=== PATIENT | female | born 2000 | race Caucasian/White ===

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

== ENCOUNTER 2022-12-02 14:23 | Emergency (ER) | payer OTHER, SELFPAY ==
[2022-12-02 14:24] VITALS: BP 128/70; PULSE 96; RESP 16; TEMP 36.6; O2SAT 100; BMI 27.4
--- NOTE | 2022-12-02 14:42 | US_ITS ---
INDICATION: pelvic pain EXAMINATION: Ultrasound US OB Transvaginal TECHNIQUE: Transvaginal (for optimal evaluation of the adnexa) pelvic ultrasound was performed. Grayscale, spectral waveform, and color flow Doppler evaluation of the adnexa. COMPARISON: None. LMP: [October 15, 2022 corresponding to an ION of July 22, 2023. Beta-hCG: Unknown FINDINGS: UTERUS: 10.6 x 5.3 x 7.9 cm. RIGHT OVARY: 2.8 x 2.0 x 3.1 cm. There appears to be a corpus luteal cyst within the right ovary. LEFT OVARY: 2.8 x 2.0 x 2.5 cm. Normal. FREE FLUID: None. INTRAUTERINE GESTATIONAL SAC(s) (size/shape): Single. The mean sac diameter measures 1.09 cm corresponding to gestational age of 5 weeks and 6 days. YOLK SAC: Identified POLE: Identified. The crown-rump length measures 0.41 cm corresponding to gestational age of 6 weeks and 2 days. ESTIMATED GESTATION AGE by ultrasound: 6 weeks and 2 days corresponding to an ION of July 27, 2023. HEART MOTION: 101 bpm. PLACENTA: Not visualized due to age. SUBCHORIONIC HEMORRHAGE: None. AMNIOTIC FLUID: Qualitatively normal. US/Transvaginal w/Preg US IMPRESSION: Single live intrauterine with an estimated gestational age by ultrasound of 6 weeks and 1 day. Electronically Signed: Kelly Hernandes MD at 16:04 [facility] ,
--- NOTE | 2022-12-02 14:45 | EDS_ITS ---
HPI <JAMES Whittington - Last Filed: 12/02/22 16:13> HPI - Female History of Present Illness Chief Complaint: Narrative Narrative: 22-year-old female with no stated medical history who is a 1 para 0 0 presents to the emergency department with pain to her right pelvis. Patient states that she is 7 weeks , she has not seen NEWS WIRE PHOTO OPERATOR yet at this time. Patient states that for the last 3 days, she had sharp shooting pain to her right pelvis. Patient is concerned. Denies any vaginal bleeding. She denies any fever or chills. Patient states she is nauseous however she believe this is normal. She also complains of intermittent headaches. She has not taken anything for headaches or pain. PFSH <JAMES Whittington - Last Filed: 12/02/22 16:13> PFS Medical History no medical history Home Medications cephalexin 500 mg capsule 500 mg PO BID #10 caps 12/02/22 [Rx Last Taken Unknown] Allergy/AdvReac Type Severity Reaction Status Date / Time amoxicillin AdvReac PT UNSURE Verified 12/02/22 14:27 OF REACTION Family History no significant family his Surgical History no surgical history Social History Smoking Status: Never smoker ROS <JAMES Whittington - Last Filed: 12/02/22 16:13> ROS ED ROS Narrative Constitutional: Negative for fever, chills, weight loss, weakness Eyes: Negative for vision loss, vision change, double vision ENT: Negative for any sore throat, ear pain, congestion Cardiovascular: Negative for any chest pain, tightness, palpitations Respiratory: Negative for any cough, sputum production, hemoptysis, dyspnea, dyspnea on exertion, orthopnea Gastrointestinal: Negative for any nausea, vomiting, diarrhea, constipation, blo od in stool, blood in vomit. Positive for lower abdominal pain, pelvic pain : Negative for any urinary frequency, dysuria, retention, blood in urine Muscle skeletal: Negative for any muscle joint pain, stiffness, myalgias, arthralgias, neck pain, back pain Neurological: Negative for any headache, syncope, numbness or tingling, dizziness Skin: Negative for any rashes, lumps, itching, abrasions, lacerations Psychiatric: Negative for any depression, anxiety, stress, suicidal ideation, homicidal ideation Hematologic: Negative for any easy bruising, excessive bruising, easy bleeding Allergies: Negative for any eczema, hives, rash EXAM <JAMES Whittington - Last Filed: 12/02/22 16:13> Physical Exam Narrative Exam Narrative: Vital signs reviewed. Patient appears to be in no distress. HEET: Head normocephalic atraumatic, TMs clear bilaterally. Posterior pharynx is clear, moist mucous membranes. Nares clear bilaterally. Neck: Supple with no lymphadenopathy or tenderness. No signs of meningismus, negative jolt sign. Cardiac: Regular rate and rhythm no murmurs gallops or rubs, equal peripheral pulses bilaterally. Respiratory: Lungs clear to auscultation bilaterally. No chest tenderness. Abdomen: Soft, nontender, nondistended. No abdominal bruit or pulsatile masses. No hepatosplenomegaly Extremities: No peripheral edema, no signs of gross trauma or deformity. Active full range of motion of all extremities. Neuro: Cranial nerves II through XII intact, no focal neurological deficits. Skin: Clean dry and intact with no rash, purpura, petechiae, vesicles or pustules. Backs/flank: No CVA tenderness, no midline spinal tenderness, no deformity. Psych: Normal mood and affect. No SI, HI or acute psychosis. Const Vital Signs: 12/02/22 14:24 Temperature 98 F Temperature Source Temporal Pulse Rate 96 Respiratory Rate 16 Blood Pressure 128/70 H Blood Pressure Mean 89 Pulse Ox 100 Oxygen Delivery Method Room Air <Dr. Fili Stratton DO - Last Filed: 12/02/22 21:17> Physical Exam Const Vital Signs: 12/02/22 14:24 Temperature 98 F Temperature Source Temporal Pulse Rate 96 Respiratory Rate 16 Blood Pressure 128/70 H Blood Pressure Mean 89 Pulse Ox 100 Oxygen Delivery Method Room Air [facility] <JAMES Whittington - Last Filed: 12/02/22 16:13> [facility] Lab Data Labs: Laboratory Results - last 24 hr 12/02/22 12/02/22 12/02/22 14:45 14:45 14:45 WBC 9.2 RBC 4.36 Hgb 12.9 Hct 38.9 MCV 89.2 MCH 29.6 MCHC 33.2 RDW Std Deviation 40.0 RDW Coeff of Samira 12.1 Plt Count 300 MPV 9.5 Immature Gran % (Auto) 0.200 Neut % (Auto) 66.0 Lymph % (Auto) 25.7 [place] % (Auto) 5.8 Eos % (Auto) 1.6 Baso % (Auto) 0.7 Absolute Neuts (auto) 6.1 Absolute Lymphs (auto) 2.36 Nucleated RBC % 0 HCG, Quant 87093 H Urine Color Yellow Urine Clarity Clear Urine pH 6.5 Ur Specific [place] 1.010 Urine Protein Negative Urine Glucose (UA) Normal Urine Ketones Negative Urine Occult Blood Negative Urine Nitrite Negative Urine Bilirubin Negative Urine Urobilinogen Normal Ur Leukocyte Esterase 25 H Urine RBC 0 SEEN Urine WBC 0 SEEN Ur Squamous Epith Cells 0-5 SEEN Urine Bacteria RARE Urine Mucus 0 SEEN Radiography Diagnostic Testing: Clinical Impression(s) from Imaging Studies Obstetrics Ultrasound 12/02/22 14:42 IMPRESSION: Single live intrauterine with an estimated gestational age by ultrasound of 6 weeks and 1 day. Electronically Signed: Kelly Hernandes MD at 16:04 EST , Treatment and Re-Evaluation Narrative: All radiologic examinations were read, reviewed by the emergency department attending. From these reads, a plan of care will be put in place. Patient appears generally well, patient is in no distress. Patient presents the emergency department with right-sided pelvic pain has been getting worse today, patient is concerned secondary to the . Patient believes she is close to around 7 weeks. She has not seen NEWS WIRE PHOTO OPERATOR yet. Patient did receive laboratory values, patient CBC was unremarkable, patient's hCG quantitative was 17,028, is within normal limits. Patient's urinalysis did show rare bacteria, positive for leukocyte Estrace, patient be treated with Keflex. She will be placed on this twice a day for 5 days. She did receive a transvaginal ultrasound, this did show a single live intrauterine with estimated gestational age of 6 weeks and 1 day. It did note that the patient's fetus heart rate was 99, the patient was made aware of this and will follow-up with her NEWS WIRE PHOTO OPERATOR. At this time, patient looks generally well. I did speak with her significant other who is in the room with her. Patient was given return precautions. She will follow-up closely with her NEWS WIRE PHOTO OPERATOR. <Dr. Fili Stratton, DO - Last Filed: 12/02/22 21:17> MDM MDM Narrative Medical decision making narrative: Interventions / MDM: Differential diagnosis:Pelvic pain in , ectopic , threatened AB Diagnosis considered but do not suspect: N/A My EKG interpretation: N/A Imaging independently reviewed and interpreted by myself: N/A External documents reviewed: N/A Test considered but not ordered:N/A ED course: Attending note: Patient seen and evaluated with director of plant operations. I perform my own [id number] evaluation. I agree with the plan of work-up. Lower pelvic cramping for the past week. Home +2 weeks ago. Last menstrual period approximately 6 weeks ago. Has an OB appointment in 4 days. States slight burning of urine today. No fevers. Denies alcohol tobacco or illicit drug use. She is on vitamins. Exam soft abdomen. Work-up hCG 1700. Ultrasound 6 weeks 1 day heart tones 101. Urine with leukocytes, she symptomatic. Culture sent. She started on Keflex. Pelvic rest discussed. Follow-up with her OB. Return precautions. Re-evaluation: stable Disposition discussed with patient/family/significant other: Patient and significant other Case discussed with consulting clinician: N/A Lab Data Attestation: I reviewed the patient's lab results. Labs: Laboratory Results - last 24 hr 12/02/22 12/02/22 12/02/22 14:45 14:45 14:45 WBC 9.2 RBC 4.36 Hgb 12.9 Hct 38.9 MCV 89.2 MCH 29.6 MCHC 33.2 RDW Std Deviation 40.0 RDW Coeff of Samira 12.1 Plt Count 300 MPV 9.5 Immature Gran % (Auto) 0.200 Neut % (Auto) 66.0 Lymph % (Auto) 25.7 [place] % (Auto) 5.8 Eos % (Auto) 1.6 Baso % (Auto) 0.7 Absolute Neuts (auto) 6.1 Absolute Lymphs (auto) 2.36 Nucleated RBC % 0 HCG, Quant 34711 H Urine Color Yellow Urine Clarity Clear Urine pH 6.5 Ur Specific [place] 1.010 Urine Protein Negative Urine Glucose (UA) Normal Urine Ketones Negative Urine Occult Blood Negative Urine Nitrite Negative Urine Bilirubin Negative Urine Urobilinogen Normal Ur Leukocyte Esterase 25 H Urine RBC 0 SEEN Urine WBC 0 SEEN Ur Squamous Epith Cells 0-5 SEEN Urine Bacteria RARE Urine Mucus 0 SEEN Radiography Diagnostic Testing: Clinical Impression(s) from Imaging Studies Obstetrics Ultrasound 12/02/22 14:42 IMPRESSION: Single live intrauterine with an estimated gestational age by ultrasound of 6 weeks and 1 day. Electronically Signed: Kelly Hernandes MD at 16:04 EST , Discharge Plan Triage Chief Complaint: ED Midlevel Provider: Aldo Baptiste ED Provider: Fili Stratton Dx/Rx/DC Orders Clinical Impression: Pelvic pain, , UTI (urinary tract infection) Instructions: Urinary Tract Infections in Women, 1st Trimester, ED Pelvic Pain, Unknown Cause Prescriptions: New cephalexin 500 mg capsule 500 mg PO BID Qty: 10 0RF Primary Care Provider: Lyla Enriquez Referrals: [facility] Doctor,Out of [Non-Staff] - Activity Restrictions/Additional Instructions: Follow-up with your NEWS WIRE PHOTO OPERATOR Disposition Disposition: Home, Self Care Discharge Date/Time: 12/02/22 16:19
[2022-12-02 14:54] LABS: Mucous, Urine 0 SEEN /hpf (<or=2+); Red Blood Cells-Urine 0 SEEN /hpf (0-5); White Blood Cells 0 SEEN /hpf (0-5)
[2022-12-02 15:01] LABS: Absolute Lymphocyte Count 2.36 X10^3/uL (0.83-4.51); Absolute Neutrophil Count 6.1 X10^3/uL (2.0-7.7); Basophil# 0.06 X10^3/uL; Basophil% 0.7 % (0-1); Eosinophil# 0.15 X10^3/uL; Eosinophils% 1.6 % (0-5); Hematocrit 38.9 % (37-47); Hemoglobin 12.9 g/dL (12.0-15.0); Lymphocyte # 2.36 X10^3/ul (0.83-4.51); Lymphocyte % 25.7 % (19-41); Mean Corp Hgb Conc 33.2 g/dL (32-36); Mean Corpuscular Hgb 29.6 pg (27.0-32.0); Mean Corpuscular Volume 89.2 fL (81-99); Mean Platelet Vol. 9.5 fl (6.2-12.0); Monocyte# 0.53 X10^3/uL; Monocyte% 5.8 % (0-10); NRBC Flagged by Analyzer 0 % (0-5); Neutrophil # 6.06 X10^3/uL (2.7-7.7); Platelet Count 300 K/mm3 (150-450); RBC Distribution Width CV 12.1 % (11.6-14.6); Red Blood Count 4.36 M/mm3 (4.2-5.4); White Blood Count 9.2 K/mm3 (4.4-11.0)
[2022-12-02 15:03] LABS: Color, Urine Yellow (Yellow); Glucose, Dipstick Normal (Normal); Ketone-Dipstick Negative (Negative); Leukocyte Esterase-Dipstick 25 /ul (Negative); Nitrite-Dipstick Negative (Negative); Occult Blood-Urine Negative /ul (Negative); Protein-Dipstick Negative (Negative); Urine Bilirubin Dipstick Negative (Negative); Urine Clarity Clear (Clear); Urine Urobilinogen Normal (Normal); Urine pH 6.5 (5.0 - 8.0)
[2022-12-02 15:19] LABS: Bacteria RARE /hpf (None Seen); Squamous Epithelial Cells - UA 0-5 SEEN /hpf (5-10)
[2022-12-02 15:50] LABS: hCG Titer Quant., Serum 17028 mIU/mL (1-3)
[2022-12-02] MEDS: Cephalexin 250 MG Capsule 500 MG PO (15:58)
== END 2022-12-02 16:19 | disposition home or self-care (01) ==
PROVIDERS: Nurse Practitioner; Emergency Provider Emergency Medicine; PCP Internal Medicine; Visit Provider Emergency Medicine
DX: O26.891 Other specified pregnancy related conditions, first trimester (principal); R10.2 Pelvic and perineal pain; O23.41 Unspecified infection of urinary tract in pregnancy, first trimester; Z3A.01 Less than 8 weeks gestation of pregnancy
CPT/HCPCS: 76817; 81001; 84702; 85025; 87086; 87088; 99283; A4216

== ENCOUNTER → 2022-12-05 | Outpatient (CLI) | payer OTHER, SELFPAY ==
[2022-12-05 17:02] LABS: Absolute Lymphocyte Count 2.77 X10^3/uL (0.83-4.51); Absolute Neutrophil Count 7.7 X10^3/uL (2.0-7.7); Basophil# 0.06 X10^3/uL; Basophil% 0.5 % (0-1); Eosinophil# 0.16 X10^3/uL; Eosinophils% 1.4 % (0-5); Hematocrit 40.1 % (37-47); Hemoglobin 13.1 g/dL (12.0-15.0); Lymphocyte # 2.77 X10^3/ul (0.83-4.51); Lymphocyte % 24.4 % (19-41); Mean Corp Hgb Conc 32.7 g/dL (32-36); Mean Corpuscular Hgb 29.6 pg (27.0-32.0); Mean Corpuscular Volume 90.7 fL (81-99); Mean Platelet Vol. 10.4 fl (6.2-12.0); Monocyte# 0.66 X10^3/uL; Monocyte% 5.8 % (0-10); NRBC Flagged by Analyzer 0 % (0-5); Neutrophil # 7.68 X10^3/uL (2.7-7.7); Neutrophil % 67.6 % (47-70); Platelet Count 342 K/mm3 (150-450); RBC Distribution Width CV 12.3 % (11.6-14.6); RBC Distribution Width SD 40.6 fl (35.1-43.9); Red Blood Count 4.42 M/mm3 (4.2-5.4); White Blood Count 11.4 K/mm3 (4.4-11.0)
[2022-12-05 21:19] LABS: HIV - WCH Non-Reactive (Nonreactive); Hepatitis B Surface Antigen Non-Reactive (Nonreactive); Hepatitis C Antibody Non-Reactive (Nonreactive); Rubella IgG Reactive (Nonreactive); Syphilis Antibodies Non-reactive
[2022-12-07 17:21] LABS: V-Zoster IgG (Immunity) 3635 index (Immune >165)
[2022-12-13 22:48] LABS: HPV Reflexed? NOT INDICATED
== END | disposition home or self-care (01) ==
LOC: WOBLAB 15:19
PROVIDERS: PCP Internal Medicine; Visit Provider Student in an Organized Health Care Education/Training Program
DX: Z34.90 Encounter for supervision of normal pregnancy, unspecified, unspecified trimester (principal)
CPT/HCPCS: 36415; 84439; 84443; 85025; 86703; 86762; 86780; 86787; 86803; 87086; 87340; 88175; G0145

== ENCOUNTER → 2023-01-01 | Outpatient (CLI) | payer OTHER, SELFPAY | END | disposition home or self-care (01) | LOC: WOBLAB 10:25 | PROVIDERS: PCP Internal Medicine | DX: R30.0 Dysuria (principal) | CPT/HCPCS: 87077; 87086; 87088; 87186 ==

== ENCOUNTER 2023-02-19 04:34 | Emergency (ER) | payer OTHER, SELFPAY ==
[2023-02-19 04:34] VITALS: BP 116/62; PULSE 89; RESP 16; TEMP 36.2; O2SAT 99; BMI 31.4
--- NOTE | 2023-02-19 05:23 | EX.ED.DYSGE1 ---
HPI History of Present Illness Chief Complaint: Abd Pain Narrative Narrative: Patient is a G1, P0 female approximately 17 weeks . She states that she has been having some intermittent lower abdominal cramping. She states that there is no associated vaginal bleeding or discharge or dysuria. She denies any fevers chills vomiting diarrhea or flank pain. She states that she contact her OB secondary to the intermittent cramping and was told this is peripherally normal during but the patient was still concerned that something else was going on with the child and secondary to his comes in for evaluation. PFSH PFSH Home Medications NK 02/19/23 [History Last Taken Unknown] Allergy/AdvReac Type Severity Reaction Status Date / Time amoxicillin AdvReac PT UNSURE Verified 02/19/23 04:36 OF REACTION Social History Smoking Status: Never smoker ROS ROS ED Constitutional Constitutional ED: Denies chills or fever(s) ENT ENT ED: Denies sore throat Cardiovascular Cardiovascular: Denies chest pain Respiratory/Chest Respiratory/Chest: Denies cough or dyspnea Gastrointestinal Gastrointestinal: Reports abdominal pain; Denies diarrhea, nausea or vomiting Genitourinary Genitourinary ED: Denies dysuria or hematuria Musculoskeletal Musculoskeletal: Denies back pain or myalgias Integumentary Denies rash Neurologic Neurologic: Denies headache(s) Hematologic/Lymphatic Hematologic/Lymphatic: Denies easy bleeding or easy bruising EXAM Physical Exam Const Vital Signs: 02/19/23 04:34 Temperature 97.1 F L Temperature Source Temporal Pulse Rate 89 Respiratory Rate 16 Blood Pressure 116/62 Blood Pressure Mean 80 Pulse Ox 99 Oxygen Delivery Method Room Air Positive well nourished and well developed General Appearance ED: well developed HEENT Reports moist mucous membranes HEENT Narrative: No signs of infection in the posterior pharynx Eyes PERRL and EOMs intact bilaterally General Eye ED: Negative for scleral icterus Neck supple Resp normal respiratory effort and clear to auscultation bilaterally Cardio regular rate and regular rhythm GI GI Narrative: Abdomen is gravid with fundus consistent with reported gestational age. There is no pain or guarding with palpation in the right lower quadrant suprapubic region or left lower quadrant but just mild generalized tenderness Auscultation: normoactive bowel sounds Narrative: Patient deferred Back/Spine no CVA tenderness Extremity normal to inspection Neuro oriented x3 and CN's II-XII intact bilaterally Sensorium / Orientation: alert Psych mental status grossly normal Skin no rashes or lesions noted General Skin Exam: Negative for jaundice MDM MDM MDM Narrative Medical decision making narrative: Patient presented to the ER with stable vitals and a soft nonsurgical abdomen with a fundus consistent with reported gestational age. Her exam does not suggest acute appendicitis pyelonephritis UTI placental abruption or rupture of membrane. I discussed with patient that her symptoms are very normal with this stage of and we discussed doing blood work and a urine sample but as I have low concern that there is any infectious process or derangement to her that these would be low yield. She states she does not want them performed based on my low clinical suspicion. I did perform a bedside ultrasound which showed a normal heart rate of 165 bpm and baby within the uterus with good movement. After seeing that her child is progressing appropriately patient states she feels comfortable going home we will follow-up on an outpatient basis with her HOSPICE CLINICAL MARKETER. History & Record Review Discussion w/independent historian: Patient and Significant other Discharge Plan Triage Chief Complaint: Abd Pain ED Provider: Alex Hong Dx/Rx/DC Orders Clinical Impression: Abdominal pain during in second trimester Instructions: Abdominal Pain, ED Abdominal Pain, Early Prescriptions: No Action NK Stand Alone Forms: ED Work / School Excuse Primary Care Provider: Lyla Enriquez Referrals: Luci Whitaker DO [Med Staff - Active Staff] - Lyla Enriquez DO [Primary Care Provider] - Activity Restrictions/Additional Instructions: Please follow-up with your HOSPICE CLINICAL MARKETER for repeat evaluation and return to the ER should you have any further concerns or worsening of symptoms Disposition Disposition: Home, Self Care Discharge Date/Time: 02/19/23 05:33
[2023-02-19 05:31] VITALS: BP 108/61; PULSE 66; RESP 16; O2SAT 97
== END 2023-02-19 05:33 | disposition home or self-care (01) ==
PROVIDERS: Emergency Provider Emergency Medicine; PCP Internal Medicine; Visit Provider Emergency Medicine
DX: O26.892 Other specified pregnancy related conditions, second trimester (principal); R10.84 Generalized abdominal pain; Z3A.17 17 weeks gestation of pregnancy
CPT/HCPCS: 99282

== ENCOUNTER → 2023-04-22 | Outpatient (CLI) | payer OTHER, SELFPAY ==
[2023-04-22 15:10] LABS: Glucose Challenge Gest 1H 50g 126 mg/dL (70-140)
[2023-04-22 15:14] LABS: Absolute Lymphocyte Count 1.83 X10^3/uL (0.83-4.51); Absolute Neutrophil Count 9.3 X10^3/uL (2.0-7.7); Basophil# 0.04 X10^3/uL; Basophil% 0.3 % (0-1); Eosinophil# 0.08 X10^3/uL; Eosinophils% 0.7 % (0-5); Hematocrit 30.7 % (37-47); Hemoglobin 10.1 g/dL (12.0-15.0); Lymphocyte # 1.83 X10^3/ul (0.83-4.51); Lymphocyte % 15.3 % (19-41); Mean Corp Hgb Conc 32.9 g/dL (32-36); Mean Corpuscular Hgb 30.5 pg (27.0-32.0); Mean Corpuscular Volume 92.7 fL (81-99); Mean Platelet Vol. 10.7 fl (6.2-12.0); Monocyte# 0.55 X10^3/uL; Monocyte% 4.6 % (0-10); NRBC Flagged by Analyzer 0 % (0-5); Neutrophil # 9.28 X10^3/uL (2.7-7.7); Neutrophil % 77.4 % (47-70); Platelet Count 276 K/mm3 (150-450); RBC Distribution Width CV 12.9 % (11.6-14.6); RBC Distribution Width SD 43.4 fl (35.1-43.9); Red Blood Count 3.31 M/mm3 (4.2-5.4)
[2023-04-22 15:34] LABS: Syphilis Antibodies Non-reactive
== END | disposition home or self-care (01) ==
LOC: WOBLAB 14:17
PROVIDERS: PCP Internal Medicine; Visit Provider Student in an Organized Health Care Education/Training Program
DX: Z34.82 Encounter for supervision of other normal pregnancy, second trimester (principal)
CPT/HCPCS: 36415; 82950; 85025; 86780

== ENCOUNTER → 2023-05-14 | Outpatient (CLI) | payer OTHER, SELFPAY ==
[2023-05-14 16:30] LABS: ALB/GLOB Ratio 0.6 RATIO (0.9-2.4); AST(SGOT) 39 U/L (15-37); Alanine Aminotransfer ALT/SGPT 90 U/L (13-56); Albumin, Serum 2.9 g/dL (3.2-5.0); Alkaline Phosphatase 191 U/L (45-117); Anion Gap 5 (5-15); BUN 6 mg/dL (7-18); BUN/Creat Ratio 11.4 RATIO (10-20); Calcium,Total 8.9 mg/dL (8.5-10.1); Chloride 106 mmol/L (98-107); Creatinine, Serum 0.52 mg/dL (0.55-1.02); EST Glomerular Filtration Rate 152 mL/min (>60); Est Glom Filt Rate - Afr Amer 184 mL/min (>60); Globulin 4.7 g/dL (2.2-4.2); Glucose 95 mg/dL (74-106); Potassium 3.3 mmol/L (3.5-5.1); Protein, Total 7.6 g/dL (6.4-8.2); Sodium Level 138 mmol/L (136-145)
== END | disposition home or self-care (01) ==
PROVIDERS: PCP Internal Medicine; Visit Provider Student in an Organized Health Care Education/Training Program
DX: L29.9 Pruritus, unspecified (principal)
CPT/HCPCS: 36415; 80053

== ENCOUNTER → 2023-05-20 | Outpatient (CLI) | payer OTHER, SELFPAY ==
[2023-05-20 17:43] LABS: ALB/GLOB Ratio 0.6 RATIO (0.9-2.4); AST(SGOT) 51 U/L (15-37); Alanine Aminotransfer ALT/SGPT 132 U/L (13-56); Albumin, Serum 2.8 g/dL (3.2-5.0); Alkaline Phosphatase 207 U/L (45-117); Anion Gap 6 (5-15); BUN 4 mg/dL (7-18); BUN/Creat Ratio 7.9 RATIO (10-20); Chloride 106 mmol/L (98-107); Creatinine, Serum 0.51 mg/dL (0.55-1.02); EST Glomerular Filtration Rate 158 mL/min (>60); Est Glom Filt Rate - Afr Amer 191 mL/min (>60); Globulin 4.7 g/dL (2.2-4.2); Glucose 90 mg/dL (74-106); Potassium 3.5 mmol/L (3.5-5.1); Protein, Total 7.5 g/dL (6.4-8.2); Sodium Level 137 mmol/L (136-145)
[2023-05-20 18:22] LABS: Hepatitis B Surface Antigen Non-Reactive (Nonreactive)
[2023-05-22 05:07] LABS: HEPATITIS B SURFACE AG Negative (Negative); Hep C Antibodies Non Reactive (Non Reactive); Hepatitis A AB, Total Negative (Negative); Hepatitis A IgM Antibody Negative (Negative); Hepatitis B Core AB IgM Negative (Negative)
== END | disposition home or self-care (01) ==
PROVIDERS: PCP Internal Medicine; Visit Provider Student in an Organized Health Care Education/Training Program
DX: O26.613 Liver and biliary tract disorders in pregnancy, third trimester (principal); Z3A.00 Weeks of gestation of pregnancy not specified
CPT/HCPCS: 36415; 80053; 80074; 86708; 87086; 87340

== ENCOUNTER 2025-05-02 23:39 | Emergency (ER) | payer OTHER, SELFPAY ==
[2025-05-02 23:40] VITALS: BP 117/75; PULSE 91; RESP 16; TEMP 36.6; O2SAT 98; BMI 31.5
[2025-05-03 00:14] LABS: Red Blood Cells-Urine 0 SEEN /hpf (0-5)
[2025-05-03 00:21] LABS: Color, Urine Yellow (Yellow); Glucose, Dipstick Normal (Normal); Hematocrit 32.2 % (37-47); Hemoglobin 11.3 g/dL (12.0-15.0); Immature Granulocytes Count 0.090 X10^3/uL (0.0-0.0); Ketone-Dipstick 5 mg/dl (Negative); Leukocyte Esterase-Dipstick 25 /ul (Negative); Mean Corp Hgb Conc 35.1 g/dL (32-36); Mean Corpuscular Volume 87.3 fL (81-99); Mean Platelet Vol. 9.8 fl (6.2-12.0); NRBC Flagged by Analyzer 0 % (0-5); Nitrite-Dipstick Negative (Negative); Occult Blood-Urine Negative /ul (Negative); Platelet Count 287 K/mm3 (150-450); Protein-Dipstick 30 mg/dl (Negative); RBC Distribution Width CV 13.9 % (11.6-14.6); RBC Distribution Width SD 43.4 fl (35.1-43.9); Red Blood Count 3.69 M/mm3 (4.2-5.4); Specific Gravity, Urine 1.025 (1.002-1.030); Urine Bilirubin Dipstick Negative (Negative); White Blood Count 15.4 K/mm3 (4.4-11.0)
[2025-05-03 00:36] LABS: Internal QC Validated? YES +Cl - CLEAR BKGD; Record Kit Lot#, Serum Preg. 0000962302
[2025-05-03 00:37] LABS: Pregnancy, Serum, hCG Quali. POSITIVE Negative
[2025-05-03 00:42] LABS: Mucous, Urine 1+ /hpf (<or=2+); Squamous Epithelial Cells - UA > 100 SEEN /hpf (5-10); Transitional Epithelial - Ur 0-5 SEEN /hpf (0-5)
[2025-05-03 00:58] LABS: AST(SGOT) 17 U/L (<=31); Alanine Aminotransfer ALT/SGPT 11 U/L (<=34); Albumin, Serum 4.0 g/dL (3.5-5.0); Alkaline Phosphatase 98 U/L (35-104); Anion Gap 11 (5-15); BUN 7 mg/dL (4-19); BUN/Creat Ratio 12.6 RATIO (10-20); Calcium,Total 9.0 mg/dL (7.6-11.0); Carbon Dioxide 22.7 mmol/L (21.0-32.0); Chloride 101 mmol/L (98-108); Estimated Creatinine Clearance 150.10 ml/min (50-250); Globulin 3.0 g/dL (2.2-4.2); Glucose 94 mg/dL (70-99); Potassium 3.5 mmol/L (3.3-5.1)
[2025-05-03] MEDS: 0.9% Normal Saline (1000mL) 1,000 ML 999 ML IV (01:03)
[2025-05-03] MEDS: Acetaminophen 650 MG/20 ML UDC PO (01:03)
--- NOTE | 2025-05-03 01:18 | CT_ITS ---
PROCEDURE: ABDOMEN/PELVIS W IV CONT ONLY 05/03/2025 REASON FOR EXAM: ? APPENDICITIS TECHNIQUE: ABDOMEN/PELVIS W IV CONT ONLY Coronal and Sagittal reconstruction series were provided. CONTRAST: Isovue 370 VOLUME: 84 mL One or more dose reduction techniques were used (e.g., Automated exposure control, adjustment of the mA and/or kV according to patient size, use of iterative reconstruction technique. RADIATION DOSE SUMMARY: CTDlvol: 30 mGy DLP: 1035 mGycm COMPARISON: No FINDINGS: Dependent atelectasis. Normal heart size. Status post cholecystectomy upper abdominal solid organs show no acute findings. No hydronephrosis or ureteral stone. Normal bladder. Gravid uterus, single gestation. Normal ovaries. No retroperitoneal or pelvic adenopathy. No free air. Nondistended bowel. Normal appendix. No acute large bowel findings. No acute abdominal wall findings. CT/Abdomen/Pelvis W IV Cont ONLY IMPRESSION: Normal appendix. No acute findings. Reading Location: [place] [id number]
--- OUTSIDE RECORDS SUMMARY | 2025-05-03 01:22 | XMS RPT_ITS | CCD ---
Author Organization [facility] CliniSynh Care Team Providers Care Creative Services Intern Name Role Phone Tea Larios MD Unavailable Unavailable Tea Larios Unavailable Unavailable Oberhauser, Bertha L Unavailable [phone] Unavailable Unavailable Oberhauser, Bertha L Unavailable [phone] Yoshi Goldstein Unavailable Arie Gonzalez Unavailable Unavailable Ab Zelaya Unavailable Charly Villavicencio Unavailable Unavailable Oberhauser, Bertha L Primary Care Provider Oberhauser DO, Bertha L Primary Care Provider Oberhauser, Bertha Primary Care Unavailable Whitaker, Luci Attending Unavailable Oberhauser, Bertha Primary Care Unavailable DAMEON HAND Attending Unavailable Oberhauser, Bertha Primary Care Unavailable Whitaker, Luci Attending Unavailable Whitaker, Luci Attending Unavailable Oberhauser, Bertha Primary Care Unavailable Oberhauser, Bertha Primary Care Unavailable Fili Stratton Attending Unavailable Oberhauser, Bertha Primary Care Unavailable Alex Hong Attending Unavailable Whitaker, Luci Attending Unavailable Oberhauser, Bertha Primary Care Unavailable Oberhauser DO, Bertha L Primary Care Provider Aftab LOVEN.Etta PURDY Unavailable [phone] Oberhauser DO, Bertha L Unavailable [phone] Ken Rachel MD Primary Care Provider KEN RACHEL Attending Unavailable KEN RACHEL Primary Care Unavailable FURNKEN PERKINS Attending Unavailable FURNGREGORIO, KEN Head Primary Care Unavailable FURNESS, KEN Head Attending Unavailable FURNESS, KEN Head Primary Care Unavailable Ken Rachel MD Primary Care Provider [phone] KEN RACHEL Primary Care Unavailable SANDOR TRENT Admitting Unavailable SANDOR TRENT Attending Unavailable FURNKEN PERKINS Primary Care Unavailable ZHANNA GRIMM Admitting Unavailable ZHANNA GRIMM Attending Unavailable OBBERTHA SORENSEN Primary Care Unavailable OBBERTHA SORENSEN Primary Care Unavailable Sheets DO, Sabra C Primary Care Provider [phone] NO, PHYSICIAN Primary Care Unavailable YAHAIRA HENNING Attending Unavailable Heidi Quezada RD Unavailable KAYLA GOFF Attending Unava ilable NO, PHYSICIAN Primary Care Unavailable NO, PHYSICIAN Primary Care Unavailable KAYLA GOFF Attending Unava ilable KRISTINA CAMACHO Attending Unavailable NO, PHYSICIAN Primary Care Unavailable KAYLA GOFF Attending Unava ilable NO, PHYSICIAN Primary Care Unavailable Ken Rachel MD Primary Care Provider Ken Rachel MD Unavailable Ken Rachel MD Unavailable Unavailable Primary Care Provider Unavailabl e SHEETS, SABRA C Primary Care Unavailable OSVALDO VAZQUEZ Attending Unavailable ETHEL, KINGSTON Referring Unavailable SHEETS, SABRA C Primary Care Unavailable ETHEL, KINGSTON Attending Unavailable HEIDI QUEZADA Attending Unavailable ETHEL, KINGSTON Referring Unavailable SHEETS, SABRA C Primary Care Unavailable SELF Referring Unavailable ETHELMARISOLA Attending Unavailable SHEETS, SABRA C Primary Care Unavailable SHEETS, SABRA C Primary Care Unavailable HEIDI QUEZADA Attending Unavailable ETHEL, KINGSTON Attending Unavailable SHEETS, SABRA C Primary Care Unavailable SHEETS, SABRA C Primary Care Unavailable SANDOR TRENT Referring Unavailable ETHEL, KINGSTON Attending Unavailable ETHEL, KINGSTON Referring Unavailable SHEETS, SABRA C Primary Care Unavailable SHEETS, SABRA C Primary Care Unavailable ETHEL, KINGSTON Referring Unavailable Ken Rachel MD Unavailable [phone] Generic Provider MD, No Assigned Pcp Primary Car e Provider Unavailable KONTAROVICH, RIDDHI Referring Unavailable KONTAROVICH, RIDDHI Attending Unavailable KONTAROVICH, RIDDHI Referring Unavailable KONTAROVICH, RIDDHI Attending Unavailable KONTAROVICH, RIDDHI Referring Unavailable GONZALEZ PALOMINO Attending Unavailable SHEETS, SABRA C Primary Care Unavailable SHEETS, SABRA C Attending Unavailable KONTAROVICH, RIDDHI Referring Unavailable SHEETS, SABRA C Primary Care Unavailable KONTAROVICH, RIDDHI Referring Unavailable SHEETS, SABRA C Primary Care Unavailable SHEETS, SABRA C Primary Care Unavailable KONTAROVICH, RIDDHI Referring Unavailable SHEETS, SABRA C Primary Care Unavailable KINGSTON DAVENPORT Referring Unavailable ÁNGEL SERNA Attending Unavailable KONTAROVICH, RIDDHI Referring Unavailable KONTAROVICH, RIDDHI Referring Unavailable KEN RACHEL Primary Care Unavailable RYLIE WALSH Attending Unavailable KONTAROVICH, RIDDHI Primary Care Unavailable SUNNI RAMESH Attending Unavailable Allergies Allergy Classification Reported Allergen(s) Allergy Type Date of Onset Reaction(s) Facility Penicillins (antibiotic) (3 sources) Amoxicillin; Translations: [Amoxicillin TABS] Drug Allergy -[facility] Work Phone: (10 sources) Penicillin; Translations: [PENICILLIN] Drug Allergy 4 Unknown [facility] (20 sources) Amoxicillin; Translations: [Amoxicillin TABS] Drug Allergy 8 Other: See Comments, Other, Other (See Comments) [facility] (9 sources) Amoxicillin; Translations: [AMOXICILLIN] Drug Allergy 8 [facility] (20 sources) diphenhydrAMINE; Translations: [DIPHENHYDRAMINE] Drug Allergy 3 Other: See Comments, Other [facility] Work Phone: (18 sources) Wheat gluten extract; Translations: [GLUTEN] Drug Allergy 4 Other: See Comments, Other (See Comments), Other [facility] Work Phone: (4 sources) diphenhydrAMINE Drug Allergy 3 Other (See Comments) [facility] Medications Current Medications Medication Drug Class(es) Dates Sig (Normalized) Sig (Original) acetaminophen 325 mg / HYDROcodone bitartrate 5 mg oral tablet (1 source) Opioid Agonist Start: 01-13-2024 End: 01-20-2024 take 1 tablet by mouth every six hours for pain HYDROcodone-acetam inophen (Mathews) 5-325 mg tablet Indications: Lower abdominal pain Take 1 tablet by mouth every 6 hours if needed for severe pain (7 - 10) for up to 7 days. 20 tablet 0 01/13/2024 01/20/2024 Active azithromycin 40 mg/ml oral suspension (2 sources) Macrolide Antimicrobial Start: 12-08-2024 End: 12-13-2024 take 20 mL by mouth once daily azithromycin (Zithromax) 200 mg/5 mL suspension Indications: Non-recurrent acute suppurative otitis media of right ear without spontaneous rupture of tympanic membrane Take 20 mL (800 mg) by mouth once daily for 5 days. 105 mL 12/08/2024 12/13/2024 Active Start: 03-02-2022 take 2 tablets by mo uth once, then take 1 tablet by mouth once daily azithromycin 250 mg oral tablet ; Take 2 tabs (500mg) x 1 days, then 1 tab (250mg) once daily x 4 days Quantity: 6 Refills: 0 Ordered: 02-Mar-2022 Arie Gonzalez Start: 02-Mar-2022 Generic Substitution Allowed Comments: Do not take dairy products, antacids, or iron preparations within one hour of this medication.Finish all this medication unless otherwise directed by prescriber. Comment on above: Do not take dairy pr oducts, antacids, or iron preparations within one hour of this medication.Finish all this medication unless otherwise directed by prescriber. Blood Pressure Monitor (1 source) Start: 023 End: Blood Pressure Monitor Use as directed 1 Kit 0 07/16/2023 07/17/2023 Active Comment on above: Use as directed cephalexin 500 mg oral capsule (1 source) Cephalosporin Antibacterial Start: take 500 mg by mouth twice daily Cephalexin Active 500 MG PO TWICE A DAY December 02, 2022 12:00am ciprofloxacin 3 mg/ml / dexamethasone 1 mg/ml otic suspension (1 source) Corticosteroid, Quinolone Antimicrobial Start: 025 End: ciprofloxacin-dexame thasone (Ciprodex) otic suspension Indications: Acute swimmer's ear of right side Administer 4 drops into the right ear 2 times a day for 7 days. 7.5 mL 12/08/2024 12/15/2024 Active dicyclomine hydrochloride 20 mg I have reviewed and confirmed nurses/medics notes for patient past, social and family history. Portions of this note were dictated by speech recognition. An attempt at proof reading was made to minimize errors. Minor errors in polymer engineer may be present. HISTORY OF PRESENTING ILLNESS PETTY is a 21 year old Female and was seen by me at 23-Jun-2021 09:57 for a chief complaint of chest pain (midsternal x 3 days with radiation to back + sharp Intermittent + SOB with occurring CP + Lightheaded with standing per Pt + nausea Intermittent A&Ox4 No Resp. Distress upon arrival per AFD)(1). Triage Information: Most recent Vital Sign Value Date Heart Rate (beats/min): 92 06-23-2021 09:43 Respirations (breaths/min): 17 06-23-2021 09:43 SpO2 (%): 100 06-23-2021 09:43 BP Systolic (mm Hg): 111 06-23-2021 09:43 BP Diastolic (mm Hg): 63 06-23-2021 09:43 PAST MEDICAL HISTORY ATTESTATION: I have reviewed and confirmed nurse's/medic's notes for patient's medications, allergies, and medical, surgical, family and social history ALLERGIES/INTOLERANCES: Allergy Allergen: penicillin Type: Drug Reaction: Unknown HEALTH HISTORY: No documented data. OUTPATIENT MEDICATIONS: Home Medications Review Status for Reconciliation: N/A Med Status: N/A No documented data. SIGNIFICANT EVENTS: Past Medical History Description:Anxiety WANT AD SUPERVISOR: Is : no(1) Is : no(1) RESULTS/VITAL SIGNS RESULTS: Recent Lab Results: I have reviewed these laboratory results: Comprehensive Metabolic Panel 23-Jun-2021 10:08:00 ResultValue Glucose, Serum 85 NA 138 K 3.8 CL 106 Bicarbonate, Serum 25 Anion Gap, Serum 11 BUN 11 CREAT 0.88 GFR-Non >60 GFR- >60 Calcium, Serum 9.3 ALB 4.7 ALKP 62 T Pro 7.5 T Bili 0.4 Alanine Aminotransferase, Serum 10 Aspartate Transaminase, Serum 12 Complete Blood Count + Differential 23-Jun-2021 10:07:00 ResultValue White Blood Cell Count 7.3 Red Blood Cell Count 4.69 HGB 13.9 HCT 41.5 MCV 89 MCHC 33.4 PLT 300 RDW-CV 12.7 Neutrophil % 68.0 Lymphocyte % 25.7 Monocyte % 5.0 Eosinophil % 0.7 Basophil % 0.6 Neutrophil Count 4.90 Lymphocyte Count 1.90 Monocyte Count 0.40 Eosinophil Count 0.10 Basophil Count 0.00 Troponin I, Serum 23-Jun-2021 10:07:00 ResultValue Troponin I, Serum <0.02 D-Dimer, VTE Exclusion 23-Jun-2021 10:07:00 ResultValue D-Dimer, VTE Exclusion <215 HCG, Serum 23-Jun-2021 10:07:00 ResultValue HCG, Serum NEGATIVE Radiology Results: Impression: 1. No evidence of acute cardiopulmonary process. Xray Chest 1 View [Jun 23 2021 10:14AM] VITAL SIGNS: T PRBP SpO2O2(LPM) %FiO2 Method 23-Jun-2021 09:43:[id number] 100 room air, no respiratory support EKG INTERPRETATION #1: Impression: EKG performed at 937 shows sinus rhythm with a rate of 99. No ST elevation or depression. Normal intervals. Seen interpreted by Dr. Yoshi Duncan MEDICAL DECISION MAKING/ED COURSE MDM/ED COURSE: 1100-final results reviewed with patient and family. Work-up here has been unremarkable including a negative troponin negative D-dimer and a heart score of 0. Patient has had ongoing pain for 3 days so no repeat troponin was needed at this time. Chest x-ray also unremarkable. Patient discharged home as noted below and comfortable with plan. Your chest x-ray, EKG, a (more content not included)... Normal [facility] Radiologyon 06-23-2021 XR Chest Single view Normal MP-U H [facility] Work Phone: TROPONIN Ion 06-23-2021 Troponin I.cardiac [Mass/Vol] ng/mL Normal 0.00 - 0.03 [facility] Comment on above: Result Comment: LESS THAN 0.04 NG/ML: NEGATIVE REPEAT TESTING IN THREE TO SIX HOURS IF CLINICALLY INDICATED. 0.04 - 0.5 NG/ML: CONSISTENT WITH POSSIBLE CARDIAC DAMAGE AND POSSIBLE INCREASED CLINICAL RISK. SERIAL MEASUREMENTS MAY HELP ASSESS EXTENT OF MYOCARDIAL DAMAGE. >0.5 NG/ML: CONSISTENT WITH CARDIAC DAMAGE, INCREASED CLINICAL RISK AND MYOCARDIAL INFARCTION. SERIAL MEASUREMENTS MAY HELP ASSESS EXTENT OF MYOCARDIAL DAMAGE. . Note: Troponin I testing is performed using different testing methodology at [facility] than at other [facility]. Direct result comparisons should only be made within the same method. Performed By: #### T ROP2 #### [facility] [address] [place] [address] Triage - EDon 06-23-2021 Triage - ED Quick Triage: Are You no Are You Currently Breastfeedingno Chart Review: ARRIVAL INFORMATION Mode of Arrival: ambulance Agency Name: [facility] CHIEF COMPLAINT PETTY YOU is a Female patient with a chief complaint of chest pain (midsternal x 3 days with radiation to back + sharp Intermittent + SOB with occurring CP + Lightheaded with standing per Pt + nausea Intermittent A&Ox4 No Resp. Distress upon arrival per AFD). Triage Date/Time: 23-Jun-2021 09:43 RACH: 2 Pain Rating (0-10): 8 = Severe Vital Signs: Blood Pressure: 111/63 Mean: Heart Rate: 92 Respiratory Rate: 17 Pulse Oximetry: 100% on room air, no respiratory support. Height: 5 feet 2 inches. 157.4 CM Weight: 144.1 pounds. Calculated 65.4 kg. (stated) Calculated BMI (kg/m2): 26.397 Calculated BSA (m2) 1.69 Squire Coma Scale: Best Eye Response: (E4) spontaneous Best Motor Response: (M6) obeys commands Best Verbal Response: (V5) oriented Francisco Score: 15 Cough lasting greater than 3 weeks: no Allergies: yes Last menstrual period: 01-Jun-2021 Patient has homicidal thoughts: no Symptoms Are POSITIVE For: dyspnea, nausea and pain Symptoms Are Negative For: anxiety, chills, diaphoresis, headache, loss of consciousness, numbness, tingling and weakness Risk Screens Suicide Risk Screen In the Past Month: Have you wished you were or wished you could go to sleep and not wake up no In the Past Month: Have you had any actual thoughts of killing yourself no In Your Lifetime: Have you ever done anything, started to do anything, or prepared to do anything to end your life no Rae Fall Scale Screening Has the patient fallen before (or is the patient in the ED as a result of a fall) has not had a fall Does the patient have an impaired gait does not have impaired gait Is the patient cognitively impaired not cognitively impaired Interventions: Rae Fall Interventions: LOW INTERVENTIONS: *patient oriented to surroundings and call system, * patient/family falls education completed and documented, *patients fall status communicated during bedside handoff, *whiteboard updated, *mode of toileting discussed with patient, *bed in low position with brakes locked, *call light in reach, * non-skid footwear TRAVEL HISTORY Travel History Coronavirus Screening: no exposure or symptoms Travel Exposure History: NO travel to International locations in the past 30 days PAIN Pain Scale Used: KRZYSZTOF Pain Rating (0-10): 8 = Severe Past Medical History: Past Medical History Reviewedyes Anxiety: Past Medical History, Active Electronic Signatures: Mildred Hunt (N MGR) (Signed 23-Jun-2021 09:50) Authored: Quick Triage, Risk Screens, Pain, Travel History, Chart Review, Scores, Past Medical History Last Updated: 23-Jun-2021 09:50 by Mildred Hunt (N MGR) [facility] Troponin I, Serumon 06-23-20 21 Troponin I.cardiac [Mass/Vol] ng/mL See Below [facility] Work Phone: Comment on above: Reference Range: 0.0 0 - 0.03LESS THAN 0.04 NG/ML: NEGATIVEREPEAT TESTING IN THREE TO SIX HOURSIF CLINICALLY INDICATED.0.04 - 0.5 NG/ML: CONSISTENT WITH POSSIBLECARDIAC DAMAGE AND POSSIBLE INCREASEDCLINICAL RISK.SERIAL MEASUREMENTS MAY HELP ASSESS EXTENT OFMYOCARDIAL DAMAGE.>0.5 NG/ML: CONSISTENT WITH CARDIAC DAMAGE,INCREASED CLINICAL RISK AND MYOCARDIALINFARCTION. SERIAL MEASUREMENTS MAY HELPASSESS EXTENT OF MYOCARDIAL DAMAGE..Note: Troponin I testing is performed using different testing methodology at [facility] than at other [facility]. Direct result comparisons should only be made within the same method. Blood Pressure Cuff Sizeon 0 05-25-2021 Fall risk assessment a) No falls within the last year [facility] Work Phone: Tobacco use status [facility] b) No [facility] Work Phone: Blood Pressure Cuff Size Adult [facility] Work Phone: CBC AND DIFFERENTIALon 04-20 Basophils (Bld) [#/Vol] 0.10 10*3/uL Normal 0.00 - 0.10 [facility] Comment on above: Performed By: #### C BCDF #### [address] [address] Basophils/100 WBC (Bld) 0.8 % Normal 0.0 - 2.0 [facility] Comment on above: Performed By: #### C BCDF #### [address] [address] Eosinophils (Bld) [#/Vol] 0.10 10*3/uL Normal 0.00 - 0.70 [facility] Comment on above: Performed By: #### C BCDF #### [address] [address] Eosinophils/100 WBC (Bld) 1.0 % Normal 0.0 - 6.0 [facility] Comment on above: Performed By: #### C BCDF #### [address] [address] Erythrocyte distribution width (RBC) [Ratio] 12.9 % Normal 11.5 - 14.5 [facility] Comment on above: Performed By: #### C BCDF #### [address] [address] Hematocrit (Bld) [Volume fraction] 40.9 % Normal 36.0 - 46.0 [facility] Comment on above: Performed By: #### C BCDF #### [address] [address] Hemoglobin (Bld) [Mass/Vol] 13.4 g/dL Normal 12.0 - 16.0 [facility] Comment on above: Performed By: #### C BCDF #### [address] [address] Lymphocytes (Bld) [#/Vol] 2.80 10*3/uL Normal 1.20 - 4.80 [facility] Comment on above: Performed By: #### C BCDF #### [address] [address] Lymphocytes/100 WBC (Bld) 26.1 % Normal 13.0 - 44.0 [facility] Comment on above: Performed By: #### C BCDF #### [address] [address] MCHC (RBC) [Mass/Vol] 32.8 g/dL Normal 32.0 - 36.0 [facility] Comment on above: Performed By: #### C BCDF #### [address] [address] MCV (RBC) [Entitic vol] 90 fL Normal 80 - 100 [facility] Comment on above: Performed By: #### C BCDF #### [address] [address] Monocytes (Bld) [#/Vol] 0.70 10*3/uL Normal 0.10 - 1.00 [facility] Comment on above: Performed By: #### C BCDF #### [address] [address] Monocytes/100 WBC (Bld) 6.1 % Normal 2.0 - 10.0 [facility] Comment on above: Performed By: #### C BCDF #### [address] [address] Neutrophils (Bld) [#/Vol] 7.10 10*3/uL Normal 1.20 - 7.70 [facility] Comment on above: Result Comment: Perc ent differential counts (%) should be interpreted in the context of the absolute cell counts (cells/L). Performed By: #### C BCDF #### [address] [address] Neutrophils/100 WBC (Bld) 66.0 % Normal 40.0 - 80.0 [facility] Comment on above: Performed By: #### C BCDF #### [address] [address] NUCLEATED RBC 0.1 /100 WBC Normal [facility] Comment on above: Performed By: #### C BCDF #### [address] [address] Platelets (Bld) [#/Vol] 331 10*3/uL Normal 150 - 450 [facility] Comment on above: Performed By: #### C BCDF #### [address] [address] RBC 4.57 x10E12/L Normal 4.00 - 5.20 [facility] Comment on above: Performed By: #### C BCDF #### [address] [address] WBC (Bld) [#/Vol] 10.8 10*3/uL Normal 4.4 - 11.3 [facility] Comment on above: Performed By: #### C BCDF #### [address] [address] Complete Blood Count + Diffe rentialon 04-20-2021 Basophils/100 WBC (Bld) 0.8 % 0.0 - 2.0 [facility] Work Phone: Erythrocyte distribution width (RBC) [Ratio] 12.9 % See Below [facility] Work Phone: Comment on above: Reference Range: 11. 5 - 14.5 Hematocrit (Bld) [Volume fraction] 40.9 % See Below [facility] Work Phone: Comment on above: Reference Range: 36. 0 - 46.0 Hemoglobin (Bld) [Mass/Vol] 13.4 g/dL See Below [facility] Work Phone: Comment on above: Reference Range: 12. 0 - 16.0 Lymphocytes/100 WBC (Bld) 26.1 % See Below [facility] Work Phone: Comment on above: Reference Range: 13. 0 - 44.0 MCHC (RBC) [Mass/Vol] 32.8 g/dL See Below [facility] Work Phone: Comment on above: Reference Range: 32. 0 - 36.0 MCV (RBC) [Entitic vol] 90 fL 80 - 100 [facility] Work Phone: Monocytes/100 WBC (Bld) 6.1 % 2.0 - 10.0 [facility] Work Phone: Neutrophils/100 WBC (Bld) 66.0 % See Below [facility] Work Phone: Comment on above: Reference Range: 40. 0 - 80.0 Platelets (Bld) [#/Vol] 331 10*3/uL 150 - 450 [facility] Work Phone: RBC (Bld) [#/Vol] 4.57 {x10E12/L} See Below [facility] Work Phone: Comment on above: Reference Range: 4.0 0 - 5.20 WBC (Bld) [#/Vol] 10.8 10*3/uL 4.4 - 11.3 [facility] Work Phone: Complete Blood Count + Differential 0.10 {x10E9/L} See Below [facility] Work Phone: Comment on above: Reference Range: 0.0 0 - 0.10 Reference Range: 0.0 0 - 0.70 Complete Blood Count + Differential 0.70 {x10E9/L} See Below [facility] Work Phone: Comment on above: Reference Range: 0.1 0 - 1.00 Complete Blood Count + Differential 2.80 {x10E9/L} See Below [facility] Work Phone: Comment on above: Reference Range: 1.2 0 - 4.80 Complete Blood Count + Differential 7.10 {x10E9/L} See Below [facility] Work Phone: Comment on above: Reference Range: 1.2 0 - 7.70 Percent differential counts (%) should be interpreted in the context of the absolute cell counts (cells/L). Complete Blood Count + Differential 1.0 % 0.0 - 6.0 [facility] Work Phone: Complete Blood Count + Differential 0.1 {/100_WBC} [facility] Work Phone: IRON + TIBCon 04-20-2021 % SATURATION 20 % Low 25 - 45 [facility] Comment on above: Performed By: #### I RONT #### [address] [address] Iron [Mass/Vol] 79 ug/dL Normal 35 - 150 [facility] Comment on above: Performed By: #### I RONT #### [address] [address] TIBC 390 ug/dL Normal 240 - 445 [facility] Comment on above: Performed By: #### I RONT #### [address] [address] Laboratory - Chemistry and C hemistry - challengeon 04-20-2021 Iron [Mass/Vol] 79 ug/dL 35 - 150 [facility] Work Phone: Iron binding capacity [Mass/Vol] 390 ug/dL 240 - 445 [facility] Work Phone: TSH Qn 2.51 m[IU]/L See Below [facility] Work Phone: Comment on above: Reference Range: 0.4 4 - 3.98 TSH testing is performed using different testing methodology at [facility] than at other [facility]. Direct result comparisons should only be made within the same method. No Panel Informationon 04-20 20 % below low threshold 25 - 45 [facility] Work Phone: TSH WITH REFLEX TO FREE T4 I F ABNORMALon 04-20-2021 TSH Qn 2.51 m[IU]/L Normal 0.44 - 3.98 [facility] Comment on above: Result Comment: TSH testing is performed using different testing methodology at [facility] than at other [facility]. Direct result comparisons should only be made within the same method. Performed By: #### T HYDS #### [address] [address] VITAMIN D, 25-HYDROXYon VITAMIN D, 25-HYDROXY 35 ng/mL Normal [facility] Comment on above: Result Comment: . DEFICIENCY: < 20 NG/ML INSUFFICIENCY: 20-29 NG/ML SUFFICIENCY: 30-100 NG/ML THIS ASSAY ACCURATELY QUANTIFIES THE SUM OF VITAMIN D3, 25-HYDROXY AND VIT D2,25-HYDROXY. Performed By: #### V TDOH #### [address] [address] Vitamin D 25-Hydroxyon 04-20 25-hydroxyvitamin D3 [Mass/Vol] 35 ng/mL [facility] Work Phone: Comment on above: .DEFICIENCY: < 20 NG /MLINSUFFICIENCY: 20-29 NG/MLSUFFICIENCY: 30-100 NG/MLTHIS ASSAY ACCURATELY QUANTIFIES THE SUM OFVITAMIN D3, 25-HYDROXY AND VIT D2,25-HYDROXY. Blood Pressure Cuff Sizeon 0 04-19-2021 Fall risk assessment a) No falls within the last year [facility] Care Work Phone: Tobacco use status [facility] b) No [facility] Work Phone: Blood Pressure Cuff Size Adult [facility] Work Phone: Vital Signs Date Time Vital Sign Value Performing Clinician Facility 03-10-2025 11:23-0400 Diastolic blood pressure 73 mm[Hg] Gonzalez [employer] DO Work Phone: [facility] 03-10-2025 11:23-0400 Heart rate 73 /min [facility] 03-10-2025 11:23-0400 Respiratory rate 16 /min [facility] Work [facility] 03-10-2025 11:23-0400 SaO2% (BldA) [Mass fraction] 99 % Gonzalez Palomino DO Work Phone: [facility] 03-10-2025 11:23-0400 Systolic blood pressure 128 mm[Hg] Gonzalez Palomino DO Work Phone: [facility] [employer] 03-10-2025 09:36-0400 Body height 157.5 cm Gonzalez Palomino DO Work Phone: [facility] [employer] 03-10-2025 09:36-0400 Body mass index (BMI) [Ratio] 30.91 kg/m2 Gonzalez Palomino DO Work Phone: [facility] 03-10-2025 09:36-0400 Body temperature 97 [degF] Gonzalez Palomino DO Work Phone: [facility] [employer] 03-10-2025 09:36-0400 Body weight 76.66 kg Gonzalez Palomino DO Work Phone: [facility] [employer] 03-02-2025 19:30-0400 Diastolic blood pressure 65 mm[Hg] Ángel Serna DO Work Phone: [facility] 03-02-2025 19:30-0400 Heart rate 82 /min Ángel Serna DO Work Phone: [facility] 03-02-2025 19:30-0400 SaO2% (BldA) [Mass fraction] 100 % Ángel Serna DO Work Phone: [facility] 03-02-2025 19:30-0400 Systolic blood pressure 112 mm[Hg] Ángel Serna DO Work Phone: [facility] 03-02-2025 18:28-0400 Body height 157.5 cm Ángel Serna DO Work Phone: [facility] 03-02-2025 18:28-0400 Body mass index (BMI) [Ratio] 30.73 kg/m2 Ángel Serna DO Work Phone: [facility] 03-02-2025 18:28-0400 Body temperature 97 [degF] Ángel Serna DO Work Phone: [facility] 03-02-2025 18:28-0400 Body weight 76.2 kg Ángel Serna DO Work Phone: [facility] 03-02-2025 18:28-0400 Respiratory rate 18 /min Ángel Serna DO Work Phone: [facility] 01-12-2025 08:37-0400 Body mass index (BMI) [Ratio] 32.01 kg/m2 Heidi Quezada RD Work Phone: [facility] 01-12-2025 08:37-0400 Body weight 79.[address] Work Phone: [facility] 12-08-2024 17:48-0500 Body height 157.5 cm Rylie Walsh [employer] CUTTER Work Phone: [facility] 12-08-2024 17:48-0500 Body mass index (BMI) [Ratio] 32.01 kg/m2 Rylie Walsh REF[employer]ORY TILE HELPER-COPY CUTTER Work Phone: [facility] 12-08-2024 17:48-0500 Body temperature 97.7 [degF] Rylie Walsh REFRACTORY TILE HELPER-COPY CUTTER Work Phone: [facility] 12-08-2024 17:48-0500 Body weight 79.38 kg Rylie Walsh REFRACTORY TILE HELPER-COPY CUTTER Work Phone: [facility] 12-08-2024 17:48-0500 Diastolic blood pressure 78 mm[Hg] Rylie Walsh REFRA[employer]ORY TILE HELPER-COPY CUTTER Work Phone: [facility] 12-08-2024 17:48-0500 Heart rate 85 /min Rylie Walsh REFRACTORY TILE HELPER-COPY CUTTER Work Phone: [facility] 12-08-2024 17:48-0500 Respiratory rate 19 /min Rylie Walsh REFRACTORY TILE HELPER-COPY CUTTER Work Phone: [facility] 12-08-2024 17:48-0500 SaO2% (BldA) [Mass fraction] 98 % Rylie Walsh REFRACTORY TILE HELPER-COPY CUTTER Work Phone: [facility] 12-08-2024 17:48-0500 Systolic blood pressure 124 mm[Hg] Rylie Busbyey REFRACTORY TILE HELPER-COPY CUTTER Work Phone: [facility] 08-04-2024 13:30-0400 Diastolic blood pressure 65 mm[Hg] Nataly Winston MD Work Phone: [facility] 08-04-2024 13:30-0400 Heart rate 99 /min Nataly Winston MD Work Phone: [facility] 08-04-2024 13:30-0400 Respiratory rate 16 /min Nataly Winston MD Work Phone: [facility] 08-04-2024 13:30-0400 SaO2% (BldA) [Mass fraction] 99 % Nataly Winston MD Work Phone: [facility] 08-04-2024 13:30-0400 Systolic blood pressure 117 mm[Hg] Nataly Winston MD Work Phone: [facility] 08-04-2024 13:16-0400 Body temperature 97 [degF] Nataly Winston MD Work Phone: [facility] 08-04-2024 12:14-0400 Body height 157.5 cm Nataly Winston MD Work Phone: [facility] 08-04-2024 12:14-0400 Body mass index (BMI) [Ratio] 32.01 kg/m2 Nataly Winston MD Work Phone: [facility] 08-04-2024 12:14-0400 Body weight 79.38 kg Nataly Winston MD Work Phone: [facility] 07-22-2024 08:15-0400 Body height 159.3 cm Kingston Davenport REFRACTORY TILE HELPER.COPY CUTTER Work Phone: [facility] 07-22-2024 08:15-0400 Body mass index (BMI) [Ratio] 31.7 kg/m2 Kingston Davenport REFRACTORY TILE HELPER.COPY CUTTER Work Phone: [facility] 07-22-2024 08:15-0400 Body temperature 98.01 [degF] Kingston Davenport REFRACTORY TILE HELPER.COPY CUTTER Work Phone: [facility] 07-22-2024 08:15-0400 Body weight 80.45 kg Kingston Davenport REFRACTORY TILE HELPER.COPY CUTTER Work Phone: [facility] 07-22-2024 08:15-0400 Diastolic blood pressure 73 mm[Hg] Kingston Davenport REFRACTORY TILE HELPER.COPY CUTTER Work Phone: [facility] 07-22-2024 08:15-0400 Heart rate 83 /min Kingston Davenport REFRACTORY TILE HELPER.COPY CUTTER Work Phone: [facility] 07-22-2024 08:15-0400 SaO2% (BldA) [Mass fraction] 99 % Kingston Davenport REFRACTORY TILE HELPER.COPY CUTTER Work Phone: [facility] 07-22-2024 08:15-0400 Systolic blood pressure 106 mm[Hg] Kingston Davenport REFRACTORY TILE HELPER.COPY CUTTER Work Phone: [facility] 03-23-2024 15:07-0400 Body height 159.4 cm Sabra Sheets DO Work Phone: [facility] 03-23-2024 15:07-0400 Body mass index (BMI) [Ratio] 30.89 kg/m2 Sabra Sheets DO Work Phone: [facility] 03-23-2024 15:07-0400 Body temperature 98.49 [degF] Sabra Sheets DO Work Phone: [facility] 03-23-2024 15:07-0400 Body weight 78.47 kg Sabra Sheets DO Work Phone: [facility] 03-23-2024 15:07-0400 Diastolic blood pressure 64 mm[Hg] Sabra Sheets DO Work Phone: [facility] 03-23-2024 15:07-0400 Heart rate 90 /min Sabra Sheets DO Work Phone: [facility] 03-23-2024 15:07-0400 Respiratory rate 16 /min Sabra Sheets DO Work Phone: [facility] 03-23-2024 15:07-0400 SaO2% (BldA) [Mass fraction] 99 % Sabra Sheets DO Work Phone: [facility] 03-23-2024 15:07-0400 Systolic blood pressure 108 mm[Hg] Sabra Sheets DO Work Phone: [facility] 02-26-2024 08:46-0400 Body mass index (BMI) [Ratio] 30.95 kg/m2 Etta Shank REFRACTORY TILE HELPER.COPY CUTTER Work Phone: [facility] 02-26-2024 08:46-0400 Body weight 76.75 kg Etta Shank REFRACTORY TILE HELPER.COPY CUTTER Work Phone: [facility] 02-26-2024 08:46-0400 Diastolic blood pressure 75 mm[Hg] Etta Shank REFRACTORY TILE HELPER.COPY CUTTER Work Phone: [facility] 02-26-2024 08:46-0400 Heart rate 82 /min Etta Shank REFRACTORY TILE HELPER.COPY CUTTER Work Phone: [facility] 02-26-2024 08:46-0400 Systolic blood pressure 111 mm[Hg] Etta Shank REFRACTORY TILE HELPER.COPY CUTTER Work Phone: [facility] 2024 11:26-0400 Body height 157.5 cm Thierno Sanchez MD Work Phone: [facility] 2024 11:26-0400 Body mass index (BMI) [Ratio] 31.83 kg/m2 Thierno Sanchez MD Work Phone: [facility] 2024 11:26-0400 Body weight 78.93 kg Thierno Sanchez MD Work Phone: [facility] 01-13-2024 11:19040 Body height 157.5 cm Ken Rachel MD Work Phone: [facility] 01-13-2024 11:19-0400 Body mass index (BMI) [Ratio] 31.29 kg/m2 Ken Rachel MD Work Phone: [facility] 01-13-2024 11:19-040 Body weight 77.61 kg Ken Rachel MD Work Phone: 1(647)[phone] [place] [address] 01-13-2024 11:19-040 Diastolic blood pressure 56 mm[Hg] Ken Rachel MD Work Phone: [facility] 01-13-2024 11:19-0400 Heart rate 82 /min Ken Rachel MD Work Phone: 1(867)[phone] [place] [address] 01-13-2024 11:19-0400 SaO2% (BldA) [Mass fraction] 99 % Ken Rachel MD Work Phone: [facility] 01-13-2024 11:19-0400 Systolic blood pressure 112 mm[Hg] Ken Rachel MD Work Phone: [facility] 01-08-2024 08:28-0400 Body height 157.5 cm Ken Rachel MD Work Phone: [facility] 01-08-2024 08:28-0400 Body mass index (BMI) [Ratio] 31.39 kg/m2 Ken Rachel MD Work Phone: [facility] 01-08-2024 08:28-0400 Body weight 77.84 kg Ken Rachel MD Work Phone: [facility] 01-08-2024 08:28-0400 Diastolic blood pressure 70 mm[Hg] Ken Rachel MD Work Phone: [facility] 01-08-2024 08:28-0400 Heart rate 78 /min Ken Rachel MD Work Phone: [facility] 01-08-2024 08:28-0400 SaO2% (BldA) [Mass fraction] 99 % Ken Rachel MD Work Phone: [facility] 01-08-2024 08:28-0400 Systolic blood pressure 112 mm[Hg] Ken Rachel MD Work Phone: 3(319)[phone] [place] [address] 12-17-2023 15:46-0500 Body height 157.5 cm Ken Rachel MD Work Phone: 9(240)[phone] [place] [address] 12-17-2023 15:46-0500 Body mass index (BMI) [Ratio] 31.86 kg/m2 Ken Rachel MD Work Phone: 1(000)[phone] [place] [address] 12-17-2023 15:46-0500 Body weight 79.02 kg Ken Rachel MD Work Phone: 7(119)[phone] [place] [address] 12-17-2023 15:46-0500 Diastolic blood pressure 68 mm[Hg] Ken Rachel MD Work Phone: [facility] 12-17-2023 15:46-0500 Heart rate 81 /min Ken Rachel MD Work Phone: [facility] 12-17-2023 15:46-0500 SaO2% (BldA) [Mass fraction] 98 % Ken Rachel MD Work Phone: [facility] 12-17-2023 15:46-0500 Systolic blood pressure 114 mm[Hg] Ken Rachel MD Work Phone: [facility] 09-26-2023 12:00-0500 Body weight 73.94 kg Petty Chun MD Work Phone: [facility] 09-26-2023 12:00-0500 Diastolic blood pressure 68 mm[Hg] Petty Chun MD Work Phone: [facility] 09-26-2023 12:00-0500 Heart rate 94 /min Petty Chun MD Work Phone: [facility] 09-26-2023 12:00-0500 Systolic blood pressure 102 mm[Hg] Petty Chun MD Work Phone: [facility] 08-20-2023 08:37-0400 Body weight 74.39 kg Anna Martinez MD Work Phone: [facility] 08-20-2023 08:37-0400 Diastolic blood pressure 70 mm[Hg] Anna Martinez MD Work Phone: [facility] 08-20-2023 08:37-0400 Heart rate 78 /min Anna Martinez MD Work Phone: [facility] 08-20-2023 08:37-0400 Systolic blood pressure 107 mm[Hg] Anna Martinez MD Work Phone: [facility] 08-05-2023 13:13-0400 Body weight 73.03 kg Petty Chun MD Work Phone: [facility] 08-05-2023 13:13-0400 Diastolic blood pressure 74 mm[Hg] Petty Chun MD Work Phone: [facility] 08-05-2023 13:13-0400 Heart rate 83 /min Petty Chun MD Work Phone: [facility] 08-05-2023 13:13-0400 Systolic blood pressure 112 mm[Hg] Petty Chun MD Work Phone: [facility] 08-01-2023 14:10-0400 Body height 157.5 cm Lai Maher DO Work Phone: [facility] 08-01-2023 14:10-0400 Body temperature 97.59 [degF] Lai Maher DO Work Phone: [facility] 08-01-2023 14:10-0400 Body weight 73.94 kg Lai Maher DO Work Phone: [facility] 08-01-2023 14:10-0400 Diastolic blood pressure 83 mm[Hg] Lai Alexanderan DO Work Phone: [facility] 08-01-2023 14:10-0400 Heart rate 80 /min Lai Alexanderan DO Work Phone: [facility] 08-01-2023 14:10-0400 Respiratory rate 18 /min Lai Alexanderan DO Work Phone: [facility] 08-01-2023 14:10-0400 SaO2% (BldA) [Mass fraction] 99 % Lai Maher DO Work Phone: [facility] 08-01-2023 14:10-0400 Systolic blood pressure 131 mm[Hg] Lai Alexanderan DO Work Phone: [facility] 07-24-2023 08:18-0400 Body height 157.5 cm Zhanna Grimm MD Work Phone: [facility] 07-24-2023 08:18-0400 Body weight 73.94 kg Zhanna Grimm MD Work Phone: [facility] 07-24-2023 08:18-0400 Diastolic blood pressure 77 mm[Hg] Zhanna Grimm MD Work Phone: [facility] 07-24-2023 08:18-0400 Heart rate 76 /min Zhanna Grimm MD Work Phone: [facility] 07-24-2023 08:18-0400 Systolic blood pressure 110 mm[Hg] Zhanna Grimm MD Work Phone: [facility] 07-19-2023 09:49-0400 Diastolic blood pressure 82 mm[Hg] Etta Ugalde REF[employer]ORY TILE HELPER.COPY CUTTER Work Phone: [facility] 07-19-2023 09:49-0400 Systolic blood pressure 135 mm[Hg] Etta Ugalde REFRACTORY TILE HELPER.COPY CUTTER Work Phone: [facility] 07-19-2023 09:11-0400 SaO2% (BldA) [Mass fraction] 97 % Etta Ugalde REFRACTORY TILE HELPER.COPY CUTTER Work Phone: [facility] 07-19-2023 08:58-0400 Body weight 74.84 kg Etta Ugalde REFRACTORY TILE HELPER.COPY CUTTER Work Phone: [facility] 06-25-2023 15:00-0400 Body weight 81.1 kg Shana Lines DO Work Phone: [facility] 06-25-2023 15:00-0400 Diastolic blood pressure 73 mm[Hg] Shana Lines DO Work Phone: [facility] 06-25-2023 15:00-0400 Heart rate 93 /min Shana Lines DO Work Phone: [facility] 06-25-2023 15:00-0400 Systolic blood pressure 109 mm[Hg] Shana Lines DO Work Phone: [facility] 06-11-2023 15:20-0400 Diastolic blood pressure 70 mm[Hg] Petty Chun MD Work Phone: [facility] 06-11-2023 15:20-0400 Heart rate 103 /min Petty Chun MD Work Phone: [facility] 06-11-2023 15:20-0400 Systolic blood pressure 104 mm[Hg] Petty Chun MD Work Phone: [facility] 06-04-2023 15:27-0400 Body weight 80.65 kg Nurse Ray Work Phone: [facility] 06-04-2023 15:27-0400 Diastolic blood pressure 70 mm[Hg] Nurse Ray Work Phone: [facility] 06-04-2023 15:27-0400 Heart rate 112 /min Nurse Ray Work Phone: [facility] 06-04-2023 15:27-0400 Systolic blood pressure 108 mm[Hg] Nurse Ray Work Phone: [facility] 05-29-2023 14:30-0400 Body weight 79.83 kg High Ray Work Phone: [facility] 05-29-2023 14:30-0400 Diastolic blood pressure 67 mm[Hg] High [place] Work Phone: [facility] 05-29-2023 14:30-0400 Heart rate 99 /min High Ray Work Phone: [facility] 05-29-2023 14:30-0400 Systolic blood pressure 101 mm[Hg] High [place] Work Phone: [facility] 05-23-2023 14:37-0400 Body weight 80.56 kg Etta Shank REFRACTORY TILE HELPER.COPY CUTTER Work Phone: [facility] 05-23-2023 14:37-0400 Diastolic blood pressure 78 mm[Hg] Etta Shank REFRACTORY TILE HELPER.COPY CUTTER Work Phone: [facility] 05-23-2023 14:37-0400 Heart rate 102 /min Etta Shank REFRACTORY TILE HELPER.COPY CUTTER Work Phone: [facility] 05-23-2023 14:37-0400 Systolic blood pressure 113 mm[Hg] Etta Shank REFRACTORY TILE HELPER.COPY CUTTER Work Phone: [facility] 02-19-2023 05:31-0400 Diastolic blood pressure 61 mm[Hg] [facility] 02-19-2023 05:31-0400 Heart rate 66 /min [facility] 02-19-2023 05:31-0400 Respiratory rate 16 /min [facility] 02-19-2023 05:31-0400 SaO2% (BldA) [Mass fraction] 97 % [facility] 02-19-2023 05:31-0400 Systolic blood pressure 108 mm[Hg] [facility] 02-19-2023 04:34-0400 Body height 157.48 cm [facility] 02-19-2023 04:34-0400 Body mass index (BMI) [Ratio] 31.4 kg/m2 [facility] 02-19-2023 04:34-0400 Body temperature 97.1 [degF] [facility] 02-19-2023 04:34-0400 Body weight 77.8 kg [facility] 12-02-2022 14:240500 Body height 157.48 cm [facility] 12-02-2022 14:24-0500 Body mass index (BMI) [Ratio] 27.4 kg/m2 [facility] 12-02-2022 14:24-0500 Body temperature 98 [degF] [facility] 12-02-2022 14:24-0500 Body weight 68.03 kg [facility] 12-02-2022 14:24-0500 Diastolic blood pressure 70 mm[Hg] [facility] 12-02-2022 14:24-0500 Heart rate 96 /min [facility] 12-02-2022 14:24-0500 Respiratory rate 16 /min [facility] 12-02-2022 14:24-0500 SaO2% (BldA) [Mass fraction] 100 % [facility] 12-02-2022 14:24-0500 Systolic blood pressure 128 mm[Hg] [facility] 05-23-2022 14:01-0400 Body height 157.48 cm Bertha L Oberhauser Work Phone: [facility] Work Phone: 05-23-2022 14:01-0400 Body mass index (BMI) [Ratio] 27.25 kg/m2 Bertah L Oberhauser Work Phone: [facility] Work Phone: 05-23-2022 14:01-0400 Body surface area Derived from formula 1.69 m2 Bertha L Oberhauser Work Phone: [facility] Work Phone: 05-23-2022 14:01-0400 Body weight 67.59 kg Bertha L Oberhauser Work Phone: [facility] Work Phone: 05-23-2022 14:01-0400 Diastolic blood pressure 78 mm[Hg] Bertha L Oberhauser Work Phone: [facility] Work Phone: 05-23-2022 14:01-0400 Heart rate 93 /min Bertha Gallo Oberhauser Work Phone: [facility] Work Phone: 05-23-2022 14:01-0400 Systolic blood pressure 119 mm[Hg] Bertha L Oberhauser Work Phone: [facility] Work Phone: 03-02-2022 17:13-0400 Body height 157.4 cm Bertha Oberhauser Other Phone: [facility] 03-02-2022 17:13-0400 Body temperature 97.88 [degF] Bertha Oberhauser Other Phone: [facility] 03-02-2022 17:13-0400 Diastolic blood pressure 77 mm[Hg] Bertha Oberhauser Other Phone: [facility] 03-02-2022 17:13-0400 Heart rate 84 /min Bertha Obromaer Other Phone: [facility] 03-02-2022 17:13-0400 SaO2% (BldA) [Mass fraction] 100 % Bertha Oberjudither Other Phone: [facility] 03-02-2022 17:13-0400 Systolic blood pressure 116 mm[Hg] Bertha Oberhauser Other Phone: [facility] 01-31-2022 14:07-0400 Body temperature 97.81 [degF] Kia Otto MD Work Phone: [facility] 01-31-2022 14:07-0400 Body weight 65.86 kg Kia Otto MD Work Phone: [facility] 01-31-2022 14:07-0400 Diastolic blood pressure 72 mm[Hg] Kia Otto MD Work Phone: [facility] 01-31-2022 14:07-0400 Heart rate 102 /min Kia Otto MD Work Phone: [facility] 01-31-2022 14:07-0400 SaO2% (BldA) [Mass fraction] 100 % Kia Otto MD Work Phone: [facility] 01-31-2022 14:07-0400 Systolic blood pressure 123 mm[Hg] Kia Otto MD Work Phone: [facility] 08-17-2021 16:18-0400 Body height 157.48 cm Bertha L Oberhauser Work Phone: [facility] Work Phone: 08-17-2021 16:18-0400 Body mass index (BMI) [Ratio] 26.7 kg/m2 Bertha L Oberhauser Work Phone: [facility] Work Phone: 08-17-2021 16:18-0400 Body surface area Derived from formula 1.67 m2 Bertha L Oberhauser Work Phone: [facility] Work Phone: 08-17-2021 16:18-0400 Body temperature 97.8 [degF] Bertah L Oberhauser Work Phone: [facility] Work Phone: 08-17-2021 16:18-0400 Body weight 66.23 kg Bertha L Oberhauser Work Phone: [facility] Work Phone: 08-17-2021 16:18-0400 Diastolic blood pressure 67 mm[Hg] Bertha L Oberhauser Work Phone: [facility] Work Phone: 08-17-2021 16:18-0400 Heart rate 84 /min Bertha L Oberhauser Work Phone: [facility] Work Phone: 08-17-2021 16:18-0400 Systolic blood pressure 101 mm[Hg] Bertha L Oberhauser Work Phone: [facility] Work Phone: 08-09-2021 14:59-0400 Body height 157.48 cm Bertha L Oberhauser Work Phone: [facility] Work Phone: 08-09-2021 14:59-0400 Body mass index (BMI) [Ratio] 26.75 kg/m2 Bertha L Oberhauser Work Phone: IP[facility]Wpqyipzfmk[facility]Ivvnw [facility] Work Phone: 08-09-2021 14:59-0400 Body surface area Derived from formula 1.67 m2 Bertha L Oberhauser Work Phone: SK[facility]Zdyzbldpst[facility]Whkzo [facility] Work Phone: 08-09-2021 14:59-0400 Body temperature 97.3 [degF] Bertha L Oberhauser Work Phone: EO[facility]Naxvdzsook[facility]Ssifj [facility] Work Phone: 08-09-2021 14:59-0400 Body weight 66.34 kg Bertha L Oberhauser Work Phone: [facility]Oyrnrrvwsj[facility]Eduto [facility] Work Phone: 08-09-2021 14:59-0400 Diastolic blood pressure 56 mm[Hg] Bertha L Oberhauser Work Phone: HL[facility]Maajhihdbm[facility]Njydc [facility] Work Phone: 08-09-2021 14:59-0400 Heart rate 94 /min Bertha L Oberhauser Work Phone: ZS[facility]Fqkuntocis-Imxat [facility] Work Phone: 08-09-2021 14:59-0400 SaO2% (BldA) [Mass fraction] 99 % Bertha L Oberhauser Work Phone: BV-Mdtkycqlib-Pspqb [facility] Work Phone: 08-09-2021 14:59-0400 Systolic blood pressure 118 mm[Hg] Bertha L Oberhauser Work Phone: HK-Zxiqqpqeco-Jafkp in [facility] Work Phone: 07-13-2021 15:35-0400 Body height 157.48 cm Bertha L Oberhauser Work Phone: GM-Zizvtzqgxb-Danms [facility] Work Phone: 07-13-2021 15:35-0400 Body mass index (BMI) [Ratio] 28.75 kg/m2 Bertha L Oberhauser Work Phone: TU-Asadcwhvsw-Xexlq [facility] Work Phone: 07-13-2021 15:35-0400 Body surface area Derived from formula 1.73 m2 Bertha L Oberhauser Work Phone: VL-Dstriueuca-Nrnco [facility] Work Phone: 07-13-2021 15:35-0400 Body temperature 97.3 [degF] Bertha L Oberhauser Work Phone: VW-Qolfeyolsb-Oedmk [facility] Work Phone: 07-13-2021 15:35-0400 Body weight 71.3 kg Bertha L Oberhauser Work Phone: VH-Umqpehzrmz-Scqop in [facility] Work Phone: 07-13-2021 15:35-0400 Diastolic blood pressure 62 mm[Hg] Bertha L Oberhauser Work Phone: LO-Mwraslkicc-Eaphh [facility] Work Phone: 07-13-2021 15:35-0400 Heart rate 90 /min Bertha L Oberhauser Work Phone: [facility] Work Phone: 07-13-2021 15:35-0400 SaO2% (BldA) [Mass fraction] 97 % Bertha L Oberhauser Work Phone: GN-Onoelqymjy-Ioebz [facility] Work Phone: 07-13-2021 15:35-0400 Systolic blood pressure 110 mm[Hg] Bertha L Oberhauser Work Phone: [facility] Work Phone: 07-05-2021 15:15-0400 Body height 157.48 cm Bertha L Oberhauser Work Phone: [facility] Work Phone: 07-05-2021 15:15-0400 Body mass index (BMI) [Ratio] 27.07 kg/m2 Bertha L Oberhauser Work Phone: [facility] Work Phone: 07-05-2021 15:15-0400 Body surface area Derived from formula 1.68 m2 Bertha L Oberhauser Work Phone: [facility] Work Phone: 07-05-2021 15:15-0400 Body temperature 97.8 [degF] Bertha L Oberhauser Work Phone: [facility] Work Phone: 07-05-2021 15:15-0400 Body weight 67.13 kg Bertha L Oberhauser Work Phone: [facility] Work Phone: 07-05-2021 15:15-0400 Diastolic blood pressure 69 mm[Hg] Bertha L Oberhauser Work Phone: [facility] Work Phone: 07-05-2021 15:15-0400 Heart rate 85 /min Bertha L Oberhauser Work Phone: [facility] Work Phone: 07-05-2021 15:15-0400 Systolic blood pressure 107 mm[Hg] Bertha L Oberhauser Work Phone: [facility] Work Phone: 06-23-2021 13:13-0400 Diastolic blood pressure 71 mm[Hg] Bertha Oberhauser Other Phone: [facility] 06-23-2021 13:13-0400 Heart rate 88 /min Bertha Oberhauser Other Phone: [facility] 06-23-2021 13:13-0400 Respiratory rate 16 /min Bertha Oberhauser Other Phone: [facility] 06-23-2021 13:13-0400 SaO2% (BldA) [Mass fraction] 100 % Bertha Oberhauser Other Phone: [facility] 06-23-2021 13:13-0400 Systolic blood pressure 109 mm[Hg] Bertha Oberhauser Other Phone: [facility] 06-23-2021 11:43-0400 Body height 157.4 cm Bertha Oberhauser Other Phone: [facility] 06-23-2021 11:43-0400 Body weight 65.4 kg Bertha Oberhauser Other Phone: [facility] 05-25-2021 16:14-0400 Body height 157.48 cm Bertha L Oberhauser Work Phone: [facility] Work Phone: 05-25-2021 16:14-0400 Body mass index (BMI) [Ratio] 27.44 kg/m2 Bertha L Oberhauser Work Phone: [facility] Work Phone: 05-25-2021 16:14-0400 Body surface area Derived from formula 1.69 m2 Bertha L Oberhauser Work Phone: [facility] Work Phone: 05-25-2021 16:14-0400 Body temperature 97.6 [degF] Bertha L Oberhauser Work Phone: [facility] Work Phone: 05-25-2021 16:14-0400 Body weight 68.04 kg Bertha L Oberhauser Work Phone: [facility] Work Phone: 05-25-2021 16:14-0400 Diastolic blood pressure 74 mm[Hg] Bertha L Oberhauser Work Phone: [facility] Work Phone: 05-25-2021 16:14-0400 Heart rate 79 /min Bertha L Oberhauser Work Phone: [facility] Work Phone: 05-25-2021 16:14-0400 Systolic blood pressure 108 mm[Hg] Bertha L Oberhauser Work Phone: [facility] Work Phone: 04-19-2021 11:29-0400 Body height 157.48 cm Bertha L Oberhauser Work Phone: [facility] Work Phone: 04-19-2021 11:29-0400 Body mass index (BMI) [Ratio] 27.8 kg/m2 Bertha L Oberhauser Work Phone: [facility] Work Phone: 04-19-2021 11:29-0400 Body surface area Derived from formula 1.7 m2 Bertha L Oberhauser Work Phone: [facility] Work Phone: 04-19-2021 11:29-0400 Body temperature 97.8 [degF] Bertha L Oberhauser Work Phone: [facility] Work Phone: 04-19-2021 11:29-0400 Body weight 68.95 kg Bertha L Oberhauser Work Phone: [facility] Work Phone: 04-19-2021 11:29-0400 Diastolic blood pressure 70 mm[Hg] Bertha L Oberhauser Work Phone: [facility] Work Phone: 04-19-2021 11:29-0400 Heart rate 93 /min Bertha L Oberhauser Work Phone: [facility] Work Phone: 04-19-2021 11:29-0400 Systolic blood pressure 113 mm[Hg] Bertha L Oberhauser Work Phone: [facility] Work Phone: Encounters Encounter Date Encounter Type Care Provider Facility Start: 04-29-2025 End: 04-29-2025 ambulatory Sabra Killian Sheets DO Work Phone: [facility] Start: 04-29-2025 End: 04-29-2025 Follow-up encounter Sabra Killian Sheets DO Work Phone: [facility] Comment on above: ED Follow-up ([facility] 04/22/2025) Start: 04-22-2025 End: 04-22-2025 Emergency department patient visit [facility] Start: 03-25-2025 End: 03-25-2025 ambulatory [facility] Start: 03-22-2025 End: 03-22-2025 ambulatory [facility] Start: 03-19-2025 End: 03-19-2025 ambulatory [facility] Start: 03-18-2025 End: 03-18-2025 ambulatory ÁNGEL [facility] Start: 03-16-2025 End: 03-16-2025 ambulatory ÁNGEL [facility] Start: 03-14-2025 End: 03-14-2025 ambulatory [facility] Start: 03-12-2025 End: 03-12-2025 ambulatory [facility] Start: 03-10-2025 End: 03-10-2025 Emergency department patient visit Gonzalez Palomino DO Work Phone: [facility] Comment on above: Hyperemesis arising during (Primary Dx) Start: 03-08-2025 End: 03-08-2025 ambulatory Sabra Killian Neli DO Work Phone: [facility] Start: 03-08-2025 End: 03-08-2025 Follow-up encounter Sabra Killian Neli DO Work Phone: [facility] Comment on above: ED Follow-up ( 02/18 01/12) Start: 03-06-2025 End: 03-08-2025 ambulatory [facility] Start: 03-06-2025 End: 03-08-2025 [facility] Work Phone: [facility] Comment on above: Subchorionic hemorrh age of placenta in first trimester Start: 03-02-2025 End: 03-02-2025 Emergency department patient visit Ángel Serna DO Work Phone: [facility] Comment on above: 9 weeks gestation of ([facility]) (Primary Dx); Subchorionic hemorrhage of placenta in first trimester ([facility]-HCC); Round ligament pain Start: 02-23-2025 End: 02-23-2025 Telemedicine consultation with patient Kingston Davenport APRN.CNP [facility] Start: 02-23-2025 End: 02-23-2025 ambulatory Kingston Davenport APRN.COPY CUTTER Work Phone: [facility] Comment on above: Celiac disease (HCC) (Primary Dx); Iron deficiency; Loose stools Start: 2025 End: 02-15-2025 ambulatory [facility] Start: 2025 End: 02-15-2025 Subsequent hospital visit by physician Riddhi Corrigan DO Work Phone: [facility] Comment on above: Amenorrhea Start: 02-04-2025 End: 02-04-2025 ambulatory [facility] Start: 02-04-2025 End: 02-04-2025 Subsequent hospital visit by physician Stefano Lab Schedule [facility] Comment on above: Amenorrhea; Special screening examination for human papillomavirus (HPV) Start: 01-12-2025 End: 01-12-[address] Work Phone: Gastroenterology Comment on above: Celiac disease (Prim alison Dx) Start: 01-12-2025 End: 01-12-2025 Telemedicine consultation with patient Heidi Quezada RD Work Phone: Gastroenterology Start: 12-22-2024 End: 12-22-2024 Telephone encounter Kingston Davenport APRN.COPY CUTTER Work Phone: [facility] Start: 12-08-2024 End: 12-08-2024 Patient encounter procedure Rylie Walsh APRN-COPY CUTTER Work Phone: [facility] Comment on above: Acute swimmer's ear of right side (Primary Dx); Non-recurrent acute suppurative otitis media of right ear without spontaneous rupture of tympanic membrane; Bilateral impacted cerumen Start: 12-08-2024 End: 12-08-[address] [facility] Start: 11-04-2024 End: 11-04-2024 ambulatory [facility] Start: 11-04-2024 End: 11-04-2024 ambulatory [facility] Start: 11-04-2024 End: 11-04-2024 Subsequent hospital visit by physician [facility] Work Phone: [facility] Start: 10-27-2024 End: 10-27-2024 ambulatory Kingston Davenport APRN.COPY CUTTER Work Phone: Gastroenterology [facility] Comment on above: Celiac disease (Prim alison Dx); Heartburn Start: 10-27-2024 End: 10-27-2024 Telemedicine consultation with patient Kingston Davenport APRN.COPY CUTTER Work Phone: Gastroenterology [facility] Start: 10-22-2024 End: 10-22-2024 Emergency department patient visit KRISTINA COATS [facility] Start: 10-20-2024 End: 10-20-2024 Telephone encounter Kingston Davenport APRN.COPY CUTTER Work Phone: Gastroenterology [facility] Start: 08-19-2024 End: 08-19-[address] Work Phone: Gastroenterology Comment on above: Celiac disease Start: 08-19-2024 End: 08-19-2024 Telemedicine consultation with patient Heidi Quezada RD Work Phone: Gastroenterology Start: 08-17-2024 End: 08-17-2024 Orders Only Kingston Davenport APRN.COPY CUTTER Work Phone: Gastroenterology Comment on above: Celiac disease (Prim alison Dx); Vitamin D deficiency Start: 08-15-2024 End: 08-15-2024 ambulatory SABRA C NELI [facility] Start: 08-13-2024 End: 08-13-2024 ambulatory Kingston Davenport APRN.CNP Work Phone: [facility] Comment on above: Celiac disease (Prim alison Dx) Start: 08-13-2024 End: 08-13-2024 Telemedicine consultation with patient Kingston Davenport APRREID Work Phone: [facility] Start: 08-10-2024 End: 08-12-2024 Telephone encounter Kingston Davenport APRN.COPY CUTTER Work Phone: [facility] Start: 08-04-2024 End: 08-04-2024 ambulatory SABRA QUINTEROS Facility:[facility] Start: 08-04-2024 End: 08-04-2024 Subsequent hospital visit by physician Nataly Winston MD Work Phone: Gastroenterology Comment on above: Positive autoantibod y screening for celiac disease [R76.8] Start: 07-28-2024 End: 07-28-2024 Telephone encounter Crispin Torres RNpipe covering molder Comment on above: Education Of Patient /family; Appointment Start: 07-24-2024 End: 07-24-2024 Orders Only Kingston Ethel BUSTILLOCOPY CUTTER Work Phone: [facility] Comment on above: Positive autoantibod y screening for celiac disease (Primary Dx); Loose stools; Generalized abdominal pain Start: 07-22-2024 End: 07-22-2024 Subsequent hospital visit by physician Dianna [facility] Comment on above: Generalized abdomina l pain [R10.84] Start: 07-22-2024 End: 07-22-2024 ambulatory KINGSTON DAVENPORT Facility:[facility] Start: 07-22-2024 End: 07-22-2024 Patient encounter procedure Kingston Davenport APRN.COPY CUTTER Work Phone: [facility] Comment on above: Diarrhea, unspecifie d type (Primary Dx); Generalized abdominal pain; Gastroesophageal reflux disease, unspecified whether esophagitis present Start: 07-20-2024 End: 07-20-2024 Telephone encounter Zhanna Hunter PA-C Work Phone: Gastroenterology [place] Comment on above: Abdominal Pain Start: 06-09-2024 End: 06-09-2024 ambulatory [facility]YSIC[facility] Start: 06-01-2024 End: 06-01-2024 Emergency department patient visit KAYLA SKINNER [facility] Start: 05-12-2024 End: 05-12-2024 Emergency department patient visit KAYLA SKINNER [facility] Start: 03-23-2024 End: 03-23-2024 Patient encounter procedure Sabra C Sheets DO Work Phone: [facility] Comment on above: Well adult exam (Valery emily Dx); Chronic midline low back pain without sciatica; Lactating mother; Obesity, Class I, BMI 30-34.9 Start: 03-23-2024 End: 03-23-2024 Patient encounter status Sabra C Sheets DO Work Phone: [facility] Work Phone: Start: 03-23-2024 End: 03-23-2024 ambulatory SBARA C SHEETS [facility] Start: 02-27-2024 End: 02-27-2024 Patient encounter procedure Sandor Trent MD Work Phone: General Surgery Comment on above: Generalized abdomina l pain (Primary Dx) Start: 02-26-2024 End: 02-26-2024 Patient encounter procedure Etta Ugalde APRN.CNP Work Phone: [facility] Comment on above: proble m (Primary Dx) Start: 2024 End: 2024 Office consultation new/estab patient 40 min Thierno Sanchez MD Work Phone: Urology Comment on above: Microscopic hematuri a (Primary Dx); History of UTI Start: 02-07-2024 End: 02-07-2024 ambulatory SANDOR TRENT [facility] Start: 01-21-2024 Telephone encounter Sandor lau MD Work Phone: Pre Anesthesia Comment on above: Preparations For Fani linda (Pre-op Instructions) Start: 01-13-2024 End: 01-13-2024 ambulatory [facility] Ambulatory Start: 01-13-2024 End: 01-13-2024 Emergency department patient visit PHYSICIAN [facility] Start: 01-13-2024 End: 01-13-2024 Office outpatient visit 25 minutes Ken Rachel MD Work Phone: [facility] Comment on above: Lower abdominal pain (Primary Dx); Incomplete emptying of bladder Start: 01-08-2024 End: 01-08-2024 ambulatory [facility] Ambulatory Start: 01-08-2024 End: 01-08-2024 Office outpatient visit 15 minutes Ken Rachel MD Work Phone: [facility] Comment on above: Upper abdominal pain (Primary Dx) Start: 01-06-2024 End: 01-07-2024 [facility] department [facility] Start: 12-17-2023 End: 12-17-2023 ambulatory [facility] Ambulatory Start: 12-17-2023 End: 12-17-2023 Encounter for general adult medical examination without abnormal findings [facility] Ambulatory Start: 12-17-2023 End: 12-17-2023 Patient encounter status Ken Rachel MD Work Phone: [facility] Work Phone: Start: 12-17-2023 End: 12-17-2023 Periodic preventive med est patient 18-39 yrs Ken Rachel MD Work Phone: [facility] Comment on above: Routine general medi marichuy examination at a health care facility (Primary Dx) Start: 09-26-2023 End: 09-26-2023 Patient encounter procedure Petty Chun MD Work Phone: [facility] Comment on above: Severe pre-eclampsia , (Primary Dx) Start: 09-13-2023 Emergency department patient visit BERTHA ENRIQUEZ Facility:[facility] Start: 09-03-2023 End: 09-03-2023 ambulatory ZHANNA GRIMM Facility:[facility] Start: 08-20-2023 End: 08-20-2023 Office outpatient visit 15 minutes Anna Martinez MD Work Phone: [facility] Comment on above: care and examination (Primary Dx); Preeclampsia in period; headache, ; Acute midline low back pain without sciatica Start: 08-05-2023 ambulatory Petty Ding Work Phone: [facility] Start: 08-05-2023 End: 08-05-2023 Patient encounter procedure Petty Chun MD Work Phone: [facility] Comment on above: Appointment for toda y headache, (Primary Dx); problem; Severe pre-eclampsia, Start: 08-01-2023 End: 08-01-2023 Office outpatient visit 15 minutes Lai Maher DO Work Phone: [facility] [place] Comment on above: Primary hypertension (Primary Dx) Start: 07-24-2023 End: 07-24-2023 Patient encounter procedure Zhanna Grimm MD Work Phone: General Surgery Comment on above: Calculus of gallblad martina without cholecystitis without obstruction (Primary Dx); Hemolysis, elevated liver enzymes, and low platelet (HELLP) syndrome during , antepartum Start: 07-19-2023 Telephone encounter Etta jeffries APRN.COPY CUTTER Work Phone: [facility] Comment on above: Internal Referrals/r esources Start: 07-19-2023 End: 07-19-2023 Patient encounter procedure Etta Ugalde APRN.COPY CUTTER Work Phone: [facility] Comment on above: Encounter for postpa rtum care of lactating mother (Primary Dx); Severe pre-eclampsia, ; state; Calculus of gallbladder without cholecystitis without obstruction Start: 07-16-2023 Telephone encounter Jen escobedo MD Work Phone: [place] [facility] Comment on above: Blood Pressure Start: 07-14-2023 ambulatory Etta Aftab REFRACTORY TILE HELPER.COPY CUTTER Work Phone: [facility] Comment on above: Blood pressure Start: 07-14-2023 Telephone encounter Lisa Leung DO Work Phone: [place] [facility] Comment on above: Blood Pressure Start: 07-13-2023 Telephone encounter Tati Turpin MD Work Phone: [place] [facility] Comment on above: Appointment Start: 07-12-2023 Telephone encounter Tati Turpin MD Work Phone: [place] [facility] Comment on above: Returning Patient's Call Start: 07-03-2023 ambulatory Etta Ugalde REFRACTORY TILE HELPER.COPY CUTTER Work Phone: [facility] Comment on above: Itching Start: 07-03-2023 Telephone encounter Etta jeffries REFRACTORY TILE HELPER.COPY CUTTER Work Phone: [facility] Comment on above: Internal Referrals/r esources Start: 06-28-2023 End: 06-28-2023 Patient encounter procedure Us Rm1 Eyelet Maker Ag Mfm Work Phone: [facility] Comment on above: Cholestasis during p regnancy in third trimester [O26.613, K83.1] (Primary Dx); Supervision of high risk in third trimester [O09.93] Start: 06-25-2023 End: 06-25-2023 Patient encounter procedure Shana Julián DO Work Phone: [facility] Comment on above: Cholestasis during p regnancy in third trimester (Primary Dx); Supervision of high risk in third trimester Start: 06-21-2023 End: 06-21-2023 Patient encounter procedure Us Rm3 Eyelet Maker Ag Mfm Work Phone: [facility] Comment on above: Cholelithiasis affec ting in third trimester, antepartum (Primary Dx); Anemia complicating , third trimester Start: 06-14-2023 End: 06-14-2023 Patient encounter procedure Us Rm1 Eyelet Maker Ag [facility] Work Phone: [facility] Comment on above: Cholestasis during p regnancy in third trimester (Primary Dx); 33 weeks gestation of Start: 06-11-2023 End: 06-11-2023 Patient encounter procedure Petty Chun MD Work Phone: [facility] Comment on above: Supervision of high risk in third trimester (Primary Dx); Cholestasis during in third trimester; Asymptomatic bacteriuria during ; Cholelithiasis affecting in third trimester, antepartum Start: 06-07-2023 End: 06-07-2023 Patient encounter procedure Rm1 Eyelet Maker Ag Mf Work Phone: [facility] Comment on above: Cholestasis during p regnancy in third trimester (Primary Dx); 32 weeks gestation of Start: 06-04-2023 End: 06-04-2023 Nursing evaluation of patient and report Nurse Eyelet Maker [place] Work Phone: [facility] Comment on above: Cholestasis during p regnancy in third trimester (Primary Dx) Start: 05-29-2023 End: 05-29-2023 Patient encounter procedure [facility] Eyelet Maker Ray Work Phone: [facility] Comment on above: Supervision of high risk in third trimester (Primary Dx); UTI (urinary tract infection) in , antepartum; Asymptomatic bacteriuria during ; Cholestasis during in third trimester; Pruritus gravidarum, third trimester; Abdominal pain affecting Cholestasis during p regnancy in third trimester (Primary Dx); 31 weeks gestation of Start: 05-27-2023 ambulatory Jak Tinajero DO Work Phone: [facility] Comment on above: Education Of Patient /family (PT to receive PNP at next visit, watched video. See CHW's for pwk.) Start: 05-27-2023 Telephone encounter Etta jeffries REFRACTORY TILE HELPER.COPY CUTTER Work Phone: [facility] Comment on above: Patient Update Start: 05-24-2023 End: 05-24-2023 Patient encounter procedure Us Rm1 Eyelet Maker Ag Mfm Work Phone: [facility] Comment on above: Cholestasis during p regnancy in third trimester (Primary Dx); Supervision of high risk in third trimester; Abnormal umbilical cord; 30 weeks gestation of Start: 05-23-2023 End: 05-23-2023 Patient encounter procedure Etta Shank REFRACTORY TILE HELPER.COPY CUTTER Work Phone: [facility] Comment on above: Supervision of high risk in third trimester (Primary Dx); Anemia complicating , third trimester; Cholestasis during in third trimester; Pruritus gravidarum, third trimester; Cholelithiasis affecting in third trimester, antepartum Start: 05-20-2023 End: 05-20-2023 Patient encounter procedure [facility], [employer] core java software engineer Off Start: 05-20-2023 End: 05-20-2023 ambulatory [facility] Work Phone: Start: 05-19-2023 Telephone encounter Chante Rachael cardoso DO Work Phone: [place] [facility] Comment on above: Appointment Start: 05-14-2023 End: 05-14-2023 ambulatory [facility] Facility:[facility] Start: 05-14-2023 End: 05-14-2023 Patient encounter procedure [facility], [employer] core java software engineer Off Start: 04-22-2023 End: 04-22-2023 Patient encounter procedure [facility], [employer] core java software engineer Off Start: 04-22-2023 End: 04-22-2023 ambulatory [facility] Work Phone: Start: 02-19-2023 End: 02-19-2023 [facility] Start: 02-19-2023 End: 02-19-2023 Emergency department patient visit [facility] Start: 01-01-2023 End: 01-01-2023 ambulatory Bertha Haller Facility:[facility] Start: 01-01-2023 End: 01-01-2023 Patient encounter procedure [facility], [employer] core java software engineer Off Start: 12-05-2022 End: 12-05-2022 Patient encounter procedure [facility], [employer] core java software engineer Off Start: 12-05-2022 End: 12-05-2022 ambulatory Bertha Haller [facility] Work Phone: Start: 12-02-2022 End: 12-02-2022 Emergency department patient visit Bertha Enriquez Facility:[facility] Start: 12-02-2022 End: 12-02-2022 Emergency department patient visit [facility] Start: 08-20-2022 AUDIT Bertha Sabino Oberha user Work Phone: [facility] Work Phone: Start: 08-17-2022 AUDIT Bertha L Oberha user Work Phone: [facility] Work Phone: Start: 05-23-2022 Office outpatient vi sit 15 minutes Bertha Sabino Oberhauser Work Phone: [facility] Work Phone: Start: 05-23-2022 Patient encounter procedure Bertha Sabino Oberhauser Work Phone: [facility] Work Phone: Start: 03-02-2022 End: 03-02-2022 Emergency department patient visit Arie Gonzalez [facility] Start: 01-31-2022 End: 01-31-2022 Patient encounter procedure Kia Otto MD Work Phone: General Surgery Comment on above: Mass of lower outer quadrant of left breast (Primary Dx); Fibrocystic breast changes of both breasts Start: 01-19-2022 AUDIT Bertha L Oberha user Work Phone: [facility] Work Phone: Start: 09-01-2021 AUDIT Bertha L Oberha user Work Phone: [facility] Work Phone: Start: 08-28-2021 End: 08-28-2021 Emergency department patient visit Arie Gonzalez [facility] Start: 08-17-2021 Current tobacco non-user cad cap copd pv dm Bertha L Oberhauser Work Phone: [facility] Work Phone: Start: 08-09-2021 Office outpatient vi sit 25 minutes Bertha L Oberhauser Work Phone: [id number] [id number] Work Phone: Start: 07-24-2021 Chart Update Bertha Gallo Oberha user Work Phone: [facility] [address] Work Phone: Start: 07-13-2021 Office outpatient ne w 45 minutes Bertha L Oberhauser Work Phone: [facility] [address] Work Phone: Start: 07-06-2021 HEARTMONTR, Provider : [facility]AGNOSTIC [facility]ERAPIST[facility] Status: Pen, Time: 4:30 PM Bertha L Oberhauser Work Phone: [facility] Work Phone: Start: 07-05-2021 Office outpatient vi sit 25 minutes Bertha L Oberhauser Work Phone: [facility] Work Phone: Start: 06-23-2021 End: 06-23-2021 Emergency department patient visit Yoshi Goldstein [facility] Emergency 14 Start: 05-25-2021 Office outpatient vi sit 15 minutes Bertha L Oberhauser Work Phone: [facility] Work Phone: Start: 04-21-2021 Chart Update Bertha Wallace user Work Phone: [facility] Work Phone: Start: 04-20-2021 Chart Update Bertha Wallace user Work Phone: [facility] Work Phone: Patient encounter status Tea Larios MD [facility] Work Phone: Procedures Date Procedure Procedure Detail Performing Clinician Start: 03-10-2025 Comprehensive metabolic panel Gonzalez shaffer DO Work Phone: Start: 03-06-2025 uterus 14 wk transabdl 10/21 gestat Riddhieduar Squiresrolucien DO Work Phone: Start: 03-02-2025 Comprehensive metabolic panel Ángel Serna DO Work Phone: Start: 03-02-2025 uterus 14 wk transabdl 10/21 gestat Ángel Serna DO Work Phone: Start: 03-02-2025 Urinalysis complete W Reflex Culture panel - Urine Ángel Serna DO Work Phone: Start: 03-02-2025 Urnls dip stick/tablet reagent auto microscopy Ángel Serna DO Work Phone: Start: 2025 uterus 14 wk transabdl 10/21 gestat Riddhieduar Mixtarotitih DO Work Phone: Start: 02-04-2025 Drug tst prsmv instrmnt chem analyzers pr date Riddhi Domingueztarovich DO Work Phone: Start: 02-04-2025 Iadna trichomonas vaginalis amplified probe tech Riddhi Domingueztarotitih DO Work Phone: Start: 02-04-2025 End: 02-04-2025 Antibody rubella Riddhi Kontarovich DO Work Phone: Start: 02-04-2025 Assay of thyroid stimulating hormone tsh Riddhi Corrigan DO Work Phone: Start: 02-04-2025 Iaad ia hepatitis b surface antigen Riddhi Rosa DO Work Phone: Start: 02-04-2025 Hpv, dna, amp probe Riddhi Rosa DO Work Phone: Start: 02-04-2025 Microscopic observation [Identifier] in Cervix by Cyto stain Maljames Schedule Start: 12-08-2024 Removal impacted cerumen irrigation/lvg unilat Rylie Walsh REFRACTORY TILE HELPER-COPY CUTTER Work Phone: Start: 11-04-2024 Ct abdomen & pelvis w/contrast material [facility] Provider Start: 11-04-2024 Assay of iron Kingston Davenport REFRACTORY TILE HELPER.COPY CUTTER Work Phone: Start: 09-23-2024 History of cholecystectomy History of cholecystectomy Stefano Schedule Start: 08-04-2024 Esophagogastroduodenoscopy transoral diagnostic Kingston Davenport REFRACTORY TILE HELPER.COPY CUTTER Work Phone: Start: 07-22-2024 Radiologic exam abdomen 2 views Kingston Davenport REFRACTORY TILE HELPER.COPY CUTTER Work Phone: Start: 03-23-2024 Adult depression screening assessment Zhanna Hunter PA-C Work Phone: Start: 2024 Urnls dip stick/tablet rgnt auto w/o microscopy Thierno Sanchez MD Work Phone: Start: 01-13-2024 POCT UA AUTOMATED MANUALLY RESULTED KEN RACHEL Start: 01-13-2024 Urnls dip stick/tablet rgnt auto w/o microscopy Ken Rachel MD Work Phone: Start: 06-28-2023 biophysical profile non-stress testing Etta Ugalde REFRACTORY TILE HELPER.COPY CUTTER Work Phone: Start: 06-25-2023 Urnls dip stick/tablet rgnt auto w/o microscopy Shana Gallego Work Phone: Start: 06-21-2023 biophysical profile non-stress testing Etta Ugalde REFRACTORY TILE HELPER.COPY CUTTER Work Phone: Start: 06-14-2023 biophysical profile non-stress testing Etta Ugalde REFRACTORY TILE HELPER.COPY CUTTER Work Phone: Start: 06-11-2023 Comprehensive metabolic panel Petty bocanegra MD Work Phone: Start: 06-11-2023 Urnls dip stick/tablet rgnt auto w/o microscopy Petty Chun MD Work Phone: Start: 06-07-2023 biophysical profile non-stress testing Etta Ugalde REFRACTORY TILE HELPER.COPY CUTTER Work Phone: Start: 05-29-2023 biophysical profile non-stress testing Etta Ugalde REFRACTORY TILE HELPER.COPY CUTTER Work Phone: Start: 05-24-2023 Us preg uterus after 1st trimest 10/21 gestation Etta Ugalde REFRACTORY TILE HELPER.COPY CUTTER Work Phone: Start: 05-23-2023 Antibody screen Etta Ugalde REFRACTORY TILE HELPER.COPY CUTTER Work Phone: Start: 05-23-2023 Antibody screen rbc each serum technique Etta Ugalde REFRACTORY TILE HELPER.COPY CUTTER Work Phone: Start: 05-23-2023 Comprehensive metabolic panel Etta mervin REFRACTORY TILE HELPER.COPY CUTTER Work Phone: Start: 05-23-2023 Urnls dip stick/tablet rgnt auto w/o microscopy Etta Ugalde REFRACTORY TILE HELPER.COPY CUTTER Work Phone: Start: 05-20-2023 Urine culture Start: 01-01-2023 Urine culture Start: 12-05-2022 Microscopic observation [Identifier] in Cervix by Cyto stain Ken Rachel MD Work Phone: Start: 12-02-2022 Transvaginal obstetric ultrasonography Start: 07-20-2021 Echocardiography Bertha Enriquez Work Phone: Start: 07-20-2021 Lipid 1996 panel - Serum or Plasma Ken Rachel MD Work Phone: Start: 06-23-2021 End: 06-23-2021 EKG impression Yoshi Angelita Extraction of wisdom tooth M nikhil Sabino Enriquez Work Phone: Urine culture Urine culture Urine culture Plan of Treatment Date Care Activity Detail Author Start: 2074 RSV High Risk: (Elderly (60+) or Population) (1 - 1-dose 75+ series) RSV High Risk: (Elderly (60+) or Population) (1 - 1-dose 75+ series) [facility] Start: 2049 Zoster Vaccines (1 of 2) Zoster Vaccines (1 of 2) [facility] Start: 05-23-2033 DTaP/Tdap/Td vaccine (9 - Td or Tdap) DTaP/Tdap/Td vaccine (9 - Td or Tdap) [facility] Start: 05-23-2033 DTaP/Tdap/Td Vaccines (9 - Td or Tdap) DTaP/Tdap/Td Vaccines (9 - Td or Tdap) [facility] Start: 05-23-2033 Urine microalbumin profile [facility] Start: 02-05-2028 Screening for malignant neoplasm of cervix [facility] Start: 08-07-2027 Urine microalbumin profile DTAP,TDAP,TD (6 - Td or Tdap) [facility] Start: 07-20-2026 Lipid panel Lipid Panel [facility] Start: 12-05-2025 Screening for malignant neoplasm of cervix [facility] Start: 11-04-2025 Depression Screen Depression Screen [facility] Start: 08-09-2025 Respiratory Syncytial Virus (RSV) or age 60 yrs+ (1 - Risk 1-dose series) Respiratory Syncytial Virus (RSV) or age 60 yrs+ (1 - Risk 1-dose series) [facility] Start: 07-05-2025 Tdap Vaccine during Tdap Vaccine during [facility] Start: 06-21-2025 Influenza vaccination [facility] Start: 05-21-2025 Influenza vaccination Flu vaccine (Season Ended) [facility] Start: 05-20-2025 End: 05-20-2025 Follow-up encounter 05/20/2025 9:45 AM EDT [facility] [address] [address] Heidi Quezada, KENN [address] [place] [id number] follow up [facility] Comment on above: follow up [facility]ER[facility] Start: 05-18-2025 End: 05-18-2025 Follow-up encounter 05/18/2025 8:30 AM EDT [facility] [address] [place] [id number] follow up [facility] Comment on above: follow up [facility] Start: 04-08-2025 End: 04-08-2025 Patient encounter procedure 04/08/2025 10:00 AM EDT Routine [facility] [place] core java software engineer [address] [address] Riddhi Corrigan, DO [address] [place] [address] [facility] [place] core java software engineer Comment on above: Start: 03-23-2025 Anxiety Screening Anxiety Screening [facility] Start: 03-23-2025 Depression Screening Depression Screening [facility] Start: 03-23-2025 HPV Vaccine (1 - 3-dose series) HPV Vaccine (1 - 3-dose series) [facility] Comment on above: Postponed from 2014 (Declined at t his time) Start: 03-09-2025 End: 03-09-2025 ambulatory 03/09/2025 3:45 PM EDT Initial [facility] [place] core java software engineer [address] [facility] [address] [place] [address] Riddhi Corrigan, DO [address] [place] [address] IVP-NEEDS LATER APPT [facility] core java software engineer Comment on above: IVP-NEEDS LATER APPT Start: 02-25-2025 BP Controlled (<130/80) BP Controlled (<130/80) [facility] Start: 02-23-2025 End: 05-25-2025 CELIAC SCREEN WITH REFLEX CELIAC SCREEN WITH REFLEX Lab Routine Celiac disease (HCC) Iron deficiency Expected: 02/23/2025, Expires: 05/25/2025 [facility] Work Phone: Comment on above: Expected: 02/23/2025, Expires: Start: 02-23-2025 End: 05-25-2025 Iron and Iron binding capacity panel - Serum or Plasma IRON AND TIBC Lab Routine Celiac disease (HCC) Expected: 02/23/2025, Expires: 05/25/2025 [facility] Comment on above: Expected: 02/23/2025, Expires: Start: 2025 End: 2025 Patient encounter procedure 2025 8:45 AM EDT [facility] [address] [place] [address] Riddhi Corrigan DO [address] [place] [address] ePIC PREP GIVEN AND SCHEDULE WITH PT [facility] Comment on above: ePIC PREP GIVEN AND SCHEDULE WITH PT Start: 01-14-2025 BP Controlled (<130/80) BP Controlled (<130/80) [facility] Start: 12-18-2024 Yearly Adult Physical Yearly Adult Physical [facility] Start: 12-08-2024 End: 12-08-2025 Ear Cerumen Removal Ear Cerumen Removal Procedures Routine Bilateral impacted cerumen Expected: 12/08/2024 (Approximate), Expires: 12/08/2025 [facility] Work Phone: Comment on above: Expected: 12/08/2024 (Approximate), Expi res: 12/08/2025 Start: 11-24-2024 End: 11-24-2024 Follow-up encounter 11/24/2024 9:45 AM EST [facility] [address] [address] Heidi Quezada, RD [address] [phone] follow up new celiac disease Gastroenterology Comment on above: follow up new celiac disease Start: 11-21-2024 End: 11-21-2024 ambulatory 11/21/2024 8:00 AM EST Results Only [facility] [address] [place] [address] [facility] Start: 11-17-2024 End: 02-16-2025 25-hydroxyvitamin D3 [Mass/volume] in Serum or Plasma VITAMIN D 25 HYDROXY Lab Routine Celiac disease Vitamin D deficiency Expected: 11/17/2024 (Approximate), Expires: 02/16/2025 [facility] Comment on above: Expected: 11/17/2024 (Approximate), Expi res: 02/16/2025 Start: 11-17-2024 End: 02-16-2025 Iron and Iron binding capacity panel - Serum or Plasma IRON AND TIBC Lab Routine Celiac disease Expected: 11/17/2024 (Approximate), Expires: 02/16/2025 [facility] Work Phone: Comment on above: Expected: 11/17/2024 (Approximate), Expi res: 02/16/2025 Start: 10-27-2024 End: 10-27-2024 ambulatory 10/27/2024 8:00 AM EST [facility] [address] [place] [address] Kingston Davenport, CLINT.COPY CUTTER [address] [place], [place] [id number] Return in about 3 months (around 10/22/2024). [facility]astroenterology [facility] Comment on above: Return in about 3 months (around ). Start: 10-27-2024 End: 10-27-2024 Patient encounter procedure 10/27/2024 8:00 AM EST Office Visit Gastroenterology [facility] [address] [place] [address] Kingston Davenport APRN.COPY CUTTER [address] [place] [address] Return in about 3 months (around 10/22/2024). Gastroenterology [facility] Comment on above: Return in about 3 months (around ). Start: 09-26-2024 BP Controlled (<130/80) BP Controlled (<130/80) [facility] Start: 09-09-2024 End: 09-09-2024 Patient encounter procedure 09/09/2024 2:15 PM EST Office Visit [facility] [address] [facility] [place] [phone] Zhanna Hunter PA-C [address] [facility] [place] [address] Generalized abdominal pain [R10.84] // CONSULT TO GASTROENTEROLOGY [facility] Comment on above: Generalized abdominal pain [R10.84] // C ONSULT TO GASTROENTEROLOGY Start: 09-08-2024 End: 09-08-2024 ambulatory 09/08/2024 12:45 PM EST [facility] [address] [place] [address] Gluten free foods, carnivore diet Gastroenterology Comment on above: Gluten free foods, carnivore diet Start: 08-20-2024 BP Controlled (<130/80) BP Controlled (<130/80) [facility] Start: 08-19-2024 End: 08-19-2024 ambulatory 08/19/2024 9:45 AM EDT [facility] [address] [place] [address] [place] [address] Gluten free foods, carnivore diet Gastroenterology Comment on above: Gluten free foods, carnivore diet Start: 08-15-2024 End: 08-15-2024 ambulatory 08/15/2024 8:00 AM EDT Results Only [facility] [address] [place] [address] [facility] Start: 08-13-2024 End: 11-12-2024 25-hydroxyvitamin D3 [Mass/volume] in Serum or Plasma VITAMIN D 25 HYDROXY Lab Routine Celiac disease Expected: 08/13/2024, Expires: 11/12/2024 [facility] Comment on above: Expected: 08/13/2024, Expires: Start: 08-13-2024 End: 11-12-2024 Ferritin [Mass/volume] in Serum or Plasma FERRITIN Lab Routine Celiac disease Expected: 08/13/2024, Expires: 11/12/2024 [facility] Comment on above: Expected: 08/13/2024, Expires: Start: 08-13-2024 End: 11-12-2024 Folate [Mass/volume] in Serum or Plasma FOLATE, SERUM Lab Routine Celiac disease Expected: 08/13/2024, Expires: 11/12/2024 [facility] Comment on above: Expected: 08/13/2024, Expires: Start: 08-13-2024 End: 11-12-2024 Iron and Iron binding capacity panel - Serum or Plasma IRON AND TIBC Lab Routine Celiac disease Expected: 08/13/2024, Expires: 11/12/2024 [facility] Work Phone: Comment on above: Expected: 08/13/2024, Expires: Start: 08-13-2024 End: 08-13-2024 ambulatory 08/13/2024 11:30 AM EDT [facility] G[facility]enterology [facility] [address] [place], [place] [phone] Kingston Davenport, REFRACTORY TILE HELPER.COPY CUTTER [address] [facility] [place] [address] EGD results Gastroenterology [facility] Comment on above: EGD results Start: 08-04-2024 End: 08-04-2024 Patient encounter procedure 08/04/2024 1:00 PM EDT Appointment Gastroenterology [address] [place] [phone] Nataly Winston MD [address] [place] [address] EGD Gastroenterology Comment on above: EGD Start: 08-01-2024 Annual PCP Team Chronic Disease Visit Annual PCP Team Chronic Disease Visit [facility] Start: 07-22-2024 End: 10-21-2024 CELIAC SCREEN WITH REFLEX [facility] Comment on above: Expected: 07/22/2024, Expires: Start: 07-22-2024 End: 07-22-2024 Patient encounter procedure 07/22/2024 8:00 AM EDT Office Visit Gastroenterology [facility] [address] [place] [address] Kingston Davenport, REFRACTORY TILE HELPER.COPY CUTTER [address] [facility] [place] [address] abdominal pain Gastroenterology [facility] Comment on above: abdominal pain Start: 06-21-2024 COVID-19 Vaccine ( season) COVID-19 Vaccine ( season) [facility] Start: 06-21-2024 Influenza vaccination [facility] Start: 03-23-2024 End: 03-23-2024 Patient encounter procedure 03/23/2024 3:00 PM EDT Office Visit [facility] [address] [place] [address] Sabra Quinteros DO [address] [place] [address] [facility] Comment on above: [facility] Start: 03-17-2024 End: 03-17-2024 Patient encounter procedure 03/17/2024 3:40 PM EDT Office Visit [facility] [address] [place] [phone] Ken Rachel MD [address] [place] [address] [facility] Start: 02-28-2024 End: 02-28-2024 Patient encounter procedure 02/28/2024 3:00 PM EDT Office Visit [facility] [address] [place], [place] [phone] Sabra Quinteros DO [address] [place] [address] [facility] Comment on above: [facility] Start: 02-27-2024 End: 02-27-2024 Patient encounter procedure General Surgery Comment on above: follow up Umbilical hernia repair 02/04 follow up Umbilical hernia repair 02/06 Start: 01-07-2024 PAP TESTING PAP TESTING [facility] Start: 01-07-2024 Screening for malignant neoplasm of cervix [facility] Start: 10-21-2023 Behavioral Health Screening Behavioral Health Screening [facility] Start: 10-21-2023 Depression Assessment Depression Assessment [facility] Start: 06-21-2023 Covid-19 Vaccine ( season) Covid-19 Vaccine () [facility] Start: 06-21-2023 Influenza vaccination [facility] Start: 05-23-2023 End: 05-23-2024 OBSTETRIC ULTRASOUND [facility] OBSTETRIC ULTRASOUND [facility] Anc Imaging Routine Supervision of high risk in third trimester Expected: 05/23/2023, Expires: 05/23/2024 [facility] Work Phone: Comment on above: Expected: 05/23/2023, Expires: Start: 10-21-2022 DEPRESSION ASSESSMENT DEPRESSION ASSESSMENT [facility] Start: 06-21-2022 Influenza vaccination INFLUENZA (Season Ended) [facility] Start: 02-08-2022 FUV, Provider: Charly Villavicencio, Status: Pen, Time: 3:45 PM FUV, Provider: Charly Villavicencio, Status: Pen, Time: 3:[address] Work Phone: Start: 02-08-2022 Patient encounter procedure [facility] Start: 01-06-2022 CHLAMYDIA SCREENING () CHLAMYDIA SCREENING () [facility] Start: 01-06-2022 GC (GONORRHEA) SCREENING () GC (GONORRHEA) SCREENING () [facility] Start: 09-19-2021 FUV, Provider: Ab Zelaya, Status: Pen, Time: 4:10 PM FUV, Provider: Ab Zelaya, Status: Pen, Time: 4:10 PM [facility] Work Phone: Start: 09-19-2021 Patient encounter procedure [facility] Start: 08-17-2021 FUV, Provider: Bertha Enriquez, Status: Pen, Time: 4:20 PM FUV, Provider: Bertha Enriquez, Status: Pen, Time: 4:20 PM [facility] Work Phone: Start: 08-17-2021 Patient encounter procedure [facility] Start: 07-20-2021 ECHO, Provider: EILEEN AWADI ECHO 2,SMCECHO2, Status: Pen, Time: 11:30 AM ECHO, Provider: EILEEN AWADI ECHO 2,SMCECHO2, Status: Pen, Time: 11:[address] Work Phone: Start: 07-20-2021 STRESS SONALI, Provider: EILEEN DURHAM STRESS 1,SMCSTRESS1, Status: Pen, Time: 10:00 AM STRESS SONALI, Provider: EILEEN AWADI STRESS 1,SMCSTRESS1, Status: Pen, Time: 10:[address] Work Phone: Start: 07-13-2021 NPV, Provider: Charly Villavicencio, Status: Pen, Time: 3:30 PM NPV, Provider: Charly Villavicencio, Status: Pen, Time: 3:30 PM [facility] Work Phone: Start: 05-25-2021 FUV, Provider: Bertha Enriquez, Status: Pen, Time: 4:20 PM FUV, Provider: Bertha Enriquez, Status: Pen, Time: 4:20 PM [facility] Work Phone: Start: 02-14-2020 Screening for malignant neoplasm of cervix HPV/Cotest [facility] Start: 2017 HEPATITIS C SCREENING HEPATITIS C SCREENING [facility] Start: 2017 Hepatitis C screening [facility] Start: 2017 HIV SCREENING HIV SCREENING [facility] Start: 2015 Meningococcal B Vaccine: Consider Based On Risk (1 of 2 - Patient Seeks Protection) Meningococcal B Vaccine: Consider Based On Risk (1 of 2 - Patient Seeks Protection) [facility] Start: 2015 MENINGOCOCCAL B: Consider based on risk (1 of 2 - Patient Seeks Protection) MENINGOCOCCAL B: Consider based on risk (1 of 2 - Patient Seeks Protection) [facility] Start: 2014 HIV screening HIV screen [facility] Start: 2014 HPV Vaccine (1 - 3-dose series) HPV Vaccine (1 - 3-dose series) [facility] Start: 2014 HPV Vaccines (1 - 3-dose series) HPV Vaccines (1 - 3-dose series) [facility] Start: 2013 PEDS TO ADULT TRANSITION ANNUAL ASSESSMENT PEDS TO ADULT TRANSITION ANNUAL ASSESSMENT [facility] Start: 10-04-2011 Hepatitis A vaccine (2 of 2 - 2-dose series) Hepatitis A vaccine (2 of 2 - 2-dose series) [facility] Start: 10-04-2011 Hepatitis A Vaccines (2 of 2 - Risk 2-dose series) [facility] Start: 2011 Adult depression screening assessment DEPRESSION SCREENING [facility] Start: 2011 PEDS TO ADULT TRANSITION INITIAL DISCUSSION PEDS TO ADULT TRANSITION INITIAL DISCUSSION [facility] Start: 2010 HPV VACCINE (1 - 2-dose series) HPV VACCINE (1 - 2-dose series) [facility] Start: 2010 HPV Vaccines (1 - 2-dose series) HPV Vaccines (1 - 2-dose series) [facility] Start: 2009 MENINGOCOCCAL B: Consider based on risk (1 of 2 - Risk Bexsero 2-dose series) MENINGOCOCCAL B: Consider based on risk (1 of 2 - Risk Bexsero 2-dose series) [facility] Start: 02-14-2008 HPV VACCINE (1 - 2-dose series) HPV VACCINE (1 - 2-dose series) [facility] Start: 04-03-2004 Varicella vaccination Varicella Vaccines (2 of 2 - 2-dose childhood series) [facility] Start: 02-14-2004 COVID-19 VACCINE (1) COVID-19 VACCINE (1) [facility] Start: 2003 Varicella vaccine (2 of 2 - 2-dose childhood series) Varicella vaccine (2 of 2 - 2-dose childhood series) [facility] Start: 1999 COVID-19 VACCINE (#1) COVID-19 VACCINE (#1) [facility] Start: 1999 Yearly Adult Physical Yearly Adult Physical [facility] End: 02-04-2025 ABO/Rh [facility] Comment on above: 1 Occurrences starting 02/04/2025 until 02/04/2025 End: 02-04-2025 Antibody screen [facility] Comment on above: 1 Occurrences starting 02/04/2025 until 02/04/2025 Bacteria identified in Urine by Culture URINE CULTURE Microbiology Routine UTI (urinary tract infection) in , antepartum Supervision of high risk in third trimester 05/29/2023 3:51 PM EDT [facility] Work Phone: BILE ACIDS FRACT BLD BILE ACIDS FRACT BLD Lab Routine Cholestasis during in third trimester 05/29/2023 3:51 PM EDT [facility] Work Phone: BILE ACIDS FRACT BLD BILE ACIDS FRACT BLD Lab Routine Cholestasis during in third trimester 06/11/2023 4:10 PM EDT [facility] Work Phone: BILE ACIDS FRACT BLD BILE ACIDS FRACT BLD Lab Routine Cholestasis during in third trimester Ordered: 06/25/2023 [facility] Work Phone: Comment on above: Ordered: 06/25/2023 End: 11-19-2023 BIOPHYSICAL PROFILE US [facility] BIOPHYSICAL PROFILE US [facility] Anc Imaging Routine Supervision of high risk in third trimester Cholestasis during in third trimester 10 Occurrences starting 05/23/2023 until 11/19/2023 [facility] Work Phone: Comment on above: 10 Occurrences starting 05/23/2023 until 11/19/2023 End: 02-04-2025 C.trachomatis N.gonorrhoeae DNA C.trachomatis N.gonorrhoeae DNA Microbiology Routine Amenorrhea 1 Occurrences starting 02/04/2025 until 02/04/2025 [facility] Comment on above: 1 Occurrences starting 02/04/2025 until 02/04/2025 Calprotectin [Mass/m ass] in Stool CALPROTECTIN,FECAL Lab Routine Diarrhea, unspecified type Ordered: 07/22/2024 [facility] Work Phone: Comment on above: Ordered: 07/22/2024 Clostridioides diffi cile toxin genes [Presence] in Stool by HU with probe detection C. DIFFICILE PCR Lab Routine Diarrhea, unspecified type Ordered: 07/22/2024 [facility] Comment on above: Ordered: 07/22/2024 Comprehensive metabo lic 2000 panel - Serum or Plasma COMP METABOLIC PANEL Lab Routine Cholestasis during in third trimester Ordered: 06/25/2023 [facility] Work Phone: Comment on above: Ordered: 06/25/2023 End: 02-04-2025 Culture, Urine [facility] Comment on above: 1 Occurrences starting 02/04/2025 until 02/04/2025 End: 02-04-2025 Cytopathology procedure, preparation of smear, genital source PAP SMEAR Lab Routine Amenorrhea Special screening examination for human papillomavirus (HPV) 1 Occurrences starting 02/04/2025 until 02/04/2025 [facility] Comment on above: 1 Occurrences starting 02/04/2025 until 02/04/2025 End: 07-24-2025 EGD DIAGNOSTIC EGD DIAGNOSTIC Endoscopy Routine Positive autoantibody screening for celiac disease Loose stools Generalized abdominal pain 1 Occurrences starting 07/24/2024 until 07/24/2025 [facility] Work Phone: Comment on above: 1 Occurrences starting 07/24/2024 until 07/24/2025 ENTERIC BACTERIAL PA ITZEL BY PCR ENTERIC BACTERIAL PANEL BY PCR Lab Routine Diarrhea, unspecified type Ordered: 07/22/2024 [facility] Comment on above: Ordered: 07/22/2024 End: 03-02-2025 Extra Urine [facility] [facility] Work Phone: Comment on above: Once for 1 Occurrences starting 03/02/20 until 03/02/2025 End: 05-21-2024 nonstress test NON-STRESS TEST Procedures Routine Supervision of high risk in third trimester Cholestasis during in third trimester Once per week for 10 Occurrences starting 05/23/2023 until 05/21/2024 [facility] Work Phone: Comment on above: Once per week for 10 Occurrences startin g 05/23/2023 until 05/21/2024 Giardia lamblia+Cryptosporidium sp Ag [Presence] in Stool by Immunoassay CRYPTOSPORIDIUM AND GIARDIA ANTIGENS BY EIA Microbiology Routine Diarrhea, unspecified type Ordered: 07/22/2024 [facility] Comment on above: Ordered: 07/22/2024 End: 02-04-2025 Hemoglobin A1c/Hemoglobin.total in Blood [facility] Comment on above: Once for 1 Occurrences starting 02/05/20 until 02/04/2025 HEMOGLOBIN EVALUATIO N CASCADE HEMOGLOBIN EVALUATION CASCADE Lab Routine Supervision of high risk in third trimester 05/23/2023 4:01 PM EDT [facility] Work Phone: End: 02-04-2025 Hemoglobinopathy Evaluation Hemoglobinopathy Evaluation Lab Routine Amenorrhea 1 Occurrences starting 02/04/2025 until 02/04/2025 [facility] Comment on above: 1 Occurrences starting 02/04/2025 until 02/04/2025 End: 02-04-2025 Hepatitis C Antibody [facility] Comment on above: 1 Occurrences starting 02/04/2025 until 02/04/2025 HGB ELECTROPHORESIS FOR EVAL (LAB ORDER) HGB ELECTROPHORESIS FOR EVAL (LAB ORDER) Lab Routine Supervision of high risk in third trimester 05/23/2023 4:01 PM EDT [facility] Work Phone: HGB EVALUATION CASCA DE INTERP HGB EVALUATION CASCADE INTERP Lab Routine Supervision of high risk in third trimester 05/23/2023 4:01 PM EDT [facility] Work Phone: End: 02-04-2025 HIV Screen [facility] Comment on above: 1 Occurrences starting 02/04/2025 until 02/04/2025 Human papilloma viru s 16 and 18 and 31+33+35+39+45+51+52+56+ 58+59+66+68 DNA - Unspecified specimen Human papillomavirus (HPV) DNA probe thin prep high risk Lab Routine 02/04/2025 11:00 AM EDT [facility] Iadna trichomonas vaginalis amplified probe tech Trichomonas vaginalis RNA, Qualitative, TMA, Pap Vial Microbiology Routine Amenorrhea 02/04/2025 1:08 PM EDT [facility] INDUCTION L&D INDUCTION L&D Procedures Routine Cholestasis during in third trimester Ordered: 06/25/2023 [facility] Work Phone: Comment on above: Ordered: 06/25/2023 Path report.final Dx Spec [facility] Patient Education [facility] Work Phone: Patient referral [facility] Work Phone: SURGICAL PATHOLOGY [facility] Work Phone: Comment on above: Release Upon Ordering for 1 Occurrences starting 08/04/2024, 1 completed End: 03-02-2025 Urinalysis complete W Reflex Culture panel - Urine [facility] Work Phone: Comment on above: STAT (Lab) for 1 Occurrences starting until 03/02/2025 End: 03-02-2023 Us breast uni real time with image limited US BREAST LTD LT Radiology Routine Mass of lower outer quadrant of left breast 1 Occurrences starting 01/31/2022 until 03/02/2023 [facility] Work Phone: Comment on above: 1 Occurrences starting 01/31/2022 until 03/02/2023 End: 02-04-2025 Varicella Zoster Antibody, IgG [facility] Comment on above: 1 Occurrences starting 02/04/2025 until 02/04/2025 End: 02-04-2025 Wet prep, genital Bon [facility] Comment on above: Once for 1 Occurrences starting 02/05/20 until 02/04/2025 [facility] Immunizations Immunization Date Immunization Notes Care Provider [facility] 05-23-2023 tetanus toxoid, redu jun diphtheria toxoid, and acellular pertussis vaccine, adsorbed Etta Ugalde APRN.CNP Work Phone: [facility] 08-07-2017 meningococcal polysaccharide (groups A, C, Y and W-135) diphtheria toxoid conjugate vaccine (MCV4P) Kia Otto MD Work Phone: [facility] Work Phone: 08-07-2017 tetanus toxoid, redu jun diphtheria toxoid, and acellular pertussis vaccine, adsorbed Kia Otto MD Work Phone: [facility] Work Phone: 06-07-2016 meningococcal polysaccharide (groups A, C, Y and W-135) diphtheria toxoid conjugate vaccine (MCV4P); Translations: [Meningo (Menactra)] Tea Larios MD [facility] Comment on above: Series: 04-04-2011 hepatitis A vaccine, pediatric/adolescent dosage, 2 dose schedule Tati Turpin MD Work Phone: [facility] 04-04-2011 tetanus toxoid, redu jun diphtheria toxoid, and acellular pertussis vaccine, adsorbed Tati Turpin MD Work Phone: [facility] 04-04-2011 hepatitis A and hepatitis B vaccine Ken Rachel MD Work Phone: [facility] 04-04-2011 hepatitis A vaccine, pediatric/adolescent dosage, 2 dose schedule Tea Larios MD [facility] Work Phone: 04-04-2011 tetanus toxoid, redu jun diphtheria toxoid, and acellular pertussis vaccine, adsorbed Tea Larios MD [facility] Work Phone: 03-06-2004 diphtheria, tetanus toxoids and acellular pertussis vaccine Tait Turpin MD Work Phone: [facility] 03-06-2004 measles, mumps and rubella virus vaccine Tati Turpin MD Work Phone: [facility] 03-06-2004 poliovirus vaccine, inactivated Tati Turpin MD Work Phone: [facility] 03-06-2004 diphtheria, tetanus toxoids and acellular pertussis vaccine Tea Larios MD [facility] Work Phone: 03-06-2004 measles, mumps and rubella virus vaccine Tea Larios MD [facility] Work Phone: 03-06-2004 poliovirus vaccine, inactivated Tea Larios MD [facility] Work Phone: 02-16-2002 pneumococcal conjuga te vaccine, 7 valent Tati Turpin MD Work Phone: [facility] 02-16-2002 pneumococcal conjuga te vaccine, 7 valent Tea Larios MD [facility] Work Phone: 07-24-2000 diphtheria, tetanus toxoids and acellular pertussis vaccine Kia Otto MD Work Phone: [facility] Work Phone: 07-24-2000 diphtheria, tetanus toxoids and acellular pertussis vaccine, unspecified formulation Ken Rachel MD Work Phone: [facility] Work Phone: 07-24-2000 diphtheria, tetanus toxoids and acellular pertussis vaccine Tea Larios MD [facility] Work Phone: 02-21-2000 haemophilus influenz ae type b vaccine, HbOC conjugate Kia Otto MD Work Phone: [facility] Work Phone: 02-21-2000 haemophilus influenz ae type b vaccine, PRP-T conjugate Ken Rachel MD Work Phone: [facility] Work Phone: 02-21-2000 hepatitis B vaccine, pediatric or pediatric/adolescent dosage Tati Turpin MD Work Phone: [facility] 02-21-2000 measles, mumps and rubella virus vaccine Kia Otto MD Work Phone: [facility] Work Phone: 02-21-2000 varicella virus vaccine Kia Otto MD Work Phone: [facility] Work Phone: 02-21-2000 haemophilus influenz ae type b vaccine, PRP-OMP conjugate Tea Larios MD [facility] Work Phone: 02-21-2000 measles, mumps and rubella virus vaccine Tea Larios MD [facility] Work Phone: 02-21-2000 varicella virus vaccine Tea Larios MD [facility] Work Phone: 1999 diphtheria, tetanus toxoids and acellular pertussis vaccine Kia Otto MD Work Phone: [facility] Work Phone: 1999 diphtheria, tetanus toxoids and acellular pertussis vaccine, unspecified formulation Ken Rachel MD Work Phone: [facility] Work Phone: 1999 haemophilus influenz ae type b conjugate and Hepatitis B vaccine Tati Turpin MD Work Phone: [facility] 1999 haemophilus influenz ae type b vaccine, HbOC conjugate Kia Otto MD Work Phone: [facility] Work Phone: 1999 hepatitis B vaccine, pediatric or pediatric/adolescent dosage Kia Otto MD Work Phone: [facility] Work Phone: 1999 poliovirus vaccine, inactivated Kia Otto MD Work Phone: [facility] Work Phone: 1999 diphtheria, tetanus toxoids and acellular pertussis vaccine Tea Larios MD [facility] Work Phone: 1999 haemophilus influenz ae type b conjugate and Hepatitis B vaccine Tea Larios MD [facility] Work Phone: 1999 poliovirus vaccine, inactivated Tea Larios MD [facility] Work Phone: 1999 diphtheria, tetanus toxoids and acellular pertussis vaccine Kia Otto MD Work Phone: [facility] Work Phone: 1999 diphtheria, tetanus toxoids and acellular pertussis vaccine, unspecified formulation Ken Rachel MD Work Phone: [facility] Work Phone: 1999 haemophilus influenz ae type b conjugate and Hepatitis B vaccine Tati Turpin MD Work Phone: [facility] 1999 haemophilus influenz ae type b vaccine, HbOC conjugate Kia Otto MD Work Phone: [facility] Work Phone: 1999 poliovirus vaccine, inactivated Kia Otto MD Work Phone: [facility] Work Phone: 1999 diphtheria, tetanus toxoids and acellular pertussis vaccine Tea Larios MD [facility] Work Phone: 1999 haemophilus influenz ae type b conjugate and Hepatitis B vaccine Tea Larios MD [facility] Work Phone: 1999 poliovirus vaccine, inactivated Tea Larios MD [facility] Work Phone: 1999 diphtheria, tetanus toxoids and acellular pertussis vaccine Kia Otto MD Work Phone: [facility] Work Phone: 1999 diphtheria, tetanus toxoids and acellular pertussis vaccine, unspecified formulation Ken Rachel MD Work Phone: [facility] Work Phone: 1999 haemophilus influenz ae type b conjugate and Hepatitis B vaccine Tati Turpin MD Work Phone: [facility] 1999 haemophilus influenz ae type b vaccine, HbOC conjugate Kia Otto MD Work Phone: [facility] Work Phone: 1999 hepatitis B vaccine, pediatric or pediatric/adolescent dosage Kia Otto MD Work Phone: [facility] Work Phone: 1999 poliovirus vaccine, inactivated Kia Otto MD Work Phone: [facility] Work Phone: 1999 diphtheria, tetanus toxoids and acellular pertussis vaccine Tea Larios MD [facility] Work Phone: 1999 haemophilus influenz ae type b conjugate and Hepatitis B vaccine Tea Larios MD [facility] Work Phone: 1999 poliovirus vaccine, inactivated Tea Larios MD [facility] Work Phone: 1999 hepatitis B vaccine, pediatric or pediatric/adolescent dosage Kia Otto MD Work Phone: [facility] Work Phone: 1999 hepatitis B vaccine, pediatric or pediatric/adolescent dosage Tea Larios MD [facility] Work Phone: diphtheria, tetanus toxoids and acellular pertussis vaccine Bertha Enriquez Work Phone: [facility] Work Phone: Comment on above: 99 Series: 07/24/00 Series: 03/06/04 Series: 99 Series: 99 Series: haemophilus influenz ae type b conjugate and Hepatitis B vaccine Bertha Enriquez Work Phone: [facility] Work Phone: Comment on above: 99 Series: 99 Series: 99 Series: haemophilus influenz ae type b vaccine, PRP-OMP conjugate Bertha Enriquez Work Phone: [facility] Work Phone: Comment on above: 02/21/00 Series: hepatitis A vaccine, pediatric/adolescent dosage, 2 dose schedule Bertha Enriquez Work Phone: [facility] Work Phone: Comment on above: 04/04/11 Series: hepatitis B vaccine, pediatric or pediatric/adolescent dosage Bertha Enriquez Work Phone: [facility] Work Phone: Comment on above: 99 Series: measles, mumps and rubella virus vaccine Bertha Enriquez Work Phone: [facility] Work Phone: Comment on above: 02/21/00 Series: 03/06/04 Series: pneumococcal conjuga te vaccine, 7 valent Bertha Sabino [employer] Work Phone: [facility] Work Phone: Comment on above: 02/16/02 Series: poliovirus vaccine, inactivated Bertha Enriquez Work Phone: [facility] Work Phone: Comment on above: 99 Series: 99 Series: 99 Series: 03/06/04 Series: tetanus toxoid, redu jun diphtheria toxoid, and acellular pertussis vaccine, adsorbed Bertha Enriquez Work Phone: [facility] Work Phone: Comment on above: 04/04/11 Series: varicella virus vaccine Jesús Enriquez Work Phone: [facility] Work Phone: Comment on above: 02/21/00 Series: Payers Date Payer Category Payer Managed Care (Private) [id number] 2022 Self-pay [id number] 2021 Unknown MMO MMO [employer] [id number] 2021-Present [phone] [address] [place] [address] O [id number] 2021 Unknown [id number] 2020 Unknown 2019 Private Health Insurance [facility] [employer] [id number] 2019-Present [phone] [address] [place] [address] O [id number] 2019 Private Health Insurance [id number] 2019 Private Health Insurance [id number] 1999 Unknown [id number] 2.16.840.1.316455.3.579.2. 1244 1999 Unknown [id number] 2.16.840.1.509000.3.579.2. 1244 1999 Unknown [id number] 2.16.840.1.999451.3.579.2. 1244 1999 Unknown [id number] 2.16.840.1.450277.3.579.2. 903 1999 Unknown [id number] 2.16840.1.960205.3.579.2. 902 1999 Unknown [id number] 2.16.840.1.535885.3.579.2. 902 1999 Unknown [id number] 2.16.840.1.107103.3.579.2. 902 1999 Unknown [id number] 2.16.840.1.621985.3.579.2. 902 1999 Unknown [id number] 2.16840.1.160684.3.579.2. 185 1999 Unknown [id number] 2.16.840.1.407131.3.579.2. 185 1999 Unknown [id number] 2.16.840.1.107727.3.579.2. 185 1999 Unknown [id number] 2.16.840.1.065326.3.579.2. 182 1999 Unknown [id number] 2.16.840.1.839381.3.579.2. 1243 1999 Unknown [id number] 2.16.840.1.990661.3.579.2. 1243 1999 Unknown [id number] 2.16.840.1.740284.3.579.2. 1242 1999 Unknown [id number] 2.16.840.1.745316.3.579.2. 124 1999 Unknown [id number] 2.16840.1.775374.3.579.2. 1242 1999 Unknown [id number] 2.16840.1.468732.3.579.2. 1242 1999 Unknown [id number] 2.16840.1.948991.3.579.2. 1242 1999 Unknown [id number] 2.840.1.725962.3.579.2. 1242 1999 Unknown [id number] 2.840.1.040337.3.579.2. 1242 1999 Unknown [id number] 2.840.1.026413.3.579.2. 903 Unknown ANTHEM [id number] Unknown [id number] 2.840.1.711306.3.579.2. 462 Unknown [id number] 2.840.1.418749.3.579.2. 462 Unknown [id number] .840.1.785388.3.579.2. 462 Unknown [id number] 2.840.1.603348.3.579.2. 462 Unknown [id number] 2.840.1.477356.3.579.2. 462 Unknown [id number] 2.840.1.980136.3.579.2. 462 Unknown [id number] 2.840.1.237715.3.579.2. 462 Social History Date Type Detail Facility Start: 05-19-2023 End: 12-03-2024 Family members smoke outdoors only Family members smoke outdoors only [facility] Start: 12-02-2022 End: 02-19-2023 Tobacco smoking consumption unknown [facility] Start: 11-27-2020 End: 05-23-2023 Tobacco smoking status NHIS Never smoked tobacco [facility] Start: 01-31-2022 End: 05-19-2023 Alcohol intake Current drinker of alcohol (finding) [facility] Start: 01-06-2021 History SDOH Alcohol Comment occasionally [facility] Start: 1999 Sex Assigned At Not on file [facility] Start: 01-21-2022 End: 03-02-2025 Exposure to SARS-CoV-2 (event) Not sure [facility] Start: 11-03-2022 [facility] Start: 2000 Sex Assigned At Female W [facility] Start: 11-27-2020 End: 05-23-2023 Tobacco use and exposure Smokeless tobacco non-user [facility] Start: 05-19-2023 End: 12-03-2024 Tobacco use panel [facility] Start: 11-30-2020 Gender identity Identifies as female gender (finding) [facility] Start: 05-23-2023 End: 08-04-2024 Alcohol intake Ex-drinker (finding) [facility] National Score (1-10 0), lower number is lower risk Not on file [facility] Do you belong to any clubs or organizations such as christianity groups, unions, fraternal or athletic groups, or school groups? No [facility] Are you now , , , , never or living with a partner? [facility] How often to you hav e a drink containing alcohol? Never [facility] Do you feel stress - tense, restless, nervous, or anxious, or unable to sleep at night because your mind is troubled all the time - these days [OSQ] Not at all [facility] (I/We) worried wheth er (my/our) food would run out before (I/we) got money to buy more. Never true [facility] Start: 12-17-2023 End: 03-09-2025 Alcohol intake Lifetime non-drinker (finding) [facility] Work Phone: Start: 12-03-2012 Sex Female (finding) [facility] NEGATED: Highlighted row - - [facility] Work Phone: Goals Date Patient Goal Desired Activity /State Personal health goal Personal health goal Functional Status Date Assessment Result Facility 03-02-2025 Bradley - suicide severity rating scale screener - recent [C-SSRS] [facility] Work Phone: 07-16-2023 Are you deaf, or do you have serious difficulty hearing No 07/16/2023 2:23 PM EDT Yanci Colby RN No [facility] 07-16-2023 Are you blind, or do you have serious difficulty seeing, even when wearing glasses No 07/16/2023 2:23 PM Yanci Kerr RN No [facility] 07-16-2023 Do you have serious difficulty walking or climbing stairs No 07/16/2023 2:23 PM EDT Yanci Colby, SAMARA No [facility] 07-16-2023 Do you have difficul ty dressing or bathing No 07/16/2023 2:23 PM EDT Yanci Colby, SAMARA No [facility] 07-16-2023 Because of a physica l, mental, or emotional condition, do you have difficulty doing errands alone such as visiting a physician's office or shopping No 07/16/2023 2:23 PM EDT Yanci Colby, SAMARA No [facility] NEGATED: Highlighted row Functional performance Functional status health issues are not documented Disease [facility] Work Phone: Mental Status Date Assessment Result Facility 07-16-2023 Because of a physical, mental, or emotional condition, do you have serious difficulty concentrating, remembering, or making decisions No 07/16/2023 2:23 PM EDT Yanci Colby RN No [facility] NEGATED: Highlighted row Cognitive function [Interpretation] Cognitive status health issues are not documented Disease [facility] Work Phone: Clinical Notes 05-26-2021 to 04-29-2025 Marta Whittaker LPN - 04/29/2025 10:06 AM Monica Briscoe MA - 03/08/2025 2:47 PM Ofelia Serna, DO - 03/02/2025 5:49 PM Ofelia Serna, DO - 03/02/2025 5:49 PM EDTPatient Instructions Note Date & Type Note Facility 04-29-2025 History of Presen t illness Narrative ED Follow-Up Note Provider Action / FYI: Per pt she is doing better. Per pt she does not wish to schedule follow up at this time. Marta Whittaker LPN Call completed by: ANIKA Patient seen in ED: Out of Network ED Contact made with Patient: Yes The patient was identified by Name and Date of . Discussed Care with: patient Patient was seen in the Emergency Department (ED) Location: [facility] Date: 04/22/2025 Reason for ED Visit: Acute UTI ED Intervention: UA Labs Ultrasound New Medications: Macrobid 100 mg capsule take 1 capsule by mouth 2 times a day for 5 days Medication Changes: None Does patient understand medication changes: N/A Can patient afford medication changes: N/A Patient educated on worsening symptoms and when and where to seek additional care: No Patient Education Provided including treatment plan and new orders. Patient provided with appropriate counseling: Yes documented in this encounter [facility] 04-22-2025 Note EXAMINATION: US OB LIMITED W/O MATERNAL EVALUATION 1+ FETUSES HISTORY: ORDERING SYSTEM PROVIDED HISTORY: Abdominal pain and has had no imaging done as of yet, TECHNOLOGIST PROVIDED HISTORY: Illness/Other Reason for Exam: Abd pain Cancer History: U Surgery, Radiation History: U Encounter Type: Initial Additional Signs and Symptoms: None ORDERING SYSTEM PROVIDED DIAGNOSIS CODES: COMPARISON: None. TECHNIQUE: Transabdominal ultrasound of the pelvis with turpin-scale and Doppler interrogation. FINDINGS: There is a single intrauterine in a breech presentation with a heart rate obtained at 160 beats per minute. The crown-rump length measured 10.06 cm, corresponding to 16 weeks, 0 days. The placenta is posterior, homogeneous in echotexture. The amniotic fluid is grossly within normal limits. Neither ovary was identified. No free fluid is seen within the pelvis. IMPRESSION: 1. Single intrauterine with an estimated gestational age by ultrasound of 16 weeks, 0 days. 2. heart rate - 160 beats per minute. 3. No acute findings. DPR/vrs Workstation ID: [id number] Dictated by: RIC HARRINGTON on SatApr 22, 2025 7:51:39 PM EDT Transcribed by: MAT CHANDRA on SatApr 22, 2025 7:55:19 PM EDT Finalized by: RIC HARRINGTON on SatApr 22, 2025 7:56:52 PM EDT [facility] Comment on above: Order Comment: Injur y/Trauma or Illness?:Illness/OtherHow long have you had these symptoms (acute/chronic)?:AcuteReason for exam?:abd painHistory of cancer?:uSurgeries, chemotherapy, or radiation?:uType of Exam?:InitialAdditional signs and symptoms?:none 03-11-2025 Note HNO ID: [id number] Author: MARTA WHITTAKER LPN Service: ? Author Type: LICENSED NURSE Type: Progress Notes Filed: 03/11/2025 14:01 Note Text: ED Follow-Up Note Provider Action / FYI: Call completed by: ANIKA Patient seen in ED: Out of Network ED Contact made with Patient: Yes The patient was identified by Name and Date of . Discussed Care with: patient Patient was seen in the Emergency Department (ED) Location: [facility] Date: 03/10/2025 Reason for ED Visit: Hyperemesis arising during ED Intervention: EKG Labs New Medications: Promethazine [address] 1 suppository rectally every 6 hours as needed for nausea or vomiting Aspirin 81 mg take 1 tablet daily by mouth Medication Changes: None Does patient understand medication changes: N/A Can patient afford medication changes: N/A Patient educated on worsening symptoms and when and where to seek additional care: No Patient Education Provided including treatment plan and new orders. Patient provided with appropriate counseling: Yes Per pt she feels better. Pt does not wish to schedule follow up at this time. Marta Whittaker LPN [facility] 03-11-2025 Note Patient Outreach (AG FAMPLE) KJPETTY ([id number]) 2000 F Date Time Provider Department 03/11/25 SABRA QUINTEROS During your visit today, we recorded the following information about you: Marta Whittaker LPN 03/11/2025 2:01 PM Signed ED Follow-Up Note Provider Action / FYI: Call completed by: ANIKA Patient seen in ED: Out of Network ED Contact made with Patient: Yes The patient was identified by Name and Date of . Discussed Care with: patient Patient was seen in the Emergency Department (ED) Location: [facility] Date: 03/10/2025 Reason for ED Visit: Hyperemesis arising during ED Intervention: EKG Labs New Medications: Promethazine [address] 1 suppository rectally every 6 hours as needed for nausea or vomiting Aspirin 81 mg take 1 tablet daily by mouth Medication Changes: None Does patient understand medication changes: N/A Can patient afford medication changes: N/A Patient educated on worsening symptoms and when and where to seek additional care: No Patient Education Provided including treatment plan and new orders. Patient provided with appropriate counseling: Yes Per pt she feels better. Pt does not wish to schedule follow up at this time. Marta Whittaker LPN Allergies As of Date: 03/11/2025 Noted Allergy Reaction AMOXICILLIN 08/05/2018 14 - Other: See Comments Comments: Pt gets UTI'S BENADRYL (DIPHENHYDRAMINE) 07/13/2023 14 - Other: See Comments Comments: Severe headache and stiffness (IV only) Tolerates po benadryl GLUTEN 08/19/2024 14 - Other: See Comments Comments: Celiac Disease Date Reviewed: 01/12/2025 Reviewed by: Heidi Quezada RD - Fully Assessed Reason for Visit: ED Follow-up [821] Cmt: Maile Bassett ED 03/10/2025 Prescriptions as of 03/11/2025 - omeprazole (PRILOSEC) 40 mg capsule Take 1 capsule by mouth once daily. - mv-min/folic/vit K/lycop/coQ10 (DAILY MULTIVITAMIN ORAL) Take 1 tablet by mouth once daily. Problem List As Of Date 03/11/2025 Noted Resolved Cyst of right ovary [N83.201] 08/07/2018 05/23/2023 Pruritus gravidarum, third trimester [O99.713, *05/19/2023 05/29/2023 Iron deficiency anemia [D50.9] 05/19/2023 09/26/2023 30 weeks gestation of [Z3A.30] 05/19/2023 05/23/2023 Cholestasis of [O26.649] 05/19/2023 07/08/2023 Decreased movement [O36.8190] 05/21/2023 05/29/2023 Abdominal pain affecting [O26.899, R1*05/21/2023 07/02/2023 Supervision of high risk in third tri*05/23/2023 07/06/2023 Cholestasis during in third trimester*05/23/2023 07/09/2023 Asymptomatic bacteriuria during [O99.*05/29/2023 07/08/2023 Yeast infection [B37.9] 06/29/2023 07/09/2023 Vaginal discharge during in third tri*06/29/2023 07/02/2023 36 weeks gestation of [Z3A.36] 06/29/2023 07/02/2023 Encounter for induction of labor [Z34.90] 07/06/2023 07/08/2023 state [Z39.2] 07/08/2023 care following vaginal delivery [Z39*07/09/2023 07/10/2023 Severe pre-eclampsia, [O14.14] 07/13/2023 Chest pain [R07.9] 07/13/2023 09/26/2023 Acute nonintractable headache [R51.9] 07/14/2023 09/26/2023 Preeclampsia in period [O14.95] 07/15/2023 09/26/2023 Seizure-like activity (HCC) [R56.9] 07/15/2023 09/26/2023 Urinary retention [R33.9] 07/16/2023 07/22/2023 Hypertension complicating , delivered,*07/16/2023 07/22/2023 Lactating mother [Z39.1] 08/19/2023 Seizure due to eclampsia [O15.9] 08/19/2023 headache, [O90.89, R51.9] 08/20/2023 09/26/2023 Lower back pain [M54.50] 08/20/2023 Symptomatic cholelithiasis [K80.20] 09/03/2023 09/26/2023 Obesity, Class I, BMI 30-34.9 [E66.811] 03/23/2024 Encounter Status:Closed by MARTA WHITTAKER on 03/11/25 [facility] 03-08-2025 Note HNO ID: [id number] Author: MONICA CHUNG MA Service: ? Author Type: Corporate Law Specialist Type: Progress Notes Filed: 03/08/2025 14:49 Note Text: ED Follow Up: Patient discharged from ED on 03/02/25. 1. How are you feeling since your ED visit? Patient states she is feeling better, cramping has gone away Have your symptoms improved or resolved? Yes 2. Were you prescribed any medications while in the ED or advised to stop any medication? No - If yes, were you able to fill your prescriptions? Not applicable -if stopped medication, what was the medication? N/A 3. Were you advised to schedule a follow up appointment with your provider? Yes - If no, Do you feel like you need an appointment scheduled? Not applicable - If yes, Do you need this scheduled now or has this already been scheduled? Is following up with [facility] 4. Were you able to contact the office or patient registration specialist provider prior to your ED visit? Not applicable 5. Is there anything else I can do for you today? No Monica Chung MA [facility] 03-08-2025 History of Presen t illness Narrative ED Follow Up: Patient discharged from ED on 03/02/25. 1. How are you feeling since your ED visit? Patient states she is feeling better, cramping has gone away Have your symptoms improved or resolved? Yes 2. Were you prescribed any medications while in the ED or advised to stop any medication? No - If yes, were you able to fill your prescriptions? Not applicable -if stopped medication, what was the medication? N/A 3. Were you advised to schedule a follow up appointment with your provider? Yes - If no, Do you feel like you need an appointment scheduled? Not applicable - If yes, Do you need this scheduled now or has this already been scheduled? Is following up with [facility] [employer] 4. Were you able to contact the office or patient registration specialist provider prior to your ED visit? Not applicable 5. Is there anything else I can do for you today? No Monica Chung MA documented in this encounter [facility] 03-08-2025 Note Patient Outreach (AG FAMPLE) PETTY UNDERWOOD ([id number]) 2000 F Date Time Provider Department 03/08/25 SABRA QUINTEROS During your visit today, we recorded the following information about you: Monica Chung MA 03/08/2025 2:49 PM Signed ED Follow Up: Patient discharged from ED on 03/02/25. 1. How are you feeling since your ED visit? Patient states she is feeling better, cramping has gone away Have your symptoms improved or resolved? Yes 2. Were you prescribed any medications while in the ED or advised to stop any medication? No - If yes, were you able to fill your prescriptions? Not applicable -if stopped medication, what was the medication? N/A 3. Were you advised to schedule a follow up appointment with your provider? Yes - If no, Do you feel like you need an appointment scheduled? Not applicable - If yes, Do you need this scheduled now or has this already been scheduled? Is following up with [facility] [employer] 4. Were you able to contact the office or patient registration specialist provider prior to your ED visit? Not applicable 5. Is there anything else I can do for you today? No Monica Chung MA Allergies As of Date: 03/08/2025 Noted Allergy Reaction AMOXICILLIN 08/05/2018 14 - Other: See Comments Comments: Pt gets UTI'S BENADRYL (DIPHENHYDRAMINE) 07/13/2023 14 - Other: See Comments Comments: Severe headache and stiffness (IV only) Tolerates po benadryl GLUTEN 08/19/2024 14 - Other: See Comments Comments: Celiac Disease Date Reviewed: 01/12/2025 Reviewed by: Heidi Quezada RD - Fully Assessed Reason for Visit: ED Follow-up [821] Cmt: 03/02/25 Prescriptions as of 03/08/2025 - omeprazole (PRILOSEC) 40 mg capsule Take 1 capsule by mouth once daily. - mv-min/folic/vit K/lycop/coQ10 (DAILY MULTIVITAMIN ORAL) Take 1 tablet by mouth once daily. Problem List As Of Date 03/08/2025 Noted Resolved Cyst of right ovary [N83.201] 08/07/2018 05/23/2023 Pruritus gravidarum, third trimester [O99.713, *05/19/2023 05/29/2023 Iron deficiency anemia [D50.9] 05/19/2023 09/26/2023 30 weeks gestation of [Z3A.30] 05/19/2023 05/23/2023 Cholestasis of [O26.649] 05/19/2023 07/08/2023 Decreased movement [O36.8190] 05/21/2023 05/29/2023 Abdominal pain affecting [O26.899, R1*05/21/2023 07/02/2023 Supervision of high risk in third tri*05/23/2023 07/06/2023 Cholestasis during in third trimester*05/23/2023 07/09/2023 Asymptomatic bacteriuria during [O99.*05/29/2023 07/08/2023 Yeast infection [B37.9] 06/29/2023 07/09/2023 Vaginal discharge during in third tri*06/29/2023 07/02/2023 36 weeks gestation of [Z3A.36] 06/29/2023 07/02/2023 Encounter for induction of labor [Z34.90] 07/06/2023 07/08/2023 state [Z39.2] 07/08/2023 care following vaginal delivery [Z39*07/09/2023 07/10/2023 Severe pre-eclampsia, [O14.14] 07/13/2023 Chest pain [R07.9] 07/13/2023 09/26/2023 Acute nonintractable headache [R51.9] 07/14/2023 09/26/2023 Preeclampsia in period [O14.95] 07/15/2023 09/26/2023 Seizure-like activity (HCC) [R56.9] 07/15/2023 09/26/2023 Urinary retention [R33.9] 07/16/2023 07/22/2023 Hypertension complicating , delivered,*07/16/2023 07/22/2023 Lactating mother [Z39.1] 08/19/2023 Seizure due to eclampsia [O15.9] 08/19/2023 headache, [O90.89, R51.9] 08/20/2023 09/26/2023 Lower back pain [M54.50] 08/20/2023 Symptomatic cholelithiasis [K80.20] 09/03/2023 09/26/2023 Obesity, Class I, BMI 30-34.9 [E66.811] 03/23/2024 Encounter Status:Closed by MONICA CHUNG on 03/08/25 [facility] 03-02-2025 Emergency department Note Images from the original note were not included. Pelvic cramping, dysuria. This 25-year-old white female presents to the ED via private car secondary to pelvic cramping that began this morning and has continued throughout the day. She states that she is approximately 9 weeks . She states that she has had some dysuria. She was seen at urgent care center and told that they did notice some blood in her urine. She states that her initial ultrasound at 6 weeks with revealed a subchorionic hemorrhage. She denies any vaginal bleeding currently. Patient states that she is 2 para 1. Previous history of cholecystectomy hernia repair and wisdom tooth extraction. She states that she is approximately 9 weeks . History provided by: Patient aerial photograph interpreter used: No Physical Exam Vitals and nursing note reviewed. Constitutional: General: She is awake. Appearance: Normal appearance. She is normal weight. HENT: Head: Normocephalic and atraumatic. Right Ear: Hearing and external ear normal. Left Ear: Hearing and external ear normal. Nose: Nose normal. No congestion or rhinorrhea. Mouth/Throat: Lips: [place]. Mouth: Mucous membranes are moist. Pharynx: Oropharynx is clear. Uvula midline. No oropharyngeal exudate or posterior oropharyngeal erythema. Eyes: General: Lids are normal. Vision grossly intact. Right eye: No discharge. Left eye: No discharge. Extraocular Movements: Extraocular movements intact. Conjunctiva/sclera: Conjunctivae normal. Pupils: Pupils are equal, round, and reactive to light. Cardiovascular: Rate and Rhythm: Normal rate and regular rhythm. Pulses: Normal pulses. Heart sounds: Normal heart sounds. No murmur heard. No friction rub. No gallop. Pulmonary: Effort: Pulmonary effort is normal. No respiratory distress. Breath sounds: Normal breath sounds. No stridor. No wheezing, rhonchi or rales. Chest: Chest wall: No tenderness. Abdominal: General: Abdomen is flat. Bowel sounds are normal. There is no distension. Palpations: Abdomen is soft. There is no mass. Tenderness: There is abdominal tenderness in the right lower quadrant. There is no guarding or rebound. Hernia: No hernia is present. Musculoskeletal: General: No swelling, tenderness, deformity or signs of injury. Normal range of motion. Cervical back: Full passive range of motion without pain, normal range of motion and neck supple. Right lower leg: Normal. No edema. Left lower leg: Normal. No edema. Skin: General: Skin is warm and dry. Capillary Refill: Capillary refill takes less than 2 seconds. Coloration: Skin is not jaundiced or pale. Findings: No bruising, erythema, lesion or rash. Neurological: General: No focal deficit present. Mental Status: She is alert and oriented to person, place, and time. GCS: GCS eye subscore is 4. GCS verbal subscore is 5. GCS motor subscore is 6. Cranial Nerves: Cranial nerves 2-12 are intact. No cranial nerve deficit. Sensory: Sensation is intact. No sensory deficit. Motor: Motor function is intact. No weakness. Coordination: Coordination is intact. Coordination normal. Gait: Gait is intact. Deep Tendon Reflexes: Reflexes normal. Psychiatric: Attention and Perception: Attention and perception normal. Mood and Affect: Mood and affect normal. Speech: Speech normal. Behavior: Behavior normal. Behavior is cooperative. Thought Content: Thought content normal. Cognition and Memory: Cognition and memory normal. Judgment: Judgment normal. Labs Reviewed COMPREHENSIVE METABOLIC PANEL - Abnormal Result Value Glucose 79 Sodium 130 (*) Potassium 3.4 (*) Chloride 106 Bicarbonate 26 Anion Gap <7 (*) Urea Nitrogen 9 Creatinine 0.62 eGFR >90 Calcium 9.5 Albumin 4.4 Alkaline Phosphatase 85 Total Protein 7.6 AST 14 Bilirubin, Total 0.4 ALT 19 CBC WITH AUTO DIFFERENTIAL - Abnormal WBC 13.6 (*) nRBC 0.0 RBC 4.78 Hemoglobin 13.7 Hematocrit 41.3 MCV 86 MCH 28.7 MCHC 33.2 RDW 12.2 Platelets 365 Neutrophils % 69.5 Immature Granulocytes %, Automated 0.3 Lymphocytes % 24.3 Monocytes % 5.0 Eosinophils % 0.4 Basophils % 0.5 Neutrophils Absolute 9.41 (*) Immature Granulocytes Absolute, Automated 0.04 Lymphocytes Absolute 3.29 Monocytes Absolute 0.68 Eosinophils Absolute 0.06 Basophils Absolute 0.07 HUMAN CHORIONIC GONADOTROPIN, SERUM QUANTITATIVE - Abnormal HCG, Beta-Quantitative 204,808 (*) Narrative: Total HCG measurement is performed using the [employer] Torrington Access Immunoassay which detects intact HCG and free beta HCG subunit. This test is not indicated for use as a tumor marker. HCG testing is performed using a different test methodology at [facility] than other [facility]. Direct result comparison should only be made within the same method. URINALYSIS WITH REFLEX CULTURE AND MICROSCOPIC - Abnormal Color, Urine Light-Yellow Appearance, Urine Clear Specific [place], Urine 1.030 pH, Urine 6.0 Protein, Urine 10 (TRACE) Glucose, Urine 70 (1+) (*) Blood, Urine 0.06 (1+) (*) Ketones, Urine NEGATIVE Bilirubin, Urine NEGATIVE Urobilinogen, Urine Normal Nitrite, Urine NEGATIVE Leukocyte Esterase, Urine NEGATIVE URINALYSIS WITH REFLEX CULTURE AND MICROSCOPIC Narrative: The following orders were created for panel order Urinalysis with Reflex Culture and Microscopic. Procedure Abnormality Status --------- ------ Urinalysis with Reflex C...[[id number]] Abnormal Final result Extra Urine Turpin Tube[[id number]] In process Please view results for these tests on the individual orders. EXTRA URINE TURPIN TUBE URINALYSIS MICROSCOPIC WITH REFLEX CULTURE WBC, Urine 1-5 RBC, Urine 3-5 Squamous Epithelial Cells, Urine 1-9 (SPARSE) Mucus, Urine FEW US OB LESS THAN 14 WEEKS EARLY Final Result Live intrauterine gestation measures 9 weeks 1 days by crown-rump length. heart rate is 182 beats/min. ION is October 04, 2025 by LMP. Today's dating is concordant. Subchorionic hemorrhage measuring 2.8 x 0.7 x 1.8 cm. Signed by Ric Kimble, DO Procedures Medical Decision Making Patient was seen and evaluated in the ED due to complaints of pelvic pain with cramps and dysuria. Patient states that she is approximately 9 weeks and has a previous diagnosis of a subchorionic hemorrhage. Patient denies any vaginal bleeding. She states that she was previously seen at urgent care center earlier today was sent to the ED for evaluation due to her status and symptoms. Patient was ordered a pelvic ultrasound lab work and urinalysis and quantitative hCG. Quantitative hCG was 204,808. Urinalysis revealed no evidence of infection. The CMP revealed a low potassium 3.4 and the sodium was low at 130 rest of the CMP was unremarkable. CBC revealed a slight elevation white cell count of 13.6 H&H was normal and platelet count was normal. Pelvic ultrasound revealed live intrauterine gestation measures 9 weeks 1 day by crown-rump length. heart tones 182 bpm. The ION is October 04, 2025 by last menstrual period. Today's dating is concordant. Subchorionic hemorrhage measuring 2.8 x 0.7 x 1.8 cm. After getting the pelvic ultrasound results I did have a detailed discussion with the patient concerning her lab results urinalysis and ultrasound results. 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 I did talk to the patient about the possibility of round ligament pain causing some of her symptoms. She was discharged home in stable satisfactory condition. Diagnoses as of 03/02/251948 9 weeks gestation of ([facility]) Subchorionic hemorrhage of placenta in first trimester ([facility]) Round ligament pain Ángel Serna DO 03/02/251948 documented in this encounter [facility] Work Phone: 03-02-2025 Physician Emergency department Note Images from the original note were not included. Pelvic cramping, dysuria. This 25-year-old white female presents to the ED via private car secondary to pelvic cramping that began this morning and has continued throughout the day. She states that she is approximately 9 weeks . She states that she has had some dysuria. She was seen at urgent care center and told that they did notice some blood in her urine. She states that her initial ultrasound at 6 weeks with revealed a subchorionic hemorrhage. She denies any vaginal bleeding currently. Patient states that she is 2 para 1. Previous history of cholecystectomy hernia repair and wisdom tooth extraction. She states that she is approximately 9 weeks . History provided by: Patient aerial photograph interpreter used: No Physical Exam Vitals and nursing note reviewed. Constitutional: General: She is awake. Appearance: Normal appearance. She is normal weight. HENT: Head: Normocephalic and atraumatic. Right Ear: Hearing and external ear normal. Left Ear: Hearing and external ear normal. Nose: Nose normal. No congestion or rhinorrhea. Mouth/Throat: Lips: [place]. Mouth: Mucous membranes are moist. Pharynx: Oropharynx is clear. Uvula midline. No oropharyngeal exudate or posterior oropharyngeal erythema. Eyes: General: Lids are normal. Vision grossly intact. Right eye: No discharge. Left eye: No discharge. Extraocular Movements: Extraocular movements intact. Conjunctiva/sclera: Conjunctivae normal. Pupils: Pupils are equal, round, and reactive to light. Cardiovascular: Rate and Rhythm: Normal rate and regular rhythm. Pulses: Normal pulses. Heart sounds: Normal heart sounds. No murmur heard. No friction rub. No gallop. Pulmonary: Effort: Pulmonary effort is normal. No respiratory distress. Breath sounds: Normal breath sounds. No stridor. No wheezing, rhonchi or rales. Chest: Chest wall: No tenderness. Abdominal: General: Abdomen is flat. Bowel sounds are normal. There is no distension. Palpations: Abdomen is soft. There is no mass. Tenderness: There is abdominal tenderness in the right lower quadrant. There is no guarding or rebound. Hernia: No hernia is present. Musculoskeletal: General: No swelling, tenderness, deformity or signs of injury. Normal range of motion. Cervical back: Full passive range of motion without pain, normal range of motion and neck supple. Right lower leg: Normal. No edema. Left lower leg: Normal. No edema. Skin: General: Skin is warm and dry. Capillary Refill: Capillary refill takes less than 2 seconds. Coloration: Skin is not jaundiced or pale. Findings: No bruising, erythema, lesion or rash. Neurological: General: No focal deficit present. Mental Status: She is alert and oriented to person, place, and time. GCS: GCS eye subscore is 4. GCS verbal subscore is 5. GCS motor subscore is 6. Cranial Nerves: Cranial nerves 2-12 are intact. No cranial nerve deficit. Sensory: Sensation is intact. No sensory deficit. Motor: Motor function is intact. No weakness. Coordination: Coordination is intact. Coordination normal. Gait: Gait is intact. Deep Tendon Reflexes: Reflexes normal. Psychiatric: Attention and Perception: Attention and perception normal. Mood and Affect: Mood and affect normal. Speech: Speech normal. Behavior: Behavior normal. Behavior is cooperative. Thought Content: Thought content normal. Cognition and Memory: Cognition and memory normal. Judgment: Judgment normal. Labs Reviewed COMPREHENSIVE METABOLIC PANEL - Abnormal Result Value Glucose 79 Sodium 130 (*) Potassium 3.4 (*) Chloride 106 Bicarbonate 26 Anion Gap <7 (*) Urea Nitrogen 9 Creatinine 0.62 eGFR >90 Calcium 9.5 Albumin 4.4 Alkaline Phosphatase 85 Total Protein 7.6 AST 14 Bilirubin, Total 0.4 ALT 19 CBC WITH AUTO DIFFERENTIAL - Abnormal WBC 13.6 (*) nRBC 0.0 RBC 4.78 Hemoglobin 13.7 Hematocrit 41.3 MCV 86 MCH 28.7 MCHC 33.2 RDW 12.2 Platelets 365 Neutrophils % 69.5 Immature Granulocytes %, Automated 0.3 Lymphocytes % 24.3 Monocytes % 5.0 Eosinophils % 0.4 Basophils % 0.5 Neutrophils Absolute 9.41 (*) Immature Granulocytes Absolute, Automated 0.04 Lymphocytes Absolute 3.29 Monocytes Absolute 0.68 Eosinophils Absolute 0.06 Basophils Absolute 0.07 HUMAN CHORIONIC GONADOTROPIN, SERUM QUANTITATIVE - Abnormal HCG, Beta-Quantitative 204,808 (*) Narrative: Total HCG measurement is performed using the [employer]rington Access Immunoassay which detects intact HCG and free beta HCG subunit. This test is not indicated for use as a tumor marker. HCG testing is performed using a different test methodology at [facility] than other [facility]. Direct result comparison should only be made within the same method. URINALYSIS WITH REFLEX CULTURE AND MICROSCOPIC - Abnormal Color, Urine Light-Yellow Appearance, Urine Clear Specific [place], Urine 1.030 pH, Urine 6.0 Protein, Urine 10 (TRACE) Glucose, Urine 70 (1+) (*) Blood, Urine 0.06 (1+) (*) Ketones, Urine NEGATIVE Bilirubin, Urine NEGATIVE Urobilinogen, Urine Normal Nitrite, Urine NEGATIVE Leukocyte Esterase, Urine NEGATIVE URINALYSIS WITH REFLEX CULTURE AND MICROSCOPIC Narrative: The following orders were created for panel order Urinalysis with Reflex Culture and Microscopic. Procedure Abnormality Status --------- ------ Urinalysis with Reflex C...[[id number]] Abnormal Final result Extra Urine Turpin Tube[[id number]] In process Please view results for these tests on the individual orders. EXTRA URINE TURPIN TUBE URINALYSIS MICROSCOPIC WITH REFLEX CULTURE WBC, Urine 1-5 RBC, Urine 3-5 Squamous Epithelial Cells, Urine 1-9 (SPARSE) Mucus, Urine FEW US OB LESS THAN 14 WEEKS EARLY Final Result Live intrauterine gestation measures 9 weeks 1 days by crown-rump length. heart rate is 182 beats/min. ION is October 04, 2025 by LMP. Today's dating is concordant. Subchorionic hemorrhage measuring 2.8 x 0.7 x 1.8 cm. Signed by Ric Kimble, DO Procedures Medical Decision Making Patient was seen and evaluated in the ED due to complaints of pelvic pain with cramps and dysuria. Patient states that she is approximately 9 weeks and has a previous diagnosis of a subchorionic hemorrhage. Patient denies any vaginal bleeding. She states that she was previously seen at urgent care center earlier today was sent to the ED for evaluation due to her status and symptoms. Patient was ordered a pelvic ultrasound lab work and urinalysis and quantitative hCG. Quantitative hCG was 204,808. Urinalysis revealed no evidence of infection. The CMP revealed a low potassium 3.4 and the sodium was low at 130 rest of the CMP was unremarkable. CBC revealed a slight elevation white cell count of 13.6 H&H was normal and platelet count was normal. Pelvic ultrasound revealed live intrauterine gestation measures 9 weeks 1 day by crown-rump length. heart tones 182 bpm. The ION is October 04, 2025 by last menstrual period. Today's dating is concordant. Subchorionic hemorrhage measuring 2.8 x 0.7 x 1.8 cm. After getting the pelvic ultrasound results I did have a detailed discussion with the patient concerning her lab results urinalysis and ultrasound results. 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 I did talk to the patient about the possibility of round ligament pain causing some of her symptoms. She was discharged home in stable satisfactory condition. Diagnoses as of 03/02/251948 9 weeks gestation of ([facility]) Subchorionic hemorrhage of placenta in first trimester ([facility]) Round ligament pain Ángel Serna DO 03/02/251948 [facility] Work Phone: 02-23-2025 Instructions Kingston Davenport APRN.[email or web address] - 02/23/2025 3:44 PM EDT Thank you for seeing me in clinic today. It was very nice to meet you! As we discussed, my recommendations are as follows: Increase water intake 2. Repeat blood work 3. Start daily fiber supplement 4. Continue gluten free diet 5. Continue daily vitamins 6. Follow up in 2 months-- virtual If you have any questions about the above treatment plan, please do not hesitate to send me a [employer] message or call. Kingston Davenport APRN.[email or web address] Begin using 2 teaspoons of soluble fiber (e.g. Metamucil, Benefiber or Citrucel) in 12 oz of water every day. Stir until fiber has dissolved. If fiber is well-tolerated but does not completely regulate bowel movements after 1 week, add another teaspoon of fiber for a total of 3 teaspoons per day. Fiber works best if you are hydrated. Be sure to drink at least 64 oz of water every day. documented in this encounter [facility] 02-23-2025 History and physical note DISTANCE HEALTH VISIT This Team Access Model visit is a virtual encounter. It required patient-provider interaction for the medical decision making as documented below. REASON FOR VISIT: follow up for celiac disease HPI: Petty Underwood is a 25 year old female who presents for follow-up. Since her last visit in October, she has been good at keeping a gluten-free diet. She has incorporated more exercise and has lost 15 pounds due to dietary changes and exercise. Overall she has felt well. She still reports occasional heartburn which she uses Pepcid as needed. She endorses having regular bowel movements until recently. She has recently found out she is , she is currently about 8 weeks. Prior to this she endorses having increased and loose bowel movements, typically 4-5 loose stools daily. She denies any blood or black stool. She denies any abdominal bloating or abdominal pain. She has also started vitamins No history of colonoscopy. Last EGD - 08/04/24 No known FHx of GI tract disease or malignancy. Prior abdominopelvic surgeries include cholecystectomy, umbilical hernia repair Past Clinical Work-Up: 01/12/2025 GI Nutrition [address]idi Quezada RD NUTRITION CARE PLAN Nutrition Intervention January 12, 2025 : Diet: --okay to season foods with herbs and spices (that are not hot/spicy) --GF condiments and sauces (primal kitchen, FODY) --carb and protein with every meal and snack --fruits/vegetables in the summer, try one new food per month that you didn't previously like Vitamins/Minerals: --okay to continue Oral supplements: --reflux grommet after meals 10/27/2024 Kingston Davenport APRN.CNP ASSESSMENT/PLAN: Ms. Underwood is a 24 year old female with a history of cyst of the right ovary, palpitations, cholecystectomy, umbilical hernia repair, who presents for follow-up. She is maintaining a gluten-free diet and doing well. She did have some worsening heartburn over the last couple months but this has been better. We discussed using Pepcid 20 mg at bedtime as needed. We discussed following an antireflux regimen. Continue gluten-free diet. She has upcoming iron studies scheduled. We will follow-up in 3 months, we will repeat celiac serologies at this time. She agrees with this plan, verbalizes understanding. 1. Celiac disease - ICD9: 579.0, ICD10: K90.0 (primary diagnosis) - Continue gluten free diet 2. Heartburn - ICD9: 787.1, ICD10: R12 - Pepcid 20 mg at bedtime as needed Latest Ref Rng 05/23/2023 08/15/2024 11/04/2024 Iron 41 - 186 ug/dL 95 99 51 TIBC 232 - 386 ug/dL >595 (H) 391 (H) 396 (H) Transferrin Saturation 15.0 - 57.0 % <16.0 25.3 12.9 (L) Petty, Your TIBC is slightly elevated and transferrin low. This can indicate iron deficiency. I recommend increasing iron rich foods. We will order repeat labs during your next visit, and if you lucille remain low, we may consider iron supplementation. Kingston Davenport APRN.COPY CUTTER 11/04/2024 CT ABD/PEL W IVCON There is a 3.3 cm unilocular cystic lesion associated with the left ovary most likely a functional cyst. Follicles in both ovaries. Normal appearance of the appendix. 08/04/2024 EGD Impression: - Normal esophagus. - Normal stomach. - Normal examined duodenum. Biopsied. - The examination was otherwise normal. FINAL DIAGNOSIS Duodenum, biopsy: - Duodenal mucosa with intraepithelial lymphocytosis and subtotal villous blunting. - See comment. Diagnosis Comment In combination with the abnormal celiac antibody panel, the morphological findings are consistent with celiac disease. Clinical correlation is necessary for a definitive diagnosis. 07/22/2024 XR ABD 2V IMPRESSION: Lines, tubes, and devices: Right upper quadrant surgical clips. Bowel: No dilated, gas-filled bowel. Colonic fecal burden does not appear excessive. Note, radiographic stool quantification is known to produce equivalent results in symptomatic and asymptomatic adults and is of uncertain value. Other: No free air under the diaphragms on upright view. Imaged lungs: No focal consolidation. 07/22/2024 Labs Latest Reference Range & Units 07/22/24 09:16 07/23/24 17:15 Transglutaminase IgA Abs <4 U/mL 18 (H) Transglutaminase IgA Abs Interpretation Negative Positive ! Gliad Deamidated IgA Qual Negative, Test not Indicated Negative Gliadin Ab, IgA <20 Units 16 IgA 70 - 400 mg/dL 247 Interpretation (Celiac Screen) The results suggest serological evidence of celiac disease. Weak positive results, when present, may at times be due to non-specific reactivity or to gluten-free diet. Clinical correlation is required. C. difficile PCR Negative for C. difficile toxin by PCR Negative for C. difficile toxin by PCR Cryptosporidium Antigen by EIA Negative Negative for Cryptosporidium by EIA. Campylobacter jejuni/coli DNA Not Detected Not detected Salmonella species DNA Not Detected Not detected Shiga-like toxin producing E. coli (STEC) DNA Not Detected Not detected Shigella/Enteroinvasive E. coli (EIEC) DNA Not Detected Not detected Giardia Antigen by EIA Negative Negative for Giardia lamblia by EIA. 01/06/2024 CT ABD/PEL IMPRESSION: No acute abnormality identified in the abdomen or pelvis. Details above. ALLERGIES Allergen Reactions Amoxicillin Other: See Comments Pt gets UTI'S Benadryl [Diphenhyd* Other: See Comments Severe headache and stiffness (IV only) Tolerates po benadryl Gluten Other: See Comments Celiac Disease PAST MEDICAL HISTORY Diagnosis Date Cyst of right ovary 08/07/2018 Palpitations PAST SURGICAL HISTORY Procedure Laterality Date LAPS SURG CHOLECYSTECTOMY W/CHOLANGIOGRAPHY 09/03/[address] Grimm REPAIR UMBILICAL HERNIA 02/07/2024 Dr. Trent TOOTH EXTRACTION 2018 wisdom teeth FAMILY HISTORY Problem Relation Age of Onset Hypertension Mother Heart Father heart murmur, dx age 35 Diabetes Maternal Grandmother great grandma Hypertension Maternal Aunt Thyroid Maternal Aunt Hypertension Maternal Uncle Cancer Other great grandpa - skin CA, a great uncle with melanoma Social History Tobacco Use Smoking status: Never Smokeless tobacco: Never Vaping Use Vaping status: Never Used Substance Use Topics Alcohol use: Not Currently Comment: occasionally Drug use: No Current Outpatient Medications Medication Sig omeprazole (PRILOSEC) 40 mg capsule Take 1 capsule by mouth once daily. mv-min/folic/vit K/lycop/coQ10 (DAILY MULTIVITAMIN ORAL) Take 1 tablet by mouth once daily. No current facility-administered medications for this visit. I have confirmed and edited, if necessary, the PFSH obtained by others. REVIEW OF SYSTEMS: General - Normal, healthy, cooperative, in no acute distress Able to interact verbally by video conference Psych - ORIENTATION: normal to time place, person and situation Mood/Affect: AFFECT AND MOOD: Normal Head/Neuro - Normal size and shape Facial appearance normal Pulmonary - respiratory effort normal Cardiovascular - patient describes extremities normal, warm, no cyanosis,no clubbing, and no edema Abdominal - Not performed Skin - abnormal lesions not visualized Motor - patient seen sitting with Normal appearing strength and coordination PHYSICAL EXAM: GENERAL: No weight loss, malaise or fevers RESPIRATORY: Negative for cough, hemoptysis, wheezing, dyspnea or shortness of breath CARDIOVASCULAR: Negative for chest pain, leg swelling, or palpitations GI: See HPI ASSESSMENT/PLAN: Ms. Underwood is a 25 year old female with a history of cyst of the right ovary, palpitations, cholecystectomy, umbilical hernia repair, who presents for follow-up. Is doing well with maintaining a gluten-free diet. She has had recently stools up to 4-5 times a day, this coincides with finding out she was . She is currently about 8 weeks gestation. She continues to have intermittent heartburn which is resolved by Pepcid as needed. She has also started taking a vitamin. Will repeat iron studies and celiac serologies today. I encouraged her to start a daily fiber supplement and increase water intake is much as possible. She does admit to drinking only Sprite, this is all she has been able to tolerate due to morning sickness. 1. Celiac disease (HCC) - ICD9: 579.0, ICD10: K90.0 (primary diagnosis) - CELIAC SCREEN WITH REFLEX - IRON AND TIBC 2. Iron deficiency - ICD9: 280.9, ICD10: E61.1 - CELIAC SCREEN WITH REFLEX 3. Loose stools - ICD9: 787.7, ICD10: R19.5 - Start daily fiber - Increase water intake as much as possible Kingston Davenport APRN.CNP I spent more than 20 minutes [id number] with the patient and over half the time was devoted to counseling and/or coordination of care. This note was dictated using [employer]AR[employer] speech recognition software and may contain some errors that were a result of the program not accurately transcribing what was dictated. I have communicated my name and active licensure. The patient's identity and physical location were verified at the time of this visit. Either the patient or their legal industrial sales representative has been informed of the risks and benefits of -- and alternatives to -- treatment through a remote evaluation and consents to proceed with the evaluation remotely. [facility] 02-23-2025 History and physical note DISTANCE HEALTH VISIT This Team Access Model visit is a virtual encounter. It required patient-provider interaction for the medical decision making as documented below. REASON FOR VISIT: follow up for celiac disease HPI: Petty Underwood is a 25 year old female who presents for follow-up. Since her last visit in October, she has been good at keeping a gluten-free diet. She has incorporated more exercise and has lost 15 pounds due to dietary changes and exercise. Overall she has felt well. She still reports occasional heartburn which she uses Pepcid as needed. She endorses having regular bowel movements until recently. She has recently found out she is , she is currently about 8 weeks. Prior to this she endorses having increased and loose bowel movements, typically 4-5 loose stools daily. She denies any blood or black stool. She denies any abdominal bloating or abdominal pain. She has also started vitamins No history of colonoscopy. Last EGD - 08/04/24 No known FHx of GI tract disease or malignancy. Prior abdominopelvic surgeries include cholecystectomy, umbilical hernia repair Past Clinical Work-Up: 01/12/2025 GI Nutrition Heidi Quezada RD NUTRITION CARE PLAN Nutrition Intervention January 12, 2025 : Diet: --okay to season foods with herbs and spices (that are not hot/spicy) --GF condiments and sauces (primal kitchen, FODY) --carb and protein with every meal and snack --fruits/vegetables in the summer, try one new food per month that you didn't previously like Vitamins/Minerals: --okay to continue Oral supplements: --reflux grommet after meals 10/27/2024 Kingston Davenport APRN.COPY CUTTER ASSESSMENT/PLAN: Ms. Underwood is a 24 year old female with a history of cyst of the right ovary, palpitations, cholecystectomy, umbilical hernia repair, who presents for follow-up. She is maintaining a gluten-free diet and doing well. She did have some worsening heartburn over the last couple months but this has been better. We discussed using Pepcid 20 mg at bedtime as needed. We discussed following an antireflux regimen. Continue gluten-free diet. She has upcoming iron studies scheduled. We will follow-up in 3 months, we will repeat celiac serologies at this time. She agrees with this plan, verbalizes understanding. 1. Celiac disease - ICD9: 579.0, ICD10: K90.0 (primary diagnosis) - Continue gluten free diet 2. Heartburn - ICD9: 787.1, ICD10: R12 - Pepcid 20 mg at bedtime as needed Latest Ref Rng 05/23/2023 08/15/2024 11/04/2024 Iron 41 - 186 ug/dL 95 99 51 TIBC 232 - 386 ug/dL >595 (H) 391 (H) 396 (H) Transferrin Saturation 15.0 - 57.0 % <16.0 25.3 12.9 (L) Petty, Your TIBC is slightly elevated and transferrin low. This can indicate iron deficiency. I recommend increasing iron rich foods. We will order repeat labs during your next visit, and if you lucille remain low, we may consider iron supplementation. Kingston Davenport APRN.COPY CUTTER 11/04/2024 CT ABD/PEL W IVCON There is a 3.3 cm unilocular cystic lesion associated with the left ovary most likely a functional cyst. Follicles in both ovaries. Normal appearance of the appendix. 08/04/2024 EGD Impression: - Normal esophagus. - Normal stomach. - Normal examined duodenum. Biopsied. - The examination was otherwise normal. FINAL DIAGNOSIS Duodenum, biopsy: - Duodenal mucosa with intraepithelial lymphocytosis and subtotal villous blunting. - See comment. Diagnosis Comment In combination with the abnormal celiac antibody panel, the morphological findings are consistent with celiac disease. Clinical correlation is necessary for a definitive diagnosis. 07/22/2024 XR ABD 2V IMPRESSION: Lines, tubes, and devices: Right upper quadrant surgical clips. Bowel: No dilated, gas-filled bowel. Colonic fecal burden does not appear excessive. Note, radiographic stool quantification is known to produce equivalent results in symptomatic and asymptomatic adults and is of uncertain value. Other: No free air under the diaphragms on upright view. Imaged lungs: No focal consolidation. 07/22/2024 Labs Latest Reference Range & Units 07/22/24 09:16 07/23/24 17:15 Transglutaminase IgA Abs <4 U/mL 18 (H) Transglutaminase IgA Abs Interpretation Negative Positive ! Gliad Deamidated IgA Qual Negative, Test not Indicated Negative Gliadin Ab, IgA <20 Units 16 IgA 70 - 400 mg/dL 247 Interpretation (Celiac Screen) The results suggest serological evidence of celiac disease. Weak positive results, when present, may at times be due to non-specific reactivity or to gluten-free diet. Clinical correlation is required. C. difficile PCR Negative for C. difficile toxin by PCR Negative for C. difficile toxin by PCR Cryptosporidium Antigen by EIA Negative Negative for Cryptosporidium by EIA. Campylobacter jejuni/coli DNA Not Detected Not detected Salmonella species DNA Not Detected Not detected Shiga-like toxin producing E. coli (STEC) DNA Not Detected Not detected Shigella/Enteroinvasive E. coli (EIEC) DNA Not Detected Not detected Giardia Antigen by EIA Negative Negative for Giardia lamblia by EIA. 01/06/2024 CT ABD/PEL IMPRESSION: No acute abnormality identified in the abdomen or pelvis. Details above. ALLERGIES Allergen Reactions Amoxicillin Other: See Comments Pt gets UTI'S Benadryl [Diphenhyd* Other: See Comments Severe headache and stiffness (IV only) Tolerates po benadryl Gluten Other: See Comments Celiac Disease PAST MEDICAL HISTORY Diagnosis Date Cyst of right ovary 08/07/2018 Palpitations PAST SURGICAL HISTORY Procedure Laterality Date LAPS SURG CHOLECYSTECTOMY W/CHOLANGIOGRAPHY 09/03/[address] Grimm REPAIR UMBILICAL HERNIA 02/07/2024 Dr. Trent TOOTH EXTRACTION 2018 wisdom teeth FAMILY HISTORY Problem Relation Age of Onset Hypertension Mother Heart Father heart murmur, dx age 35 Diabetes Maternal Grandmother great grandma Hypertension Maternal Aunt Thyroid Maternal Aunt Hypertension Maternal Uncle Cancer Other great grandpa - skin CA, a great uncle with melanoma Social History Tobacco Use Smoking status: Never Smokeless tobacco: Never Vaping Use Vaping status: Never Used Substance Use Topics Alcohol use: Not Currently Comment: occasionally Drug use: No Current Outpatient Medications Medication Sig omeprazole (PRILOSEC) 40 mg capsule Take 1 capsule by mouth once daily. mv-min/folic/vit K/lycop/coQ10 (DAILY MULTIVITAMIN ORAL) Take 1 tablet by mouth once daily. No current facility-administered medications for this visit. I have confirmed and edited, if necessary, the PFSH obtained by others. REVIEW OF SYSTEMS: General - Normal, healthy, cooperative, in no acute distress Able to interact verbally by video conference Psych - ORIENTATION: normal to time place, person and situation Mood/Affect: AFFECT AND MOOD: Normal Head/Neuro - Normal size and shape Facial appearance normal Pulmonary - respiratory effort normal Cardiovascular - patient describes extremities normal, warm, no cyanosis,no clubbing, and no edema Abdominal - Not performed Skin - abnormal lesions not visualized Motor - patient seen sitting with Normal appearing strength and coordination PHYSICAL EXAM: GENERAL: No weight loss, malaise or fevers RESPIRATORY: Negative for cough, hemoptysis, wheezing, dyspnea or shortness of breath CARDIOVASCULAR: Negative for chest pain, leg swelling, or palpitations GI: See HPI ASSESSMENT/PLAN: Ms. Underwood is a 25 year old female with a history of cyst of the right ovary, palpitations, cholecystectomy, umbilical hernia repair, who presents for follow-up. Is doing well with maintaining a gluten-free diet. She has had recently stools up to 4-5 times a day, this coincides with finding out she was . She is currently about 8 weeks gestation. She continues to have intermittent heartburn which is resolved by Pepcid as needed. She has also started taking a vitamin. Will repeat iron studies and celiac serologies today. I encouraged her to start a daily fiber supplement and increase water intake is much as possible. She does admit to drinking only Sprite, this is all she has been able to tolerate due to morning sickness. 1. Celiac disease (HCC) - ICD9: 579.0, ICD10: K90.0 (primary diagnosis) - CELIAC SCREEN WITH REFLEX - IRON AND TIBC 2. Iron deficiency - ICD9: 280.9, ICD10: E61.1 - CELIAC SCREEN WITH REFLEX 3. Loose stools - ICD9: 787.7, ICD10: R19.5 - Start daily fiber - Increase water intake as much as possible Kingston Davenport APRN.RAJWINDER I spent more than 20 minutes [id number]-[id number] with the patient and over half the time was devoted to counseling and/or coordination of care. This note was dictated using [employer] speech recognition software and may contain some errors that were a result of the program not accurately transcribing what was dictated. I have communicated my name and active licensure. The patient's identity and physical location were verified at the time of this visit. Either the patient or their legal industrial sales representative has been informed of the risks and benefits of -- and alternatives to -- treatment through a remote evaluation and consents to proceed with the evaluation remotely. documented in this encounter [facility] 01-12-[address] - 01/12/2025 8:42 AM EDT Nutrition Interventions Okay to use spices and herbs of all kinds, lemon and [place] (in moderation for heart burn), GF bread crumbs, or GF marinade (dutch dressing, pesto) GF sauces and condiments that are easy on the belly might help make food more creative without making the reflux works https://www.InvierteMe,SL.com/ https://www.fodyfoods.com/ Reflux Grommet 1 teaspoon after meals to help with reflux/heart burn, made from algae https://refluxgourmet.com/ Smaller more frequent meal can help with GERD, less food in the stomach at one time less to digest and risk for distress Make the same size meal eat 1/2 and then 2 hours later eat the other half Spreading out lorraine high fat foods throughout the day to aid in tolerance Limit high fat meat for example: chicken with skin on it (wings), beef with marbling, pulled pork butt/shoulder with visible fat Swap pork sausage for chicken or turkey OR eat 1 now and then then other zaire 2 hours later Butter and margarine, cooking oil, creamy sauces and condiments (ranch) are all high fat foods Peanut butter and almond butter (nuts and seeds), trail mix, these are heart healthy but still need to be spread out Avocados and olives are also high fat foods that needs to be spread out Consider using spray oils to help control the amount added to a suarez If you do have high fat meal just increase your fluids around this meal to help get thing moving and possible prevent reflux Snack = carb + protein, here are some GF easy examples that we talked about Yogurt and berries Applesauce pouches cheddar cheese chick Rice cakes and peanut butter Banana and almond butter Cucumbers and drip or humus RX bar or GoMacro (both are GF) Protein bars, Built Bars is a good option [employer] chocolate milk OR core protein shakes https://[employer]/chocolate- protein-shake/ Rice Chex, smooth charms fruit kinjal are GF protein + soy milk OR lactose free milk, goat milk Try to eat seasonally with more fruits and vegetable variety in the summer Make it a point to try a new food at least once month,or a food that you historically did not like Follow up with Heidi Quezada RD 05/17 @9:45am virtually documented in this encounter [facility] 01-12-2025 History of Presen t illness Narrative GI Nutrition TeleHealth Consult - Re Assessment I have communicated my name and active licensure. The patient s identity and physical location were verified at the time of this visit. Either the patient or their legal industrial sales representative has been informed of the risks and benefits of -- and alternatives to -- treatment through a remote evaluation and consents to proceed with the evaluation remotely Some elements copied from my note on 08/19/24 have been updated and all reflect current decision making from today, January 12, 2025 Nutrition Diagnosis: Altered Gastrointestinal Tract Function, related to, Celiac Disease, as evidenced by persistent GERD and reflux, limited PO intake . RECOMMENDED MALNUTRITION DIAGNOSIS: NO MALNUTRITION IDENTIFIED NUTRITION CARE PLAN Nutrition Intervention January 12, 2025 : Diet: --okay to season foods with herbs and spices (that are not hot/spicy) --GF condiments and sauces (primal kitchen, FODY) --carb and protein with every meal and snack --fruits/vegetables in the summer, try one new food per month that you didn't previously like Vitamins/Minerals: --okay to continue Oral supplements: --reflux grommet after meals Nutrition Monitoring & Evaluation: improvement in GI symptoms Criteria: per pt report Need for Follow up: 05/17 @9:45am virtually PROGRESS: This is a 24 year-old female with an underlying diagnosis of Celiac Disease since 2023 who is followed by Kingston Davenport CNP. EDG completed with serology for celiac disease, PMH of cyst of the right ovary, palpitations, cholecystectomy, umbilical hernia repair, abdominal pain. Today, patient reports the following: --pt has been doing pretty good, and she has been exercising and eating well and has been helping with her bloating, has not been contaminated in a while --most recent complaint that we addressed today was her heartburn and reflux Current Clinical Symptoms # of bowel movements daily: once/day # of liquid stools daily: some Consistency: soft, mushy, formed, depends on what she eats Bloody bowel movements: no Urgency: yes, pending foods Abdominal pain: no, not really Abdominal distention: yes, but been better since exercising, when she gets her menstrual cycle Nausea/vomiting: no Heartburn/reflux: yes, Pepcid has been helping Nutrition Intervention August 18, 2024 : Diet: --strict GF diet for celiac disease --met --okay to focus on meats, fruits and vegetables --met --limit red meat to once/day for now --met --watch for cross contact at home --met Vitamins/Minerals: --start vitamin D 5000/day --not met Labs: --follow up TgA --not met Intake: Appetite is good, normal has been eating less Diet History: Breakfast - protein like meat, sausage Snack - snack like trail mix and fruit like strawberries and raspberries and grapes Lunch - rice and pasta, potatoes, protein and vegetable, peanut butter and yogurt, carrots and green beans, hard cheese like cheddar Snack - not typically Dinner - GF hibachi (was okay the first time, and then the second time had some issues), protein like chicken, pork, and beef, Snack - GF cakes every now and then Beverages - water Vitamins/Supplements - --MVI (d/c) --vitamin D was on it but then stopped Allergies/Intolerance: --gluten (celiac) --eggs (does not like) --seafood ( does not like and does not cook it) --acidic foods, taco sauce, tomatoes (abd pain and bloating) --bread (abd pain) --salad greens (does not like) --broccoli (does not like) --cream cheese/dairy (abd pain) --mozzarella (abd pain) --ground turkey/chicken (does not like) --pineda peppers (hear burn) Amoxicillin, Benadryl [Diphenhydramine], and Gluten Medications: Current Outpatient Medications Medication Sig Dispense Refill omeprazole (PRILOSEC) 40 mg capsule Take 1 capsule by mouth once daily. 90 capsule 0 mv-min/folic/vit K/lycop/coQ10 (DAILY MULTIVITAMIN ORAL) Take 1 tablet by mouth once daily. No current facility-administered medications for this visit. Anthropometrics: Height: 5'2 Weight history: 79.4kg (01/12/25) 79.3kg (08/04/24), 78kg (03/23/24), 78.9kg (02/13/24) Highest weight: current UBW: 140# (before ) Goal weight: has been trying to lose weight BMI: 32.0--obese Weight has remained stable over the last 10 months Estimated needs: Calories: 1600 - 2000 kcals/day determined by 20- 25 kcal/kg Protein: 80 - 95 g/day determined by 1.0-1.2 g/kg Malnutrition Screening Significant unintentional weight loss? No Eating less than 75% of usual intake for more than 2 weeks? No Potential Signs of Inflammation: no identifiable sources Education Materials Provided: None this visit Referred/Supervised by: Kingston Davenport/Dr. Maldonado MNT Billing Type: Re-assess/15 min [address] documented in this encounter [facility] 01-12-2025 Note HNO ID: [id number] Author: HEIDI QUEZADA RD Service: ? Author Type: Registered Dietitian Type: Progress Notes Filed: 01/12/2025 12:15 Note Text: GI Nutrition TeleHealth Consult - Re Assessment I have communicated my name and active licensure. The patient?s identity and physical location were verified at the time of this visit. Either the patient or their legal industrial sales representative has been informed of the risks and benefits of -- and alternatives to -- treatment through a remote evaluation and consents to proceed with the evaluation remotely Some elements copied from my note on 08/19/24 have been updated and all reflect current decision making from today, January 12, 2025 Nutrition Diagnosis: Altered Gastrointestinal Tract Function, related to, Celiac Disease, as evidenced by persistent GERD and reflux, limited PO intake . RECOMMENDED MALNUTRITION DIAGNOSIS: NO MALNUTRITION IDENTIFIED NUTRITION CARE PLAN Nutrition Intervention January 12, 2025 : Diet: --okay to season foods with herbs and spices (that are not hot/spicy) --GF condiments and sauces (primal kitchen, FODY) --carb and protein with every meal and snack --fruits/vegetables in the summer, try one new food per month that you didn't previously like Vitamins/Minerals: --okay to continue Oral supplements: --reflux grommet after meals Nutrition Monitoring AND Evaluation: improvement in GI symptoms Criteria: per pt report Need for Follow up: 05/17 @9:45am virtually PROGRESS: This is a 24 year-old female with an underlying diagnosis of Celiac Disease since 2023 who is followed by Kingston Davenport COPY CUTTER. EDG completed with serology for celiac disease, PMH of cyst of the right ovary, palpitations, cholecystectomy, umbilical hernia repair, abdominal pain. Today, patient reports the following: --pt has been doing pretty good, and she has been exercising and eating well and has been helping with her bloating, has not been contaminated in a while --most recent complaint that we addressed today was her heartburn and reflux Current Clinical Symptoms # of bowel movements daily: once/day # of liquid stools daily: some Consistency: soft, mushy, formed, depends on what she eats Bloody bowel movements: no Urgency: yes, pending foods Abdominal pain: no, not really Abdominal distention: yes, but been better since exercising, when she gets her menstrual cycle Nausea/vomiting: no Heartburn/reflux: yes, Pepcid has been helping Nutrition Intervention August 18, 2024 : Diet: --strict GF diet for celiac disease --met --okay to focus on meats, fruits and vegetables --met --limit red meat to once/day for now --met --watch for cross contact at home --met Vitamins/Minerals: --start vitamin D 5000/day --not met Labs: --follow up TgA --not met Intake: Appetite is good, normal has been eating less Diet History: Breakfast - protein like meat, sausage Snack - snack like trail mix and fruit like strawberries and raspberries and grapes Lunch - rice and pasta, potatoes, protein and vegetable, peanut butter and yogurt, carrots and green beans, hard cheese like cheddar Snack - not typically Dinner - GF hibachi (was okay the first time, and then the second time had some issues), protein like chicken, pork, and beef, Snack - GF cakes every now and then Beverages - water Vitamins/Supplements - --MVI (d/c) --vitamin D was on it but then stopped Allergies/Intolerance: --gluten (celiac) --eggs (does not like) --seafood ( does not like and does not cook it) --acidic foods, taco sauce, tomatoes (abd pain and bloating) --bread (abd pain) --salad greens (does not like) --broccoli (does not like) --cream cheese/dairy (abd pain) --mozzarella (abd pain) --ground turkey/chicken (does not like) --pineda peppers (hear burn) Amoxicillin, Benadryl [Diphenhydramine], and Gluten Medications: Current Outpatient Medications Medication Sig Dispense Refill omeprazole (PRILOSEC) 40 mg capsule Take 1 capsule by mouth once daily. 90 capsule 0 mv-min/folic/vit K/lycop/coQ10 (DAILY MULTIVITAMIN ORAL) Take 1 tablet by mouth once daily. No current facility-administered medications for this visit. Anthropometrics: Height: 5'2 Weight history: 79.4kg (01/12/25) 79.3kg (08/04/24), 78kg (03/23/24), 78.9kg (02/13/24) Highest weight: current UBW: 140# (before ) Goal weight: has been trying to lose weight BMI: 32.0--obese Weight has remained stable over the last 10 months Estimated needs: Calories: 1600 - 2000 kcals/day determined by 20- 25 kcal/kg Protein: 80 - 95 g/day determined by 1.0-1.2 g/kg Malnutrition Screening Significant unintentional weight loss? No Eating less than 75% of usual intake for more than 2 weeks? No Potential Signs of Inflammation: no identifiable sources Education Materials Provided: None this visit Referred/Supervised by: Kingston Davenport/Dr. Maldonado MNT Billing Type: (more content not included)... [facility] 12-22-2024 Telephone encounter Note Yes, you can use just a regular established spot for a virtual for this patient [facility] 12-22-2024 Miscellaneous Notes Yes, you can use just a regular established spot for a virtual for this patient Are there any spots we can use for a virtual follow up for patient? Can we use an established spot?Please advise. Thanks.Please call patient. documented in this encounter [facility] 12-22-2024 Telephone encounter Note Are there any spots we can use for a virtual follow up for patient? Can we use an established spot?Please advise. Thanks.Please call patient. [facility] 12-08-2024 History of Presen t illness Narrative Associated Order(s): Ear Cerumen Removal [facility] [place] NOTE: Name: Petty Underwood, 24 y.o. CSN:[id number] PCP: Ken Rachel MD ALL: Allergies Allergen Reactions Amoxicillin Other Pt gets UTI'S Pt gets UTI'S Diphenhydramine Other Severe headache and stiffness (IV only) Tolerates po benadryl Penicillin Unknown History: Chief Complaint: Earache (Right ear discomfort X 2 days ) Encounter Date: 12/08/2024 HPI: The history was obtained from the patient. Petty is a 24 y.o. female, who presents with a chief complaint of Earache (Right ear discomfort X 2 days ) patient with influenza A 2 weeks ago with continued ear pain that has worsened over the last 2 days. Denies any drainage. Admits to decreased hearing. Denies any fevers, chills, body aches. PMHx: Past Medical History: Diagnosis Date Abdominal tenderness, unspecified site 07/04/2016 Suprapubic tenderness Abnormal weight loss 08/03/2014 Weight loss Adjustment disorder, unspecified 08/03/2014 Adjustment reaction Allergic 2020 Anemia 2022 Dysuria 07/04/2016 Dysuria Hypertension 2022 Other abnormal findings in urine 07/04/2016 Urine leukocytes Other injury of unspecified body region, initial encounter Puncture wound Personal history of other diseases of the nervous system and sense organs 08/03/2014 History of migraine Personal history of other infectious and parasitic diseases History of chicken pox Personal history of other specified conditions 07/04/2016 History of urinary frequency Personal history of traumatic brain injury History of concussion Personal history of urinary (tract) infections 07/04/2016 History of urinary tract infection Seizure due to eclampsia ([facility]) 08/19/2023 Last Assessment & Plan: Assessment: hx of during hospitalization 06/2023, denies recurrence of seizures. No anti seizure medications were started. Stable on labetalol. Urinary tract infection 2017 Current Outpatient Medications Medication Sig Dispense Refill azithromycin (Zithromax) 200 mg/5 mL suspension Take 20 mL (800 mg) by mouth once daily for 5 days. 105 mL 0 ciprofloxacin-dexamethasone (Ciprodex) otic suspension Administer 4 drops into the right ear 2 times a day for 7 days. 7.5 mL 0 famotidine (Pepcid) 20 mg tablet Take 1 tablet (20 mg) by mouth 2 times a day. 60 tablet 5 No current facility-administered medications for this visit. PMSx: Past Surgical History: Procedure Laterality Date CHOLECYSTECTOMY 2022 GALLBLADDER SURGERY OTHER SURGICAL HISTORY 04/19/2021 [place] tooth extraction WISDOM TOOTH EXTRACTION 2018 Fam Hx: Family History Problem Relation Name Age of Onset Atrial fibrillation Mother Patti You Hypertension Mother Patti You Miscarriages / Stillbirths Mother Patti You Migraines Maternal Grandmother Erum Whitaker Miscarriages / Stillbirths Maternal Grandmother Erum Whitaker COPD Maternal Grandfather Rashard Whitaker Kidney disease Maternal Grandfather Rashard Whitaker SOC. Hx: Social History Socioeconomic History Marital status: Spouse name: Not on file Number of children: Not on file Years of education: Not on file Highest education level: Not on file Occupational History Not on file Tobacco Use Smoking status: Never Smokeless tobacco: Never Substance and Sexual Activity Alcohol use: Not Currently Drug use: Never Sexual activity: Yes Partners: Male control/protection: Condom Male Other Topics Concern Not on file Social History Narrative Not on file Social Drivers of Health Financial Resource Strain: Low Risk (07/29/2023) Received from [facility], [facility] Overall Financial Resource Strain (CARDIA) Difficulty of Paying Living Expenses: Not hard at all Food Insecurity: No Food Insecurity (11/04/2024) Received from [facility] Hunger Vital Sign Worried About Running Out of Food in the Last Year: Never true Ran Out of Food in the Last Year: Never true Transportation Needs: No Transportation Needs (11/04/2024) Received from [facility] PRAPARE - Transportation Lack of Transportation (Medical): No Lack of Transportation (Non-Medical): No Physical Activity: Sufficiently Active (07/29/2023) Received from [facility] Exercise Vital Sign Days of Exercise per Week: 5 days Minutes of Exercise per Session: 30 min Stress: No Stress Concern Present (07/29/2023) Received from [facility] [employer] [place] [facility] - Occupational Stress Questionnaire Feeling of Stress : Not at all Social Connections: Moderately Isolated (07/29/2023) Received from [facility] Social Connection and Isolation Panel [NHANES] Frequency of Communication with Friends and Family: More than three times a week Frequency of Social Gatherings with Friends and Family: Three times a week Attends Rastafarian Services: Never Active Member of Clubs or Organizations: No Attends Club or Organization Meetings: Never Marital Status: Intimate Partner Violence: Not on file Housing Stability: Low Risk (11/04/2024) Received from [facility] Housing Stability Vital Sign Unable to Pay for Housing in the Last Year: No Number of Times Moved in the Last Year: 0 Homeless in the Last Year: No Vitals: 12/08/24 1748 BP: 124/78 Pulse: 85 Resp: 19 Temp: 36.5 C (97.7 F) SpO2: 98% 79.4 kg (175 lb) Physical Exam Vitals and nursing note reviewed. Constitutional: Appearance: Normal appearance. HENT: Head: Normocephalic and atraumatic. Right Ear: Decreased hearing noted. Swelling and tenderness present. There is impacted cerumen. Left Ear: There is impacted cerumen. Mouth/Throat: Mouth: Mucous membranes are moist. Pharynx: Oropharynx is clear. Eyes: Pupils: Pupils are equal, round, and reactive to light. Cardiovascular: Rate and Rhythm: Normal rate and regular rhythm. Pulses: Normal pulses. Heart sounds: Normal heart sounds. Pulmonary: Effort: Pulmonary effort is normal. Breath sounds: Normal breath sounds. Abdominal: General: Abdomen is flat. Bowel sounds are normal. Palpations: Abdomen is soft. Musculoskeletal: General: Normal range of motion. Cervical back: Normal range of motion. Skin: General: Skin is warm and dry. Capillary Refill: Capillary refill takes less than 2 seconds. Neurological: Mental Status: She is alert and oriented to person, place, and time. I did personally review Petty's past medical history, surgical history, social history, as well as family history (when relevant). In this case, I also oversaw the her drug management by reviewing her medication list, allergy list, as well as the medications that I prescribed during the UC course and/or recommended as an out-patient (including possible OTC medications such as acetaminophen, NSAIDs , etc). After reviewing the items above, I did look at previous medical documentation, such as recent hospitalizations, office visits, and/or recent consultations with PCP/specialist. SDOH: Another factor that I considered in Petty's care was her Social Determinants of Health (SDOH). During this UC encounter, she did not have social determinants of health. Those SDOH influencing Petty's care are: none UC COURSE/MEDICAL DECISION MAKING: Petty is a 24 y.o., who presents with a working diagnosis of 1. Acute swimmer's ear of right side 2. Non-recurrent acute suppurative otitis media of right ear without spontaneous rupture of tympanic membrane 3. Bilateral impacted cerumen Petty was seen today for earache. Diagnoses and all orders for this visit: Acute swimmer's ear of right side (Primary) - ciprofloxacin-dexamethasone (Ciprodex) otic suspension; Administer 4 drops into the right ear 2 times a day for 7 days. Non-recurrent acute suppurative otitis media of right ear without spontaneous rupture of tympanic membrane - azithromycin (Zithromax) 200 mg/5 mL suspension; Take 20 mL (800 mg) by mouth once daily for 5 days. Bilateral impacted cerumen - Ear Cerumen Removal; Future Plan of care reviewed with patient. If symptoms change and/or worsen will follow-up with primary care provider, return to urgent care, or go to the nearest emergency department for further evaluation. Patient states understanding and is agreeable with plan of care. Patient ID: Petty Underwood is a 24 y.o. female. Ear Cerumen Removal Performed by: DENIS Soares Authorized by: DENIS Soares Consent: Consent obtained: Verbal Consent given by: Patient Risks, benefits, and alternatives were discussed: yes Risks discussed: Infection, bleeding, pain, TM perforation, incomplete removal and dizziness Alternatives discussed: No treatment [place] protocol: Procedure explained and questions answered to patient or proxy's satisfaction: yes Relevant documents present and verified: yes Test results available: no Imaging studies available: no Required blood products, implants, devices, and special equipment available: no Site/side marked: no Immediately prior to procedure, a time out was called: no Patient identity confirmed: Verbally with patient Procedure details: Location: R ear and L ear Procedure type: irrigation Procedure outcomes: cerumen removed Post-procedure details: Inspection: Ear canal clear, no bleeding and TM intact Hearing quality: Improved Procedure completion: Tolerated well, no immediate complications Rylie Walsh APRN, KWESI Advanced Practice Provider [facility] Please note: While the patient may or may not have received printed discharge paperwork, all relevant medical findings, test results, and treatment details are accessible through the electronic medical record system. The patient is encouraged to review their chart via the patient portal for comprehensive information and follow-up instructions. documented in this encounter [facility] Work Phone: 10-27-2024 History and physical note DISTANCE HEALTH VISIT This Team Access Model visit is a virtual encounter. It required patient-provider interaction for the medical decision making as documented below. REASON FOR VISIT: celiac disease HPI: Petty Underwood is a 24 year old female who presents for follow up for celiac disease.She is doing well overall and following a gluten-free diet. She does notice an increase in sensitivity when she does come in contact with any gluten product. Since her last visit, she did meet with quality compliance consultant which she states was very helpful. She is no longer on the carnivore diet, and trying to eat a more well-balanced diet. She has gained weight since her last visit. She is going to do cardiovascular exercise. She is no longer breast-feeding. Bowel habits are daily and mostly formed, she still will have occasional diarrhea if she consumes dairy products. She is only eating hard cheeses. She reports having some increased heartburn for the last couple of months, symptoms are worse at night and will wake her up from sleep. Reflux has been better recently.Patient denies dysphagia, regurgitation, early satiety, nausea, vomiting, abdominal pain, changes in appetite, change in bowel habits, unintentional weight loss or GI bleeding. No history of colonoscopy. Last EGD - 08/04/24 No known FHx of GI tract disease or malignancy. Prior abdominopelvic surgeries include cholecystectomy, umbilical hernia repair Past Clinical Work-Up: 08/13/2024 [facility]- Kingston Davenport APRN.COPY CUTTER ASSESSMENT/PLAN: Ms. Underwood is a 24 year old female with a history of cyst of the right ovary, palpitations, cholecystectomy, umbilical hernia repair, who presents for follow-up after EGD. EGD was completed on 08/04/2024, exam was normal however pathology shows celiac disease. Celiac serologies were done prior to this that were also elevated. EGD report, and pathology reviewed with patient. All questions and concerns addressed. Maintaining gluten-free diet has been difficult however she has started the carnivore diet and has noticed significant improvement just after 2 days. Consult to nutrition placed today. Blood work ordered today. We will follow-up in 6 months. She agrees with this plan, and verbalizes understanding. 08/15/2024 Labs Latest Reference Range & Units 08/15/24 08:35 Folate >4.7 ng/mL 15.4 Ferritin 14.7 - 205.1 ng/mL 38.4 Iron 41 - 186 ug/dL 99 TIBC 232 - 386 ug/dL 391 (H) Transferrin Saturation 15.0 - 57.0 % 25.3 Vitamin D 25 Hydroxy >=30.0 ng/mL 21.7 (L) (H): Data is abnormally high (L): Data is abnormally low 07/22/2024 Office Visit- Kingston Davenport APRN.COPY CUTTER ASSESSMENT/PLAN: Ms. Underwood is a 24 year old female with a past medical history of cyst of the right ovary, palpitations, cholecystectomy, umbilical hernia repair, who presents for abdominal pain. Symptoms worsened after umbilical hernia repair in January 2024. Abdominal pain is generalized, and is sometimes better after bowel movements. She reports bowel habits have been very irregular, she has at least 2 bowel movements daily however these are all liquid. CT scan was completed on 01/06/2024 that showed no acute abnormality in the abdomen or pelvis. Celiac serologies ordered today. Abdominal x-ray ordered to assess stool burden. Stool studies ordered to evaluate for any infectious or inflammatory process. We will start omeprazole 40 mg to be taken daily 30 minutes before breakfast. We will follow-up in 3 months to see if there is any symptom improvement. She agrees with this plan, and verbalizes understanding. 1. Diarrhea, unspecified type - ICD9: 787.91, ICD10: R19.7 (primary diagnosis) - XR ABDOMEN 2V ROUTINE SUPINE W UPRIGHT/DECUB/CTL - CALPROTECTIN,FECAL - C. DIFFICILE PCR - CRYPTOSPORIDIUM AND GIARDIA ANTIGENS BY EIA - ENTERIC BACTERIAL PANEL BY PCR - CELIAC SCREEN WITH REFLEX 2. Generalized abdominal pain - ICD9: 789.07, ICD10: R10.84 - XR ABDOMEN 2V ROUTINE SUPINE W UPRIGHT/DECUB/CTL 3. Gastroesophageal reflux disease, unspecified whether esophagitis present - ICD9: 530.81, ICD10: K21.9 - OMEPRAZOLE 40 MG CAPSULE,DELAYED RELEASE 08/04/2024 EGD Impression: - Normal esophagus. - Normal stomach. - Normal examined duodenum. Biopsied. - The examination was otherwise normal. FINAL DIAGNOSIS Duodenum, biopsy: - Duodenal mucosa with intraepithelial lymphocytosis and subtotal villous blunting. - See comment. Diagnosis Comment In combination with the abnormal celiac antibody panel, the morphological findings are consistent with celiac disease. Clinical correlation is necessary for a definitive diagnosis. 07/22/2024 XR ABD 2V IMPRESSION: Lines, tubes, and devices: Right upper quadrant surgical clips. Bowel: No dilated, gas-filled bowel. Colonic fecal burden does not appear excessive. Note, radiographic stool quantification is known to produce equivalent results in symptomatic and asymptomatic adults and is of uncertain value. Other: No free air under the diaphragms on upright view. Imaged lungs: No focal consolidation. 07/22/2024 Labs Latest Reference Range & Units 07/22/24 09:16 07/23/24 17:15 Transglutaminase IgA Abs <4 U/mL 18 (H) Transglutaminase IgA Abs Interpretation Negative Positive ! Gliad Deamidated IgA Qual Negative, Test not Indicated Negative Gliadin Ab, IgA <20 Units 16 IgA 70 - 400 mg/dL 247 Interpretation (Celiac Screen) The results suggest serological evidence of celiac disease. Weak positive results, when present, may at times be due to non-specific reactivity or to gluten-free diet. Clinical correlation is required. C. difficile PCR Negative for C. difficile toxin by PCR Negative for C. difficile toxin by PCR Cryptosporidium Antigen by EIA Negative Negative for Cryptosporidium by EIA. Campylobacter jejuni/coli DNA Not Detected Not detected Salmonella species DNA Not Detected Not detected Shiga-like toxin producing E. coli (STEC) DNA Not Detected Not detected Shigella/Enteroinvasive E. coli (EIEC) DNA Not Detected Not detected Giardia Antigen by EIA Negative Negative for Giardia lamblia by EIA. 01/06/2024 CT ABD/PEL IMPRESSION: No acute abnormality identified in the abdomen or pelvis. Details above. ALLERGIES Allergen Reactions Amoxicillin Other: See Comments Pt gets UTI'S Benadryl [Diphenhyd* Other: See Comments Severe headache and stiffness (IV only) Tolerates po benadryl Gluten Other: See Comments Celiac Disease PAST MEDICAL HISTORY Diagnosis Date Cyst of right ovary 08/07/2018 Palpitations PAST SURGICAL HISTORY Procedure Laterality Date LAPS SURG CHOLECYSTECTOMY W/CHOLANGIOGRAPHY 09/03/[address] Grimm REPAIR UMBILICAL HERNIA 02/07/2024 Dr. Trent TOOTH EXTRACTION 2018 wisdom teeth FAMILY HISTORY Problem Relation Age of Onset Hypertension Mother Heart Father heart murmur, dx age 35 Diabetes Maternal Grandmother great grandma Hypertension Maternal Aunt Thyroid Maternal Aunt Hypertension Maternal Uncle Cancer Other great grandpa - skin CA, a great uncle with melanoma Social History Tobacco Use Smoking status: Never Smokeless tobacco: Never Vaping Use Vaping status: Never Used Substance Use Topics Alcohol use: Not Currently Comment: occasionally Drug use: No Current Outpatient Medications Medication Sig omeprazole (PRILOSEC) 40 mg capsule Take 1 capsule by mouth once daily. mv-min/folic/vit K/lycop/coQ10 (DAILY MULTIVITAMIN ORAL) Take 1 tablet by mouth once daily. No current facility-administered medications for this visit. I have confirmed and edited, if necessary, the PFSH obtained by others. REVIEW OF SYSTEMS: General - Normal, healthy, cooperative, in no acute distress Able to interact verbally by video conference Psych - ORIENTATION: normal to time place, person and situation Mood/Affect: AFFECT AND MOOD: Normal Head/Neuro - Normal size and shape Facial appearance normal Pulmonary - respiratory effort normal Cardiovascular - patient describes extremities normal, warm, no cyanosis,no clubbing, and no edema Abdominal - Not performed Skin - abnormal lesions not visualized Motor - patient seen sitting with Normal appearing strength and coordination PHYSICAL EXAM: GENERAL: No weight loss, malaise or fevers RESPIRATORY: Negative for cough, hemoptysis, wheezing, dyspnea or shortness of breath CARDIOVASCULAR: Negative for chest pain, leg swelling, or palpitations GI: See HPI ASSESSMENT/PLAN: Ms. Underwood is a 24 year old female with a history of cyst of the right ovary, palpitations, cholecystectomy, umbilical hernia repair, who presents for follow-up. She is maintaining a gluten-free diet and doing well. She did have some worsening heartburn over the last couple months but this has been better. We discussed using Pepcid 20 mg at bedtime as needed. We discussed following an antireflux regimen. Continue gluten-free diet. She has upcoming iron studies scheduled. We will follow-up in 3 months, we will repeat celiac serologies at this time. She agrees with this plan, verbalizes understanding. 1. Celiac disease - ICD9: 579.0, ICD10: K90.0 (primary diagnosis) - Continue gluten free diet 2. Heartburn - ICD9: 787.1, ICD10: R12 - Pepcid 20 mg at bedtime as needed Kingston Davenport APRN.COPY CUTTER I spent more than 25 minutes [id number] with the patient and over half the time was devoted to counseling and/or coordination of care. This note was dictated using SOLARBRUSH speech recognition software and may contain some errors that were a result of the program not accurately transcribing what was dictated. I have communicated my name and active licensure. The patient's identity and physical location were verified at the time of this visit. Either the patient or their legal industrial sales representative has been informed of the risks and benefits of -- and alternatives to -- treatment through a remote evaluation and consents to proceed with the evaluation remotely. [facility] 10-27-2024 History and physical note [facility] VISIT This Team Access Model visit is a virtual encounter. It required patient-provider interaction for the medical decision making as documented below. REASON FOR VISIT: celiac disease HPI: Petty Underwood is a 24 year old female who presents for follow up for celiac disease.She is doing well overall and following a gluten-free diet. She does notice an increase in sensitivity when she does come in contact with any gluten product. Since her last visit, she did meet with quality compliance consultant which she states was very helpful. She is no longer on the carnivore diet, and trying to eat a more well-balanced diet. She has gained weight since her last visit. She is going to do cardiovascular exercise. She is no longer breast-feeding. Bowel habits are daily and mostly formed, she still will have occasional diarrhea if she consumes dairy products. She is only eating hard cheeses. She reports having some increased heartburn for the last couple of months, symptoms are worse at night and will wake her up from sleep. Reflux has been better recently.Patient denies dysphagia, regurgitation, early satiety, nausea, vomiting, abdominal pain, changes in appetite, change in bowel habits, unintentional weight loss or GI bleeding. No history of colonoscopy. Last EGD - 08/04/24 No known FHx of GI tract disease or malignancy. Prior abdominopelvic surgeries include cholecystectomy, umbilical hernia repair Past Clinical Work-Up: 08/13/2024 [facility]- Kingston Davenport APRN.CNP ASSESSMENT/PLAN: Ms. Underwood is a 24 year old female with a history of cyst of the right ovary, palpitations, cholecystectomy, umbilical hernia repair, who presents for follow-up after EGD. EGD was completed on 08/04/2024, exam was normal however pathology shows celiac disease. Celiac serologies were done prior to this that were also elevated. EGD report, and pathology reviewed with patient. All questions and concerns addressed. Maintaining gluten-free diet has been difficult however she has started the carnivore diet and has noticed significant improvement just after 2 days. Consult to nutrition placed today. Blood work ordered today. We will follow-up in 6 months. She agrees with this plan, and verbalizes understanding. 08/15/2024 Labs Latest Reference Range & Units 08/15/24 08:35 Folate >4.7 ng/mL 15.4 Ferritin 14.7 - 205.1 ng/mL 38.4 Iron 41 - 186 ug/dL 99 TIBC 232 - 386 ug/dL 391 (H) Transferrin Saturation 15.0 - 57.0 % 25.3 Vitamin D 25 Hydroxy >=30.0 ng/mL 21.7 (L) (H): Data is abnormally high (L): Data is abnormally low 07/22/2024 Office Visit- Kingston Davenport APRN.COPY CUTTER ASSESSMENT/PLAN: Ms. Underwood is a 24 year old female with a past medical history of cyst of the right ovary, palpitations, cholecystectomy, umbilical hernia repair, who presents for abdominal pain. Symptoms worsened after umbilical hernia repair in January 2024. Abdominal pain is generalized, and is sometimes better after bowel movements. She reports bowel habits have been very irregular, she has at least 2 bowel movements daily however these are all liquid. CT scan was completed on 01/06/2024 that showed no acute abnormality in the abdomen or pelvis. Celiac serologies ordered today. Abdominal x-ray ordered to assess stool burden. Stool studies ordered to evaluate for any infectious or inflammatory process. We will start omeprazole 40 mg to be taken daily 30 minutes before breakfast. We will follow-up in 3 months to see if there is any symptom improvement. She agrees with this plan, and verbalizes understanding. 1. Diarrhea, unspecified type - ICD9: 787.91, ICD10: R19.7 (primary diagnosis) - XR ABDOMEN 2V ROUTINE SUPINE W UPRIGHT/DECUB/CTL - CALPROTECTIN,FECAL - C. DIFFICILE PCR - CRYPTOSPORIDIUM AND GIARDIA ANTIGENS BY EIA - ENTERIC BACTERIAL PANEL BY PCR - CELIAC SCREEN WITH REFLEX 2. Generalized abdominal pain - ICD9: 789.07, ICD10: R10.84 - XR ABDOMEN 2V ROUTINE SUPINE W UPRIGHT/DECUB/CTL 3. Gastroesophageal reflux disease, unspecified whether esophagitis present - ICD9: 530.81, ICD10: K21.9 - OMEPRAZOLE 40 MG CAPSULE,DELAYED RELEASE 08/04/2024 EGD Impression: - Normal esophagus. - Normal stomach. - Normal examined duodenum. Biopsied. - The examination was otherwise normal. FINAL DIAGNOSIS Duodenum, biopsy: - Duodenal mucosa with intraepithelial lymphocytosis and subtotal villous blunting. - See comment. Diagnosis Comment In combination with the abnormal celiac antibody panel, the morphological findings are consistent with celiac disease. Clinical correlation is necessary for a definitive diagnosis. 07/22/2024 XR ABD 2V IMPRESSION: Lines, tubes, and devices: Right upper quadrant surgical clips. Bowel: No dilated, gas-filled bowel. Colonic fecal burden does not appear excessive. Note, radiographic stool quantification is known to produce equivalent results in symptomatic and asymptomatic adults and is of uncertain value. Other: No free air under the diaphragms on upright view. Imaged lungs: No focal consolidation. 07/22/2024 Labs Latest Reference Range & Units 07/22/24 09:16 07/23/24 17:15 Transglutaminase IgA Abs <4 U/mL 18 (H) Transglutaminase IgA Abs Interpretation Negative Positive ! Gliad Deamidated IgA Qual Negative, Test not Indicated Negative Gliadin Ab, IgA <20 Units 16 IgA 70 - 400 mg/dL 247 Interpretation (Celiac Screen) The results suggest serological evidence of celiac disease. Weak positive results, when present, may at times be due to non-specific reactivity or to gluten-free diet. Clinical correlation is required. C. difficile PCR Negative for C. difficile toxin by PCR Negative for C. difficile toxin by PCR Cryptosporidium Antigen by EIA Negative Negative for Cryptosporidium by EIA. Campylobacter jejuni/coli DNA Not Detected Not detected Salmonella species DNA Not Detected Not detected Shiga-like toxin producing E. coli (STEC) DNA Not Detected Not detected Shigella/Enteroinvasive E. coli (EIEC) DNA Not Detected Not detected Giardia Antigen by EIA Negative Negative for Giardia lamblia by EIA. 01/06/2024 CT ABD/PEL IMPRESSION: No acute abnormality identified in the abdomen or pelvis. Details above. ALLERGIES Allergen Reactions Amoxicillin Other: See Comments Pt gets UTI'S Benadryl [Diphenhyd* Other: See Comments Severe headache and stiffness (IV only) Tolerates po benadryl Gluten Other: See Comments Celiac Disease PAST MEDICAL HISTORY Diagnosis Date Cyst of right ovary 08/07/2018 Palpitations PAST SURGICAL HISTORY Procedure Laterality Date LAPS SURG CHOLECYSTECTOMY W/CHOLANGIOGRAPHY 09/03/[address] Grimm REPAIR UMBILICAL HERNIA 02/07/2024 Dr. Trent TOOTH EXTRACTION 2018 wisdom teeth FAMILY HISTORY Problem Relation Age of Onset Hypertension Mother Heart Father heart murmur, dx age 35 Diabetes Maternal Grandmother great grandma Hypertension Maternal Aunt Thyroid Maternal Aunt Hypertension Maternal Uncle Cancer Other great grandpa - skin CA, a great uncle with melanoma Social History Tobacco Use Smoking status: Never Smokeless tobacco: Never Vaping Use Vaping status: Never Used Substance Use Topics Alcohol use: Not Currently Comment: occasionally Drug use: No Current Outpatient Medications Medication Sig omeprazole (PRILOSEC) 40 mg capsule Take 1 capsule by mouth once daily. mv-min/folic/vit K/lycop/coQ10 (DAILY MULTIVITAMIN ORAL) Take 1 tablet by mouth once daily. No current facility-administered medications for this visit. I have confirmed and edited, if necessary, the PFSH obtained by others. REVIEW OF SYSTEMS: General - Normal, healthy, cooperative, in no acute distress Able to interact verbally by video conference Psych - ORIENTATION: normal to time place, person and situation Mood/Affect: AFFECT AND MOOD: Normal Head/Neuro - Normal size and shape Facial appearance normal Pulmonary - respiratory effort normal Cardiovascular - patient describes extremities normal, warm, no cyanosis,no clubbing, and no edema Abdominal - Not performed Skin - abnormal lesions not visualized Motor - patient seen sitting with Normal appearing strength and coordination PHYSICAL EXAM: GENERAL: No weight loss, malaise or fevers RESPIRATORY: Negative for cough, hemoptysis, wheezing, dyspnea or shortness of breath CARDIOVASCULAR: Negative for chest pain, leg swelling, or palpitations GI: See HPI ASSESSMENT/PLAN: Ms. Underwood is a 24 year old female with a history of cyst of the right ovary, palpitations, cholecystectomy, umbilical hernia repair, who presents for follow-up. She is maintaining a gluten-free diet and doing well. She did have some worsening heartburn over the last couple months but this has been better. We discussed using Pepcid 20 mg at bedtime as needed. We discussed following an antireflux regimen. Continue gluten-free diet. She has upcoming iron studies scheduled. We will follow-up in 3 months, we will repeat celiac serologies at this time. She agrees with this plan, verbalizes understanding. 1. Celiac disease - ICD9: 579.0, ICD10: K90.0 (primary diagnosis) - Continue gluten free diet 2. Heartburn - ICD9: 787.1, ICD10: R12 - Pepcid 20 mg at bedtime as needed Kingston Davenport APRN.CNP I spent more than 25 minutes [id number] with the patient and over half the time was devoted to counseling and/or coordination of care. This note was dictated using SOLARBRUSH speech recognition software and may contain some errors that were a result of the program not accurately transcribing what was dictated. I have communicated my name and active licensure. The patient's identity and physical location were verified at the time of this visit. Either the patient or their legal industrial sales representative has been informed of the risks and benefits of -- and alternatives to -- treatment through a remote evaluation and consents to proceed with the evaluation remotely. documented in this encounter [facility] 10-27-2024 Instructions Kingston Davenport APRN.CNP - 10/27/2024 7:59 AM EST Thank you for seeing me in clinic today. It was very nice to meet you! As we discussed, my recommendations are as follows: Pepcid 20 mg at bedtime daily or as needed 2. Follow up in 3 months- virtual visit If you have any questions about the above treatment plan, please do not hesitate to send me a [employer] message or call. Kingston Davenport APRN.CNP You have acid reflux. This is usually caused by inappropriate relaxation of the lower esophageal sphincter (exit point of the swallow pipe where it meets the stomach). In some cases, untreated long-standing acid injury can cause damage to the esophagus, ultimately leading to conditions like Valenzuela's esophagus and cancer of the esophagus. Please try to adhere to the following lifestyle habits that can help reduce acid reflux symptoms: Avoid trigger foods , or food/drink that tend to precipitate acid reflux symptoms. Common offenders include alcohol, fatty/spicy foods, red sauces (pizza, ketchup, hot sauce), chocolate, caffeinated beverages such as coffee and tea, carbonated beverages and peppermint. Elevate the head of your bed to 45 degrees (or 6 inches above) with a foam wedge or 2-3 pillows, especially if symptoms occur at night or early in the morning Remain upright for at least 3 hours after meals Avoid late night snacking Avoid tight-fitting clothes/garments Make efforts to reduce overall stress and anxiety, if able OBESE/OVERWEIGHT: Losing weight can be one of the most effective ways to reduce acid reflux symptoms and, in some cases, reduce the need for long-term acid suppression. Aim to lose 10-15 lbs over the next 6 months if possible with dietary modifications and exercise, if deemed safe by your primary care provider or physical education specialist. SMOKERS: Stop smoking PPI users: Take your proton pump inhibitor, such as Prilosec, Protonix or Nexium, as prescribed. It works best if you take this 30-60 minutes before a meal on an empty stomach. Avoid/minimize medications like ibuprofen (Motrin, Advil), naproxen (Aleve) and meloxicam (Mobic) since these can worsen acid reflux. Tylenol is a reasonable alternative if needed for pain control purely from an acid reflux standpoint. documented in this encounter [facility] 10-20-2024 Telephone encounter Note S/W provider. S/W pt. States she is not having any pain. Changed appt to VV. [facility] Work Phone: 10-20-2024 Miscellaneous Notes S/W provider. S/W pt. States she is not having any pain. Changed appt to VV. Name of Caller: Petty Kj Relationship to patient: patient Last visit in this department: 07/22/2024 Reason for Call: Other : Patient has an appointment with Pranay Davenport on 10/27/2024 at 8:00 am. She is asking if she can change it to a virtual? Please advise. Please let patient know. Callback number: [phone] Kareen Celso documented in this encounter [facility] 10-20-2024 Telephone encounter Note Name of Caller: Petty Underwood Relationship to patient: patient Last visit in this department: 07/22/2024 Reason for Call: Other : Patient has an appointment with Pranay Davenport on 10/27/2024 at 8:00 am. She is asking if she can change it to a virtual? Please advise. Please let patient know. Callback number: [phone] Kareen Celso [facility] 08-19-2024 History of Presen t illness Narrative GI Nutrition TeleHealth Consult - Initial Assessment I have communicated my name and active licensure. The patient s identity and physical location were verified at the time of this visit. Either the patient or their legal industrial sales representative has been informed of the risks and benefits of -- and alternatives to -- treatment through a remote evaluation and consents to proceed with the evaluation remotely Nutrition Diagnosis: Altered Gastrointestinal Tract Function, related to, Celiac Disease, as evidenced by villous blunting on EGD biopsies . RECOMMENDED MALNUTRITION DIAGNOSIS: NO MALNUTRITION IDENTIFIED NUTRITION CARE PLAN Nutrition Intervention August 18, 2024 : Diet: --strict GF diet for celiac disease --okay to focus on meats, fruits and vegetables --limit red meat to once/day for now --watch for cross contact at home Vitamins/Minerals: --start vitamin D 5000/day Labs: --follow up TgA Nutrition Monitoring & Evaluation: improvement in GI symptoms Criteria: per pt report Need for Follow up: 11/24 @9:45am virtually This is a 24 year-old female with an underlying diagnosis of Celiac Disease since 2023 who is followed by Kingston Davenport CNP. EDG completed with serology for celiac disease, PMH of cyst of the right ovary, palpitations, cholecystectomy, umbilical hernia repair, abdominal pain. Today, patient reports the following: --pt has been feeling bad, she is always bloated and in pain --she was last year and had gall stones and had it removed afterwards, hard to have early and then after he was born had a seizure, dx with eclampsia --started having pain in Oct, had a hernia repair and still having some abd pain --started the carnivore diet when she was dx with celiac disease, day three she was having low blood sugars and then passed out. Started to add foods back in --unsure of what to eat, has been working on GF Diet --is going to live in a split home Current Clinical Symptoms # of bowel movements daily: depends, once every 2 days, but now it is more urgency, 3 times/day # of liquid stools daily: some Consistency: loose, soft Bloody bowel movements: yes, one time Urgency: yes, no Abdominal pain: yes, all the time Abdominal distention: yes, all the time Nausea/vomiting: no Heartburn/reflux: no Intake: Appetite is variable Diet History: Breakfast - she has been trying to eat something, valencia is the fastest thing to do, when going out to eat will get potatoes and toast, juice Snack - fruit, like grapes, peaches, strawberries Lunch - chicken, GF pasta with parm cheese sauce Dinner - potatoes and cheese hot dogs, and green beans, corn, venison, pork, and beef, Snack - dessert every now a and then Beverages - water, juice Vitamins/Supplements - --MVI (d/c) Allergies/Intolerance: --gluten (celiac) --eggs (does not like) --seafood ( does not like and does not cook it) Amoxicillin and Benadryl [Diphenhydramine] Medications: Current Outpatient Medications Medication Sig Dispense Refill omeprazole (PRILOSEC) 40 mg capsule Take 1 capsule by mouth once daily. 90 capsule 0 mv-min/folic/vit K/lycop/coQ10 (DAILY MULTIVITAMIN ORAL) Take 1 tablet by mouth once daily. No current facility-administered medications for this visit. Anthropometrics: Height: 5'2 Weight history: 79.3kg (08/04/24), 78kg (03/23/24), 78.9kg (02/13/24) Highest weight: current UBW: 140# (before ) Goal weight: has been trying to lose weight BMI: 32--obese Weight has remained stable over the last 6 months. Estimated needs: Calories: 1600 - 2000 kcals/day determined by 20- 25 kcal/kg Protein: 80 - 95 g/day determined by 1.0-1.2 g/kg Malnutrition Screening Significant unintentional weight loss? No Eating less than 75% of usual intake for more than 2 weeks? No Potential Signs of Inflammation: chronic condition Education Materials Provided: None this visit Referred/Supervised by: Kingston Davenport/Dr. Maldonado MNT Billing Type: Initial Assess/15 min [address] documented in this encounter [facility] 08-19-[address] - 08/19/2024 9:45 AM EDT Nutrition Interventions Strict GF diet for celiac disease as outlined below Balance of proteins, try and limit red meat once/day on carnivore diet Chicken and turkey should be the reminder of your meals Plant based proteins like beans every now and then (peanut butter, almond butter, beans, humus) Vitamin D supplement gummy once/day every day for the 3 months and then get recheck labs [email or web address] Nature-made Vitamin D Gummies 5000 IUS/day Neutral fruits and vegetables to help with bloating for now, see below Complex carbohydrate at every meal and snack to help stabilize blood sugars Fruits, brown rice cracker, or rice cakes, maldivian yogurt Follow up with Heidi Quezada RD 11/24 @9:45am virtually Strict Gluten-Free Diet life-long - Avoid anything that isn't gluten-free certified --> read labels carefully, avoid anything that may contain gluten - Look for sneaky sources of gluten - Avoid cross-contamination at home - Avoid cross-contamination dining out Foods that are naturally gluten-free (this is before anything like sauce, spice, or additives are added) - All veggies (canned, frozen, fresh) - All fruits (canned, frozen, fresh) - All beans, lentils, nut, seeds, olives - All dairy (lactose free milk, low lactose cheese cheddar, goat cheese, parm, kenyan, yogurt) - All meat, fish, eggs Naturally gluten-free starches: - Rice (rice flour, rice cakes, rice crackers, rice noodles) - [place]den (grits, polenta, corn chips, corn tortillas) - Quinoa (served hot and cold, flour, crackers) - Buckwheat (used as a flour, some noodles) - Potatoes (starch, chips, mashed, fries) - Sweet potatoes - Amaranth (similar to porridge, cooks like rice) - Millet and Teff (flours, good source of iron and fiber) - Oats are naturally gluten-free BUT they are cross-contaminated with wheat, the way they are grown, it is okay to have GF Oats Things you need to find replacements for: (wheat, rye and barley) - Pasta --> Choose GF pasta (Barilla, Ronzoni, Progress Worker Miguel's, Aldi, Lentil or thomas-based pastas) - Crackers --> Choose GF crackers (Van's GF, Crunchmaster, Simple Halney, Glutino, Aldi, Kym's GF) - Pretzels --> Choose GF pretzels (Liz's GF, Aldi, Glutino) - Pancakes/Waffles --> Choose GF mixed (King Horacio GF, Bisquick GF) or frozen (Progress Worker Miguel's GF, Kashi GF, Nature's Path) - Breads --> Choose GF bread, rolls, bagels (Mahendra's, Siddharth's GF, [place] GF, Aldi, Progress Worker Miguel's) - Flour tortillas --> Choose corn tortillas or GF tortillas - Brownies, cakes, cookies --> Choose GF mixes (Aldi, Progress Worker Miguel's, Kym's GF, Simple Hanley GF) or pre-made (Kym's GF, Enjoy Life GF, Mahendra's GF, Rome's Bake Shop GF) - Cereals --> Rice chex, cheerios, specific GF corn flakes, specific GF rice krispies, Emilie's Puffins Sneaky sources of gluten: - Bread crumbs --> Choose GF or substitute with GF flour or almond flour - Soy sauce, Teriyaki sauce --> Choose GF - Gravy --> Choose GF or make your own using corn starch and broth - Norberto --> Choose GF or make your own using corn starch - Canned soups --> Choose GF or make your own - Imitation meats, veggie burgers, imitation crab --> Read labels carefully and avoid - Licorice --> Choose GF - Malt flavoring --> used as a sweetener in many things like regular rice krispies (buy GF) - Texture vegetable protein --> used as an additive in processed foods - Modified starch --> used as an additive in processed foods - Wine Coolers (I.e. Smirnoff Ice) --> Choose GF beer, cider, sparkling seltzers Avoiding cross-contamination at home: - Separate toasters, separate air fryers - Do not need to have separate pots/pans/utensils BUT everything must be washed with hot soap & water or run through the sales support technician - Separate dish sponges - Separate condiments - butter, peanut butter, ragland, jam - Make sure to wash hands and surfaces frequently - make your GF food first Avoid cross-contamination at restaurants: - Always say at the beginning I have gluten or wheat allergy. None of my food can touch wheat or gluten. - Quick-serve places like Chipotle, [employer]rique[employer] --> You want to make sure they are changing their gloves and not putting your food on the same surface - Places like Buffets/[employer] --> ask for fresh ingredients from back - Always ask about fryers being shared with things that aren't gluten-free (Yemeni fries, tortilla chips being shared with mozzarella sticks or chicken fingers) - Anything with a shared cook top like [employer]--> ask for yours to be cooked separately in the back - Always want to ask about sneaky ingredients like sauces and dressings and spices - When in doubt - keep it simple - ask for plain rice or baked potato + side salad w/ oil & vinegar - Find Me Gluten Free- Romy/Website --> you can search location and food type to find GF menus - I would stick to chain restaurants early on, because they are more closely regulated and have GF menus --> [employer], [employer], [employer] ,[employer], [employer], [employer], [employer], [employer], [employer] (all GF) Other considerations: - will need to change any cosmetics that you put close to your mouth, lip sticks, chap sticks - consider gluten free lotion and sun screen. While gluten is not absorbed through the skin, if gluten lotions is on your hands and then prepare food now your food may be contaminated. - pet food and treats may have Gluten, make sure to wash your hands after handling pet food and treats - check all supplements and medications for gluten. If you are unsure if a medication contains gluten ask your local pharmacist to check for any gluten containing ingredients., sometimes used in pills as binding agents. - check all tooth paste, floss and mouth wash. Most colgate and crest tooth past and mouth wash is gluten free - it is okay to kiss your partner after they eat gluten. Just make sure you are not actively kissing them while they are eating or their is food in their mouth. Resources: - Shopping: Whole Foods, [employer], [employer]co[employer], [employer], [employer] - Find Me Gluten-Free Romy, Gluten-Free Scanner Romy, Spoonful Romy - https://celiac.org/about-celiac -disease/vrxvifbo-aqholwwall-um [email or web address] https://www.beyondceliac.org/jack londonxwha-gtpn-ekhppd-disease/ Neutral Foods for the right now to help with bloating: Fruits (canned, soft, ripe frozen or blended fruit): 1/2 cup blueberries, 1/2 cup strawberries, 1/2 cup pineapple, mandrin oranges (cuties/tangerines), 1/2 cup red or green grapes, greener banana, kiwi (2 at a time), honey dew and cantaloupe >may contribute to gas bloating or loose stools: applesauce, canned peaches and, pears, blackberries, raspberries, mangos, avocado, watermelon Vegetables: (canned, soft, roasted, steamed) carrots, green beans, zucchini and yellow squash, red pineda pepper, egg plant (pealed), pealed cucumbers, broccoli crowns, spinach, mustard and curt greens, salad greens (future) >may contribute to gas, bloating and loose stools: cauliflower, kale, brussels, cabbage, onions and garlic, corn, peas, starchy beans (black beans, humus, lentils), mushrooms documented in this encounter [facility] 08-19-2024 Note HNO ID: [id number] Author: HEIDI QUEZADA RD Service: ? Author Type: Registered Dietitian Type: Progress Notes Filed: 08/19/2024 10:56 Note Text: GI Nutrition TeleHealth Consult - Initial Assessment I have communicated my name and active licensure. The patient?s identity and physical location were verified at the time of this visit. Either the patient or their legal industrial sales representative has been informed of the risks and benefits of -- and alternatives to -- treatment through a remote evaluation and consents to proceed with the evaluation remotely Nutrition Diagnosis: Altered Gastrointestinal Tract Function, related to, Celiac Disease, as evidenced by villous blunting on EGD biopsies . RECOMMENDED MALNUTRITION DIAGNOSIS: NO MALNUTRITION IDENTIFIED NUTRITION CARE PLAN Nutrition Intervention August 18, 2024 : Diet: --strict GF diet for celiac disease --okay to focus on meats, fruits and vegetables --limit red meat to once/day for now --watch for cross contact at home Vitamins/Minerals: --start vitamin D 5000/day Labs: --follow up TgA Nutrition Monitoring AND Evaluation: improvement in GI symptoms Criteria: per pt report Need for Follow up: 11/24 @9:45am virtually This is a 24 year-old female with an underlying diagnosis of Celiac Disease since 2023 who is followed by Kingston Davenport CNP. EDG completed with serology for celiac disease, PMH of cyst of the right ovary, palpitations, cholecystectomy, umbilical hernia repair, abdominal pain. Today, patient reports the following: --pt has been feeling bad, she is always bloated and in pain --she was last year and had gall stones and had it removed afterwards, hard to have early and then after he was born had a seizure, dx with eclampsia --started having pain in Oct, had a hernia repair and still having some abd pain --started the carnivore diet when she was dx with celiac disease, day three she was having low blood sugars and then passed out. Started to add foods back in --unsure of what to eat, has been working on GF Diet --is going to live in a split home Current Clinical Symptoms # of bowel movements daily: depends, once every 2 days, but now it is more urgency, 3 times/day # of liquid stools daily: some Consistency: loose, soft Bloody bowel movements: yes, one time Urgency: yes, no Abdominal pain: yes, all the time Abdominal distention: yes, all the time Nausea/vomiting: no Heartburn/reflux: no Intake: Appetite is variable Diet History: Breakfast - she has been trying to eat something, valencia is the fastest thing to do, when going out to eat will get potatoes and toast, juice Snack - fruit, like grapes, peaches, strawberries Lunch - chicken, GF pasta with parm cheese sauce Dinner - potatoes and cheese hot dogs, and green beans, corn, venison, pork, and beef, Snack - dessert every now a and then Beverages - water, juice Vitamins/Supplements - --MVI (d/c) Allergies/Intolerance: --gluten (celiac) --eggs (does not like) --seafood ( does not like and does not cook it) Amoxicillin and Benadryl [Diphenhydramine] Medications: Current Outpatient Medications Medication Sig Dispense Refill omeprazole (PRILOSEC) 40 mg capsule Take 1 capsule by mouth once daily. 90 capsule 0 mv-min/folic/vit K/lycop/coQ10 (DAILY MULTIVITAMIN ORAL) Take 1 tablet by mouth once daily. No current facility-administered medications for this visit. Anthropometrics: Height: 5'2 Weight history: 79.3kg (08/04/24), 78kg (03/23/24), 78.9kg (02/13/24) Highest weight: current UBW: 140# (before ) Goal weight: has been trying to lose weight BMI: 32--obese Weight has remained stable over the last 6 months. Estimated needs: Calories: 1600 - 2000 kcals/day determined by 20- 25 kcal/kg Protein: 80 - 95 g/day determined by 1.0-1.2 g/kg Malnutrition Screening Significant unintentional weight loss? No Eating less than 75% of usual intake for more than 2 weeks? No Potential Signs of Inflammation: chronic condition Education Materials Provided: None this visit Referred/Supervised by: Kingston Davenport/Dr. Maldonado MNT Billing Type: Initial Assess/15 min [address] [facility] 08-13-2024 Instructions Kingston Davenport APRN.[facility] 08/13/2024 11:55 AM EDT Thank you for seeing me in clinic today. It was very nice to meet you! As we discussed, my recommendations are as follows: Get blood work 2. Schedule with nutrition 3. Follow up in 6 months If you have any questions about the above treatment plan, please do not hesitate to send me a [employer] message or call. Kingston Davenport APRN.[employer] What is celiac disease? Celiac disease is a condition that makes it hard for the body to break down certain foods. People who have celiac disease get symptoms if they eat anything that contains a protein called gluten. Gluten is found in wheat, rye, barley, and (sometimes) oats. Gluten is in foods like bread, pasta, pizza, and cereal. It is also in many other foods, including some sauces and dressings. In people with celiac disease, gluten damages the intestines . As a result, their bodies can't absorb nutrients from food. The disease can affect both children and adults. What are the symptoms of celiac disease?Celiac disease can cause different symptoms in different people. Some people have no symptoms, and only learn that they have the disease when they get tests for other reasons. When symptoms do happen, they commonly include: ?Pain in the belly ?Diarrhea ?Bowel movements that are oily and float ?Weight loss ?Feeling bloated, or too full all of the time ?Low appetite ?Bad gas ?Itchy skin rashes ?Weak bones or low iron levels ?Slow growth in children What if I think that my child might have celiac disease?Celiac disease can develop in children of any age. Your child should see a doctor if they: ?Have diarrhea that lasts for weeks ?Have constipation that won't go away ?Have brown or yellow teeth with pits or grooves in them ?Are too small or weigh too little for their age ?Are almost a teen but have not yet gone through puberty (doctors call this delayed puberty) ?Have other family members with celiac disease Is there a test for celiac disease?Doctors usually use 2 tests to diagnose celiac disease. If possible, these tests should be done before you stop eating foods containing gluten: ?Blood test - This is the first step. A blood test looks for proteins that some people's bodies make after eating gluten. People who have celiac disease have lots of these proteins, called antibodies. ?Biopsy - If a blood test shows a lot of antibodies, the doctor will do a biopsy. For this test, the doctor puts a thin tube with a tiny camera down your throat. When the tube is in your small intestine, they take a small sample of tissue. Then, they look at the tissue under a microscope and see if eating gluten has damaged the intestine. If you are already on a gluten-free diet, your doctor might do other tests to see if you are likely to have celiac disease. How is celiac disease treated? The only treatment is to stop eating gluten completely. But don't try to stop eating gluten on your own. Work with a dietitian (food expert) or doctor before changing your diet. They can help you learn how to change your eating habits and still be healthy. You will also need to learn how to read and understand labels on foods. On a gluten-free diet, you need to avoid rye, wheat, barley, and maybe oats. These ingredients appear in many common foods, including: ?Bread, pasta, pastries, and cereal ?Many sauces, spreads, and condiments ?Beers, ales, lagers, and malt vinegars Some people with celiac disease also have lactose intolerance. If your doctor thinks that you have this, they might recommend that you avoid milk, cheese, and other dairy foods for a time. These foods can be hard for your body to break down. You might be able to start eating these foods again after your intestines have had a chance to heal. Foods that do not contain gluten (and are OK to eat) include: ?Rice, corn, potatoes, buckwheat, and soybeans ?Fruits and vegetables ?Flours, pasta, and other products made from these ingredients that are labeled as gluten free ?Wine and distilled alcoholic drinks, such as rum, tequila, vodka, and whiskey Your doctor might also prescribe vitamins to make up for nutrients you have not been getting from food. What will my life be like? Most people feel a lot better within 2 weeks of starting a gluten-free diet, but it can take longer for some people. If you have celiac disease, you need to avoid gluten for the rest of your life. Your doctor will most likely suggest getting a blood test at least once a year. This is to see how your body is responding to a gluten-free diet. The hardest part about the disease is getting used to eating in a whole new way. The good news is that there are plenty of gluten-free foods as well as resources for people with celiac disease. Some people also find that it helps to get support from other people living with celiac disease. documented in this encounter [facility] 08-13-2024 History and physical note DISTANCE HEALTH VISIT This Team Access Model visit is a virtual encounter. It required patient-provider interaction for the medical decision making as documented below. REASON FOR VISIT: follow up for EGD results HPI: Petty Underwood is a 24 year old female who presents for follow up for EGD results. EGD was completed on 08/04/2024, the exam was normal however pathology showed intraepithelial lymphocytosis, and subtotal villous blunting. Celiac serologies (07/22/24) were done prior to this it did show elevation. Since her recent EGD, going gluten-free was difficult. Over the past 2 days she started a carnivore diet and reports that her symptoms are significantly better. Results of EGD reviewed with patient including pathology. No history of colonoscopy. Last EGD - 08/04/24 No known FHx of GI tract disease or malignancy. Prior abdominopelvic surgeries include cholecystectomy, umbilical hernia repair Past Clinical Work-Up: 07/22/2024 ASSESSMENT/PLAN: Ms. Underwood is a 24 year old female with a past medical history of cyst of the right ovary, palpitations, cholecystectomy, umbilical hernia repair, who presents for abdominal pain. Symptoms worsened after umbilical hernia repair in January 2024. Abdominal pain is generalized, and is sometimes better after bowel movements. She reports bowel habits have been very irregular, she has at least 2 bowel movements daily however these are all liquid. CT scan was completed on 01/06/2024 that showed no acute abnormality in the abdomen or pelvis. Celiac serologies ordered today. Abdominal x-ray ordered to assess stool burden. Stool studies ordered to evaluate for any infectious or inflammatory process. We will start omeprazole 40 mg to be taken daily 30 minutes before breakfast. We will follow-up in 3 months to see if there is any symptom improvement. She agrees with this plan, and verbalizes understanding. 1. Diarrhea, unspecified type - ICD9: 787.91, ICD10: R19.7 (primary diagnosis) - XR ABDOMEN 2V ROUTINE SUPINE W UPRIGHT/DECUB/CTL - CALPROTECTIN,FECAL - C. DIFFICILE PCR - CRYPTOSPORIDIUM AND GIARDIA ANTIGENS BY EIA - ENTERIC BACTERIAL PANEL BY PCR - CELIAC SCREEN WITH REFLEX 2. Generalized abdominal pain - ICD9: 789.07, ICD10: R10.84 - XR ABDOMEN 2V ROUTINE SUPINE W UPRIGHT/DECUB/CTL 3. Gastroesophageal reflux disease, unspecified whether esophagitis present - ICD9: 530.81, ICD10: K21.9 - OMEPRAZOLE 40 MG CAPSULE,DELAYED RELEASE 08/04/2024 EGD Impression: - Normal esophagus. - Normal stomach. - Normal examined duodenum. Biopsied. - The examination was otherwise normal. FINAL DIAGNOSIS Duodenum, biopsy: - Duodenal mucosa with intraepithelial lymphocytosis and subtotal villous blunting. - See comment. Diagnosis Comment In combination with the abnormal celiac antibody panel, the morphological findings are consistent with celiac disease. Clinical correlation is necessary for a definitive diagnosis. 07/22/2024 XR ABD 2V IMPRESSION: Lines, tubes, and devices: Right upper quadrant surgical clips. Bowel: No dilated, gas-filled bowel. Colonic fecal burden does not appear excessive. Note, radiographic stool quantification is known to produce equivalent results in symptomatic and asymptomatic adults and is of uncertain value. Other: No free air under the diaphragms on upright view. Imaged lungs: No focal consolidation. Latest Reference Range & Units 07/22/24 09:16 07/23/24 17:15 Transglutaminase IgA Abs <4 U/mL 18 (H) Transglutaminase IgA Abs Interpretation Negative Positive ! Gliad Deamidated IgA Qual Negative, Test not Indicated Negative Gliadin Ab, IgA <20 Units 16 IgA 70 - 400 mg/dL 247 Interpretation (Celiac Screen) The results suggest serological evidence of celiac disease. Weak positive results, when present, may at times be due to non-specific reactivity or to gluten-free diet. Clinical correlation is required. C. difficile PCR Negative for C. difficile toxin by PCR Negative for C. difficile toxin by PCR Cryptosporidium Antigen by EIA Negative Negative for Cryptosporidium by EIA. Campylobacter jejuni/coli DNA Not Detected Not detected Salmonella species DNA Not Detected Not detected Shiga-like toxin producing E. coli (STEC) DNA Not Detected Not detected Shigella/Enteroinvasive E. coli (EIEC) DNA Not Detected Not detected Giardia Antigen by EIA Negative Negative for Giardia lamblia by EIA. 01/06/2024 CT ABD/PEL IMPRESSION: No acute abnormality identified in the abdomen or pelvis. Details above. ALLERGIES Allergen Reactions Amoxicillin Other: See Comments Pt gets UTI'S Benadryl [Diphenhyd* Other: See Comments Severe headache and stiffness (IV only) Tolerates po benadryl PAST MEDICAL HISTORY Diagnosis Date Cyst of right ovary 08/07/2018 Palpitations PAST SURGICAL HISTORY Procedure Laterality Date LAPS SURG CHOLECYSTECTOMY W/CHOLANGIOGRAPHY 09/03/[address] Grimm REPAIR UMBILICAL HERNIA 02/07/2024 Dr. Trent TOOTH EXTRACTION 2018 wisdom teeth FAMILY HISTORY Problem Relation Age of Onset Hypertension Mother Heart Father heart murmur, dx age 35 Diabetes Maternal Grandmother great grandma Hypertension Maternal Aunt Thyroid Maternal Aunt Hypertension Maternal Uncle Cancer Other great grandpa - skin CA, a great uncle with melanoma Social History Tobacco Use Smoking status: Never Smokeless tobacco: Never Vaping Use Vaping status: Never Used Substance Use Topics Alcohol use: Not Currently Comment: occasionally Drug use: No Current Outpatient Medications Medication Sig omeprazole (PRILOSEC) 40 mg capsule Take 1 capsule by mouth once daily. mv-min/folic/vit K/lycop/coQ10 (DAILY MULTIVITAMIN ORAL) Take 1 tablet by mouth once daily. No current facility-administered medications for this visit. I have confirmed and edited, if necessary, the PFSH obtained by others. REVIEW OF SYSTEMS: General - Normal, healthy, cooperative, in no acute distress Able to interact verbally by video conference Psych - ORIENTATION: normal to time place, person and situation Mood/Affect: AFFECT AND MOOD: Normal Head/Neuro - Normal size and shape Facial appearance normal Pulmonary - respiratory effort normal Cardiovascular - patient describes extremities normal, warm, no cyanosis,no clubbing, and no edema Abdominal - Not performed Skin - abnormal lesions not visualized Motor - patient seen sitting with Normal appearing strength and coordination PHYSICAL EXAM: GENERAL: No weight loss, malaise or fevers RESPIRATORY: Negative for cough, hemoptysis, wheezing, dyspnea or shortness of breath CARDIOVASCULAR: Negative for chest pain, leg swelling, or palpitations GI: See HPI ASSESSMENT/PLAN: Ms. Underwood is a 24 year old female with a history of cyst of the right ovary, palpitations, cholecystectomy, umbilical hernia repair, who presents for follow-up after EGD. EGD was completed on 08/04/2024, exam was normal however pathology shows celiac disease. Celiac serologies were done prior to this that were also elevated. EGD report, and pathology reviewed with patient. All questions and concerns addressed. Maintaining gluten-free diet has been difficult however she has started the carnivore diet and has noticed significant improvement just after 2 days. Consult to nutrition placed today. Blood work ordered today. We will follow-up in 6 months. She agrees with this plan, and verbalizes understanding. I spent more than 20 minutes [id number] with the patient and over half the time was devoted to counseling and/or coordination of care. This note was dictated using [employer]AR[employer] speech recognition software and may contain some errors that were a result of the program not accurately transcribing what was dictated. I have communicated my name and active licensure. The patient's identity and physical location were verified at the time of this visit. Either the patient or their legal industrial sales representative has been informed of the risks and benefits of -- and alternatives to -- treatment through a remote evaluation and consents to proceed with the evaluation remotely. [facility] 08-13-2024 History and physical note DISTANCE HEALTH VISIT This Team Access Model visit is a virtual encounter. It required patient-provider interaction for the medical decision making as documented below. REASON FOR VISIT: follow up for EGD results HPI: Petty Underwood is a 24 year old female who presents for follow up for EGD results. EGD was completed on 08/04/2024, the exam was normal however pathology showed intraepithelial lymphocytosis, and subtotal villous blunting. Celiac serologies (07/22/24) were done prior to this it did show elevation. Since her recent EGD, going gluten-free was difficult. Over the past 2 days she started a carnivore diet and reports that her symptoms are significantly better. Results of EGD reviewed with patient including pathology. No history of colonoscopy. Last EGD - 08/04/24 No known FHx of GI tract disease or malignancy. Prior abdominopelvic surgeries include cholecystectomy, umbilical hernia repair Past Clinical Work-Up: 07/22/2024 ASSESSMENT/PLAN: Ms. Underwood is a 24 year old female with a past medical history of cyst of the right ovary, palpitations, cholecystectomy, umbilical hernia repair, who presents for abdominal pain. Symptoms worsened after umbilical hernia repair in January 2024. Abdominal pain is generalized, and is sometimes better after bowel movements. She reports bowel habits have been very irregular, she has at least 2 bowel movements daily however these are all liquid. CT scan was completed on 01/06/2024 that showed no acute abnormality in the abdomen or pelvis. Celiac serologies ordered today. Abdominal x-ray ordered to assess stool burden. Stool studies ordered to evaluate for any infectious or inflammatory process. We will start omeprazole 40 mg to be taken daily 30 minutes before breakfast. We will follow-up in 3 months to see if there is any symptom improvement. She agrees with this plan, and verbalizes understanding. 1. Diarrhea, unspecified type - ICD9: 787.91, ICD10: R19.7 (primary diagnosis) - XR ABDOMEN 2V ROUTINE SUPINE W UPRIGHT/DECUB/CTL - CALPROTECTIN,FECAL - C. DIFFICILE PCR - CRYPTOSPORIDIUM AND GIARDIA ANTIGENS BY EIA - ENTERIC BACTERIAL PANEL BY PCR - CELIAC SCREEN WITH REFLEX 2. Generalized abdominal pain - ICD9: 789.07, ICD10: R10.84 - XR ABDOMEN 2V ROUTINE SUPINE W UPRIGHT/DECUB/CTL 3. Gastroesophageal reflux disease, unspecified whether esophagitis present - ICD9: 530.81, ICD10: K21.9 - OMEPRAZOLE 40 MG CAPSULE,DELAYED RELEASE 08/04/2024 EGD Impression: - Normal esophagus. - Normal stomach. - Normal examined duodenum. Biopsied. - The examination was otherwise normal. FINAL DIAGNOSIS Duodenum, biopsy: - Duodenal mucosa with intraepithelial lymphocytosis and subtotal villous blunting. - See comment. Diagnosis Comment In combination with the abnormal celiac antibody panel, the morphological findings are consistent with celiac disease. Clinical correlation is necessary for a definitive diagnosis. 07/22/2024 XR ABD 2V IMPRESSION: Lines, tubes, and devices: Right upper quadrant surgical clips. Bowel: No dilated, gas-filled bowel. Colonic fecal burden does not appear excessive. Note, radiographic stool quantification is known to produce equivalent results in symptomatic and asymptomatic adults and is of uncertain value. Other: No free air under the diaphragms on upright view. Imaged lungs: No focal consolidation. Latest Reference Range & Units 07/22/24 09:16 07/23/24 17:15 Transglutaminase IgA Abs <4 U/mL 18 (H) Transglutaminase IgA Abs Interpretation Negative Positive ! Gliad Deamidated IgA Qual Negative, Test not Indicated Negative Gliadin Ab, IgA <20 Units 16 IgA 70 - 400 mg/dL 247 Interpretation (Celiac Screen) The results suggest serological evidence of celiac disease. Weak positive results, when present, may at times be due to non-specific reactivity or to gluten-free diet. Clinical correlation is required. C. difficile PCR Negative for C. difficile toxin by PCR Negative for C. difficile toxin by PCR Cryptosporidium Antigen by EIA Negative Negative for Cryptosporidium by EIA. Campylobacter jejuni/coli DNA Not Detected Not detected Salmonella species DNA Not Detected Not detected Shiga-like toxin producing E. coli (STEC) DNA Not Detected Not detected Shigella/Enteroinvasive E. coli (EIEC) DNA Not Detected Not detected Giardia Antigen by EIA Negative Negative for Giardia lamblia by EIA. 01/06/2024 CT ABD/PEL IMPRESSION: No acute abnormality identified in the abdomen or pelvis. Details above. ALLERGIES Allergen Reactions Amoxicillin Other: See Comments Pt gets UTI'S Benadryl [Diphenhyd* Other: See Comments Severe headache and stiffness (IV only) Tolerates po benadryl PAST MEDICAL HISTORY Diagnosis Date Cyst of right ovary 08/07/2018 Palpitations PAST SURGICAL HISTORY Procedure Laterality Date LAPS SURG CHOLECYSTECTOMY W/CHOLANGIOGRAPHY 09/03/[address] Grimm REPAIR UMBILICAL HERNIA 02/07/2024 Dr. Trent TOOTH EXTRACTION 2018 wisdom teeth FAMILY HISTORY Problem Relation Age of Onset Hypertension Mother Heart Father heart murmur, dx age 35 Diabetes Maternal Grandmother great grandma Hypertension Maternal Aunt Thyroid Maternal Aunt Hypertension Maternal Uncle Cancer Other great grandpa - skin CA, a great uncle with melanoma Social History Tobacco Use Smoking status: Never Smokeless tobacco: Never Vaping Use Vaping status: Never Used Substance Use Topics Alcohol use: Not Currently Comment: occasionally Drug use: No Current Outpatient Medications Medication Sig omeprazole (PRILOSEC) 40 mg capsule Take 1 capsule by mouth once daily. mv-min/folic/vit K/lycop/coQ10 (DAILY MULTIVITAMIN ORAL) Take 1 tablet by mouth once daily. No current facility-administered medications for this visit. I have confirmed and edited, if necessary, the PFSH obtained by others. REVIEW OF SYSTEMS: General - Normal, healthy, cooperative, in no acute distress Able to interact verbally by video conference Psych - ORIENTATION: normal to time place, person and situation Mood/Affect: AFFECT AND MOOD: Normal Head/Neuro - Normal size and shape Facial appearance normal Pulmonary - respiratory effort normal Cardiovascular - patient describes extremities normal, warm, no cyanosis,no clubbing, and no edema Abdominal - Not performed Skin - abnormal lesions not visualized Motor - patient seen sitting with Normal appearing strength and coordination PHYSICAL EXAM: GENERAL: No weight loss, malaise or fevers RESPIRATORY: Negative for cough, hemoptysis, wheezing, dyspnea or shortness of breath CARDIOVASCULAR: Negative for chest pain, leg swelling, or palpitations GI: See HPI ASSESSMENT/PLAN: Ms. Underwood is a 24 year old female with a history of cyst of the right ovary, palpitations, cholecystectomy, umbilical hernia repair, who presents for follow-up after EGD. EGD was completed on 08/04/2024, exam was normal however pathology shows celiac disease. Celiac serologies were done prior to this that were also elevated. EGD report, and pathology reviewed with patient. All questions and concerns addressed. Maintaining gluten-free diet has been difficult however she has started the carnivore diet and has noticed significant improvement just after 2 days. Consult to nutrition placed today. Blood work ordered today. We will follow-up in 6 months. She agrees with this plan, and verbalizes understanding. I spent more than 20 minutes [id number] with the patient and over half the time was devoted to counseling and/or coordination of care. This note was dictated using [employer] speech recognition software and may contain some errors that were a result of the program not accurately transcribing what was dictated. I have communicated my name and active licensure. The patient's identity and physical location were verified at the time of this visit. Either the patient or their legal industrial sales representative has been informed of the risks and benefits of -- and alternatives to -- treatment through a remote evaluation and consents to proceed with the evaluation remotely. documented in this encounter [facility] 08-10-2024 Telephone encounter Note Name of Caller: Petty Relationship to patient: patient Last visit in this department: 07/22/2024 Reason for Call: Other : Patient requesting if follow up to EGD an be a phone call visit. Callback number: [phone] Fax Number (if necessary): N/A Additional info if needed (Prior Auth #, Claim #, etc ): N/A Natasha Starkey [facility] 08-10-2024 Miscellaneous Notes Name of Caller: Petty Relationship to patient: patient Last visit in this department: 07/22/2024 Reason for Call: Other : Patient requesting if follow up to EGD an be a phone call visit. Callback number: [phone] Fax Number (if necessary): N/A Additional info if needed (Prior Auth #, Claim #, etc ): N/A Natasha Starkey documented in this encounter [facility] 08-04-2024 Nurse Note AMBULATORY PATIENT EDUCATION NOTE TOPIC: GI PROCEDURES: Esophagogastroduodenoscopy(EGD) with or without biopies based on clinical findings, removal of polyps or lesions READINESS TO LEARN INSTRUCTION PROVIDED TO: Patient and family member COGNITIVE ABILITY: Alert and oriented PTED MOTIVATION TO LEARN: Interested FAMILY SUPPORT: Family present IPATIENT LEARNS BEST BY: Individual Instruction Written Instruction - Hand-outs Verbal Instruction FACTORS AFFECTING LEARNING: None PHYSICAL LIMITATIONS AFFECTING LEARNING: None LEARNING RESPONSE METHOD OF INSTRUCTION: Individual instruction PATIENT / FAMILY RESPONSE: Verbalizes understanding of: WORSENING CONDITION-Signs and symptoms of a worsening condition that warrant a call to the physician FOLLOW-UP PLAN: Recommend - Recommend continued instruction and follow up as directed SUPPLEMENTAL MATERIAL: Procedure Discharge Instructions REFERRAL (RECOMMENDATION): None [facility] 08-04-2024 Nurse Note AMBULATORY PATIENT EDUCATION NOTE TOPIC: GI PROCEDURES: Esophagogastroduodenoscopy(EGD) with or without biopies based on clinical findings, removal of polyps or lesions READINESS TO LEARN INSTRUCTION PROVIDED TO: Patient and family member COGNITIVE ABILITY: Alert and oriented PTED MOTIVATION TO LEARN: Interested FAMILY SUPPORT: Family present IPATIENT LEARNS BEST BY: Individual Instruction Written Instruction - Hand-outs Verbal Instruction FACTORS AFFECTING LEARNING: None PHYSICAL LIMITATIONS AFFECTING LEARNING: None LEARNING RESPONSE METHOD OF INSTRUCTION: Individual instruction PATIENT / FAMILY RESPONSE: Verbalizes understanding of: WORSENING CONDITION-Signs and symptoms of a worsening condition that warrant a call to the physician FOLLOW-UP PLAN: Recommend - Recommend continued instruction and follow up as directed SUPPLEMENTAL MATERIAL: Procedure Discharge Instructions REFERRAL (RECOMMENDATION): None PRE OP LEARNING ASSESSMENT PROCEDURE/SURGERY: GI PROCEDURES: EGD READINESS TO LEARN COGNITIVE ABILITY: Alert and oriented MOTIVATION TO LEARN: Eager Interested FAMILY SUPPORT: Unable to assess - Family not present PATIENT LEARNS BEST BY: Individual Instruction Verbal Instruction FACTORS AFFECTING LEARNING: None PHYSICAL LIMITATIONS AFFECTING LEARNING: None Electronically Signed By: Stephania Mistry RN In Department: GASTROENTEROLOGY documented in this encounter [facility] 08-04-2024 Nurse Note PRE OP LEARNING ASSESSMENT PROCEDURE/SURGERY: GI PROCEDURES: EGD READINESS TO LEARN COGNITIVE ABILITY: Alert and oriented MOTIVATION TO LEARN: Eager Interested FAMILY SUPPORT: Unable to assess - Family not present PATIENT LEARNS BEST BY: Individual Instruction Verbal Instruction FACTORS AFFECTING LEARNING: None PHYSICAL LIMITATIONS AFFECTING LEARNING: None Electronically Signed By: Stephania Mistry RN In Department: GASTROENTEROLOGY [facility] 07-28-2024 Telephone encounter Note GI Pre-Procedure Spoke with patient: Yes Confirmed date scheduled and patient report time: Yes Procedure Planned:Esophagogastroduodenosc opy(EGD) with or without biopies based on clinical findings, removal of polyps or lesions Is the patient on blood thinners?no Procedure Instructions given to patient: Yes, and they verbalized their understanding of instructions given Patient instructed to take prescribed preparation prior to procedure:Yes, and they verbalized their understanding of instructions given Patient instructed to have family/friend present for procedure transport home:Patient/patient industrial sales representative was told that if they do not have a responsible adult accompany them to their procedure; and remain in the endoscopy area until they are discharged; that their procedure cannot be done with sedation or anesthesia and may be cancelled. and They verbalized their understanding and agree to have a responsible adult accompany the patient to their procedure and remain in the endoscopy area. Any barriers to Patient learning: Patient/Patient Lead Advisor responded appropriately on phone. Type of instruction given: Verbal by telephone contact. Crispin Torres RN [facility] 07-28-2024 Miscellaneous Notes GI Pre-Procedure Spoke with patient: Yes Confirmed date scheduled and patient report time: Yes Procedure Planned:Esophagogastroduodenosc opy(EGD) with or without biopies based on clinical findings, removal of polyps or lesions Is the patient on blood thinners?no Procedure Instructions given to patient: Yes, and they verbalized their understanding of instructions given Patient instructed to take prescribed preparation prior to procedure:Yes, and they verbalized their understanding of instructions given Patient instructed to have family/friend present for procedure transport home:Patient/patient industrial sales representative was told that if they do not have a responsible adult accompany them to their procedure; and remain in the endoscopy area until they are discharged; that their procedure cannot be done with sedation or anesthesia and may be cancelled. and They verbalized their understanding and agree to have a responsible adult accompany the patient to their procedure and remain in the endoscopy area. Any barriers to Patient learning: Patient/Patient Lead Advisor responded appropriately on phone. Type of instruction given: Verbal by telephone contact. Crispin Torres RN documented in this encounter [facility] 07-22-2024 History of Presen t illness Narrative Radiology Service Progress Note PATIENT NAME: Petty Underwood DATE OF SERVICE: July 22, 2024 TIME: 9:08 AM PATIENT IDENTITY VERIFICATION COMPLETED USING TWO (2) IDENTIFIERS: Name and Date of confirmed by patient verbally. FALL SCREENING: Has the patient had 2 falls in the last year or 1 fall with injury or currently using an Ambulatory Assistive Device (Walker, Cane, Wheelchair, Crutches, etc.)? No PATIENT GENDER DATA: Female. status: : No status: NO. PATIENT RELEVANT IMPLANT DATA REVIEWED: Not Applicable PATIENT PRESENTS WITH AN IMPLANTABLE OR ATTACHED THERMOSTAT MACHINE TENDER: No RADIOLOGY DEPARTMENT: General X-ray: Exam(s) Completed: Abdomen X-Ray: Abdomen with Upright PERIPHERAL IV DATA: Not applicable SIGNED BY: RT Devon(R) July 22, 2024 9:08 AM documented in this encounter [facility] 07-22-2024 Note HNO ID: [id number] Author: RIC SHIELDS RT(R) Service: ? Author Type: Technologist Type: Progress Notes Filed: 07/22/2024 09:08 Note Text: Radiology Service Progress Note PATIENT NAME: Petty Underwood DATE OF SERVICE: July 22, 2024 TIME: 9:08 AM PATIENT IDENTITY VERIFICATION COMPLETED USING TWO (2) IDENTIFIERS: Name and Date of confirmed by patient verbally. FALL SCREENING: Has the patient had 2 falls in the last year or 1 fall with injury or currently using an Ambulatory Assistive Device (Walker, Cane, Wheelchair, Crutches, etc.)? No PATIENT GENDER DATA: Female. status: : No status: NO. PATIENT RELEVANT IMPLANT DATA REVIEWED: Not Applicable PATIENT PRESENTS WITH AN IMPLANTABLE OR ATTACHED THERMOSTAT MACHINE TENDER: No RADIOLOGY DEPARTMENT: General X-ray: Exam(s) Completed: Abdomen X-Ray: Abdomen with Upright PERIPHERAL IV DATA: Not applicable SIGNED BY: RT Devon(R) July 22, 2024 9:08 AM [facility] 07-22-2024 Instructions Kingston Davenport APRN.CNP - 07/22/2024 8:09 AM EDT Thank you for seeing me in clinic today. It was very nice to meet you! As we discussed, my recommendations are as follows: Get blood work today 2. Get abdominal Xray today 3. Obtain stool studies 4. Start omeprazole 40 mg daily - take 30 minutes before breakfast 5. Follow up in 3 months If you have any questions about the above treatment plan, please do not hesitate to send me a [employer] message or call. Kingston Davenport APRN.RAJWINDER documented in this encounter [facility] 07-22-2024 History and physical note Consultation requested by Dr. Sandor Trent for an opinion regarding generalized abdominal pain. My final recommendations will be communicated back to the requesting physician by way of shared medical record or fax. REASON FOR VISIT: abdominal pain HPI: Petty Underwood is a 24 year old female who presents for abdominal pain. Abdominal pain has been ongoing since the of her child in 2022. She had a lap cholecystectomy in August of 2023,, and umbilical hernia repair in January 2024. Symptoms have seemed to worsen following the surgeries. She reports abdominal pain is generalized. She is unable to identify any aggravating or alleviating factors. Abdominal pain is sometimes better after bowel movements. She notes having abdominal bloating all of the time, and fecal urgency after meals. She endorses having bowel movements times daily that are all liquid. Prior to the onset of symptoms, she was having daily formed stools. She denies any blood or black stool. She reports heartburn (however this is better ) and decreased appetite. She does take Tums as needed. Denies any fevers or chills. Denies any recent antibiotic use. She has difficulty with any dairy products, she is now drinking goat milk. Patient denies dysphagia, regurgitation, early satiety, nausea, vomiting, unintentional weight loss or GI bleeding. No history of EGD or colonoscopy. No known FHx of GI tract disease or malignancy. Prior abdominopelvic surgeries include cholecystectomy, umbilical hernia repair Past Clinical Work-up: 02/27/2024 Sandor Trent MD ASSESSMENT AND PLAN Patient is a 24-year-old female status post a recent umbilical hernia. Unfortunately it sounds as though her pain is still present indicating another cause for her pain. I suspect this may be GI related. I recommend that she increase the fiber in her diet I also recommend she follow-up with GI as well. 01/15/2024 Sandor Trent MD ASSESSMENT AND PLAN Patient is a 23-year-old female with a small fat-containing umbilical hernia. I suspect this is likely the cause for her abdominal pain complaints as palpation of this hernia reproduces her abdominal discomfort. I recommended an umbilical hernia repair surgery. We discussed the details of the planned procedure including the risks benefits and alternatives. She wishes to proceed. This will be scheduled in a timely manner. 01/06/2024 CT ABD/PEL IMPRESSION: No acute abnormality identified in the abdomen or pelvis. Details above. ALLERGIES Allergen Reactions Amoxicillin Other: See Comments Pt gets UTI'S Benadryl [Diphenhyd* Other: See Comments Severe headache and stiffness (IV only) Tolerates po benadryl PAST MEDICAL HISTORY Diagnosis Date Cyst of right ovary 08/07/2018 Palpitations PAST SURGICAL HISTORY Procedure Laterality Date LAPS SURG CHOLECYSTECTOMY W/CHOLANGIOGRAPHY 09/03/[address] Grimm REPAIR UMBILICAL HERNIA 02/07/2024 Dr. Trent TOOTH EXTRACTION 2018 wisdom teeth FAMILY HISTORY Problem Relation Age of Onset Hypertension Mother Heart Father heart murmur, dx age 35 Diabetes Maternal Grandmother great grandma Hypertension Maternal Aunt Thyroid Maternal Aunt Hypertension Maternal Uncle Cancer Other great grandpa - skin CA, a great uncle with melanoma Social History Tobacco Use Smoking status: Never Smokeless tobacco: Never Vaping Use Vaping status: Never Used Substance Use Topics Alcohol use: Not Currently Comment: occasionally Drug use: No Current Outpatient Medications Medication Sig mv-min/folic/vit K/lycop/coQ10 (DAILY MULTIVITAMIN ORAL) Take 1 tablet by mouth once daily. No current facility-administered medications for this visit. REVIEW OF SYSTEMS CONSTITUTIONAL: Negative for unintentional weight loss, malaise or fevers HEENT: Negative for frequent/significant headaches, changes in hearing/vision, nose bleeds or other nasal problems RESPIRATORY: Negative for cough, hemoptysis, wheezing or dyspnea CARDIOVASCULAR: Negative for chest pain, palpitations, syncope or lightheadedness GI: See HPI NEURO: Negative for encephalopathy, tremor or gait abnormality PSYCH: Negative for new changes in mood or affect I have confirmed and edited, if necessary, the PFSH obtained by others. PHYSICAL EXAM: BP 106/73 (BP Site: Right Arm, BP Position: Sitting, BP Cuff Size: Large Adult) Pulse 83 Temp 36.7 C (98 F) (Temporal) Ht 159.3 cm (5' 2.72) Wt 80.4 kg (177 lb 5.8 oz) LMP 01/24/2024 (Approximate) SpO2 99% BMI 31.70 kg/m Gen: Comfortable in NAD Head: Normocephalic, atraumatic Skin: No jaundice, rashes or skin lesions Eyes: Sclera anicteric, conjunctiva pink Lungs: unlabored breathing Abd: Soft, non-distended, non-tender, bowel sounds present, no palpable masses or organomegaly Rectal Exam: Examination deferred by patient Neuro: Alert and oriented, no tremor or gross focal motor deficits Psych: Congruent mood and affect, appropriate insight and judgement ASSESSMENT/PLAN: Ms. Underwood is a 24 year old female with a past medical history of cyst of the right ovary, palpitations, cholecystectomy, umbilical hernia repair, who presents for abdominal pain. Symptoms worsened after umbilical hernia repair in January 2024. Abdominal pain is generalized, and is sometimes better after bowel movements. She reports bowel habits have been very irregular, she has at least 2 bowel movements daily however these are all liquid. CT scan was completed on 01/06/2024 that showed no acute abnormality in the abdomen or pelvis. Celiac serologies ordered today. Abdominal x-ray ordered to assess stool burden. Stool studies ordered to evaluate for any infectious or inflammatory process. We will start omeprazole 40 mg to be taken daily 30 minutes before breakfast. We will follow-up in 3 months to see if there is any symptom improvement. She agrees with this plan, and verbalizes understanding. 1. Diarrhea, unspecified type - ICD9: 787.91, ICD10: R19.7 (primary diagnosis) - XR ABDOMEN 2V ROUTINE SUPINE W UPRIGHT/DECUB/CTL - CALPROTECTIN,FECAL - C. DIFFICILE PCR - CRYPTOSPORIDIUM AND GIARDIA ANTIGENS BY EIA - ENTERIC BACTERIAL PANEL BY PCR - CELIAC SCREEN WITH REFLEX 2. Generalized abdominal pain - ICD9: 789.07, ICD10: R10.84 - XR ABDOMEN 2V ROUTINE SUPINE W UPRIGHT/DECUB/CTL 3. Gastroesophageal reflux disease, unspecified whether esophagitis present - ICD9: 530.81, ICD10: K21.9 - OMEPRAZOLE 40 MG CAPSULE,DELAYED RELEASE Kingston Davenport APRN.RAJWINDER This note was dictated using [employer] speech recognition software and may contain some errors that were a result of the program not accurately transcribing what was dictated. T [facility] 07-22-2024 History and physical note Consultation requested by Dr. Sandor Trent for an opinion regarding generalized abdominal pain. My final recommendations will be communicated back to the requesting physician by way of shared medical record or fax. REASON FOR VISIT: abdominal pain HPI: Petty Underwood is a 24 year old female who presents for abdominal pain. Abdominal pain has been ongoing since the of her child in 2022. She had a lap cholecystectomy in August of 2023,, and umbilical hernia repair in January 2024. Symptoms have seemed to worsen following the surgeries. She reports abdominal pain is generalized. She is unable to identify any aggravating or alleviating factors. Abdominal pain is sometimes better after bowel movements. She notes having abdominal bloating all of the time, and fecal urgency after meals. She endorses having bowel movements times daily that are all liquid. Prior to the onset of symptoms, she was having daily formed stools. She denies any blood or black stool. She reports heartburn (however this is better ) and decreased appetite. She does take Tums as needed. Denies any fevers or chills. Denies any recent antibiotic use. She has difficulty with any dairy products, she is now drinking goat milk. Patient denies dysphagia, regurgitation, early satiety, nausea, vomiting, unintentional weight loss or GI bleeding. No history of EGD or colonoscopy. No known FHx of GI tract disease or malignancy. Prior abdominopelvic surgeries include cholecystectomy, umbilical hernia repair Past Clinical Work-up: 02/27/2024 Sandor Trent MD ASSESSMENT AND PLAN Patient is a 24-year-old female status post a recent umbilical hernia. Unfortunately it sounds as though her pain is still present indicating another cause for her pain. I suspect this may be GI related. I recommend that she increase the fiber in her diet I also recommend she follow-up with GI as well. 01/15/2024 Sandor Trent MD ASSESSMENT AND PLAN Patient is a 23-year-old female with a small fat-containing umbilical hernia. I suspect this is likely the cause for her abdominal pain complaints as palpation of this hernia reproduces her abdominal discomfort. I recommended an umbilical hernia repair surgery. We discussed the details of the planned procedure including the risks benefits and alternatives. She wishes to proceed. This will be scheduled in a timely manner. 01/06/2024 CT ABD/PEL IMPRESSION: No acute abnormality identified in the abdomen or pelvis. Details above. ALLERGIES Allergen Reactions Amoxicillin Other: See Comments Pt gets UTI'S Benadryl [Diphenhyd* Other: See Comments Severe headache and stiffness (IV only) Tolerates po benadryl PAST MEDICAL HISTORY Diagnosis Date Cyst of right ovary 08/07/2018 Palpitations PAST SURGICAL HISTORY Procedure Laterality Date LAPS SURG CHOLECYSTECTOMY W/CHOLANGIOGRAPHY 09/03/[address] Grimm REPAIR UMBILICAL HERNIA 02/07/2024 Dr. Trent TOOTH EXTRACTION 2018 wisdom teeth FAMILY HISTORY Problem Relation Age of Onset Hypertension Mother Heart Father heart murmur, dx age 35 Diabetes Maternal Grandmother great grandma Hypertension Maternal Aunt Thyroid Maternal Aunt Hypertension Maternal Uncle Cancer Other great grandpa - skin CA, a great uncle with melanoma Social History Tobacco Use Smoking status: Never Smokeless tobacco: Never Vaping Use Vaping status: Never Used Substance Use Topics Alcohol use: Not Currently Comment: occasionally Drug use: No Current Outpatient Medications Medication Sig mv-min/folic/vit K/lycop/coQ10 (DAILY MULTIVITAMIN ORAL) Take 1 tablet by mouth once daily. No current facility-administered medications for this visit. REVIEW OF SYSTEMS CONSTITUTIONAL: Negative for unintentional weight loss, malaise or fevers HEENT: Negative for frequent/significant headaches, changes in hearing/vision, nose bleeds or other nasal problems RESPIRATORY: Negative for cough, hemoptysis, wheezing or dyspnea CARDIOVASCULAR: Negative for chest pain, palpitations, syncope or lightheadedness GI: See HPI NEURO: Negative for encephalopathy, tremor or gait abnormality PSYCH: Negative for new changes in mood or affect I have confirmed and edited, if necessary, the PFSH obtained by others. PHYSICAL EXAM: BP 106/73 (BP Site: Right Arm, BP Position: Sitting, BP Cuff Size: Large Adult) Pulse 83 Temp 36.7 C (98 F) (Temporal) Ht 159.3 cm (5' 2.72) Wt 80.4 kg (177 lb 5.8 oz) LMP 01/24/2024 (Approximate) SpO2 99% BMI 31.70 kg/m Gen: Comfortable in NAD Head: Normocephalic, atraumatic Skin: No jaundice, rashes or skin lesions Eyes: Sclera anicteric, conjunctiva pink Lungs: unlabored breathing Abd: Soft, non-distended, non-tender, bowel sounds present, no palpable masses or organomegaly Rectal Exam: Examination deferred by patient Neuro: Alert and oriented, no tremor or gross focal motor deficits Psych: Congruent mood and affect, appropriate insight and judgement ASSESSMENT/PLAN: Ms. Underwood is a 24 year old female with a past medical history of cyst of the right ovary, palpitations, cholecystectomy, umbilical hernia repair, who presents for abdominal pain. Symptoms worsened after umbilical hernia repair in January 2024. Abdominal pain is generalized, and is sometimes better after bowel movements. She reports bowel habits have been very irregular, she has at least 2 bowel movements daily however these are all liquid. CT scan was completed on 01/06/2024 that showed no acute abnormality in the abdomen or pelvis. Celiac serologies ordered today. Abdominal x-ray ordered to assess stool burden. Stool studies ordered to evaluate for any infectious or inflammatory process. We will start omeprazole 40 mg to be taken daily 30 minutes before breakfast. We will follow-up in 3 months to see if there is any symptom improvement. She agrees with this plan, and verbalizes understanding. 1. Diarrhea, unspecified type - ICD9: 787.91, ICD10: R19.7 (primary diagnosis) - XR ABDOMEN 2V ROUTINE SUPINE W UPRIGHT/DECUB/CTL - CALPROTECTIN,FECAL - C. DIFFICILE PCR - CRYPTOSPORIDIUM AND GIARDIA ANTIGENS BY EIA - ENTERIC BACTERIAL PANEL BY PCR - CELIAC SCREEN WITH REFLEX 2. Generalized abdominal pain - ICD9: 789.07, ICD10: R10.84 - XR ABDOMEN 2V ROUTINE SUPINE W UPRIGHT/DECUB/CTL 3. Gastroesophageal reflux disease, unspecified whether esophagitis present - ICD9: 530.81, ICD10: K21.9 - OMEPRAZOLE 40 MG CAPSULE,DELAYED RELEASE Kingston Davenport APRN.[email or web address] This note was dictated using [employer] speech recognition software and may contain some errors that were a result of the program not accurately transcribing what was dictated. documented in this encounter [facility] 07-20-2024 Telephone encounter Note Patient called in stating that she is having pain across her lower abdomen. She had hernia and gallbladder surgery recently but this has not helped the pain. She is having fecal urgency at this time. Patient has never been seen by our office before so advised to call in to see if we have cancellations with any providers. [facility] 07-20-2024 Miscellaneous Notes Patient called in stating that she is having pain across her lower abdomen. She had hernia and gallbladder surgery recently but this has not helped the pain. She is having fecal urgency at this time. Patient has never been seen by our office before so advised to call in to see if we have cancellations with any providers. documented in this encounter [facility] 06-29-2024 Note NEW Patient Visit Yahaira Henning DPM Patient Name: Petty Underwood. . Date of : 2000, 24 y.o.. Gender: female. Subjective: Patient is a pleasant 24-year-old female who presents to clinic for evaluation and management of a right fifth toe injury that she sustained on 05/31/2024. Patient states that she stepped over a laundry basket and had her fifth toe. Patient later went to [facility] emergency department on 06/01 and had x-rays where an x-ray was shown to be involved to the right fifth toe. Patient was put in a cam boot and has been wearing it for 1 week. No other pedal complaints at this time. Denies fevers, chills, nausea, vomiting, chest pain, shortness of breath, or any other constitutional symptoms. History reviewed. No pertinent past medical history. Past Surgical History: Procedure Laterality Date WISDOM TOOTH EXTRACTION Social History Socioeconomic History Marital status: Tobacco Use Smoking status: Never Smokeless tobacco: Never Vaping Use Vaping status: Never Used Substance and Sexual Activity Alcohol use: Not Currently Drug use: Never Social Determinants of Health Financial Resource Strain: Low Risk (07/29/2023) Received from [facility] Overall Financial Resource Strain (CARDIA) Difficulty of Paying Living Expenses: Not hard at all Food Insecurity: No Food Insecurity (07/29/2023) Received from [facility] Hunger Vital Sign Worried About Running Out of Food in the Last Year: Never true Ran Out of Food in the Last Year: Never true Transportation Needs: No Transportation Needs (07/29/2023) Received from [facility] PRAPARE - Transportation Lack of Transportation (Medical): No Lack of Transportation (Non-Medical): No Physical Activity: Sufficiently Active (07/29/2023) Received from [facility] Exercise Vital Sign Days of Exercise per Week: 5 days Minutes of Exercise per Session: 30 min Stress: No Stress Concern Present (07/29/2023) Received from [facility] [employer] [place] [facility] [employer] - Occupational Stress Questionnaire Feeling of Stress : Not at all Social Connections: Moderately Isolated (07/29/2023) Received from [facility], [facility] Social Connection and Isolation Panel [NHANES] Frequency of Communication with Friends and Family: More than three times a week Frequency of Social Gatherings with Friends and Family: Three times a week Attends Rastafarian Services: Never Active Member of Clubs or Organizations: No Attends Club or Organization Meetings: Never Marital Status: Housing Stability: Low Risk (07/29/2023) Received from [facility], [facility] Housing Stability Vital Sign Unable to Pay for Housing in the Last Year: No Number of Places Lived in the Last Year: 1 Unstable Housing in the Last Year: No Physical Examination: BP 119/76 (BP Location: Left arm, Patient Position: Sitting, BP Cuff Size: Adult) Pulse 81 Temp 98.6 degrees F (37 degrees C) (Infrared) LMP 05/09/2024 (Approximate) General Appearance: Alert, cooperative, no distress, appears stated age. Podiatric Exam Vascular: DP and PT pulses are palpable 2/4. Capillary refill time is less than 3 secs to distal digits. Skin temperature is warm to warm from proximal tibial tuberosity to distal digit. Mild localized edema noted to the right fifth toe. Neurological: Gross sensation is intact. Protective sensation is intact. Dermatologic: No ecchymosis noted. Interdigital spaces are clean dry and intact. Musculoskeletal: Patient is able to wiggle digits. Pain on palpation to the right fifth toe. Ankle joint range of motion is intact. Muscle strength is 5/5 to dorsiflexors, plantar flexors, inverters and everters. Compartments soft and compressible. No calf pain Diagnoses: 1. Contusion of fifth toe of right foot, initial encounter 2. Toe pain, right Imaging: Reviewed patient's right foot radiographs as noted below: No radiographic evidence of acute osseous abnormality of the right foot/5th toe. The faint transverse linear lucency overlying the distal tuft 5th distal phalanx on the oblique view is favored to relate to superimposition of structures-overlying nail bed. Assessment/Plan: Patient was seen and evaluated. Discussed all clinical findings. Reviewed patient's radiographs showing no acute fractures or dislocations noted to the right fifth toe. Discussed with patient that she can come out of her cam boot/surgical shoe into good supportive tennis shoes. Patient may resume all activity without restriction when pain from swelling subsides. All questions were answered to patient satisfaction. Patient understands to call with any questions or concerns. Follow-up as needed This note was partially created using voice recognition software and is i (more content not included)... [facility] 03-23-2024 Note HNO ID: [id number] Author: SABRA QUINTEROS, DO Service: ? Author Type: Physician Type: Progress Notes Filed: 04/06/2024 09:41 Note Text: SUBJECTIVE: 24 year old female here to establish. I have fully reviewed the past medical, surgical, social and family history and updated the Histories section of [facility]. She had cholestasis during her recent presgnancy She is nursing her son She still is getting upper abdominal pain with certain foods and dairy products Dr. Trent, the general surgeon, referred her to GI She is frustrated and would like to lose weight. She has been more tired lately She is going to try to eat better, set a better schedule with her meals, and see if that helps She has chronic lower back pain She sees a chiropractor, which helps She does not use tobacco or nicotine products She walks daily Patient's last menstrual period was 01/24/2024 (approximate). ALLERGIES Allergen Reactions Amoxicillin Other: See Comments Pt gets UTI'S Benadryl [Diphenhyd* Other: See Comments Severe headache and stiffness (IV only) Tolerates po benadryl Current Outpatient Medications Medication Sig Dispense Refill mv-min/folic/vit K/lycop/coQ10 (DAILY MULTIVITAMIN ORAL) Take 1 tablet by mouth once daily. No current facility-administered medications for this visit. ACTIVE PROBLEM LIST State Severe pre-eclampsia, Primary Hypertension Lactating Mother Seizure Due to Eclampsia Lower Back Pain Social History Tobacco Use Smoking status: Never Smokeless tobacco: Never Vaping Use Vaping Use: Never used Substance Use Topics Alcohol use: Not Currently Comment: occasionally Drug use: No Family History Problem Relation Age of Onset Hypertension Mother Heart Father heart murmur, dx age 35 Diabetes Maternal Grandmother great grandma Hypertension Maternal Aunt Thyroid Maternal Aunt Hypertension Maternal Uncle Cancer Other great grandpa - skin [place], a great uncle with melanoma Reviewed past medical history, family history and surgeries. All medications and supplements were reviewed with the patient. REVIEW OF SYSTEMS GENERAL: positive for fatigue, no weight loss, or fevers HEENT: Negative for frequent or significant headaches, No changes in hearing or vision, no nose bleeds or other nasal problems NECK: Negative for lumps, goiter, pain and significant neck swelling RESPIRATORY: Negative for cough, hemoptysis, wheezing, COPD, dyspnea or shortness of breath CARDIOVASCULAR: Negative for chest pain, leg swelling, hypertension, CHF or palpitations GI: Positive for abdominal pain : No history of dysuria, frequency or incontinence MUSCULOSKELETAL:Positive for back pain, negative for joint pain or swelling, back pain or muscle pain SKIN: Negative for lesions, rash, and itching PSYCH: Negative for sleep disturbance, mood disorder and recent psychosocial stressors HEMATOLOGY/LYMPHOLOGY: Negative for prolonged bleeding, bruising easily or swollen nodes ENDOCRINE: Negative for cold or heat intolerance, polyuria, polydipsia and goiter NEURO: No history of headaches, syncope, paralysis, seizures or tremors BP 108/64 Pulse 90 Temp 36.9 ?C (98.5 ?F) Resp 16 Ht 159.4 cm (5' 2.75) Wt 78.5 kg (173 lb) LMP 01/24/2024 (Approximate) SpO2 99% BMI 30.89 kg/m? PHYSICAL EXAMINATION: General appearance: Well appearing, alert, in no acute distress, well-hydrated, obese. Skin: Skin color, texture, turgor normal, no suspicious rashes or lesions Head: Normocephalic, no masses, lesions, tenderness or abnormalities Eyes: Anicteric sclera. Pupils are equally round and reactive to light. Extraocular movements are intact. Ears: External ears normal, canals clear Nose/Sinuses: Nares normal, septum midline, mucosa normal, no drainage or sinus tenderness Oropharynx: Lips, mucosa, and tongue normal, teeth and gums normal, oropharynx normal Neck: Supple, no adenopathy; thyroid symmetric, normal size, no bruits Back: Normal exam Lungs: Lungs clear to auscultation. No wheezing, rhonchi, rales. Heart: RRR without murmur, gallop, or rubs. No ectopy Abdomen: Normal abdominal exam, Abdomen soft, non-tender. Bowel sounds normal. No masses, organomegaly Extremities: No deformities, edema, skin discoloration, clubbing or cyanosis. Good capillary refill. Musculoskeletal: No joint swelling, deformity, or tenderness Peripheral pulses: Normal Neuro: Gait normal. Reflexes normal and symmetric. Sensation grossly intact. ASSESSMENT/PLAN: 1. Well adult exam - ICD9: V70.0, ICD10: Z00.00 (primary diagnosis) - Counseled on healthy diet and regular exercise 2. Chronic midline low back pain without sciatica - ICD9: 724.2, 338.29, ICD10: M54.50, G89.29 Pt plans to see a chiropractor 3. Lactating mother - ICD9: V24.1, ICD10: Z39.1 Continue healthy diet, avoid unnecessary medications 4. Obesity, Class I, BMI 30-34.9 - IC (more content not included)... [facility] 03-23-2024 History of Presen t illness Narrative SUBJECTIVE: 24 year old female here to establish. I have fully reviewed the past medical, surgical, social and family history and updated the Histories section of [facility]. She had cholestasis during her recent presgnancy She is nursing her son She still is getting upper abdominal pain with certain foods and dairy products Dr. Trent, the general surgeon, referred her to GI She is frustrated and would like to lose weight. She has been more tired lately She is going to try to eat better, set a better schedule with her meals, and see if that helps She has chronic lower back pain She sees a chiropractor, which helps She does not use tobacco or nicotine products She walks daily Patient's last menstrual period was 01/24/2024 (approximate). ALLERGIES Allergen Reactions Amoxicillin Other: See Comments Pt gets UTI'S Benadryl [Diphenhyd* Other: See Comments Severe headache and stiffness (IV only) Tolerates po benadryl Current Outpatient Medications Medication Sig Dispense Refill mv-min/folic/vit K/lycop/coQ10 (DAILY MULTIVITAMIN ORAL) Take 1 tablet by mouth once daily. No current facility-administered medications for this visit. ACTIVE PROBLEM LIST State Severe pre-eclampsia, Primary Hypertension Lactating Mother Seizure Due to Eclampsia Lower Back Pain Social History Tobacco Use Smoking status: Never Smokeless tobacco: Never Vaping Use Vaping Use: Never used Substance Use Topics Alcohol use: Not Currently Comment: occasionally Drug use: No Family History Problem Relation Age of Onset Hypertension Mother Heart Father heart murmur, dx age 35 Diabetes Maternal Grandmother great grandma Hypertension Maternal Aunt Thyroid Maternal Aunt Hypertension Maternal Uncle Cancer Other great grandpa - skin [place], a great uncle with melanoma Reviewed past medical history, family history and surgeries. All medications and supplements were reviewed with the patient. REVIEW OF SYSTEMS GENERAL: positive for fatigue, no weight loss, or fevers HEENT: Negative for frequent or significant headaches, No changes in hearing or vision, no nose bleeds or other nasal problems NECK: Negative for lumps, goiter, pain and significant neck swelling RESPIRATORY: Negative for cough, hemoptysis, wheezing, COPD, dyspnea or shortness of breath CARDIOVASCULAR: Negative for chest pain, leg swelling, hypertension, CHF or palpitations GI: Positive for abdominal pain : No history of dysuria, frequency or incontinence MUSCULOSKELETAL:Positive for back pain, negative for joint pain or swelling, back pain or muscle pain SKIN: Negative for lesions, rash, and itching PSYCH: Negative for sleep disturbance, mood disorder and recent psychosocial stressors HEMATOLOGY/LYMPHOLOGY: Negative for prolonged bleeding, bruising easily or swollen nodes ENDOCRINE: Negative for cold or heat intolerance, polyuria, polydipsia and goiter NEURO: No history of headaches, syncope, paralysis, seizures or tremors BP 108/64 Pulse 90 Temp 36.9 C (98.5 F) Resp 16 Ht 159.4 cm (5' 2.75) Wt 78.5 kg (173 lb) LMP 01/24/2024 (Approximate) SpO2 99% BMI 30.89 kg/m PHYSICAL EXAMINATION: General appearance: Well appearing, alert, in no acute distress, well-hydrated, obese. Skin: Skin color, texture, turgor normal, no suspicious rashes or lesions Head: Normocephalic, no masses, lesions, tenderness or abnormalities Eyes: Anicteric sclera. Pupils are equally round and reactive to light. Extraocular movements are intact. Ears: External ears normal, canals clear Nose/Sinuses: Nares normal, septum midline, mucosa normal, no drainage or sinus tenderness Oropharynx: Lips, mucosa, and tongue normal, teeth and gums normal, oropharynx normal Neck: Supple, no adenopathy; thyroid symmetric, normal size, no bruits Back: Normal exam Lungs: Lungs clear to auscultation. No wheezing, rhonchi, rales. Heart: RRR without murmur, gallop, or rubs. No ectopy Abdomen: Normal abdominal exam, Abdomen soft, non-tender. Bowel sounds normal. No masses, organomegaly Extremities: No deformities, edema, skin discoloration, clubbing or cyanosis. Good capillary refill. Musculoskeletal: No joint swelling, deformity, or tenderness Peripheral pulses: Normal Neuro: Gait normal. Reflexes normal and symmetric. Sensation grossly intact. ASSESSMENT/PLAN: 1. Well adult exam - ICD9: V70.0, ICD10: Z00.00 (primary diagnosis) - Counseled on healthy diet and regular exercise 2. Chronic midline low back pain without sciatica - ICD9: 724.2, 338.29, ICD10: M54.50, G89.29 Pt plans to see a chiropractor 3. Lactating mother - ICD9: V24.1, ICD10: Z39.1 Continue healthy diet, avoid unnecessary medications 4. Obesity, Class I, BMI 30-34.9 - ICD9: 278.00, ICD10: E66.9 - CONSULT TO NUTRITION THERAPY Sabra Quinteros DO documented in this encounter [facility] 02-27-2024 History of Presen t illness Narrative PROGRESS NOTES PATIENT NAME: Petty Underwood Assessment ASSESSMENT AND PLAN Patient is a 24-year-old female status post a recent umbilical hernia. Unfortunately it sounds as though her pain is still present indicating another cause for her pain. I suspect this may be GI related. I recommend that she increase the fiber in her diet I also recommend she follow-up with GI as well. SUBJECTIVE CHIEF COMPLAINT: Patient presents with: Post-Op Visit: 02/06 umbilical hernia repair INTERVAL HISTORY OF PRESENT ILLNESS: The patient is a 24-year-old female status post a recent umbilical hernia repair. This was performed as she was having some nonspecific abdominal pain. We felt that this may be related to her umbilical hernia unfortunately it sounds as though she is still having this pain. This pain seems to be crampy and comes and goes without reason. She has not noticed any significant improvement since surgery. She does admit that she continues to have very infrequent stools sometimes going 4 to 5 days without bowel movements. Certainly this could be a contributing factor to her pain HISTORIES: PAST MEDICAL HISTORY Diagnosis Date Cyst of right ovary 08/07/2018 Palpitations PAST SURGICAL HISTORY Procedure Laterality Date LAPS SURG CHOLECYSTECTOMY W/CHOLANGIOGRAPHY 09/03/[address] Grimm REPAIR UMBILICAL HERNIA 02/07/2024 Dr. Trent TOOTH EXTRACTION 2018 wisdom teeth ALLERGIES: Amoxicillin and Benadryl [Diphenhydramine] MEDICATIONS: Current Outpatient Medications Medication Sig MULTIVITAMIN 12 INTRAVEN. Inject intravenously. No current facility-administered medications for this visit. FAMILY HISTORY Problem Relation Age of Onset Heart Father heart murmur, dx age 35 Diabetes Maternal Grandmother great grandma Hypertension Maternal Uncle Hypertension Maternal Aunt Cancer Other great grandpa - skin [place], a great uncle with melanoma Social History Tobacco Use Smoking status: Never Smokeless tobacco: Never Vaping Use Vaping Use: Never used Substance Use Topics Alcohol use: Not Currently Comment: occasionally Drug use: No OBJECTIVE PHYSICAL EXAM: LMP 01/24/2024 GENERAL: Alert, no distress, cooperative ABDOMEN: Abdomen soft, non-tender, BS normal, No masses or organomegaly Incision appears to be healing well. No signs of erythema or infection. DATA: Diagnostic tests reviewed for today's visit: Most recent labs and imaging results. Sandor Trent MD documented in this encounter [facility] 02-26-2024 History of Presen t illness Narrative Petty Underwood is a 24 year old female who presents for problem visit right breast clogged milk duct for 4 days. HPI: She is her 8 month old son 4 days ago initially noticed exudate and swelling of right nipple, which led to her inability to express breast milk and subsequently increased swelling and clogged milk ducts of right breast She kept the nipple clean and used hot compresses, massage and applied breast milk to the nipple Nipple concerns have resolved but clogged milk ducts and increased swelling of right breast continue to be a concern Using portable breast pump- pumping every 3-4 hours while at work and every 5-6 hours when at home- this is not a new schedule Baby drinking 5-6 bottles/ day 02/07/24 umbilical hernia repair. Has been having midline upper abd/ epigastric pain and bilateral lower quadrant pain for 3 months, thought to be 2/2 umbilical hernia. Pain is still present. Has f/u with Gen Surg tomorrow. CT ABD/ PEL 01/05 and 01/12 unremarkable for SENIOR FOREMAN etiology, no masses of uterus or adnexa. 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 Grimm TOOTH EXTRACTION 2018 wisdom teeth FAMILY HISTORY Problem Relation Age of Onset Heart Father heart murmur, dx age 35 Diabetes Maternal Grandmother great grandma Hypertension Maternal Uncle Hypertension Maternal Aunt Cancer Other great grandpa - skin [place], a great uncle with melanoma Social History Tobacco Use Smoking status: Never Smokeless tobacco: Never Vaping Use Vaping Use: Never used Substance Use Topics Alcohol use: Not Currently Comment: occasionally Drug use: No Current Outpatient Medications Medication Sig MULTIVITAMIN 12 INTRAVEN. Inject intravenously. No current facility-administered medications for this visit. Allergies As of Date: 02/26/2024 Allergen Noted Reaction AMOXICILLIN 08/05/2018 Other: See Comments BENADRYL [DIPHENHYDRAMINE] 07/13/2023 Other: See Comments Fully Assessed 02/26/2024 REVIEW OF SYSTEMS Abdomen: No nausea, vomiting, diarrhea Bladder: No dysuria, gross hematuria, urinary frequency, urinary urgency, or incontinence. Breast: see HPI. Expanded ROS: N/A Allergies and current medication updated:Yes EXAM: BP 111/75 Pulse 82 Wt 169 lb 3.2 oz (76.7kg) LMP 01/24/2024 GENERAL: pleasant female in no apparent distress BREAST: left breast is soft, non-tender, symmetric, no dominant mass, normal nipple-areolar complex, no lymphadenopathy, and no nipple discharge. Right breast is full, larger than left breast, lateral and proximal areas of firmness and tenderness, overlying skin normal in appearance blood vessels pronounced. No erythema, edema or increased warmth of right breast, no lymphadenopathy. Nipple areolar complex normal in appearance. CHEST: Normal inspiratory effort ABDOMEN: soft, non-tender, and umbilical incision healing well NEURO: alert and oriented x3 EXTREMITIES: normal ASSESSMENT AND PLAN: Encounter Diagnosis ICD-10-CM 1. problem Z91.89 (Z91.89) problem (primary encounter diagnosis) Comment: clogged milk ducts of right breast Plan: - warm moist compression with massage for 10 minutes then pump with electric breast pump for 20 minutes, hand express after to remove any additional milk - After pumping, apply ice/ cabbage leaves for 20 minutes - Repeat above sequence every 2 hours for 2-3 days - Ibuprofen 600-800 mg every 8 hours Umbilical hernia - Plans to f/u with [facility] tomorrow for postop visit for umbilical hernia repair - Continues to have intermittent ABD pain. At this time, no concern for SENIOR FOREMAN etiology. CT ABD/ PEL 01/05 and 01/12 unremarkable pelvis, no masses of uterus or adnexa. Would consider GI evaluation. Recommend colace and Miralax for constipation Follow up if symptoms worsen or fail to improve Etta Ugalde APRN.COPY CUTTER documented in this encounter [facility] 02-26-2024 Nurse Note Patient reports issues with of right breast. Patient also would like to mention abdominal pain s/p hernia repair. Socorro Clark MA February 26, 2024 8:50 AM [facility] 02-26-2024 Nurse Note Patient reports issues with of right breast. Patient also would like to mention abdominal pain s/p hernia repair. Socorro Clark MA February 26, 2024 8:50 AM documented in this encounter [facility] 2024 History of Presen t illness Narrative Images from the original note were not included. [facility] UROLOGY CLINIC NOTE Patient: Petty Underwood Provider: Thierno Sanchez MD : 2000 Date of Service: 2024 PCP: Sabra Quinteros DO Chief complaint/Identification: Petty Underwood is a 23 year old female patient who presents for evaluation of microscopic hematuria. ASSESSMENT: 1. Microscopic hematuria - ICD9: 599.72, ICD10: R31.29 (primary diagnosis) 2. History of UTI - ICD9: V13.02, ICD10: Z87.440 -Reports 2 UTIs per year prior to -UA today negative, recent outside UAs reviewed, only with trace blood. UA with microscopy in July with 2 RBCs/HPF. -Reviewed CT imaging, no evidence of renal stones or other abnormalities PLAN: No workup for microscopic hematuria given that she does not fit criteria for microscopic hematuria Discussed prevention of UTIs. She does not fit criteria for recurrent UTIs, but still discussed increased fluid intake, frequent voiding, avoidance of constipation, cranberry supplementation, postcoital voiding. Return to care as needed Thierno Sanchez MD REFERRED BY: Consultation requested by Dr. Sandor Trent for an opinion regarding urologic diagnosis and my final recommendations will be communicated back to the requesting physician by way of shared medical record or letter via US mail. HPI: Petty Underwood is a 23 year old year old female who is being seen for microscopic hematuria. Consultation requested for microscopic hematuria. Reviewed prior urinalyses. 2 urinalyses last month demonstrated trace blood, but microscopy was not sent. Microscopic urinalysis in July of last year showed 2 RBCs/HPF. Denies gross hematuria. History of UTIs, approximately 2 per year prior to the of her son. Denies history of childhood UTIs. Denies exacerbating factors. REVIEW OF SYSTEMS: A ROS was performed and pertinent negatives and positives can be found in the HPI. RELEVANT IMAGING STUDIES (most recent): CT ABD/PEL W IVCON Narrative: * * *Final Report* * * DATE OF EXAM: Jan 06 2024 9:43PM [facility] 0530 - CT ABD/PEL W IVCON / PROCEDURE REASON: Abdominal pain, acute, nonlocalized * * * * Physician Interpretation * * * * EXAMINATION: CT ABDOMEN AND PELVIS WITH IV CONTRAST CLINICAL HISTORY: PATIENT/TECHNOLOGIST PROVIDED HISTORY: RLQ PAIN, HX OF AURA CLINICAL INFORMATION ( PROVIDED BY ORDERING CLINICIAN) : Abdominal pain, acute, nonlocalized TECHNIQUE: CT of the abdomen and pelvis was performed using standard technique, scanning from just above the dome of the diaphragm to the symphysis pubis. Coronal and sagittal reconstructed images generated. MQ: CTAP_3 Contrast: IV: 100 ml of Omnipaque 300 Oral: None CT Radiation dose: Integrated Dose-length product (DLP) for this visit = 273 mGy*cm. CT Dose Reduction Employed: Automated exposure control(AEC) and iterative recon COMPARISON: CT 12/07/2020. RESULT: Liver: Superior right hepatic dome excluded from the ucoii-[id number]-mhaq. No mass identified. Biliary: No bile duct dilation. Gallbladder is absent. Spleen: No mass. No splenomegaly. Pancreas: No mass or duct dilation. Adrenals: No mass. Kidneys: Enhance symmetrically. No hydronephrosis. GI tract: No dilation or wall thickening. The segmentally visualized appendix appears normal. Lymph nodes: No lymphadenopathy identified. Mesentery/Peritoneum: No free air. No ascites. Retroperitoneum: No mass. Vasculature: - Abdominal aorta and iliac arteries: No aneurysm. - Celiac and SMA: Patent. - Portal venous system (SMV, splenic vein, portal vein and branches): Patent. - Hepatic veins: Incompletely opacified, likely due to early phase of enhancement. Pelvis: Urinary bladder is predominantly collapsed and otherwise unremarkable. Bones/Soft Tissues: Small fat-containing umbilical hernia. No acute osseous abnormality. Lower thorax: No consolidation. No pleural effusion. Paper Latcher (topogram) images: No additional findings. Impression: IMPRESSION: No acute abnormality identified in the abdomen or pelvis. Details above. Blow Machine Tender Starch Spraying: PSCB Transcribe Date/Time: Jan 06 2024 10:14P Dictated by : HENNY BIRMINGHAM MD This examination was interpreted and the report reviewed and electronically signed by: HENNY BIRMINGHAM MD on Jan 06 2024 10:24PM EST LABS/INVESTIGATIONS: Urine Chemstrip: URINE POC GLUCOSE UA (POCT) Negative 2024 BILIRUBIN UA (POCT) Negative 2024 KETONE UA (POCT) Negative 2024 SPECIFIC GRAVITY UA (POCT) >=1.030 2024 HEMOGLOBIN/BLOOD UA (POCT) Negative 2024 PH UA (POCT) 5.5 2024 PROTEIN UA (POCT) Negative 2024 UROBILINOGEN UA (POCT) 0.2 2024 NITRITE UA (POCT) Negative 2024 LEUKOCYTES UA (POCT) Negative 2024 COLOR UA (POCT) Yellow 2024 CLARITY UA (POCT) Slightly Cloudy 2024 Creatinine Date Value Ref Range Status 01/06/2024 0.70 0.58 - 0.96 mg/dL Final 07/15/2023 0.61 0.58 - 0.96 mg/dL Final 07/15/2023 0.61 0.58 - 0.96 mg/dL Final 07/13/2023 0.62 0.58 - 0.96 mg/dL Final Hemoglobin (g/dL) Date Value 01/06/2024 13.3 11/27/2020 14.0 Hematocrit (%) Date Value 01/06/2024 39.4 11/27/2020 43.0 WBC (k/uL) Date Value 01/06/2024 9.98 11/27/2020 6.85 HISTORIES FAMILY HISTORY Problem Relation Age of Onset Heart Father heart murmur, dx age 35 Diabetes Maternal Grandmother great grandma Hypertension Maternal Uncle Hypertension Maternal Aunt Cancer Other great grandpa - skin CA, a great uncle with melanoma PAST MEDICAL HISTORY Diagnosis Date Cyst of right ovary 08/07/2018 Palpitations PAST SURGICAL HISTORY Procedure Laterality Date LAPS SURG CHOLECYSTECTOMY W/CHOLANGIOGRAPHY 09/03/[address] Grimm TOOTH EXTRACTION 2018 wisdom teeth Social History Tobacco Use Smoking status: Never Smokeless tobacco: Never Vaping Use Vaping Use: Never used Substance Use Topics Alcohol use: Not Currently Comment: occasionally Drug use: No ALLERGIES Allergen Reactions Amoxicillin Other: See Comments Pt gets UTI'S Benadryl [Diphenhyd* Other: See Comments Severe headache and stiffness (IV only) Tolerates po benadryl Current Outpatient Medications Medication Sig Dispense Refill MULTIVITAMIN 12 INTRAVEN. Inject intravenously. No current facility-administered medications for this visit. PHYSICAL EXAMINATION: Vitals: Ht 157.5 cm (5' 2) Wt 78.9 kg (174 lb) LMP 01/24/2024 (Approximate) BMI 31.83 kg/m BMI: Body mass index is 31.83 kg/m . Constitutional: Apparent distress -No Psych: Alert & oriented - Yes; : Deferred documented in this encounter [facility] 2024 Instructions Thierno Sanchez MD - 2024 11:53 AM EDT Things you can do to decrease the likelihood of suffering from recurrent urinary tract infections: 1. Increase your daily water intake ID WEEK [id number]. Prevention of Recurrent Acute Uncomplicated Cystitis by Increasing Daily Water in Premenopausal Women : A Prospective Randomized Controlled Study Results of this study provided strong evidence that increased water intake is an effective antimicrobial-sparing preventive strategy for young women with recurrent UTI. Increasing daily water intake by approximately 1.5 L reduced recurrent UTI episodes by 48% and the need for antibiotics by 47% over 12 months. 2. Add cranberry supplementation There is some modest data that shows adding cranberry supplementation may decrease episodes of recurrent UTI. Cranberries are thought to work by stopping the ability of bacteria to attach to wall of the bladder. The active ingredients is proanthocyanidin (PAC). The recommended dose is 36 mg daily (for prevention), possibly 72 mg daily (if symptoms are present). The PAC needs to be soluble as well. The best brands are listed below. You can use others, but be cautious of labeling. - Theralogix TheraCran One - Utiva Cranberry PACs - Ellura 3. Methenamine Hippurate Methenamine is a urinary antiseptic. It is a non-antibiotic way to kill bacteria in the urine, which decreases the chance of forming antimicrobial resistance. There is evidence that this can help prevent UTIs. The recommended dosing is one 1g tablet twice a day. This is only available by prescription. 4. You may consider the addition of probiotics but there is currently no conclusive evidence this helps to decrease the likelihood of recurrent UTIs. Probiotic brands that have been shown on other trials to have some effectiveness against diseases other than recurrent UTI include Florastor, Culturelle, and Bio-K 5. Routinely perform post coital voiding. This means you should urinate each time you have intercourse to flush any bacteria away from the urinary tract. 6. Do not use spermicides and choose a spermicide-free brand of condoms. The active ingredient called nonoxynol 9 has been shown to increase the risk of recurrent UTI at least 3 times over the baseline documented in this encounter [facility] 01-13-2024 History of Presen t illness Narrative Subjective Patient ID: Petty Underwood is a 23 y.o. female who presents for Abdominal Pain (X2wks, difficulty urinating and elbert colored urination). Abdominal Pain This is a recurrent problem. The current episode started 1 to 4 weeks ago. The onset quality is gradual. The problem occurs constantly. The problem has been waxing and waning. The pain is located in the LLQ, RLQ and suprapubic region. The pain is at a severity of 7/10. The quality of the pain is sharp. The abdominal pain radiates to the LUQ, RUQ and periumbilical region. Associated symptoms include frequency. Pertinent negatives include no anorexia, arthralgias, belching, constipation, diarrhea, dysuria, fever, flatus, headaches, hematochezia, hematuria, melena, myalgias, nausea, vomiting or weight loss. Nothing aggravates the pain. The pain is relieved by Nothing. Prior diagnostic workup includes CT scan. Still with the upper abdominal pain, I do not seem to change with the famotidine or the dicyclomine. Not worsened since she started with the lower abdominal pain. The umbilical hernia area pain is the same, and not worse since she developed a lower abdominal pain. She has had significantly more lower abdominal pain starting this morning. She feels like she is having troubles maybe she is going a little bit more frequency, but no urgency. No blood in the urine. UA today shows trace blood. On exam mild tenderness to palpation both lower quadrants, without rebound. Continue the famotidine for now Pain medication as needed. No driving or working on the medication. Bactrim double strength twice a day for 7 days. Expect things to stabilize and hopefully get little better in the next couple days. If they do not, she will call. If the pain gets significantly worse, she will go to the ER. ? GI versus urological referral. Review of Systems Constitutional: Negative for chills, fever and weight loss. Respiratory: Negative for cough and shortness of breath. Gastrointestinal: Positive for abdominal pain. Negative for anorexia, constipation, diarrhea, flatus, hematochezia, melena, nausea and vomiting. Genitourinary: Positive for difficulty urinating and frequency. Negative for dysuria, hematuria, urgency, vaginal bleeding and vaginal discharge. Musculoskeletal: Negative for arthralgias and myalgias. Neurological: Negative for headaches. Psychiatric/Behavioral: Positive for sleep disturbance. Objective BP 112/56 Pulse 82 Ht 1.575 m (5' 2) Wt 77.6 kg (171 lb 1.6 oz) SpO2 99% BMI 31.29 kg/m Physical Exam Constitutional: Appearance: Normal appearance. HENT: Head: Normocephalic and atraumatic. Abdominal: Palpations: There is no mass. Tenderness: There is abdominal tenderness. There is no right CVA tenderness or left CVA tenderness. Skin: General: Skin is warm and dry. Neurological: General: No focal deficit present. Mental Status: She is alert and oriented to person, place, and time. Psychiatric: Mood and Affect: Mood normal. Behavior: Behavior normal. Thought Content: Thought content normal. Judgment: Judgment normal. Assessment/Plan Problem List Items Addressed This Visit ICD-10-CM Lower abdominal pain - Primary R10.30 Relevant Medications sulfamethoxazole-trimethoprim (Bactrim DS) 800-160 mg tablet HYDROcodone-acetaminophen (Mathews) 5-325 mg tablet Other Relevant Orders POCT UA Automated manually resulted (Completed) Incomplete emptying of bladder R33.9 documented in this encounter [facility] Work Phone: 01-08-2024 History of Presen t illness Narrative Subjective Patient ID: Petty Underwood is a 23 y.o. female who presents for Abdominal Pain (Pain around navel, radiating around abd x 2 weeks, seen in ER on Saturday ). Abdominal Pain This is a new problem. The current episode started 1 to 4 weeks ago. The onset quality is gradual. The problem occurs constantly. The most recent episode lasted 3 weeks. The problem has been gradually worsening. The pain is located in the generalized abdominal region. The pain is at a severity of 7/10. The quality of the pain is aching, burning, dull and sharp. The abdominal pain radiates to the LLQ, LUQ, RLQ, RUQ, epigastric region, periumbilical region and suprapubic region. Pertinent negatives include no anorexia, arthralgias, belching, constipation, diarrhea, dysuria, fever, flatus, frequency, headaches, hematochezia, hematuria, melena, myalgias, nausea, vomiting or weight loss. The pain is aggravated by eating. The pain is relieved by Nothing. Prior diagnostic workup includes surgery. Not otherwise feeling sick, has a constant upper abdominal pain over the last 2 weeks. Sometimes the pain localizes to the bellybutton where there is an ache, but she does have a new bulge that was seen on CT, umbilical hernia It seems like they are 2 different pains with the ache from the umbilical hernia with pain that she has in the upper part of her belly. Pain does get worse when she eats, no change with bowel movement or urination. Does get a little worse when she bends moves or twists. No heartburn, no melena no diarrhea or constipation. No changes with urination. UA in the ER was clear. Other blood test in the ER was okay CT of the belly was okay except for the umbilical hernia. On exam she does have some tenderness to palpation right upper quadrant, epigastric area and left upper quadrant. Mild tenderness to palpation in the periumbilical area. Start Pepcid 20 mg twice a day. Will try dicyclomine as needed. Discussed the warnings about possible need for apnea and decreased need milk production. Low quality evidence. At this point we are just going to try it as needed to see if we can give her some relief medicine helps only needed use it more consistently, we can talk further than She will call in a couple weeks if she is still having troubles. If this persists, we will likely have her follow-up with general surgery since she had the cholecystectomy recently. Review of Systems Constitutional: Negative for chills, fatigue, fever and weight loss. Respiratory: Negative for cough and shortness of breath. Cardiovascular: Negative for chest pain and palpitations. Gastrointestinal: Positive for abdominal pain. Negative for anorexia, blood in stool, constipation, diarrhea, flatus, hematochezia, melena, nausea and vomiting. Genitourinary: Negative for dysuria, frequency and hematuria. Musculoskeletal: Negative for arthralgias, back pain and myalgias. Skin: Negative for rash. Neurological: Negative for headaches. Psychiatric/Behavioral: Positive for sleep disturbance. Objective BP 112/70 Pulse 78 Ht 1.575 m (5' 2) Wt 77.8 kg (171 lb 9.6 oz) SpO2 99% Yes BMI 31.39 kg/m Physical Exam Constitutional: Appearance: Normal appearance. HENT: Head: Normocephalic and atraumatic. Cardiovascular: Rate and Rhythm: Normal rate and regular rhythm. Heart sounds: Normal heart sounds. Pulmonary: Effort: Pulmonary effort is normal. Breath sounds: Normal breath sounds. Abdominal: Tenderness: There is abdominal tenderness in the right upper quadrant, epigastric area, periumbilical area and left upper quadrant. Skin: General: Skin is warm and dry. Neurological: General: No focal deficit present. Mental Status: She is alert and oriented to person, place, and time. Psychiatric: Mood and Affect: Mood normal. Behavior: Behavior normal. Thought Content: Thought content normal. Judgment: Judgment normal. Assessment/Plan Problem List Items Addressed This Visit ICD-10-CM Upper abdominal pain - Primary R10.10 Relevant Medications famotidine (Pepcid) 20 mg tablet dicyclomine (Bentyl) 20 mg tablet documented in this encounter [facility] Work Phone: 12-17-2023 History of Presen t illness Narrative Subjective Patient ID: Petty UNDERWOOD is a 23 y.o. female who presents for Establish Care. HPI During her recent last year, she had preeclampsia in the eclampsia after delivery. Also she had troubles with acid salts and itching. She is status post cholecystectomy. The itching and gallbladder issues could return if she has another . She was on labetalol after surgery but her blood pressure is better she has been able to wean herself off the medication. Her blood pressure is up she does get headaches. She is only had a couple of times where she has had mild headaches her blood pressure is up. Most of the time her blood pressure has been normal. About her son who is having some new shaking episodes. Scheduled to see neurology. At this point since she gets headaches if she gets them frequently she will monitor blood pressure and call if it is high. As long as she is feeling well no medications. Will see her back in 3 months to recheck her blood pressure and see how she is doing. From there we can decide if we want to do another 6-month check after that. Review of Systems Constitutional: Negative for fatigue. HENT: Negative for hearing loss. Eyes: Negative for visual disturbance. Respiratory: Negative for cough and shortness of breath. Cardiovascular: Negative for chest pain and palpitations. Gastrointestinal: Negative for abdominal pain, constipation, diarrhea and nausea. Endocrine: Negative for cold intolerance, heat intolerance and polydipsia. Genitourinary: Negative for dysuria, frequency and hematuria. Musculoskeletal: Negative for arthralgias and myalgias. Skin: Negative for rash. Neurological: Negative for dizziness and headaches. Psychiatric/Behavioral: Negative for sleep disturbance. The patient is not nervous/anxious. Objective BP 114/68 Pulse 81 Ht 1.575 m (5' 2) Wt 79 kg (174 lb 3.2 oz) SpO2 98% BMI 31.86 kg/m Physical Exam Constitutional: Appearance: Normal appearance. HENT: Head: Normocephalic and atraumatic. Cardiovascular: Rate and Rhythm: Normal rate and regular rhythm. Heart sounds: Normal heart sounds. Pulmonary: Effort: Pulmonary effort is normal. Breath sounds: Normal breath sounds. Skin: General: Skin is warm and dry. Neurological: General: No focal deficit present. Mental Status: She is alert and oriented to person, place, and time. Psychiatric: Mood and Affect: Mood normal. Behavior: Behavior normal. Thought Content: Thought content normal. Judgment: Judgment normal. Assessment/Plan Problem List Items Addressed This Visit None Visit Diagnoses Codes Routine general medical examination at a health care facility - Primary Z00.00 documented in this encounter [facility] Work Phone: 09-26-2023 Instructions Petty Chun MD - 09/26/2023 4:22 PM EST ACOG Screening Guidelines The following health screening schedule is recommended by the [employer] (ACOG). Some of these tests may be ordered or performed by your primary care doctor. Pap test screening The pap test looks at cells on the cervix (the opening from the vagina to the uterus) to look for cancer or pre-cancerous changes. These changes are caused by the human papillomavirus (HPV). Studies estimate that half of all women will test positive for this virus within 3 years of starting sexual activity. For young women with a normal immune system, 90% of HPV infections will resolve within 2 years. There is a vaccine available against some forms of HPV. This is recommended for girls and women age 9-45. For ages 9-14, two injections are given at 0 and 6 months. For ages 15-45, three injections are given at 0,2 and 6 months. Because this vaccine does not protect against all HPV types which can cause cervical cancer, women who received the vaccine still need pap tests. Pap smear screening should be started at age 21. The pap test should be done every 3 years from age 21-29. From age 30-65, pap smears can be done every 5 years if HPV test is negative or every 3 years if HPV testing is not done. For women over the age of 65, ACOG recommends against screening women who have had adequate prior screening and are not otherwise at high risk for cervical cancer. Women who have had a hysterectomy also do not need routine pap smear screening unless the pap smear was done for a cervical cancer or moderate to severe dysplasia. Breast cancer screening Mammogram should be performed every 1-2 years starting at age 40 and every year starting at age 50. Screening may be started earlier depending on family history. Cholesterol screening Lipid panel (cholesterol test) should be checked every 5 years starting at age 45. Diabetes screening Fasting glucose (blood sugar) test should be performed every 3 years starting at age 45. Colorectal cancer screening Starting at age 45, women should have a screening colonoscopy at least every 10 years. Screening may be started earlier depending on family history. Thyroid screening Thyroid function test (TSH) should be checked every 5 years starting at age 50. Bone mineral density screening All postmenopausal women age 65 and over and postmenopausal women with risk factors for osteoporosis should have a bone mineral density test performed. Risk factors include race, family history of osteoporosis, personal history of fractures, poor nutrition, smoking, heavy alcohol use, early menopause, low calcium intake and low body weight. Certain medical conditions and long-term use of some medications may also increase risk. Please call the office before going to the hospital. If you are , go to the ER at the [facility] [place]. Do not go to the outlying ER s ([place], [place] or [place]). If you need to go to an ER and cannot or will not go downtown, please use one of [facility] ER s (not [place], [place] or [place]). documented in this encounter [facility] 09-26-2023 History of Presen t illness Narrative Images from the original note were not included. [facility] Obstetrics & Gynecology Gynecology Clinic Note: CC: F/up blood pressure management Subjective ID Petty Underwood is a 23 year old who presents for f/up blood pressure management. Previously on Lab 100 TID for preeclampsia. She decreased and then stopped the Labetalol on her own. Denies headache, vision changes, RUQ pain, shortness of breath, or chest pain. She is recovering well from cholecystectomy. LMP:Patient's last menstrual period was 09/01/2023 (exact date). Negative for abnormal vaginal bleeding, abnormal vaginal discharge, and breast symptoms See HPI Current Outpatient Medications Medication Instructions calcium carbonate (TUMS ORAL) ORAL labetalol (TRANDATE) 100 mg, ORAL, 3 TIMES DAILY labetalol (TRANDATE) 100 mg, ORAL, 3 TIMES DAILY PNV/iron/folic acid ( [id number] ORAL) 1 tablet, ORAL, DAILY Objective OBJECTIVE: EXAM: BP 102/68 Pulse 94 Wt 163 lb (73.9 kg) LMP 09/01/2023 (Exact Date) BMI 29.81 kg/m GENERAL: well appearing, present with and doing well, LABWORK Lab Results Component Value Date HB 11.7 07/15/2023 HB 9.9 (L) 07/15/2023 HB 8.9 (L) 07/13/2023 HB 9.6 (L) 07/06/2023 HB 10.2 (L) 05/23/2023 HB 9.9 (L) 05/21/2023 No results found for: TSH, PROL Pap: NILM in 2020 ASSESSMENT: Petty Underwood is a 23 year old who presents for follow-up of BP management PLAN: Encounter Diagnosis ICD-10-CM 1. Severe pre-eclampsia, O14.14 - now 12 weeks - normotensive without BP control - counseled on risks in future pregnancies and CVD later in life - discussed b[facility] in future - encouraged PCP screening of HTN - appnt scheduled in November F/up in 1 yr for annual w/ pap Resident Petty Chun MD 09/26/2023 documented in this encounter [facility] 09-03-2023 History of Past i llness Narrative Problem Noted Date Diagnosed Date Resolved Date Symptomatic cholelithiasis 09/03/2023 1 11/27/2022 headache, 08/20/2023 09/26/2023 Overview: - Headaches significantly improved from earlier this month, no longer bothering patient - Continue Labetalol 100 TID Last Assessment & Plan: - Headaches significantly improved from earlier this month, no longer bothering patient - Continue Labetalol 100 TID Urinary retention 07/16/2023 07/22/2023 Overview: -mora replaced last night -poor urinary output > 500cc urine bolus -will continue to monitor closely Hypertension complicating pr egnancy, delivered, current hospitalization 07/16/202307/22 Preeclampsia in period 07/15/2023 09/26/2023 Overview: - Normotensive today and at last visit, no longer checking bps at home - Denies any signs/symptoms of high or low blood pressure - Continue Labetalol 100 TID - Will see patient again at 3 months and refer to PCP at that time if further bp management required Last Assessment & Plan: - Normotensive today and at last visit, no longer checking bps at home - Denies any signs/symptoms of high or low blood pressure - Continue Labetalol 100 TID - Will see patient again at 3 months and refer to PCP at that time if further bp management required Seizure-like activity 07/15/20232022 Overview: -possible mild generalized eclamptic seizure witnessed by nursing 07/15 vs. Vasovagal episode -rebolused magnesium -mag 1.0>7.0>8.2>7.4 Acute nonintractable headache 07/14/2023 09/26/2023 Chest pain 07/13/2023 09/26/2023 Overview: - Evaluated in main ED for left sided chest pain on 07/13/23 with ECG, CXR, and troponins - likely musculoskeletal - now resolved care following vaginal delivery 07/09/2023 07/10/2023 Encounter for induction of labor 07/06/2023 07/08/2023 Overview: - IOL ICP - GBS positive via bacteriuria, PCN - s/p 2 cytotec vaginal, 1 cytotec buccal - S/p mora balloon - Pitocin per high dose protocol - Epidural as needed - SROM at 0730 for clear - IUPC US @ 35w6d EFW 6#5oz 80% , AC 87% Yeast infection 06/29/2023 07/09/2023 Overview: - multiple pseudohyphae seen on microscopic exam - give fluconazole 150mg po Vaginal discharge during pre gnancy in third trimester 06/29/2023 07/02/2023 36 weeks gestation of 06/29/2023 07/02/2023 Asymptomatic bacteriuria during 05/29/2023 07/08/2023 Overview: GBS bacteriuria - plan for antibiotic prophylaxis intrapartum, PCN Last Assessment & Plan: - reviewed indication for PCN in labor - does not have significant Amoxicillin allergy Supervision of high risk pre gnancy in third trimester 05/23/2023 07/06/2023 Overview: -Routine labs: see scanned documents Rh positive Rubella immune 12/05 HIV NR 12/05 Hep B NR 12/05 Hep C NR 12/05 Syphilis NR 04/22 GC/CT neg 12/05 Pap NILM 12/05 Urine cx + UTI 01/01 -Anatomy US: 02/26 unremarkable, post placenta -24-28w labs CBC 10.1 04/22 RPR GCT pass 126 04/22 -Vaccines: TDAP 05/23 COVID Flu -Presentation: cephalic -Consent: signed 06/11 -Delivery plan: IOL 07/06 -PPBC: undecided -SS/PNP: video 05/23, PNP 05/29 -GBS: GBS pos 01/01 urine -Breast vs Formula: breast, nutrition done Last Assessment & Plan: - OB precautions, FKC reviewed - IOL scheduled this Saturday, 07/06 - NST reactive today - Has assistant facility manager, safe sleep space, car seat - L&D/ Team / Baby [employer], PP expectations reviewed - PP visit schedule discussed - Desires circumcision for male infant Follow up as scheduled for BPP this Saturday and IOL Saturday as scheduled Cholestasis during in third trimester 05/23/2023 07/09/2023 Overview: - intermittent RUQ pain - RUQ US 05/19 cholelithiasis and gallbladder sludge - AST/ALT 57/105 (05/19)--> 49/103 (05/21) -> 40/50 (07/02) - bilirubin wnl - Reviewed dietary recommendations and symptoms improved but not resolved - f/up Gen Surg Last Assessment & Plan: - reviewed that symptoms improve with diet changes but not entirely resolved - reviewed plan to f/up with Gen Surg 6w Decreased movement 05/21/202306/2023 Overview: - Patient presents with decreased movement since this morning. This has resolved since presenting to the OB ED. Denies vaginal bleeding, loss of fluid. Right sided, crampy abdominal pain. - NST category 1, reactive - [place]: no contractions Abdominal pain affecting 05/21/2023 07/02/2023 Overview: - intermittent contractions on toco, uterine irritability - good hydration - urine dip negative for UTI - cervix closed - low concern for labor at this time, patient counseled on latent labor precautions Last Assessment & Plan: - had presented to [facility] for colicky RUQ pain - RUQ US with cholelithiasis and biliary sludge - pain improved with dietary modification Pruritus gravidarum, third trimester 05/19/2023 05/29/2023 Last Assessment & Plan: - AST/ALT 57/105 (05/19)--> 49/103 (05/21) - bilirubin 0.2 (05/21) - RUQ ultrasound 05/19 cholelithiasis, gallbladder sludge - Bile acids pending, records requested from prior office - CMP today - Itching controlled with Atarax - BPP/ Anatomy scheduled tomorrow - HR OB consult 05/29 - Precautions reviewed Iron deficiency anemia 05/19/202309/26 Overview: - Admission Hgb 9.6 - Taking po iron - Delivery QBL 50 cc Last Assessment & Plan: - CBC 05/21 9.9 - Iron studies, hgb electrophoresis today - Will likely need po iron 30 weeks gestation of 05/19/2023 05/23/2023 Cholestasis of 05/19/2023 Overview: - syndromic itching palms/soles, improves modestly with Benadryl - tried Ursadiol but didn't like GI side effects - bile acids 12.7 (05/14) -> 5.1( 05/20) in [place] -> 13 (31w) -> 7 (33w) -> 10.8 (36w) - elevated LFTs -> improving, most recent AST/ALT -> 40/50 - RUQ US- with cholelithiasis and biliary sludge, f/up with Gen Surg Last Assessment & Plan: - Labs reviewed Bile acids 12>5>13>7, LFT down-trending - Repeat bile acids and CMP today - NST in office today reactive, Cat 1 - Continue twice weekly testing - IOL scheduled this Saturday, 07/06 Cyst of right ovary 08/07/2018 05/23/20 23 documented as of this encounter (statuses as of 09/27/2023) [facility] History of Past illness Narrative* Problem Noted Date Diagnosed Date Resolved Date Symptomatic cholelithiasis 09/03/2023 1 11/27/2022 headache, 08/20/2023 09/26/2023 Overview: - Headaches significantly improved from earlier this month, no longer bothering patient - Continue Labetalol 100 TID Last Assessment & Plan: - Headaches significantly improved from earlier this month, no longer bothering patient - Continue Labetalol 100 TID Urinary retention 07/16/2023 07/22/2023 Overview: -mora replaced last night -poor urinary output > 500cc urine bolus -will continue to monitor closely Hypertension complicating pr egnancy, delivered, current hospitalization 07/16/202307/22 Preeclampsia in period 07/15/2023 09/26/2023 Overview: - Normotensive today and at last visit, no longer checking bps at home - Denies any signs/symptoms of high or low blood pressure - Continue Labetalol 100 TID - Will see patient again at 3 months and refer to PCP at that time if further bp management required Last Assessment & Plan: - Normotensive today and at last visit, no longer checking bps at home - Denies any signs/symptoms of high or low blood pressure - Continue Labetalol 100 TID - Will see patient again at 3 months and refer to PCP at that time if further bp management required Seizure-like activity 07/15/20232022 Overview: -possible mild generalized eclamptic seizure witnessed by nursing 07/15 vs. Vasovagal episode -rebolused magnesium -mag 1.0>7.0>8.2>7.4 Acute nonintractable headache 07/14/2023 09/26/2023 Chest pain 07/13/2023 09/26/2023 Overview: - Evaluated in main ED for left sided chest pain on 07/13/23 with ECG, CXR, and troponins - likely musculoskeletal - now resolved care following vaginal delivery 07/09/2023 07/10/2023 Encounter for induction of labor 07/06/2023 07/08/2023 Overview: - IOL ICP - GBS positive via bacteriuria, PCN - s/p 2 cytotec vaginal, 1 cytotec buccal - S/p mora balloon - Pitocin per high dose protocol - Epidural as needed - SROM at 0730 for clear - IUPC US @ 35w6d EFW 6#5oz 80% , AC 87% Yeast infection 06/29/2023 07/09/2023 Overview: - multiple pseudohyphae seen on microscopic exam - give fluconazole 150mg po Vaginal discharge during pre gnancy in third trimester 06/29/2023 07/02/2023 36 weeks gestation of 06/29/2023 07/02/2023 Asymptomatic bacteriuria during 05/29/2023 07/08/2023 Overview: GBS bacteriuria - plan for antibiotic prophylaxis intrapartum, PCN Last Assessment & Plan: - reviewed indication for PCN in labor - does not have significant Amoxicillin allergy Supervision of high risk pre gnancy in third trimester 05/23/2023 07/06/2023 Overview: -Routine labs: see scanned documents Rh positive Rubella immune 12/05 HIV NR 12/05 Hep B NR 12/05 Hep C NR 12/05 Syphilis NR 04/22 GC/CT neg 12/05 Pap NILM 12/05 Urine cx + UTI 01/01 -Anatomy US: 02/26 unremarkable, post placenta -24-28w labs CBC 10.1 04/22 RPR GCT pass 126 04/22 -Vaccines: TDAP 05/23 COVID Flu -Presentation: cephalic -Consent: signed 06/11 -Delivery plan: IOL 07/06 -PPBC: undecided -SS/PNP: video 05/23, PNP 05/29 -GBS: GBS pos 01/01 urine -Breast vs Formula: breast, nutrition done Last Assessment & Plan: - OB precautions, FKC reviewed - IOL scheduled this Saturday, 07/06 - NST reactive today - Has assistant facility manager, safe sleep space, car seat - L&D/ Team / Baby Friendly, PP expectations reviewed - PP visit schedule discussed - Desires circumcision for male infant Follow up as scheduled for BPP this Saturday and IOL Saturday as scheduled Cholestasis during in third trimester 05/23/2023 07/09/2023 Overview: - intermittent RUQ pain - RUQ US 05/19 cholelithiasis and gallbladder sludge - AST/ALT 57/105 (05/19)--> 49/103 (05/21) -> 40/50 (07/02) - bilirubin wnl - Reviewed dietary recommendations and symptoms improved but not resolved - f/up Gen Surg Last Assessment & Plan: - reviewed that symptoms improve with diet changes but not entirely resolved - reviewed plan to f/up with Gen Surg 6w Decreased movement 05/21/202306/2023 Overview: - Patient presents with decreased movement since this morning. This has resolved since presenting to the OB ED. Denies vaginal bleeding, loss of fluid. Right sided, crampy abdominal pain. - NST category 1, reactive - [place]: no contractions Abdominal pain affecting 05/21/2023 07/02/2023 Overview: - intermittent contractions on toco, uterine irritability - good hydration - urine dip negative for UTI - cervix closed - low concern for labor at this time, patient counseled on latent labor precautions Last Assessment & Plan: - had presented to [facility] for colicky RUQ pain - RUQ US with cholelithiasis and biliary sludge - pain improved with dietary modification Pruritus gravidarum, third trimester 05/19/2023 05/29/2023 Last Assessment & Plan: - AST/ALT 57/105 (05/19)--> 49/103 (05/21) - bilirubin 0.2 (05/21) - RUQ ultrasound 05/19 cholelithiasis, gallbladder sludge - Bile acids pending, records requested from prior office - CMP today - Itching controlled with Atarax - BPP/ Anatomy scheduled tomorrow - HR OB consult 05/29 - Precautions reviewed Iron deficiency anemia 05/19/202309/26 Overview: - Admission Hgb 9.6 - Taking po iron - Delivery QBL 50 cc Last Assessment & Plan: - CBC 05/21 9.9 - Iron studies, hgb electrophoresis today - Will likely need po iron 30 weeks gestation of 05/19/2023 05/23/2023 Cholestasis of 05/19/2023 Overview: - syndromic itching palms/soles, improves modestly with Benadryl - tried Ursadiol but didn't like GI side effects - bile acids 12.7 (05/14) -> 5.1( 05/20) in [place] -> 13 (31w) -> 7 (33w) -> 10.8 (36w) - elevated LFTs -> improving, most recent AST/ALT -> 40/50 - RUQ US- with cholelithiasis and biliary sludge, f/up with Gen Surg Last Assessment & Plan: - Labs reviewed Bile acids 12>5>13>7, LFT down-trending - Repeat bile acids and CMP today - NST in office today reactive, Cat 1 - Continue twice weekly testing - IOL scheduled this Saturday, 07/06 Cyst of right ovary 08/07/2018 05/23/20 23 documented as of this encounter (statuses as of 01/22/2024) [facility]11-14-[facility]23 NoteHNO ID: [id number] Author: Arie Alberts SRNA Service: Anesthesiology Author Type: Student Type: Anesthesia Procedure Notes Filed: 09/03/2023 7:57 AM Note Text: ANESTHESIOLOGY PROCEDURE NOTE Airway General Information Procedure Start Time/Medication Administration: 09/03/2023 7:38 AM Staffing SRNA: Arie Alberts SRNA Performed by: NALINI Indications and Patient Condition Indications for airway management: anesthesia Preoxygenated: yes anesthesia circuit Patient position: sniffing Method: asleep Cricoid Pressure: No Manual In-Line Stabilization: No Difficult Mask: No Final Airway Details Final airway type: endotracheal airway Final Endotracheal Airway: ETT Cuffed: yes Successful intubation technique: direct laryngoscopy Devices used: intubating stylet Endotracheal tube insertion site: oral Blade: Slade Blade size: #3 ETT size (mm): 7.0 Measured from: lips Measurement (cm): 21 Placement verified by: chest auscultation and capnometry Cormack-Lehane Classification: grade I - full view of glottis Number of attempts at approach: 1 Failed airway: no Unrecognized esophageal intubation: no Airway not difficult SIGNATURE: NALINI Decker PATIENT NAME: Petty Underwood DATE: September 03, 2023 TIME: 7:56 AM CSN: [id number] Nurse Note* Meghann Monteiro LPN - 08/20/2023 8:39 AM EDT Pt presents today for PP no questions or concerns at this time. Meghann Monteiro LPN August 20, 2023 8:40 AM [facility] History of Present illness Narrative* Anna Martinez MD - 08/20/2023 8:33 AM EDT VISIT Petty Underwood is a 23 year old year old here for visit. Delivery Summary: Felipe Underwood Anthony [[id number]] Delivery Information: Delivery Date: 07/08/23 Delivery type: Vaginal, Spontaneous Delivering Clinician: Tanya Bee MD Vacuum Used: No Forceps Used: No Shoulder Dystocia Present: No Lacerations: 1st Episiotomy: None : Gender: Male Weight (grams): 3049 g One Minute : 7 Five Minute : 9 ROS/ Recovery: Feeding: Breast and bottle feeding problems: None Menses since delivery: light flow Menstrual pattern prior to : Regular periods [place] since delivery: Not resumed Depression: denies symptoms of depression. OB Depression and Anxiety Screening- This Encounter (since 08/19/2023) Over the past 2 weeks have you felt down, depressed, or hopeless? Negative Over the past two weeks, have you felt little interest or pleasure in doing things? Negative Feeling nervous, anxious or on edge 0-Not at all Not being able to stop or control worrying 0-Not al all Anxiety Pre-Screening Total (If >/= 3 additional questions will be reviewed) 0 Emotional support: Yes Bowel symptoms: Negative for abdominal discomfort, blood in stools or black stools and change in bowel habits Abdomen: N/A Bladder symptoms: No dysuria, gross hematuria, urinary frequency, urinary urgency, or incontinence Other issues: None Last Pap: 2020 normal HPV: negative PAST MEDICAL HISTORY Diagnosis Date Cyst of right ovary 08/07/2018 Palpitations PAST SURGICAL HISTORY Procedure Laterality Date TOOTH EXTRACTION 2018 wisdom teeth FAMILY HISTORY Problem Relation Age of Onset Heart Father heart murmur, dx age 35 Diabetes Maternal Grandmother great grandma Hypertension Maternal Uncle Hypertension Maternal Aunt Cancer Other great grandpa - skin CA, a great uncle with melanoma Social History Tobacco Use Smoking status: Never Smokeless tobacco: Never Vaping Use Vaping Use: Never used Substance Use Topics Alcohol use: Not Currently Comment: occasionally Drug use: No PHYSICAL EXAMINATION: BP 107/70 Pulse 78 Wt 164 lb (74.4kg) LMP 08/18/2023 GENERAL: pleasant, female in no apparent distress HEENT: Normocephalic, atraumatic, mucus membranes moist, and no lesions NECK: Supple, full range of motion, and no adenopathy DERMATOLOGY: Normal, without lesions, non-icteric, and non-hirsute BREAST: deferred CHEST: Normal inspiratory effort ABDOMEN: soft, non-tender, and no masses. INCISION: N/A PELVIC: external genitalia normal, normal Bartholin's glands, urethra, [place]ala's glands, no vulvar lesions, no cervical lesions, good vaginal support, physiologic discharge present, normal appearing perineal body and perianal region BIMANUAL: uterus normal size, shape and consistency, no adnexal masses, and non-tender NEURO: alert and oriented x3,exam grossly non-focal EXTREMITIES: normal, lower back nontender to palpation and without erythema or fluctuance ASSESSMENT AND PLAN: 23 year old status post with course complicated by intrahepatic cholestasis of and preeclampsia with severe features requiring hospital readmission for 24 hours of magnesium. Patient scheduled for cholecystectomy on September 03. Contraception plan: abstinence Follow up: RTC in Oct 2023 for bp followup and Pap smear and then annual appointments thereafter Preeclampsia in period - Normotensive today and at last visit, no longer checking bps at home - Denies any signs/symptoms of high or low blood pressure - Continue Labetalol 100 TID - Will see patient again at 3 months and refer to PCP at that time if further bp management required headache, - Headaches significantly improved from earlier this month, no longer bothering patient - Continue Labetalol 100 TID Lower back pain - Patient endorses occasional back pain while walking or sitting down - Nontender to palpation, no swelling or fluctuance - Counseled patient that this is likely physiologic pain, recommended Tylenol and lifestyle modifications Anna Martinez MD Attending Note I personally saw and examined the patient. I reviewed the resident's note. I agree with the resident's assessment and plan unless otherwise noted. Signature: Lj Ramirez MD Date: 08/20/2023 Time: 11:44 AM [facility] Instructions* Patient Instructions* Petty Chun MD - 08/05/2023 3:11 PM EDT Helplines: [facility]: [phone] [facility]: [phone] [place] [facility]: [phone] Email services: documented in this [facility] History of Present illness Narrative* Petty Chun MD - 08/05/2023 1:18 PM EDT Images from the original note were not included. [facility] Obstetrics [facility] Gynecology Gynecology Clinic Note: CC: Headache f/up and blood pressure check Subjective ID Petty Underwood is a 23 year old who presents for follow-up of headaches in setting of preeclampsia. HPI: four weeks from complicated by ICP and preeclampsia. At our last visit she reported frequent migraines. We discussed this may be secondary to the labetalol and dehydration. Encouraged her to increase water intake and track headaches. Today she reports irregular taking her BP at home. She can recall a BP of 135/91 and 158/107 at home a couple days ago. She perceives headaches starting when it is time take her meds but once she takes the Labetalol 100mg the headache dissipates. Declined Magnesium supplements. Stopped the Macrobid after a few days. Denies lightheadedness or fainting. Denies seizures, chest pain, shortness of breath. States she is sleeping through the night well. Pumping and . Current Outpatient Medications Medication Instructions calcium carbonate (TUMS ORAL) ORAL labetalol (TRANDATE) 100 mg, ORAL, 3 TIMES DAILY PNV/iron/folic acid ( [id number] ORAL) 1 tablet, ORAL, DAILY Objective OBJECTIVE: EXAM: BP 112/74 Pulse 83 Wt 73 kg (161 lb) LMP 12/20/2021 Yes BMI 29.45 kg/m GENERAL: well appearing, conversational in no apparent distress HEART: regular rate LUNGS: normal work of breathing NECK: Full range of motion ABDOMEN: soft LABWORK Lab Results Component Value Date HB 11.7 07/15/2023 HB 9.9 (L) 07/15/2023 HB 8.9 (L) 07/13/2023 HB 9.6 (L) 07/06/2023 HB 10.2 (L) 05/23/2023 HB 9.9 (L) 05/21/2023 ASSESSMENT: Petty Underwood is a 23 year old who presents for follow-up of headaches PLAN: Encounter Diagnosis ICD-10-CM 1. headache, O90.89 R51.9 2. problem Z91.89 3. Severe pre-eclampsia, O14.14 Headaches Significantly improved from a couple days ago Declined magnesium supplements Reviewed again lifestyle modifications and indications for ED Continue Lab 100 TID / pumping Concerned that her milk supply has decreased Encouraged frequent pumping, increased hydration and increased healthy full diet and caloric needs in and continuing vitamin local support services in Aftervisit Instructions PreE Reviewed that remodeling can take 6 -12 weeks Normotensive today but still having high milds at home No evidence of hypotension Will manage BP meds through 3 months and then see if BP has normalized, if not, will defer to PCP at that time F/up in 2 weeks Resident Petty Chun MD 08/05/2023 Attending Note I discussed with resident. The patient was not examined by the attending. I reviewed the resident'snote. I agree with the resident's assessment and plan unless otherwise noted. Signature: Lj Ramirez MD Date: 08/05/2023. Time: 3:19 PM documented in this [facility] Nurse Note* Megan Ha MA - 08/05/2023 1:11 PM EDT Pt states that she has not been checking her BP, she states that she been having headaches but she deal with it. Megan Ha MA August 05, 2023 1:12 PM documented in this [facility] History of Present illness Narrative* Lai Maher DO - 08/01/2023 2:25 PM EDT 23 year old female presenting for htn I have fully reviewed the past medical, surgical, social and family history and updated the Histories section of [facility]. Petty Underwood is a 23 year old year old Delivery Date: 07/08/23 Delivery type: Vaginal, Spontaneous Delivering Clinician: Tanya Bee MD Vacuum Used: No Forceps Used: No Shoulder Dystocia Present: No Lacerations: 1st Episiotomy: None Did have did have gestational hypertension did have preeclampsia did require magnesium No labetalol blood pressure is largely controlled at home. Did not have previous long standing hypertension. Does a normal kidney function no chest pain or shortness of breath no syncope Current Outpatient Medications on File Prior to Visit: Current Outpatient Medications Medication Sig Dispense Refill calcium carbonate (TUMS ORAL) Take by mouth. ferrous sulfate 325 mg (65 mg iron) tablet Take 1 tablet by mouth once daily. (Patient not taking: Reported on 07/24/2023) 90 tablet 0 hydrOXYzine HCl (ATARAX) 10 mg tablet Take 1 tablet by mouth four times daily as needed for itching/rash. (Patient not taking: Reported on 08/01/2023) 100 tablet 0 labetalol (TRANDATE) 200 mg tablet Take 0.5 tablets by mouth three times daily. 45 tablet 0 magnesium oxide (MAG-OX) 400 mg (241.3 mg magnesium) tablet Take 1 tablet by mouth once daily. for headache prevention (Patient not taking: Reported on 08/01/2023) 90 tablet 4 nitrofurantoin macrocrystal (MACRODANTIN) 100 mg capsule 100 mg by ORAL/FEEDING TUBE route two times a day. (Patient not taking: Reported on 08/01/2023) ondansetron orally disintegrating (ZOFRAN ODT) 8 mg disintegrating tablet Take 1 tablet by mouth every 8 hours as needed for nausea/vomiting. (Patient not taking: Reported on 08/01/2023) 10 tablet 0 PNV/iron/folic acid ( [id number] ORAL) Take 1 tablet by mouth once daily. No current facility-administered medications for this visit. ALLERGIES Allergen Reactions Amoxicillin Other: See Comments Pt gets UTI'S Benadryl [Diphenhyd* Other: See Comments Severe headache and stiffness (IV only) Tolerates po benadryl PAST SURGICAL HISTORY Procedure Laterality Date TOOTH EXTRACTION wisdom teeth Social history reviewed in [employer]. REVIEW OF SYSTEMS: Constitutional: Denies fever, denies chills, denies fatigue Head: Denies headache Eyes: Denies changes in vision or blurry vision Ears/Nose/Throat: Denies sore throat, denies rhinorrhea Musculoskeletal: Denies joint pain, denies myalgias Abd: No abd pain, no vomiting, no diarrhea, no nausea Skin/Breast: Denies rash or lesions Cardiovascular: Denies chest pain, denies palpitations, denies LE edema Respiratory: Denies cough, denies SOB, denies wheezing Neurological: Denies numbness, denies tingling, denies weakness PHYSICAL EXAMINATION: General appearance: Well appearing, alert, in no acute distress, well-hydrated, well nourished. Skin: no suspicious rashes or lesions Head: Normocephalic, atraumatic Eyes: Anicteric sclera. Pupils are equally round and reactive to light. Extraocular movements are intact. Ears: External ears normal, canals clear Nose/Sinuses: Nares normal, septum midline, mucosa normal, Oropharynx: Lips, mucosa, and tongue normal, good dentition, no pharyngeal erythema or exudates Neck: Supple, no adenopathy Lungs: Lungs clear to auscultation. No wheezing, rhonchi, rales. Heart: RRR without murmur, gallop, or rubs. Abdomen: Normal abdominal exam, Abdomen soft, non-tender. No masses Extremities: No deformities, no edema, no cyanosis. Musculoskeletal: No joint swelling, no deformity Neuro: Gait normal. Speech intact ASSESSMENT/PLAN: 1. hypertension - ICD9: 401.9, ICD10: I10 - Controlled - Recommend home blood pressure monitoring, to bring results to next visit - Encouraged sodium restriction, DASH or Mediterranean diet - Recommend regular aerobic exercise - LABETALOL 200 MG TABLET Continue labetolol Monitor bp closely at home will likely return to baseline in the next 1-2 months Discussed with patient red flag symptoms. Discussed risks and benefits of treatment plan. Pt understands to seek appropriate evaluation for new or worsening symptoms. Patient understands and agrees with plan, all concerns and questions addressed. [facility] History of Present illness Narrative* Zhanna Grimm MD - 07/24/2023 12:39 PM EDT General Surgery Consult Note PATIENT NAME: Petty Underwood Consultation requested by Etta Shank, REFRACTORY TILE HELPER for an opinion regarding symptomatic cholelithiasis. My final recommendations will be communicated back to the requesting physician by way of shared Medical record or letter to requesting physician via US mail. Assessment ASSESSMENT/PLAN: (K80.20) Calculus of gallbladder without cholecystitis without obstruction (primary encounter diagnosis) (O14.20) Hemolysis, elevated liver enzymes, and low platelet (HELLP) syndrome during , antepartum Petty presents for evaluation of gallstones. She did have HELLP syndrome resulting in elevated liver function test. She did however report right upper quadrant pain after eating during herpregnancy. I do feel she is symptomatic from the gallstones which is likely separate from the elevated liver function test. We discussed proceeding with laparoscopic cholecystectomy. Risks including bleeding, infection,, bile duct injury, and bile leak were explained and she would like to proceed. She is scheduled for surgery in August. Office Visit on 07/24/23 CONSULT TO GENERAL SURGERY nitrofurantoin macrocrystal (MACRODANTIN) 100 mg capsule SUBJECTIVE CHIEF COMPLAINT: Patient presents with: Abdominal Pain: Gallbladder INTERVAL HISTORY OF PRESENT ILLNESS: Petty is a 23-year-old female who presents for evaluation of gallstones. In April she was found to have elevated liver function test. Ultrasound showed gallstones and sludge. She was diagnosed with cholestasis of . Her post delivery course was complicated by preeclampsia. This is slowly improving. She had a normal vaginal delivery on July 08. During her she had episodes of right upper quadrant pain. This occurred after eating certain fattier foods. She still has some of this discomfort present. She was referred by OB for surgical evaluation of her gallstones. HISTORIES: PAST MEDICAL HISTORY Diagnosis Date Cyst of right ovary 08/07/2018 Palpitations PAST SURGICAL HISTORY Procedure Laterality Date TOOTH EXTRACTION wisdom teeth ALLERGIES: Amoxicillin and Benadryl [Diphenhydramine] MEDICATIONS: Current Outpatient Medications Medication Sig nitrofurantoin macrocrystal (MACRODANTIN) 100 mg capsule 100 mg by ORAL/FEEDING TUBE route two times a day. magnesium oxide (MAG-OX) 400 mg (241.3 mg magnesium) tablet Take 1 tablet by mouth once daily. for headache prevention labetalol (TRANDATE) 200 mg tablet Take 0.5 tablets by mouth three times daily. ondansetron orally disintegrating (ZOFRAN ODT) 8 mg disintegrating tablet Take 1 tablet by mouth every 8 hours as needed for nausea/vomiting. PNV/iron/folic acid ( MXMYTTE-QMLP-PC ORAL) Take 1 tablet by mouth once daily. acetaminophen (TYLENOL) 500 mg/15 mL liqd Take 30 mL by mouth every 6 hours as needed for pain for up to 15 days. Do not exceed 5 doses in 24 hours. ibuprofen (MOTRIN) 100 mg/5 mL oral liquid Take 30 mL by mouth every 6 hours as needed for up to 15days. calcium carbonate (TUMS ORAL) Take by mouth. ferrous sulfate 325 mg (65 mg iron) tablet Take 1 tablet by mouth once daily. (Patient not taking: Reported on 07/24/2023) hydrOXYzine HCl (ATARAX) 10 mg tablet Take 1 tablet by mouth four times daily as needed for itching/rash. No current facility-administered medications for this visit. FAMILY HISTORY Problem Relation Age of Onset Heart Father heart murmur, dx age 35 Diabetes Maternal Grandmother great grandma Hypertension Maternal Uncle Hypertension Maternal Aunt Cancer Other great grandpa - skin CA, a great uncle with melanoma Social History Tobacco Use Smoking status: Never Smokeless tobacco: Never Vaping Use Vaping Use: Never used Substance Use Topics Alcohol use: Not Currently Comment: occasionally Drug use: No OBJECTIVE PHYSICAL EXAM: BP 110/77 Pulse 76 Ht 5' 2 (1.58m) Wt 163 lb (73.9kg) LMP 12/20/2021 BMI 29.81 kg/(m^2). General: Well developed, well-nourished, in no distress HEENT: Normocephalic, atraumatic. Extraocular movements intact. Sclera are nonicteric. Heart: Regular rate and rhythm, no murmur Lungs: Clear to auscultation, without wheezes Abdomen: Soft, non tender, positive bowel sounds, no masses, no hernia Rectal: Not evaluated Extremities: No edema Neurologic: Alert, oriented, and appropriate. DATA: Diagnostic tests reviewed for today's visit: Labs reviewed US reviewed: IMPRESSION: Cholelithiasis and gallbladder sludge. No gallbladder wall thickening or pericholecystic fluid. No biliary dilation. Zahnna Grimm MD documented in this [facility] Procedure note* Zhanna Grimm MD - 07/24/2023 8:35 AM EDT Anticipated Surgical Procedure/ CPT Code: LAPAROSCOPIC CHOLECYSTECTOMY WITH INTRAOPERATIVE CHOLEANGIOGRAM - 60620-794 Anticipated Anesthetic: General Patient weight: Blood pressure 110/77, pulse 76, height 157.5 cm (5' 2), weight 73.9 kg (163 lb), last menstrual period 12/20/2021, currently . BMI: Body mass index is 29.81 kg/m . Planned antibiotic: SCDs needed: Yes Circulating Process Inspector Needed: Yes Pre Op Clearance: PAT Anticoagulation: No Diabetic: No Location: [place] OR Dx - symptomatic cholelithiasis documented in this [facility]23 Miscellaneous Notes* Telephone Encounter - Sharifa Wise - 07/19/2023 2:19 PM EDT Referral for Dr. Grimm Submitted VIA fax to [facility] for scheduling. Sharifa Wise July 19, 2023 2:20 PM documented in this encounter[facility]09-29-[facility] History of Present illness Narrative* Etta Ugalde APRN.CNP - 07/19/2023 9:32 AM EDT EARLY VISIT Petty Underwood is a 23 year old here for 1 week visit. She is s/p uncomplicated on 07/08 at 37w2d. was complicated by ICP, known cholelithiasis with sludge diagnosed in April 2023. She underwent an induction of labor for intrahepatic cholestasis and was discharged on PPD#2. She returned to [facility] ED on 07/13/23 with c/o left sided chest pain. Evaluation in the ED included ECG, CXR, and troponins which were unremarkable. She was then transferred to the OB ED for concerns ofpreeclampsia with severe range BP and headache. In the OB ED her BP's remained mild throughout OB ED course. CBC, CMP significant for stable anemia and transaminitis in setting of known cholelithiasis. Her PERLA improved with PERLA cocktail. She also had notable RLE swelling, US RLE negative. She was discharged home with BP cuff and precautions. On 07/14, PPD#7, she was readmitted with preeclampsia with severe features on the basis of sustainedsevere-range blood pressures and a persistent headache. She was initially treated with nifedipine but then transitioned to labetalol 300 mg BID due to tachycardia. She received 24 hours IV magnesium therapy during which she experienced a mild generalized eclamptic seizure. Head CT negative. Her bloo d pressures remained stable to low without medications and she was discharged to home on 07/16. She called the answering service 07/17 with c/o of persistent headache not responding to Tylenol or Motrin with mild BP's 140/90's. She was advised to return to OB ED however she was unable to return so she was prescribed Labetalol 100 mg TID. Today she is feeling better but had an additional acute episode of chest pain last night, however this time her chest pain was right sided with radiating pain down her right arm. The pain was an abrupt onset while she was resting watching tv. She also felt some shortness of breath and dizziness when this happened. Spontaneously resolved after several minutes and has not happened since. Right now she denies headache, chest pain, shortness of breath, dizziness, edema, RUQ pain, visual disturbances. She is taking her labetalol on a 06-22-10 schedule. She does endorse elevated BP's and not feeling well/ headaches in the afternoons. She knows when her BP is getting high because that is when her PERLA will return. Otherwise no concerns with vaginal bleeding, mood or . Bonding well with her baby. Good support from her . Baby Felipe doing well. Drinking expressed breast milk and also . Delivery Summary: Felipe Underwood [[id number]] Delivery Information: Delivery Date: 07/08/23 Delivery type: Vaginal, Spontaneous Delivering Clinician: Tanya Bee MD Vacuum Used: No Forceps Used: No Shoulder Dystocia Present: No Lacerations: 1st Episiotomy: None : Gender: Male Weight (grams): 3049 g One Minute : 7 Five Minute : 9 ROS: General: Denies any fever or chills Hypertension Screening: Headache? No. Visual Changes? No Epigastric Pain? No Increased Swelling? No Taking any BP medications at home? Yes If applicable, monitoring BP at home? (If Yes, include results) Yes 127-158 SYS/ 83-91 [place] Mood: normal Depression: denies symptoms of depression. OB Depression and Anxiety Screening- This Encounter (since 07/18/2023) None Feeding: Breast feeding problems: None Bladder: No dysuria, gross hematuria, urinary frequency, urinary urgency, or incontinence Bowel symptoms: No nausea, vomiting, or diarrhea and change in bowel habits Abdomen: N/A Bleeding: spotting Bottom and Perineum: No issues Sleep: no sleep concerns, feels rested [place] since delivery: Not resumed Emotional support: Yes Exercise: N/A Other issues: None PHYSICAL EXAMINATION: BP 135/82 Wt 165 lb (74.8 kg) LMP 12/20/2021 SpO2 97% Yes BMI 30.18 kg/m General: pleasant,female in no apparent distress, A&O x 3. Skin warm and intact. Breast: Deferred Chest: All lung telles clear to auscultation bilaterally, Normal inspiratory effort, Regular rate and rhythm, and No murmurs, clicks, rubs or gallops Abdomen: Deferred /Incision: N/A Pelvic: Deferred Bimanual: Deferred ASSESSMENT AND PLAN: 23 year old status post with course complicated by eclampsia Overall feeling ok right now BP normotensive to mild range today on labetalol 100 mg TID 3. Continue labetalol and home BP monitoring 4. Precautions including severe range BP's reviewed Contraception plan: none. Reinforced 6-week pelvic rest. Encouraged condom usage should patient deviate. Education: resources provided - see MA/RN note 4. Chest pain 1. Additional episode of CP last night, <10 minutes and spontaneously resolved 2. Today, VSS, well- appearing in no distress. Denies CP, SOB. Respiratory and cardiac exam normal. 3. Prior episode of chest pain was 07/13. ED work up included EKG, CXR and troponin's which were allnegative. Suspected to be MSK in nature 4. Strict return precautions given. Advised she report to nearest ED should pain return. 5. Cholelithiasis 1. General Surgery consult- requests Dr. Zhanna Grimm MD [place], [place] Case and plan of care reviewed with Dr. Ramirez Follow up: Saturday for BP check and 2 week GARY Ugalde APRN.COPY CUTTER documented in this [facility]23 Nurse Note* Emelina De La Cruz LPN - 07/19/2023 9:01 AM EDT Pt would like to talk about BP medication. She was admitted Saturday and left Saturday morning. Pt returned to ED Saturday night and released Saturday, while there she was given BP medication. Once released she had no BP medication. PT BP was 149/91 on 07/18. BP this morning around 7am was 127/87. Last night pt had chest pain 03/30. She also has headaches when her BP is elevated. No current symptoms at this time. Emelina De La Cruz LPN July 19, 2023 9:07 AM documented in this encounter[facility]09-[facility]23 History of Past illness Narrative* Problem Noted Date Diagnosed Date Resolved Date Urinary retention 07/16/2023 07/22/2023 Overview: -mora replaced last night -poor urinary output > 500cc urine bolus -will continue to monitor closely Hypertension complicating pr egnancy, delivered, current hospitalization 07/16/202307/22 Pre-eclampsia in period 07/15/2023 07/22/2023 care following vaginal delivery 07/09/2023 07/10/2023 Encounter for induction of labor 07/06/2023 07/08/2023 Overview: - IOL ICP - GBS positive via bacteriuria, PCN - s/p 2 cytotec vaginal, 1 cytotec buccal - S/p mora balloon - Pitocin per high dose protocol - Epidural as needed - SROM at 0730 for clear - IUPC US @ 35w6d EFW 6#5oz 80% , AC 87% Yeast infection 06/29/2023 07/09/2023 Overview: - multiple pseudohyphae seen on microscopic exam - give fluconazole 150mg po Vaginal discharge during pre gnancy in third trimester 06/29/2023 07/02/2023 36 weeks gestation of 06/29/2023 07/02/2023 Asymptomatic bacteriuria during 05/29/2023 07/08/2023 Overview: GBS bacteriuria - plan for antibiotic prophylaxis intrapartum, PCN Last Assessment & Plan: - reviewed indication for PCN in labor - does not have significant Amoxicillin allergy Supervision of high risk pre gnancy in third trimester 05/23/2023 07/06/2023 Overview: -Routine labs: see scanned documents Rh positive Rubella immune 12/05 HIV NR 12/05 Hep B NR 12/05 Hep C NR 12/05 Syphilis NR 04/22 GC/CT neg 12/05 Pap NILM 12/05 Urine cx + UTI 01/01 -Anatomy US: 02/26 unremarkable, post placenta -24-28w labs CBC 10.1 04/22 RPR GCT pass 126 04/22 -Vaccines: TDAP 05/23 COVID Flu -Presentation: cephalic -Consent: signed 06/11 -Delivery plan: IOL 07/06 -PPBC: undecided -SS/PNP: video 05/23, PNP 05/29 -GBS: GBS pos 01/01 urine -Breast vs Formula: breast, nutrition done Last Assessment & Plan: - OB precautions, FKC reviewed - IOL scheduled this Saturday, 07/06 - NST reactive today - Has assistant facility manager, safe sleep space, car seat - L&D/ Team / Baby Friendly, PP expectations reviewed - PP visit schedule discussed - Desires circumcision for male infant Follow up as scheduled for BPP this Saturday and IOL Saturday as scheduled Cholestasis during in third trimester 05/23/2023 07/09/2023 Overview: - intermittent RUQ pain - RUQ US 05/19 cholelithiasis and gallbladder sludge - AST/ALT 57/105 (05/19)--> 49/103 (05/21) -> 40/50 (07/02) - bilirubin wnl - Reviewed dietary recommendations and symptoms improved but not resolved - f/up Gen Surg Last Assessment & Plan: - reviewed that symptoms improve with diet changes but not entirely resolved - reviewed plan to f/up with Gen Surg 6w Decreased movement 05/21/202306/2023 Overview: - Patient presents with decreased movement since this morning. This has resolved since presenting to the OB ED. Denies vaginal bleeding, loss of fluid. Right sided, crampy abdominal pain. - NST category 1, reactive - [place]: no contractions Abdominal pain affecting 05/21/2023 07/02/2023 Overview: - intermittent contractions on toco, uterine irritability - good hydration - urine dip negative for UTI - cervix closed - low concern for labor at this time, patient counseled on latent labor precautions Last Assessment & Plan: - had presented to [facility] for colicky RUQ pain - RUQ US with cholelithiasis and biliary sludge - pain improved with dietary modification Pruritus gravidarum, third trimester 05/19/2023 05/29/2023 Last Assessment & Plan: - AST/ALT 57/105 (05/19)--> 49/103 (05/21) - bilirubin 0.2 (05/21) - RUQ ultrasound 05/19 cholelithiasis, gallbladder sludge - Bile acids pending, records requested from prior office - CMP today - Itching controlled with Atarax - BPP/ Anatomy scheduled tomorrow - HR OB consult 05/29 - Precautions reviewed 30 weeks gestation of 05/19/2023 05/23/2023 Cholestasis of 05/19/2023 Overview: - syndromic itching palms/soles, improves modestly with Benadryl - tried Ursadiol but didn't like GI side effects - bile acids 12.7 (05/14) -> 5.1( 7/31) in [place] -> 13 (31w) -> 7 (33w) -> 10.8 (36w) - elevated LFTs -> improving, most recent AST/ALT -> 40/50 - RUQ US- with cholelithiasis and biliary sludge, f/up with Gen Surg Last Assessment & Plan: - Labs reviewed Bile acids 12>5>13>7, LFT down-trending - Repeat bile acids and CMP today - NST in office today reactive, Cat 1 - Continue twice weekly testing - IOL scheduled this Saturday, 07/06 Cyst of right ovary 08/07/2018 05/23/20 23 documented as of this encounter (statuses as of 07/26/2023) [facility] of Past illness Narrative* Problem Noted Date Diagnosed Date Resolved Date Urinary retention 07/16/2023 07/22/2023 Overview: -mora replaced last night -poor urinary output > 500cc urine bolus -will continue to monitor closely Hypertension complicating pr egnancy, delivered, current hospitalization 07/16/202307/22 Pre-eclampsia in period 07/15/2023 07/22/2023 care following vaginal delivery 07/09/2023 07/10/2023 Encounter for induction of labor 07/06/2023 07/08/2023 Overview: - IOL ICP - GBS positive via bacteriuria, PCN - s/p 2 cytotec vaginal, 1 cytotec buccal - S/p mora balloon - Pitocin per high dose protocol - Epidural as needed - SROM at 0730 for clear - IUPC US @ 35w6d EFW 6#5oz 80% , AC 87% Yeast infection 06/29/2023 07/09/2023 Overview: - multiple pseudohyphae seen on microscopic exam - give fluconazole 150mg po Vaginal discharge during pre gnancy in third trimester 06/29/2023 07/02/2023 36 weeks gestation of 06/29/2023 07/02/2023 Asymptomatic bacteriuria during 05/29/2023 07/08/2023 Overview: GBS bacteriuria - plan for antibiotic prophylaxis intrapartum, PCN Last Assessment & Plan: - reviewed indication for PCN in labor - does not have significant Amoxicillin allergy Supervision of high risk pre gnancy in third trimester 05/23/2023 07/06/2023 Overview: -Routine labs: see scanned documents Rh positive Rubella immune 12/05 HIV NR 12/05 Hep B NR 12/05 Hep C NR 12/05 Syphilis NR 04/22 GC/CT neg 12/05 Pap NILM 12/05 Urine cx + UTI 01/01 -Anatomy US: 02/26 unremarkable, post placenta -24-28w labs CBC 10.1 04/22 RPR GCT pass 126 04/22 -Vaccines: TDAP 05/23 COVID Flu -Presentation: cephalic -Consent: signed 06/11 -Delivery plan: IOL 07/06 -PPBC: undecided -SS/PNP: video 05/23, PNP 05/29 -GBS: GBS pos 01/01 urine -Breast vs Formula: breast, nutrition done Last Assessment & Plan: - OB precautions, FKC reviewed - IOL scheduled this Saturday, 07/06 - NST reactive today - Has assistant facility manager, safe sleep space, car seat - L&D/ Team / Baby Friendly, PP expectations reviewed - PP visit schedule discussed - Desires circumcision for male infant Follow up as scheduled for BPP this Saturday and IOL Saturday as scheduled Cholestasis during in third trimester 05/23/2023 07/09/2023 Overview: - intermittent RUQ pain - RUQ US 05/19 cholelithiasis and gallbladder sludge - AST/ALT 57/105 (05/19)--> 49/103 (05/21) -> 40/50 (07/02) - bilirubin wnl - Reviewed dietary recommendations and symptoms improved but not resolved - f/up Gen Surg Last Assessment & Plan: - reviewed that symptoms improve with diet changes but not entirely resolved - reviewed plan to f/up with Gen Surg 6w Decreased movement 05/21/202306/2023 Overview: - Patient presents with decreased movement since this morning. This has resolved since presenting to the OB ED. Denies vaginal bleeding, loss of fluid. Right sided, crampy abdominal pain. - NST category 1, reactive - [place]: no contractions Abdominal pain affecting 05/21/2023 07/02/2023 Overview: - intermittent contractions on toco, uterine irritability - good hydration - urine dip negative for UTI - cervix closed - low concern for labor at this time, patient counseled on latent labor precautions Last Assessment & Plan: - had presented to [facility] for colicky RUQ pain - RUQ US with cholelithiasis and biliary sludge - pain improved with dietary modification Pruritus gravidarum, third trimester 05/19/2023 05/29/2023 Last Assessment & Plan: - AST/ALT 57/105 (05/19)--> 49/103 (05/21) - bilirubin 0.2 (05/21) - RUQ ultrasound 05/19 cholelithiasis, gallbladder sludge - Bile acids pending, records requested from prior office - CMP today - Itching controlled with Atarax - BPP/ Anatomy scheduled tomorrow - HR OB consult 05/29 - Precautions reviewed 30 weeks gestation of 05/19/2023 05/23/2023 Cholestasis of 05/19/2023 Overview: - syndromic itching palms/soles, improves modestly with Benadryl - tried Ursadiol but didn't like GI side effects - bile acids 12.7 (05/14) -> 5.1( 05/20) in [place] -> 13 (31w) -> 7 (33w) -> 10.8 (36w) - elevated LFTs -> improving, most recent AST/ALT -> 40/50 - RUQ US- with cholelithiasis and biliary sludge, f/up with Gen Surg Last Assessment & Plan: - Labs reviewed Bile acids 12>5>13>7, LFT down-trending - Repeat bile acids and CMP today - NST in office today reactive, Cat 1 - Continue twice weekly testing - IOL scheduled this Saturday, 07/06 Cyst of right ovary 08/07/2018 05/23/20 23 documented as of this encounter (statuses as of 08/05/2023) [facility] of Past illness Narrative* Problem Noted Date Diagnosed Date Resolved Date Urinary retention 07/16/2023 07/22/2023 Overview: -mora replaced last night -poor urinary output > 500cc urine bolus -will continue to monitor closely Hypertension complicating pr egnancy, delivered, current hospitalization 07/16/202307/22 Pre-eclampsia in period 07/15/2023 07/22/2023 care following vaginal delivery 07/09/2023 07/10/2023 Encounter for induction of labor 07/06/2023 07/08/2023 Overview: - IOL ICP - GBS positive via bacteriuria, PCN - s/p 2 cytotec vaginal, 1 cytotec buccal - S/p mora balloon - Pitocin per high dose protocol - Epidural as needed - SROM at 0730 for clear - IUPC US @ 35w6d EFW 6#5oz 80% , AC 87% Yeast infection 06/29/2023 07/09/2023 Overview: - multiple pseudohyphae seen on microscopic exam - give fluconazole 150mg po Vaginal discharge during pre gnancy in third trimester 06/29/2023 07/02/2023 36 weeks gestation of 06/29/2023 07/02/2023 Asymptomatic bacteriuria during 05/29/2023 07/08/2023 Overview: GBS bacteriuria - plan for antibiotic prophylaxis intrapartum, PCN Last Assessment & Plan: - reviewed indication for PCN in labor - does not have significant Amoxicillin allergy Supervision of high risk pre gnancy in third trimester 05/23/2023 07/06/2023 Overview: -Routine labs: see scanned documents Rh positive Rubella immune 12/05 HIV NR 12/05 Hep B NR 12/05 Hep C NR 12/05 Syphilis NR 04/22 GC/CT neg 12/05 Pap NILM 12/05 Urine cx + UTI 01/01 -Anatomy US: 02/26 unremarkable, post placenta -24-28w labs CBC 10.1 04/22 RPR GCT pass 126 04/22 -Vaccines: TDAP 05/23 COVID Flu -Presentation: cephalic -Consent: signed 06/11 -Delivery plan: IOL 07/06 -PPBC: undecided -SS/PNP: video 05/23, PNP 05/29 -GBS: GBS pos 01/01 urine -Breast vs Formula: breast, nutrition done Last Assessment & Plan: - OB precautions, FKC reviewed - IOL scheduled this Saturday, 07/06 - NST reactive today - Has assistant facility manager, safe sleep space, car seat - L&D/ Team / Baby Friendly, PP expectations reviewed - PP visit schedule discussed - Desires circumcision for male infant Follow up as scheduled for BPP this Saturday and IOL Saturday as scheduled Cholestasis during in third trimester 05/23/2023 07/09/2023 Overview: - intermittent RUQ pain - RUQ US 05/19 cholelithiasis and gallbladder sludge - AST/ALT 57/105 (05/19)--> 49/103 (05/21) -> 40/50 (07/02) - bilirubin wnl - Reviewed dietary recommendations and symptoms improved but not resolved - f/up Gen Surg Last Assessment & Plan: - reviewed that symptoms improve with diet changes but not entirely resolved - reviewed plan to f/up with Gen Surg 6w Decreased movement 05/21/202306/2023 Overview: - Patient presents with decreased movement since this morning. This has resolved since presenting to the OB ED. Denies vaginal bleeding, loss of fluid. Right sided, crampy abdominal pain. - NST category 1, reactive - [place]: no contractions Abdominal pain affecting 05/21/2023 07/02/2023 Overview: - intermittent contractions on toco, uterine irritability - good hydration - urine dip negative for UTI - cervix closed - low concern for labor at this time, patient counseled on latent labor precautions Last Assessment & Plan: - had presented to [facility] for colicky RUQ pain - RUQ US with cholelithiasis and biliary sludge - pain improved with dietary modification Pruritus gravidarum, third trimester 05/19/2023 05/29/2023 Last Assessment & Plan: - AST/ALT 57/105 (05/19)--> 49/103 (05/21) - bilirubin 0.2 (05/21) - RUQ ultrasound 05/19 cholelithiasis, gallbladder sludge - Bile acids pending, records requested from prior office - CMP today - Itching controlled with Atarax - BPP/ Anatomy scheduled tomorrow - HR OB consult 05/29 - Precautions reviewed 30 weeks gestation of 05/19/2023 05/23/2023 Cholestasis of 05/19/2023 Overview: - syndromic itching palms/soles, improves modestly with Benadryl - tried Ursadiol but didn't like GI side effects - bile acids 12.7 (05/14) -> 5.1( 05/20) in [place] -> 13 (31w) -> 7 (33w) -> 10.8 (36w) - elevated LFTs -> improving, most recent AST/ALT -> 40/50 - RUQ US- with cholelithiasis and biliary sludge, f/up with Gen Surg Last Assessment & Plan: - Labs reviewed Bile acids 12>5>13>7, LFT down-trending - Repeat bile acids and CMP today - NST in office today reactive, Cat 1 - Continue twice weekly testing - IOL scheduled this Saturday, 07/06 Cyst of right ovary 08/07/2018 05/23/20 23 documented as of this encounter (statuses as of 08/06/2023) [facility] History of Past illness Narrative* Problem Noted Date Diagnosed Date Resolved Date Urinary retention 07/16/2023 07/22/2023 Overview: -mora replaced last night -poor urinary output > 500cc urine bolus -will continue to monitor closely Hypertension complicating pr egnancy, delivered, current hospitalization 07/16/202307/22 Pre-eclampsia in period 07/15/2023 07/22/2023 care following vaginal delivery 07/09/2023 07/10/2023 Encounter for induction of labor 07/06/2023 07/08/2023 Overview: - IOL ICP - GBS positive via bacteriuria, PCN - s/p 2 cytotec vaginal, 1 cytotec buccal - S/p mora balloon - Pitocin per high dose protocol - Epidural as needed - SROM at 0730 for clear - IUPC US @ 35w6d EFW 6#5oz 80% , AC 87% Yeast infection 06/29/2023 07/09/2023 Overview: - multiple pseudohyphae seen on microscopic exam - give fluconazole 150mg po Vaginal discharge during pre gnancy in third trimester 06/29/2023 07/02/2023 36 weeks gestation of 06/29/2023 07/02/2023 Asymptomatic bacteriuria during 05/29/2023 07/08/2023 Overview: GBS bacteriuria - plan for antibiotic prophylaxis intrapartum, PCN Last Assessment & Plan: - reviewed indication for PCN in labor - does not have significant Amoxicillin allergy Supervision of high risk pre gnancy in third trimester 05/23/2023 07/06/2023 Overview: -Routine labs: see scanned documents Rh positive Rubella immune 12/05 HIV NR 12/05 Hep B NR 12/05 Hep C NR 12/05 Syphilis NR 04/22 GC/CT neg 12/05 Pap NILM 12/05 Urine cx + UTI 01/01 -Anatomy US: 02/26 unremarkable, post placenta -24-28w labs CBC 10.1 7/3 RPR GCT pass 126 7/3 -Vaccines: TDAP 05/23 COVID Flu -Presentation: cephalic -Consent: signed 06/11 -Delivery plan: IOL 07/06 -PPBC: undecided -SS/PNP: video 05/23, PNP 05/29 -GBS: GBS pos 01/01 urine -Breast vs Formula: breast, nutrition done Last Assessment & Plan: - OB precautions, FKC reviewed - IOL scheduled this Saturday, 07/06 - NST reactive today - Has assistant facility manager, safe sleep space, car seat - L&D/ Team / Baby Friendly, PP expectations reviewed - PP visit schedule discussed - Desires circumcision for male infant Follow up as scheduled for BPP this Saturday and IOL Saturday as scheduled Cholestasis during in third trimester 05/23/2023 07/09/2023 Overview: - intermittent RUQ pain - RUQ US 05/19 cholelithiasis and gallbladder sludge - AST/ALT 57/105 (05/19)--> 49/103 (05/21) -> 40/50 (07/02) - bilirubin wnl - Reviewed dietary recommendations and symptoms improved but not resolved - f/up Gen Surg Last Assessment & Plan: - reviewed that symptoms improve with diet changes but not entirely resolved - reviewed plan to f/up with Gen Surg 6w Decreased movement 05/21/202306/2023 Overview: - Patient presents with decreased movement since this morning. This has resolved since presenting to the OB ED. Denies vaginal bleeding, loss of fluid. Right sided, crampy abdominal pain. - NST category 1, reactive - [place]: no contractions Abdominal pain affecting 05/21/2023 07/02/2023 Overview: - intermittent contractions on toco, uterine irritability - good hydration - urine dip negative for UTI - cervix closed - low concern for labor at this time, patient counseled on latent labor precautions Last Assessment & Plan: - had presented to [facility] for colicky RUQ pain - RUQ US with cholelithiasis and biliary sludge - pain improved with dietary modification Pruritus gravidarum, third trimester 05/19/2023 05/29/2023 Last Assessment & Plan: - AST/ALT 57/105 (05/19)--> 49/103 (05/21) - bilirubin 0.2 (05/21) - RUQ ultrasound 05/19 cholelithiasis, gallbladder sludge - Bile acids pending, records requested from prior office - CMP today - Itching controlled with Atarax - BPP/ Anatomy scheduled tomorrow - HR OB consult 05/29 - Precautions reviewed 30 weeks gestation of 05/19/2023 05/23/2023 Cholestasis of 05/19/2023 Overview: - syndromic itching palms/soles, improves modestly with Benadryl - tried Ursadiol but didn't like GI side effects - bile acids 12.7 (05/14) -> 5.1( 05/20) in [place] -> 13 (31w) -> 7 (33w) -> 10.8 (36w) - elevated LFTs -> improving, most recent AST/ALT -> 40/50 - RUQ US- with cholelithiasis and biliary sludge, f/up with Gen Surg Last Assessment & Plan: - Labs reviewed Bile acids 12>5>13>7, LFT down-trending - Repeat bile acids and CMP today - NST in office today reactive, Cat 1 - Continue twice weekly testing - IOL scheduled this Saturday, 07/06 Cyst of right ovary 08/07/2018 05/23/20 23 documented as of this encounter (statuses as of 08/06/2023) [facility]09[facility] History of Past illness Narrative* Problem Noted Date Diagnosed Date Resolved Date Urinary retention 07/16/2023 07/22/2023 Overview: -mora replaced last night -poor urinary output > 500cc urine bolus -will continue to monitor closely Hypertension complicating pr egnancy, delivered, current hospitalization 07/16/202307/22 care following vaginal delivery 07/09/2023 07/10/2023 Encounter for induction of labor 07/06/2023 07/08/2023 Overview: - IOL ICP - GBS positive via bacteriuria, PCN - s/p 2 cytotec vaginal, 1 cytotec buccal - S/p mora balloon - Pitocin per high dose protocol - Epidural as needed - SROM at 0730 for clear - IUPC US @ 35w6d EFW 6#5oz 80% , AC 87% Yeast infection 06/29/2023 07/09/2023 Overview: - multiple pseudohyphae seen on microscopic exam - give fluconazole 150mg po Vaginal discharge during pre gnancy in third trimester 06/29/2023 07/02/2023 36 weeks gestation of 06/29/2023 07/02/2023 Asymptomatic bacteriuria during 05/29/2023 07/08/2023 Overview: GBS bacteriuria - plan for antibiotic prophylaxis intrapartum, PCN Last Assessment & Plan: - reviewed indication for PCN in labor - does not have significant Amoxicillin allergy Supervision of high risk pre gnancy in third trimester 05/23/2023 07/06/2023 Overview: -Routine labs: see scanned documents Rh positive Rubella immune 12/05 HIV NR 12/05 Hep B NR 12/05 Hep C NR 12/05 Syphilis NR 04/22 GC/CT neg 12/05 Pap NILM 12/05 Urine cx + UTI 01/01 -Anatomy US: 02/26 unremarkable, post placenta -24-28w labs CBC 10.1 04/22 RPR GCT pass 126 04/22 -Vaccines: TDAP 05/23 COVID Flu -Presentation: cephalic -Consent: signed 06/11 -Delivery plan: IOL 07/06 -PPBC: undecided -SS/PNP: video 05/23, PNP 05/29 -GBS: GBS pos 01/01 urine -Breast vs Formula: breast, nutrition done Last Assessment & Plan: - OB precautions, FKC reviewed - IOL scheduled this Saturday, 07/06 - NST reactive today - Has assistant facility manager, safe sleep space, car seat - L&D/ Team / Baby Friendly, PP expectations reviewed - PP visit schedule discussed - Desires circumcision for male infant Follow up as scheduled for BPP this Saturday and IOL Saturday as scheduled Cholestasis during in third trimester 05/23/2023 07/09/2023 Overview: - intermittent RUQ pain - RUQ US 05/19 cholelithiasis and gallbladder sludge - AST/ALT 57/105 (05/19)--> 49/103 (05/21) -> 40/50 (07/02) - bilirubin wnl - Reviewed dietary recommendations and symptoms improved but not resolved - f/up Gen Surg Last Assessment & Plan: - reviewed that symptoms improve with diet changes but not entirely resolved - reviewed plan to f/up with Gen Surg 6w Decreased movement 05/21/202306/2023 Overview: - Patient presents with decreased movement since this morning. This has resolved since presenting to the OB ED. Denies vaginal bleeding, loss of fluid. Right sided, crampy abdominal pain. - NST category 1, reactive - [place]: no contractions Abdominal pain affecting 05/21/2023 07/02/2023 Overview: - intermittent contractions on toco, uterine irritability - good hydration - urine dip negative for UTI - cervix closed - low concern for labor at this time, patient counseled on latent labor precautions Last Assessment & Plan: - had presented to [facility] for colicky RUQ pain - RUQ US with cholelithiasis and biliary sludge - pain improved with dietary modification Pruritus gravidarum, third trimester 05/19/2023 05/29/2023 Last Assessment & Plan: - AST/ALT 57/105 (05/19)--> 49/103 (05/21) - bilirubin 0.2 (05/21) - RUQ ultrasound 05/19 cholelithiasis, gallbladder sludge - Bile acids pending, records requested from prior office - CMP today - Itching controlled with Atarax - BPP/ Anatomy scheduled tomorrow - HR OB consult 05/29 - Precautions reviewed 30 weeks gestation of 05/19/2023 05/23/2023 Cholestasis of 05/19/2023 Overview: - syndromic itching palms/soles, improves modestly with Benadryl - tried Ursadiol but didn't like GI side effects - bile acids 12.7 (05/14) -> 5.1( 05/20) in [place] -> 13 (31w) -> 7 (33w) -> 10.8 (36w) - elevated LFTs -> improving, most recent AST/ALT -> 40/50 - RUQ US- with cholelithiasis and biliary sludge, f/up with Gen Surg Last Assessment & Plan: - Labs reviewed Bile acids 12>5>13>7, LFT down-trending - Repeat bile acids and CMP today - NST in office today reactive, Cat 1 - Continue twice weekly testing - IOL scheduled this Saturday, 07/06 Cyst of right ovary 08/07/2018 05/23/20 documented as of this encounter (statuses as of 08/20/2023) [facility]09-26-2023 Miscellaneous Notes* Telephone Encounter - Mitch Galicia - 07/16/2023 1:32 PM EDT Spoke with patient this morning and she stated she already has 2 week PP visit scheduled for 07/19/23 and would have her BP checked at that time. Mitch Galicia July 16, 2023 1:34 PM * Telephone Encounter - Jen Maguire MD - 07/16/2023 1:24 PM EDT Images from the original note were not included. Pt is a pre-eclampsia re-admit. She will be discharged today and needs a 72hr blood pressure check with nursing. Please contact patient to schedule. Jen Maguire MD [facility] Miscellaneous Notes* Telephone Encounter - Mitch Galicia - 07/16/2023 9:27 AM EDT Called patient X2, patient stated she is still admitted in [facility] and already has her 2 week PP visit on Saturday07/19/23, will have her BP checked then. Mitch Galicia July 16, 2023 9:29 AM * Telephone Encounter - Mitch Galicia - 07/15/2023 9:35 AM EDT Called patient X1 LVM Mitch Galicia July 15, 2023 9:35 AM [facility] Miscellaneous Notes* Telephone Encounter - Lisa Leung DO - 07/14/2023 8:57 PM EDT Images from the original note were not included. Patient called answering service with blood pressure concern. Verified name and . States she is and has a headache and went to fire department and systolic BP was in 170s. She also endorses a fever. She was advised to present to OB ED. She has a ride and will be presenting as soon as possible. SIGNATURE: Lisa Leung DO PATIENT NAME: Petty Underwood DATE: 07/14/2023 TIME: 8:57 PM PAGER/CONTACT #: [id number] documented [facility] Miscellaneous Notes* Telephone Encounter - Tati Turpin MD - 07/12/2023 9:48 PM EDT Images from the original note were not included. Patient called after hour line, stating left sided chest pain radiating down left arm and swelling of bilateral hands. Chest pain occurring throughout the day, most recently 15 minutes ago. Patient is s/p on 07/08 with uncomplicated course. Instructed to be evaluated at the nearest emergency department. Tati Turpin MD [facility] History of Past illness Narrative* Problem Noted Date Diagnosed Date Resolved Date care following vaginal delivery 07/09/2023 07/10/2023 Encounter for induction of labor 07/06/2023 07/08/2023 Overview: - IOL ICP - GBS positive via bacteriuria, PCN - s/p 2 cytotec vaginal, 1 cytotec buccal - S/p mora balloon - Pitocin per high dose protocol - Epidural as needed - SROM at 0730 for clear - IUPC US @ 35w6d EFW 6#5oz 80% , AC 87% Yeast infection 06/29/2023 07/09/2023 Overview: - multiple pseudohyphae seen on microscopic exam - give fluconazole 150mg po Vaginal discharge during pre gnancy in third trimester 06/29/2023 07/02/2023 36 weeks gestation of 06/29/2023 07/02/2023 Asymptomatic bacteriuria during 05/29/2023 07/08/2023 Overview: GBS bacteriuria - plan for antibiotic prophylaxis intrapartum, PCN Last Assessment & Plan: - reviewed indication for PCN in labor - does not have significant Amoxicillin allergy Supervision of high risk pre gnancy in third trimester 05/23/2023 07/06/2023 Overview: -Routine labs: see scanned documents Rh positive Rubella immune 12/05 HIV NR 12/05 Hep B NR 12/05 Hep C NR 12/05 Syphilis NR 04/22 GC/CT neg 12/05 Pap NILM 12/05 Urine cx + UTI 01/01 -Anatomy US: 02/26 unremarkable, post placenta -24-28w labs CBC 10.1 04/22 RPR GCT pass 126 04/22 -Vaccines: TDAP 05/23 COVID Flu -Presentation: cephalic -Consent: signed 06/11 -Delivery plan: IOL 07/06 -PPBC: undecided -SS/PNP: video 05/23, PNP 05/29 -GBS: GBS pos 01/01 urine -Breast vs Formula: breast, nutrition done Last Assessment & Plan: - OB precautions, FKC reviewed - IOL scheduled this Saturday, 07/06 - NST reactive today - Has assistant facility manager, safe sleep space, car seat - L&D/ Team / Baby Friendly, PP expectations reviewed - PP visit schedule discussed - Desires circumcision for male infant Follow up as scheduled for BPP this Saturday and IOL Saturday as scheduled Cholestasis during in third trimester 05/23/2023 07/09/2023 Overview: - intermittent RUQ pain - RUQ US 05/19 cholelithiasis and gallbladder sludge - AST/ALT 57/105 (05/19)--> 49/103 (05/21) -> 40/50 (07/02) - bilirubin wnl - Reviewed dietary recommendations and symptoms improved but not resolved - f/up Gen Surg Last Assessment & Plan: - reviewed that symptoms improve with diet changes but not entirely resolved - reviewed plan to f/up with Gen Surg 6w Decreased movement 05/21/202306/2023 Overview: - Patient presents with decreased movement since this morning. This has resolved since presenting to the OB ED. Denies vaginal bleeding, loss of fluid. Right sided, crampy abdominal pain. - NST category 1, reactive - [place]: no contractions Abdominal pain affecting 05/21/2023 07/02/2023 Overview: - intermittent contractions on toco, uterine irritability - good hydration - urine dip negative for UTI - cervix closed - low concern for labor at this time, patient counseled on latent labor precautions Last Assessment & Plan: - had presented to [facility] for colicky RUQ pain - RUQ US with cholelithiasis and biliary sludge - pain improved with dietary modification Pruritus gravidarum, third trimester 05/19/2023 05/29/2023 Last Assessment & Plan: - AST/ALT 57/105 (05/19)--> 49/103 (05/21) - bilirubin 0.2 (05/21) - RUQ ultrasound 05/19 cholelithiasis, gallbladder sludge - Bile acids pending, records requested from prior office - CMP today - Itching controlled with Atarax - BPP/ Anatomy scheduled tomorrow - HR OB consult 05/29 - Precautions reviewed 30 weeks gestation of 05/19/2023 05/23/2023 Cholestasis of 05/19/2023 Overview: - syndromic itching palms/soles, improves modestly with Benadryl - tried Ursadiol but didn't like GI side effects - bile acids 12.7 (05/14) -> 5.1( 05/20) in [place] -> 13 (31w) -> 7 (33w) -> 10.8 (36w) - elevated LFTs -> improving, most recent AST/ALT -> 40/50 - RUQ US- with cholelithiasis and biliary sludge, f/up with Gen Surg Last Assessment & Plan: - Labs reviewed Bile acids 12>5>13>7, LFT down-trending - Repeat bile acids and CMP today - NST in office today reactive, Cat 1 - Continue twice weekly testing - IOL scheduled this Saturday, 07/06 Cyst of right ovary 08/07/2018 05/23/20 23 documented as of this encounter (statuses as of 07/13/2023) [facility] of Past illness Narrative* Problem Noted Date Diagnosed Date Resolved Date care following vaginal delivery 07/09/2023 07/10/2023 Encounter for induction of labor 07/06/2023 07/08/2023 Overview: - IOL ICP - GBS positive via bacteriuria, PCN - s/p 2 cytotec vaginal, 1 cytotec buccal - S/p mora balloon - Pitocin per high dose protocol - Epidural as needed - SROM at 0730 for clear - IUPC US @ 35w6d EFW 6#5oz 80% , AC 87% Yeast infection 06/29/2023 07/09/2023 Overview: - multiple pseudohyphae seen on microscopic exam - give fluconazole 150mg po Vaginal discharge during pre gnancy in third trimester 06/29/2023 07/02/2023 36 weeks gestation of 06/29/2023 07/02/2023 Asymptomatic bacteriuria during 05/29/2023 07/08/2023 Overview: GBS bacteriuria - plan for antibiotic prophylaxis intrapartum, PCN Last Assessment & Plan: - reviewed indication for PCN in labor - does not have significant Amoxicillin allergy Supervision of high risk pre gnancy in third trimester 05/23/2023 07/06/2023 Overview: -Routine labs: see scanned documents Rh positive Rubella immune 12/05 HIV NR 12/05 Hep B NR 12/05 Hep C NR 12/05 Syphilis NR 04/22 GC/CT neg 12/05 Pap NILM 12/05 Urine cx + UTI 01/01 -Anatomy US: 02/26 unremarkable, post placenta -24-28w labs CBC 10.1 04/22 RPR GCT pass 126 04/22 -Vaccines: TDAP 05/23 COVID Flu -Presentation: cephalic -Consent: signed 06/11 -Delivery plan: IOL 07/06 -PPBC: undecided -SS/PNP: video 05/23, PNP 05/29 -GBS: GBS pos 01/01 urine -Breast vs Formula: breast, nutrition done Last Assessment & Plan: - OB precautions, FKC reviewed - IOL scheduled this Saturday, 07/06 - NST reactive today - Has assistant facility manager, safe sleep space, car seat - L&D/ Team / Baby Friendly, PP expectations reviewed - PP visit schedule discussed - Desires circumcision for male infant Follow up as scheduled for BPP this Saturday and IOL Saturday as scheduled Cholestasis during in third trimester 05/23/2023 07/09/2023 Overview: - intermittent RUQ pain - RUQ US 05/19 cholelithiasis and gallbladder sludge - AST/ALT 57/105 (05/19)--> 49/103 (05/21) -> 40/50 (07/02) - bilirubin wnl - Reviewed dietary recommendations and symptoms improved but not resolved - f/up Gen Surg Last Assessment & Plan: - reviewed that symptoms improve with diet changes but not entirely resolved - reviewed plan to f/up with Gen Surg 6w Decreased movement 05/21/202306/2023 Overview: - Patient presents with decreased movement since this morning. This has resolved since presenting to the OB ED. Denies vaginal bleeding, loss of fluid. Right sided, crampy abdominal pain. - NST category 1, reactive - [place]: no contractions Abdominal pain affecting 05/21/2023 07/02/2023 Overview: - intermittent contractions on toco, uterine irritability - good hydration - urine dip negative for UTI - cervix closed - low concern for labor at this time, patient counseled on latent labor precautions Last Assessment & Plan: - had presented to [facility] for colicky RUQ pain - RUQ US with cholelithiasis and biliary sludge - pain improved with dietary modification Pruritus gravidarum, third trimester 05/19/2023 05/29/2023 Last Assessment & Plan: - AST/ALT 57/105 (05/19)--> 49/103 (05/21) - bilirubin 0.2 (05/21) - RUQ ultrasound 05/19 cholelithiasis, gallbladder sludge - Bile acids pending, records requested from prior office - CMP today - Itching controlled with Atarax - BPP/ Anatomy scheduled tomorrow - HR OB consult 05/29 - Precautions reviewed 30 weeks gestation of 05/19/2023 05/23/2023 Cholestasis of 05/19/2023 Overview: - syndromic itching palms/soles, improves modestly with Benadryl - tried Ursadiol but didn't like GI side effects - bile acids 12.7 (05/14) -> 5.1( 05/20) in [place] -> 13 (31w) -> 7 (33w) -> 10.8 (36w) - elevated LFTs -> improving, most recent AST/ALT -> 40/50 - RUQ US- with cholelithiasis and biliary sludge, f/up with Gen Surg Last Assessment & Plan: - Labs reviewed Bile acids 12>5>13>7, LFT down-trending - Repeat bile acids and CMP today - NST in office today reactive, Cat 1 - Continue twice weekly testing - IOL scheduled this Saturday, 07/06 Cyst of right ovary 08/07/2018 05/23/20 23 documented as of this encounter (statuses as of 07/15/2023) [facility] Narrative* Problem Noted Date Diagnosed Date Resolved Date care following vaginal delivery 07/09/2023 07/10/2023 Encounter for induction of labor 07/06/2023 07/08/2023 Overview: - IOL ICP - GBS positive via bacteriuria, PCN - s/p 2 cytotec vaginal, 1 cytotec buccal - S/p mora balloon - Pitocin per high dose protocol - Epidural as needed - SROM at 0730 for clear - IUPC US @ 35w6d EFW 6#5oz 80% , AC 87% Yeast infection 06/29/2023 07/09/2023 Overview: - multiple pseudohyphae seen on microscopic exam - give fluconazole 150mg po Vaginal discharge during pre gnancy in third trimester 06/29/2023 07/02/2023 36 weeks gestation of 06/29/2023 07/02/2023 Asymptomatic bacteriuria during 05/29/2023 07/08/2023 Overview: GBS bacteriuria - plan for antibiotic prophylaxis intrapartum, PCN Last Assessment & Plan: - reviewed indication for PCN in labor - does not have significant Amoxicillin allergy Supervision of high risk pre gnancy in third trimester 05/23/2023 07/06/2023 Overview: -Routine labs: see scanned documents Rh positive Rubella immune 12/05 HIV NR 12/05 Hep B NR 12/05 Hep C NR 12/05 Syphilis NR 04/22 GC/CT neg 12/05 Pap NILM 12/05 Urine cx + UTI 01/01 -Anatomy US: 02/26 unremarkable, post placenta -24-28w labs CBC 10.1 04/22 RPR GCT pass 126 04/22 -Vaccines: TDAP 05/23 COVID Flu -Presentation: cephalic -Consent: signed 06/11 -Delivery plan: IOL 07/06 -PPBC: undecided -SS/PNP: video 05/23, PNP 05/29 -GBS: GBS pos 01/01 urine -Breast vs Formula: breast, nutrition done Last Assessment & Plan: - OB precautions, FKC reviewed - IOL scheduled this Saturday, 07/06 - NST reactive today - Has assistant facility manager, safe sleep space, car seat - L&D/ Team / Baby Friendly, PP expectations reviewed - PP visit schedule discussed - Desires circumcision for male infant Follow up as scheduled for BPP this Saturday and IOL Saturday as scheduled Cholestasis during in third trimester 05/23/2023 07/09/2023 Overview: - intermittent RUQ pain - RUQ US 05/19 cholelithiasis and gallbladder sludge - AST/ALT 57/105 (05/19)--> 49/103 (05/21) -> 40/50 (07/02) - bilirubin wnl - Reviewed dietary recommendations and symptoms improved but not resolved - f/up Gen Surg Last Assessment & Plan: - reviewed that symptoms improve with diet changes but not entirely resolved - reviewed plan to f/up with Gen Surg 6w Decreased movement 05/21/202306/2023 Overview: - Patient presents with decreased movement since this morning. This has resolved since presenting to the OB ED. Denies vaginal bleeding, loss of fluid. Right sided, crampy abdominal pain. - NST category 1, reactive - [place]: no contractions Abdominal pain affecting 05/21/2023 07/02/2023 Overview: - intermittent contractions on toco, uterine irritability - good hydration - urine dip negative for UTI - cervix closed - low concern for labor at this time, patient counseled on latent labor precautions Last Assessment & Plan: - had presented to [facility] for colicky RUQ pain - RUQ US with cholelithiasis and biliary sludge - pain improved with dietary modification Pruritus gravidarum, third trimester 05/19/2023 05/29/2023 Last Assessment & Plan: - AST/ALT 57/105 (05/19)--> 49/103 (05/21) - bilirubin 0.2 (05/21) - RUQ ultrasound 05/19 cholelithiasis, gallbladder sludge - Bile acids pending, records requested from prior office - CMP today - Itching controlled with Atarax - BPP/ Anatomy scheduled tomorrow - HR OB consult 05/29 - Precautions reviewed 30 weeks gestation of 05/19/2023 05/23/2023 Cholestasis of 05/19/2023 Overview: - syndromic itching palms/soles, improves modestly with Benadryl - tried Ursadiol but didn't like GI side effects - bile acids 12.7 (05/14) -> 5.1( 05/20) in [place] -> 13 (31w) -> 7 (33w) -> 10.8 (36w) - elevated LFTs -> improving, most recent AST/ALT -> 40/50 - RUQ US- with cholelithiasis and biliary sludge, f/up with Gen Surg Last Assessment & Plan: - Labs reviewed Bile acids 12>5>13>7, LFT down-trending - Repeat bile acids and CMP today - NST in office today reactive, Cat 1 - Continue twice weekly testing - IOL scheduled this Saturday, 07/06 Cyst of right ovary 08/07/2018 05/23/20 23 documented as of this encounter (statuses as of 07/16/2023) [facility]09-19-2023 History of Past illness Narrative* Problem Noted Date Diagnosed Date Resolved Date care following vaginal delivery 07/09/2023 07/10/2023 Encounter for induction of labor 07/06/2023 07/08/2023 Overview: - IOL ICP - GBS positive via bacteriuria, PCN - s/p 2 cytotec vaginal, 1 cytotec buccal - S/p mora balloon - Pitocin per high dose protocol - Epidural as needed - SROM at 0730 for clear - IUPC US @ 35w6d EFW 6#5oz 80% , AC 87% Yeast infection 06/29/2023 07/09/2023 Overview: - multiple pseudohyphae seen on microscopic exam - give fluconazole 150mg po Vaginal discharge during pre gnancy in third trimester 06/29/2023 07/02/2023 36 weeks gestation of 06/29/2023 07/02/2023 Asymptomatic bacteriuria during 05/29/2023 07/08/2023 Overview: GBS bacteriuria - plan for antibiotic prophylaxis intrapartum, PCN Last Assessment & Plan: - reviewed indication for PCN in labor - does not have significant Amoxicillin allergy Supervision of high risk pre gnancy in third trimester 05/23/2023 07/06/2023 Overview: -Routine labs: see scanned documents Rh positive Rubella immune 12/05 HIV NR 12/05 Hep B NR 12/05 Hep C NR 12/05 Syphilis NR 04/22 GC/CT neg 12/05 Pap NILM 12/05 Urine cx + UTI 01/01 -Anatomy US: 02/26 unremarkable, post placenta -24-28w labs CBC 10.1 7/3 RPR GCT pass 126 7/3 -Vaccines: TDAP 8 COVID Flu -Presentation: cephalic -Consent: signed 06/11 -Delivery plan: IOL 07/06 -PPBC: undecided -SS/PNP: video 05/23, PNP 05/29 -GBS: GBS pos 01/01 urine -Breast vs Formula: breast, nutrition done Last Assessment & Plan: - OB precautions, FKC reviewed - IOL scheduled this Saturday, 07/06 - NST reactive today - Has assistant facility manager, safe sleep space, car seat - L&D/ Team / [employer], PP expectations reviewed - PP visit schedule discussed - Desires circumcision for male Follow up as scheduled for BPP this Saturday and IOL Saturday as scheduled Cholestasis during in third trimester 05/23/2023 07/09/2023 Overview: - intermittent RUQ pain - RUQ US 05/19 cholelithiasis and gallbladder sludge - AST/ALT 57/105 (05/19)--> 49/103 (05/21) -> 40/50 (07/02) - bilirubin wnl - Reviewed dietary recommendations and symptoms improved but not resolved - f/up Gen Surg Last Assessment & Plan: - reviewed that symptoms improve with diet changes but not entirely resolved - reviewed plan to f/up with Gen Surg 6w Decreased movement 05/21/202306/2023 Overview: - Patient presents with decreased movement since this morning. This has resolved since presenting to the OB ED. Denies vaginal bleeding, loss of fluid. Right sided, crampy abdominal pain. - NST category 1, reactive - [place]: no contractions Abdominal pain affecting 05/21/2023 07/02/2023 Overview: - intermittent contractions on toco, uterine irritability - good hydration - urine dip negative for UTI - cervix closed - low concern for labor at this time, patient counseled on latent labor precautions Last Assessment & Plan: - had presented to [facility] for colicky RUQ pain - RUQ US with cholelithiasis and biliary sludge - pain improved with dietary modification Pruritus gravidarum, third trimester 05/19/2023 05/29/2023 Last Assessment & Plan: - AST/ALT 57/105 (05/19)--> 49/103 (05/21) - bilirubin 0.2 (05/21) - RUQ ultrasound 05/19 cholelithiasis, gallbladder sludge - Bile acids pending, records requested from prior office - CMP today - Itching controlled with Atarax - BPP/ Anatomy scheduled tomorrow - HR OB consult 05/29 - Precautions reviewed 30 weeks gestation of 05/19/2023 05/23/2023 Cholestasis of 05/19/2023 Overview: - syndromic itching palms/soles, improves modestly with Benadryl - tried Ursadiol but didn't like GI side effects - bile acids 12.7 (05/14) -> 5.1( 05/20) in [place] -> 13 (31w) -> 7 (33w) -> 10.8 (36w) - elevated LFTs -> improving, most recent AST/ALT -> 40/50 - RUQ US- with cholelithiasis and biliary sludge, f/up with Gen Surg Last Assessment & Plan: - Labs reviewed Bile acids 12>5>13>7, LFT down-trending - Repeat bile acids and CMP today - NST in office today reactive, Cat 1 - Continue twice weekly testing - IOL scheduled this Saturday, 07/06 Cyst of right ovary 08/07/2018 05/23/20 23 documented as of this encounter (statuses as of 07/16/2023) [facility]09[facility] History of Past illness Narrative* Problem Noted Date Diagnosed Date Resolved Date care following vaginal delivery 07/09/2023 07/10/2023 Encounter for induction of labor 07/06/2023 07/08/2023 Overview: - IOL ICP - GBS positive via bacteriuria, PCN - s/p 2 cytotec vaginal, 1 cytotec buccal - S/p mora balloon - Pitocin per high dose protocol - Epidural as needed - SROM at 0730 for clear - IUPC US @ 35w6d EFW 6#5oz 80% , AC 87% Yeast infection 06/29/2023 07/09/2023 Overview: - multiple pseudohyphae seen on microscopic exam - give fluconazole 150mg po Vaginal discharge during pre gnancy in third trimester 06/29/2023 07/02/2023 36 weeks gestation of 06/29/2023 07/02/2023 Asymptomatic bacteriuria during 05/29/2023 07/08/2023 Overview: GBS bacteriuria - plan for antibiotic prophylaxis intrapartum, PCN Last Assessment & Plan: - reviewed indication for PCN in labor - does not have significant Amoxicillin allergy Supervision of high risk pre gnancy in third trimester 05/23/2023 07/06/2023 Overview: -Routine labs: see scanned documents Rh positive Rubella immune 12/05 HIV NR 12/05 Hep B NR 12/05 Hep C NR 12/05 Syphilis NR 04/22 GC/CT neg 12/05 Pap NILM 12/05 Urine cx + UTI 01/01 -Anatomy US: 02/26 unremarkable, post placenta -24-28w labs CBC 10.1 04/22 RPR GCT pass 126 04/22 -Vaccines: TDAP 05/23 COVID Flu -Presentation: cephalic -Consent: signed 06/11 -Delivery plan: IOL 07/06 -PPBC: undecided -SS/PNP: video 05/23, PNP 05/29 -GBS: GBS pos 01/01 urine -Breast vs Formula: breast, nutrition done Last Assessment & Plan: - OB precautions, FKC reviewed - IOL scheduled this Saturday, 07/06 - NST reactive today - Has assistant facility manager, safe sleep space, car seat - L&D/ Team / Baby Friend[employer], PP expectations reviewed - PP visit schedule discussed - Desires circumcision for male infant Follow up as scheduled for BPP this Saturday and IOL Saturday as scheduled Cholestasis during in third trimester 05/23/2023 07/09/2023 Overview: - intermittent RUQ pain - RUQ US 05/19 cholelithiasis and gallbladder sludge - AST/ALT 57/105 (05/19)--> 49/103 (05/21) -> 40/50 (07/02) - bilirubin wnl - Reviewed dietary recommendations and symptoms improved but not resolved - f/up Gen Surg Last Assessment & Plan: - reviewed that symptoms improve with diet changes but not entirely resolved - reviewed plan to f/up with Gen Surg 6w Decreased movement 05/21/202306/2023 Overview: - Patient presents with decreased movement since this morning. This has resolved since presenting to the OB ED. Denies vaginal bleeding, loss of fluid. Right sided, crampy abdominal pain. - NST category 1, reactive - [place]: no contractions Abdominal pain affecting 05/21/2023 07/02/2023 Overview: - intermittent contractions on toco, uterine irritability - good hydration - urine dip negative for UTI - cervix closed - low concern for labor at this time, patient counseled on latent labor precautions Last Assessment & Plan: - had presented to [facility] for colicky RUQ pain - RUQ US with cholelithiasis and biliary sludge - pain improved with dietary modification Pruritus gravidarum, third trimester 05/19/2023 05/29/2023 Last Assessment & Plan: - AST/ALT 57/105 (05/19)--> 49/103 (05/21) - bilirubin 0.2 (05/21) - RUQ ultrasound 05/19 cholelithiasis, gallbladder sludge - Bile acids pending, records requested from prior office - CMP today - Itching controlled with Atarax - BPP/ Anatomy scheduled tomorrow - HR OB consult 05/29 - Precautions reviewed 30 weeks gestation of 05/19/2023 05/23/2023 Cholestasis of 05/19/2023 Overview: - syndromic itching palms/soles, improves modestly with Benadryl - tried Ursadiol but didn't like GI side effects - bile acids 12.7 (05/14) -> 5.1( 05/20) in [place] -> 13 (31w) -> 7 (33w) -> 10.8 (36w) - elevated LFTs -> improving, most recent AST/ALT -> 40/50 - RUQ US- with cholelithiasis and biliary sludge, f/up with Gen Surg Last Assessment & Plan: - Labs reviewed Bile acids 12>5>13>7, LFT down-trending - Repeat bile acids and CMP today - NST in office today reactive, Cat 1 - Continue twice weekly testing - IOL scheduled this Saturday, 07/06 Cyst of right ovary 08/07/2018 05/23/20 23 documented as of this encounter (statuses as of 07/17/2023) [facility]09-19-[facility] History of Past illness Narrative* Problem Noted Date Diagnosed Date Resolved Date care following vaginal delivery 07/09/2023 07/10/2023 Encounter for induction of labor 07/06/2023 07/08/2023 Overview: - IOL ICP - GBS positive via bacteriuria, PCN - s/p 2 cytotec vaginal, 1 cytotec buccal - S/p mora balloon - Pitocin per high dose protocol - Epidural as needed - SROM at 0730 for clear - IUPC US @ 35w6d EFW 6#5oz 80% , AC 87% Yeast infection 06/29/2023 07/09/2023 Overview: - multiple pseudohyphae seen on microscopic exam - give fluconazole 150mg po Vaginal discharge during pre gnancy in third trimester 06/29/2023 07/02/2023 36 weeks gestation of 06/29/2023 07/02/2023 Asymptomatic bacteriuria during 05/29/2023 07/08/2023 Overview: GBS bacteriuria - plan for antibiotic prophylaxis intrapartum, PCN Last Assessment & Plan: - reviewed indication for PCN in labor - does not have significant Amoxicillin allergy Supervision of high risk pre gnancy in third trimester 05/23/2023 07/06/2023 Overview: -Routine labs: see scanned documents Rh positive Rubella immune 12/05 HIV NR 12/05 Hep B NR 12/05 Hep C NR 12/05 Syphilis NR 04/22 GC/CT neg 12/05 Pap NILM 12/05 Urine cx + UTI 01/01 -Anatomy US: 02/26 unremarkable, post placenta -24-28w labs CBC 10.1 04/22 RPR GCT pass 126 04/22 -Vaccines: TDAP 05/23 COVID Flu -Presentation: cephalic -Consent: signed 06/11 -Delivery plan: IOL 07/06 -PPBC: undecided -SS/PNP: video 05/23, PNP 05/29 -GBS: GBS pos 01/01 urine -Breast vs Formula: breast, nutrition done Last Assessment & Plan: - OB precautions, FKC reviewed - IOL scheduled this Saturday, 07/06 - NST reactive today - Has assistant facility manager, safe sleep space, car seat - L&D/ Team / Baby Friendly, PP expectations reviewed - PP visit schedule discussed - Desires circumcision for male infant Follow up as scheduled for BPP this Saturday and IOL Saturday as scheduled Cholestasis during in third trimester 05/23/2023 07/09/2023 Overview: - intermittent RUQ pain - RUQ US 05/19 cholelithiasis and gallbladder sludge - AST/ALT 57/105 (05/19)--> 49/103 (05/21) -> 40/50 (07/02) - bilirubin wnl - Reviewed dietary recommendations and symptoms improved but not resolved - f/up Gen Surg Last Assessment & Plan: - reviewed that symptoms improve with diet changes but not entirely resolved - reviewed plan to f/up with Gen Surg 6w Decreased movement 05/21/202306/2023 Overview: - Patient presents with decreased movement since this morning. This has resolved since presenting to the OB ED. Denies vaginal bleeding, loss of fluid. Right sided, crampy abdominal pain. - NST category 1, reactive - [place]: no contractions Abdominal pain affecting 05/21/2023 07/02/2023 Overview: - intermittent contractions on toco, uterine irritability - good hydration - urine dip negative for UTI - cervix closed - low concern for labor at this time, patient counseled on latent labor precautions Last Assessment & Plan: - had presented to [facility] for colicky RUQ pain - RUQ US with cholelithiasis and biliary sludge - pain improved with dietary modification Pruritus gravidarum, third trimester 05/19/2023 05/29/2023 Last Assessment & Plan: - AST/ALT 57/105 (05/19)--> 49/103 (05/21) - bilirubin 0.2 (05/21) - RUQ ultrasound 05/19 cholelithiasis, gallbladder sludge - Bile acids pending, records requested from prior office - CMP today - Itching controlled with Atarax - BPP/ Anatomy scheduled tomorrow - HR OB consult 05/29 - Precautions reviewed 30 weeks gestation of 05/19/2023 05/23/2023 Cholestasis of 05/19/2023 Overview: - syndromic itching palms/soles, improves modestly with Benadryl - tried Ursadiol but didn't like GI side effects - bile acids 12.7 (05/14) -> 5.1( 05/20) in [place] -> 13 (31w) -> 7 (33w) -> 10.8 (36w) - elevated LFTs -> improving, most recent AST/ALT -> 40/50 - RUQ US- with cholelithiasis and biliary sludge, f/up with Gen Surg Last Assessment & Plan: - Labs reviewed Bile acids 12>5>13>7, LFT down-trending - Repeat bile acids and CMP today - NST in office today reactive, Cat 1 - Continue twice weekly testing - IOL scheduled this Saturday, 07/06 Cyst of right ovary 08/07/2018 05/23/20 23 documented as of this encounter (statuses as of 07/20/2023) [facility] History of Past illness Narrative* Problem Noted Date Diagnosed Date Resolved Date care following vaginal delivery 07/09/2023 07/10/2023 Encounter for induction of labor 07/06/2023 07/08/2023 Overview: - IOL ICP - GBS positive via bacteriuria, PCN - s/p 2 cytotec vaginal, 1 cytotec buccal - S/p mora balloon - Pitocin per high dose protocol - Epidural as needed - SROM at 0730 for clear - IUPC US @ 35w6d EFW 6#5oz 80% , AC 87% Yeast infection 06/29/2023 07/09/2023 Overview: - multiple pseudohyphae seen on microscopic exam - give fluconazole 150mg po Vaginal discharge during pre gnancy in third trimester 06/29/2023 07/02/2023 36 weeks gestation of 06/29/2023 07/02/2023 Asymptomatic bacteriuria during 05/29/2023 07/08/2023 Overview: GBS bacteriuria - plan for antibiotic prophylaxis intrapartum, PCN Last Assessment & Plan: - reviewed indication for PCN in labor - does not have significant Amoxicillin allergy Supervision of high risk pre gnancy in third trimester 05/23/2023 07/06/2023 Overview: -Routine labs: see scanned documents Rh positive Rubella immune 12/05 HIV NR 12/05 Hep B NR 12/05 Hep C NR 12/05 Syphilis NR 04/22 GC/CT neg 12/05 Pap NILM 12/05 Urine cx + UTI 01/01 -Anatomy US: 02/26 unremarkable, post placenta -24-28w labs CBC 10.1 7 RPR GCT pass 126 04/22 -Vaccines: TDAP 05/23 COVID Flu -Presentation: cephalic -Consent: signed 06/11 -Delivery plan: IOL 07/06 -PPBC: undecided -SS/PNP: video 05/23, PNP 05/29 -GBS: GBS pos 3/14 urine -Breast vs Formula: breast, nutrition done Last Assessment & Plan: - OB precautions, FKC reviewed - IOL scheduled this Saturday, 07/06 - NST reactive today - Has assistant facility manager, safe sleep space, car seat - L&D/ Team / Baby Friendly, PP expectations reviewed - PP visit schedule discussed - Desires circumcision for male infant Follow up as scheduled for BPP this Saturday and IOL Saturday as scheduled Cholestasis during in third trimester 05/23/2023 07/09/2023 Overview: - intermittent RUQ pain - RUQ US 05/19 cholelithiasis and gallbladder sludge - AST/ALT 57/105 (05/19)--> 49/103 (05/21) -> 40/50 (07/02) - bilirubin wnl - Reviewed dietary recommendations and symptoms improved but not resolved - f/up Gen Surg Last Assessment & Plan: - reviewed that symptoms improve with diet changes but not entirely resolved - reviewed plan to f/up with Gen Surg 6w Decreased movement 05/21/202306/2023 Overview: - Patient presents with decreased movement since this morning. This has resolved since presenting to the OB ED. Denies vaginal bleeding, loss of fluid. Right sided, crampy abdominal pain. - NST category 1, reactive - [place]: no contractions Abdominal pain affecting 05/21/2023 07/02/2023 Overview: - intermittent contractions on toco, uterine irritability - good hydration - urine dip negative for UTI - cervix closed - low concern for labor at this time, patient counseled on latent labor precautions Last Assessment & Plan: - had presented to [facility] for colicky RUQ pain - RUQ US with cholelithiasis and biliary sludge - pain improved with dietary modification Pruritus gravidarum, third trimester 05/19/2023 05/29/2023 Last Assessment & Plan: - AST/ALT 57/105 (05/19)--> 49/103 (05/21) - bilirubin 0.2 (05/21) - RUQ ultrasound 05/19 cholelithiasis, gallbladder sludge - Bile acids pending, records requested from prior office - CMP today - Itching controlled with Atarax - BPP/ Anatomy scheduled tomorrow - HR OB consult 05/29 - Precautions reviewed 30 weeks gestation of 05/19/2023 05/23/2023 Cholestasis of 05/19/2023 Overview: - syndromic itching palms/soles, improves modestly with Benadryl - tried Ursadiol but didn't like GI side effects - bile acids 12.7 (05/14) -> 5.1( 05/20) in [place] -> 13 (31w) -> 7 (33w) -> 10.8 (36w) - elevated LFTs -> improving, most recent AST/ALT -> 40/50 - RUQ US- with cholelithiasis and biliary sludge, f/up with Gen Surg Last Assessment & Plan: - Labs reviewed Bile acids 12>5>13>7, LFT down-trending - Repeat bile acids and CMP today - NST in office today reactive, Cat 1 - Continue twice weekly testing - IOL scheduled this Saturday, 07/06 Cyst of right ovary 08/07/2018 05/23/20 23 documented as of this encounter (statuses as of 07/20/2023) [facility]09[facility] Miscellaneous Notes* Telephone Encounter - Etta Ugalde APRN.CNP - 07/04/2023 8:39 AM EDT Called patient to review plan of care. Name/ confirmed. IOL moved up to 8:30 am Friday 07/06. Itching throughout the night was better with increased atarax dose. Zofran odt sent to pharmacy. Allquestions answered. Etta Ugalde APRN.CNP documented in this [facility] Miscellaneous Notes* Telephone Encounter - Materna, Sharifa - 07/03/2023 11:04 AM EDT Referral for General Surgery Submitted through [facility] portal Confirmation: [id number] Sharifa Wise July 03, 2023 11:04 AM documented in this encounter[facility] History of Past illness Narrative* Problem Noted Date Diagnosed Date Resolved Date Vaginal discharge during pre gnancy in third trimester 06/29/2023 07/02/2023 36 weeks gestation of 06/29/2023 07/02/2023 Decreased movement 05/21/202306/2023 Overview: - Patient presents with decreased movement since this morning. This has resolved since presenting to the OB ED. Denies vaginal bleeding, loss of fluid. Right sided, crampy abdominal pain. - NST category 1, reactive - [place]: no contractions Abdominal pain affecting 05/21/2023 07/02/2023 Overview: - intermittent contractions on toco, uterine irritability - good hydration - urine dip negative for UTI - cervix closed - low concern for labor at this time, patient counseled on latent labor precautions Last Assessment & Plan: - had presented to [facility] for colicky RUQ pain - RUQ US with cholelithiasis and biliary sludge - pain improved with dietary modification Pruritus gravidarum, third trimester 05/19/2023 05/29/2023 Last Assessment & Plan: - AST/ALT 57/105 (05/19)--> 49/103 (05/21) - bilirubin 0.2 (05/21) - RUQ ultrasound 05/19 cholelithiasis, gallbladder sludge - Bile acids pending, records requested from prior office - CMP today - Itching controlled with Atarax - BPP/ Anatomy scheduled tomorrow - HR OB consult 05/29 - Precautions reviewed 30 weeks gestation of 05/19/2023 05/23/2023 Cyst of right ovary 08/07/2018 05/23/20 23 documented as of this encounter (statuses as of 07/03/2023) [facility] History of Past illness Narrative* Problem Noted Date Diagnosed Date Resolved Date Vaginal discharge during pre gnancy in third trimester 06/29/2023 07/02/2023 36 weeks gestation of 06/29/2023 07/02/2023 Decreased movement 05/21/202306/2023 Overview: - Patient presents with decreased movement since this morning. This has resolved since presenting to the OB ED. Denies vaginal bleeding, loss of fluid. Right sided, crampy abdominal pain. - NST category 1, reactive - [place]: no contractions Abdominal pain affecting 05/21/2023 07/02/2023 Overview: - intermittent contractions on toco, uterine irritability - good hydration - urine dip negative for UTI - cervix closed - low concern for labor at this time, patient counseled on latent labor precautions Last Assessment & Plan: - had presented to [facility] for colicky RUQ pain - RUQ US with cholelithiasis and biliary sludge - pain improved with dietary modification Pruritus gravidarum, third trimester 05/19/2023 05/29/2023 Last Assessment & Plan: - AST/ALT 57/105 (05/19)--> 49/103 (05/21) - bilirubin 0.2 (05/21) - RUQ ultrasound 05/19 cholelithiasis, gallbladder sludge - Bile acids pending, records requested from prior office - CMP today - Itching controlled with Atarax - BPP/ Anatomy scheduled tomorrow - HR OB consult 05/29 - Precautions reviewed 30 weeks gestation of 05/19/2023 05/23/2023 Cyst of right ovary 08/07/2018 05/23/20 documented as of this encounter (statuses as of 07/04/2023) [facility] Nurse Note* Megan Ha MA - 06/25/2023 3:49 PM EDT Stuck patient 3 times was not successful with blood , pt was feeling light headed and dizzy gave her cold towel and water and laid her down. Pt will come get it done another day. Megan Ha MA June 25, 2023 3:51 PM * Meghann Monteiro LPN - 06/25/2023 3:03 PM EDT Movement? Active baby Vaginal Bleeding: NO Vaginal fluid leakage of fluid: NO Contractions: no contractions Edema: Negative Pt c/o pressure and abdominal cramping on a pain scale of 7/10 when it happens. Pt notices it a couple times a day for about a 1 min, started Saturday. Meghann Monteiro LPN June 25, 2023 3:05 PM documented in this encounterSouth[facility]09-[facility]-2023 Instructions* Patient Instructions* Shana Gallego DO - 06/25/2023 3:40 PM EDT Please call the office before going to the hospital. If you are , go to the ER at the [facility]. Do not go to the outlying ER s ([place] or [place]). If you need to go to an ER and cannot or will not go downtown, please use one of [facility] s ERs (not [facility], [place] or [facility]).You are now in your third trimester of your and considered term (>37 weeks)! If you experience the symptoms listed below, then follow these recommendations. If you have questions or concerns, please the office ([phone]) to leave a message with the answering service in order to talk to the patient registration specialist physician. Vaginal Bleeding: Vaginal bleeding can occur in the third trimester for different reasons, such as cervical trauma, labor and cervical dilation, or placental abruption. Bleeding may occur following intercourse or other episodes of cervical trauma. If bleeding is light or appearing to be improving, then please call the office to talk to the patient registration specialist physician. If you experience heavy vaginal bleeding, especially if you are soaking a pad completely within an hour or passing large sized clots, you should be seen in the OB ED at [facility]. If your bleeding is occurring with regular and uncomfortable contractions, then you should also beseen in the OB ED. Labor: Labor is the way a woman's body prepares to give . The different signs that labor is starting can include the following: Your water breaks. During the , your baby is in a sac in your uterus and surrounded by fluid called amniotic fluid. This sac will break open sometime before your baby is born. When it breaksopen, the fluid inside comes out of your vagina. This can feel like a large gush similar to urinating yourself. If can also feel like a constant trickle with persistent soaking of your underwear. You have low back pain or belly cramps. You start having contractions. During a contraction, the uterus tightens. This can be painful and make your belly feel hard. After a contraction, the uterus relaxes and the pain goes away. Some womenhave [place] contractions. These feels like contractions, but they are not true contractions.They do not mean that you are in labor How can I tell if I'm having true contractions? True contractions come every few minutes and get more frequent over time [place] contractions can come every few minutes, but don't get more frequent True contractions don't go away, even when you rest [place] contractions usually go away when you rest or drink water True contractions will get stronger and more painful over time [place] contractions usually don't get stronger or more painful over time True contractions might be felt in your back and front [place] contractions are usually only in the front What should I do if I start having contractions? Time them to see how far apart they are by writing down the time the contraction starts. There are many apps that can help! Try to relax, drink water, or take a bath/shower. If the contractions continue to become more frequent and so uncomfortable that you cannot walk through them, you may be in labor! Call the office if you have more than 10 contractions in 1 hour or contractions occur every 3-5 minutes Also, the office if you have blood or fluid leaking from your vagina movement: There are numerous ways to count your baby's movements and numerous opinions on how many movements you are looking for within a certain amount of time. The [employer] (ACOG) recommends that you time how long it takes you to feel 10 kicks, flutters, swishes, or rolls. Ideally, you want to feel at least 10 movements within 2 hours. You will likely feel 10 movements in less time than that. You might want to start a notebook. In a notebook, record the time you feel the first movement, place a check kristina for each movement you feel until you reach 10, then record the time of the tenth movement. This will help you observe patterns and discover how long it normally takes for your baby to move 10 times. Keep in mind you are looking for significant deviations from the pattern. It can become easy to expect an exact amount of time every time you do your kick counts; however, there can be a wide range of time differences. So remember to look for significant deviations from the pattern over the course of a few days. If you feel less than 10 movements within a 2 hour period please call the office to talk to the patient registration specialist physician and determine if you should be seen in the office or in the OB ED at [facility]. documented in this [facility]23 Miscellaneous Notes* Quick Notes - Shana Gallego DO - 06/25/2023 3:33 PM EDT S: Doing well. Still having intense itching. Denies rash on palms or soles of feet. Endorses movements. Denies vaginal bleeding or LOF. Having occasional contractions. O: BP 109/73 Pulse 93 Wt 178 lb 12.8 oz (81.1 kg) LMP 12/20/2021 BMI 32.70 kg/m BMI 32.70 kg/(m^2) Indications for NST: Other: Intrahepatic cholestasis of Baseline: 140 Variability: Moderate Accelerations: Present 15 X 15 Decelerations: None Contractions: TOCO: Irregular Interpretation: Reactive A/P: Petty Underwood is a 23 year old at 35w3d Supervision of high risk in third trimester -GBS+ bacturia, reviewed plan for penicillin in labor -IOL for ICP scheduled for 37 weeks gestation -RTC 1 week for GARY and NST Cholestasis of -Labs reviewed, bile acids and LFTs downtrending -Repeat CMP next week. (Attempted blood draw in office today x3) -Continue 2x weekly testing -IOL scheduled Shana Gallego DO 06/25/2023 3:33 PM Attending Note I discussed with resident. The patient was not examined by the attending. I reviewed the resident'snote. I agree with the resident's assessment and plan unless otherwise noted. Signature: Lj Ramirez MD Date: 06/25/2023. Time: 3:48 PM documented in this encounterSouth[facility]09-02-2023 Instructions* Patient Instructions* Jose De Jesus Finnegan MD - 06/22/2023 1:10 PM EDT Please call the office before going to the hospital. If you are , go to the ER at the [facility]. Do not go to the outlying ER s ([facility] or [place]). If you need to go to an ER and cannot or will not go downtown, please use one of [facility] s ERs (not [facility], [place] or [facility]). documented in this encounterSouthview Medical Center08-22-2023 Miscellaneous Notes* Quick Notes - Petty Chun MD - 06/11/2023 4:15 PM EDT S: Continues to have itchy palms. Mild relief with benadryl. Continue to declines Ursadiol due to GI side effects. No other concerns. Questions about induction process and delivery day logistics. O: BP 104/70 Pulse 103 LMP 12/20/2021 No weight on file for this encounter. FHR: 140 NST SUMMARY PROVIDER ASSESSMENT AND INTERPRETATION Petty Underwood is a 23 year old female, , who is at 33w3d with an ION of 07/27/2023, by PatientReported dating method. Indications for NST: Other: Intrahepatic cholestasis of Baseline: 140 Variability: Moderate Accelerations: Present 15 X 15 Decelerations: None Contractions: TOCO: Irregular Interpretation: Reactive in last 20 minutes of 40 minute test SIGNATURE: Petty Chun MD Reviewed with Dr. Ramirez A/P: Petty Underwood is a 23 year old at 33w3d Asymptomatic bacteriuria during - reviewed indication for PCN in labor - does not have significant Amoxicillin allergy Cholelithiasis affecting in third trimester, antepartum - reviewed that symptoms improve with diet changes but not entirely resolved - reviewed plan to f/up with Gen Surg 6w Cholestasis of - reviewed antepartum testing and delivery plans for 37w at this time - declines Ursadiol due to side effects - bile acids and LFT trending, with check today - continue benadryl at night and as needed - NST today Supervision of high risk in third trimester - reviewed assistant facility manager, circumcision, contraception, GBS ppx today - considering options for all the above - L&D consent signed - f/up twice weekly for testing, already scheduled Petty Chun MD 06/11/2023 4:17 PM Attending Note I discussed with resident. The patient was not examined by the attending. I reviewed the resident'snote. I agree with the resident's assessment and plan unless otherwise noted. Signature: Lj Ramirez MD Date: 06/11/2023. Time: 5:01 PM documented in this encounterSouthview Medical Center08-22-2023 Instructions* Patient Instructions* Petty Chun MD - 06/11/2023 4:09 PM EDT You are now in your third trimester of your ! But you are still considered (<37weeks). If you experience the symptoms listed below, then follow these recommendations. If you havequestions or concerns, please the office ([phone]) to leave a message with the answering service in order to talk to the patient registration specialist physician. Vaginal Bleeding: Vaginal bleeding can occur in the third trimester for different reasons, such as cervical trauma, labor and cervical dilation, or placental abruption. Bleeding may occur following intercourse or other episodes of cervical trauma. If bleeding is light or appearing to be improving, then please call the office to talk to the patient registration specialist physician. If you experience heavy vaginal bleeding, especially if you are soaking a pad completely within an hour or passing large sized clots, you should be seen in the OB ED at [facility]. If your bleeding is occurring with regular and uncomfortable contractions, then you should also beseen in the OB ED. Labor: What is labor? labor that starts before 37 weeks of (3 or more weeks before the woman's due date). Going into labor before 37 weeks of can be dangerous, because babies who are born can have serious health problems. It is often hard to know why a woman haspreterm labor, but some things that might cause labor include: Bleeding or other problems within the uterus Infection within the uterus or other parts of the body Being with twins, triplets, or more! Women who had labor and in the past Women whose water breaks before 37 weeks Women with a shortened cervix on ultrasound Smoking cigarettes or using illegal drugs, such as cocaine Being underweight Waiting a short time between pregnancies An abnormally shaped uterus What are the symptoms of labor? Tightening of the uterus called contractions. These can make the belly feel hard when they are happening. They eventually become more painful. A change in fluid that comes out of the vagina. It may be watery, thick or bloody. An increase in the amount of fluid coming out of the vagina Pain or pressure in the low in the belly or pelvis, pain in the low back Broken water which may feels like a gush of fluid or a constant trickle Some women have [place] contractions. These are contractions that happen several minutes apart. They are usually not too painful and don't get stronger or more frequent over time. They often go away when you lie down or rest. [place] contractions are sometimes called false labor contractions. That's because they don't really mean that you are going into labor. If you think you might be going in to labor, please call the office to talk to the patient registration specialist physician. You should also call if you have blood or fluid leaking from your vagina, or if you have more than 6 contractions in 1 hour. (That means that contractions are 10 minutes apart.) It is hard to know if you are actually in labor without being seen by a doctor or nurse. Your doctor or nurse will be able to tell if you are in labor by examining your cervix and checkingto see how often your contractions are happening. There are also tests your doctor or nurse can do to find out what is going on. It might take an hour or 2 to figure out whether you are in labor. movement: There are numerous ways to count your baby's movements and numerous opinions on how many movements you are looking for within a certain amount of time. The [employer] (ACOG) recommends that you time how long it takes you to feel 10 kicks, flutters, swishes, or rolls. Ideally, you want to feel at least 10 movements within 2 hours. You will likely feel 10 movements in less time than that. You might want to start a notebook. In a notebook, record the time you feel the first movement, place a check kristina for each movement you feel until you reach 10, then record the time of the tenth movement. This will help you observe patterns and discover how long it normally takes for your baby to move 10 times. Keep in mind you are looking for significant deviations from the pattern. It can become easy to expect an exact amount of time every time you do your kick counts; however, there can be a wide range of time differences. So remember to look for significant deviations from the pattern over the course of a few days. If you feel less than 10 movements within a 2 hour period please call the office to talk to the patient registration specialist physician and determine if you should be seen in the office or in the OB ED at [facility]. documented in this encounterSouthview [facility] Center08-22-2023 Nurse Note* Emelina De La Cruz LPN - 06/11/2023 3:20 PM EDT Movement? Active baby Vaginal Bleeding: NO Vaginal fluid leakage of fluid: NO Contractions: no contractions Edema: Negative Emelina De La Cruz LPN documented in this encounterSouthview [facility] Center08-15-2023 History of Present illness Narrative* Lj Ramirez MD - 06/04/2023 3:46 PM EDT NST SUMMARY PROVIDER ASSESSMENT AND INTERPRETATION Petty Underwood is a 23 year old female, , who is at 32w3d with an ION of 07/27/2023, by PatientReported dating method. Indications for NST: Other: cholestasis of Baseline: 140 Variability: Moderate Accelerations: Present 15 X 15 Decelerations: Variable Contractions: TOCO: None Interpretation: Reactive SIGNATURE: Lj Ramirez MD * Jennifer Rodriguez RN - 06/04/2023 3:40 PM EDT Patient c/o of PERLA yesterday, states feels like a migraine. Dr. Ramirez informed and monitor strip to Dr. Ramirez for review. Patient encouraged if PERLA persist she can take a dose of Tylenol no more that 2 x's a day. Hydrationencouraged. Patient verbalized understanding. Jennifer Rodriguez RN June 04, 2023 4:19 PM documented in this encounterSouthview Medical Center08-15-2023 Nurse Note* Jennifer Rodriguez RN - 06/04/2023 3:15 PM EDT Movement? Active baby Vaginal Bleeding: NO Vaginal fluid leakage of fluid: NO Contractions: no contractions Edema: Negative EFM & TOCO on patient in left tilt position. Jennifer Rodriguez RN documented in this encounterSouthview Medical Center08-09-2023 Instructions* Patient Instructions* Tati Turpin MD - 05/29/2023 4:06 PM EDT Please select the following link to access the [facility] Your Guide to a Healthy . [email or web address] documented in this encounterSouthview Medical Center08-09-2023 History of Present illness Narrative* Tati Turpin MD - 05/29/2023 4:05 PM EDT OB TRANSFER OF CARE OB Provider: Tati Turpin MD HPI: Petty is a 23 year old White Female here to establish Obstetrical Care. She is a transfer of care from [place] and is dated on a 7 week ultrasound. Patient's last menstrual period was 12/20/2021. from OB Dating Form. Transferred to be seen by high risk obstetrics for cholestasis of . Endorses itching of palms of hands and feet since 28 weeks. Improves with benadryl. Previously tried ursodiol x3 but discontinued due to GI intolerance. Recently restarted. Bile acids most recently 5 on 05/20. Complaints: None. Denies contractions, leakage of fluid, vaginal bleeding, or decreased movement. OB History T0 L0 SAB0 IAB0 Ectopic0 Multiple0 Live Births0 MEDICAL/PSYCHOSOCIAL HISTORY: History of hemorrhage or bleeding concerns: No Thyroid Disease: No History of chronic hypertension: No History of pre-existing diabetes: No Rh positive BMI 32.19 kg/(m^2) History of abnormal pap: No Tobacco use: No Drug use: No Alcohol use: No Multivitamin with Folic acid: Yes Are you currently employed? 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 90 tablet 0 PNV/iron/folic acid ( FGORSYU-GEAN-FL ORAL) Take 1 tablet by mouth once daily. hydrOXYzine HCl (ATARAX) 10 mg tablet Take 1 tablet by mouth four times daily as needed for itching/rash. 100 tablet 0 ondansetron orally disintegrating (ZOFRAN ODT) 4 mg disintegrating tablet Take 1 tablet by mouth every 6 hours as needed for nausea/vomiting for up to 7 doses. 7 tablet 0 No current facility-administered medications for this visit. Allergies As of Date: 05/29/2023 Allergen Noted Reaction AMOXICILLIN 08/05/2018 Other: See Comments Fully Assessed 05/29/2023 Does patient have penicillin allergy: No. Reports history of UTIs with amoxicillin PHYSICAL EXAM: BP 101/67 Pulse 99 Wt 176 lb (79.8kg) LMP 12/20/2021 GENERAL: pleasant in no apparent distress DERMATOLOGY: Normal, without lesions, and non-icteric NECK: full range of motion CHEST: normal inspiratory effort ABDOMEN: soft and non-tender NEURO: alert and oriented x3,exam grossly non-focal OB Risk Screening: Completed, no positive findings documented. Anatomy ultrasound reviewed and wnl ASSESSMENT: 23 year old at 31w4d wks gestational age PLAN: Asymptomatic bacteriuria during GBS bacteriuria - plan for antibiotic prophylaxis intrapartum Abdominal pain affecting - had presented to [facility] for colicky RUQ pain - RUQ US with cholelithiasis and biliary sludge - pain improved with dietary modification Cholestasis of - syndromic itching palms/soles, improves with benadryl and trialing ursodiol - bile acids 12.7 (05/14) -> 5.1( 05/20) in [facility] - AST/ALT 100/184 most recently - RUQ US- with cholelithiasis and biliary sludge - repeat bile acid levels today - plan for delivery at 37 weeks if bile acids <40 - start weekly BPP and NST Supervision of high risk in third trimester - reviewed records from [facility], scanned into chart - plan for IOL at [facility] - reviewed labor precautions, when to present to call or present to [facility] - return in 2 weeks for GARY, OK to return to regular clinic Discussed with Dr Lillian Turpin MD Medical Decision Making: Problems: Moderate: New problem with uncertain prognosis Data: Unique source(s) for external note(s) reviewed: 3+ Unique test result(s) reviewed: 3+ Unique test(s) ordered: 1 Risk: Moderate: Moderate risk from testing/treatment Medical Decision Making Level: 4 - Moderate documented in this encounterSouthview Medical Center08-09-2023 Nurse Note* Megan Ha MA - 05/29/2023 2:32 PM EDT Movement? Active baby Vaginal Bleeding: NO Vaginal fluid leakage of fluid: NO Contractions: no contractions Edema: Negative Pt states that she would like to discuss Liver enzymes and Gallbladder. Megan Ha MA documented in this encounterSouthview Medical Center08-07-2023 Miscellaneous Notes* Telephone Encounter - Etta Ugalde APRN.CNP - 05/27/2023 4:39 PM EDT Called patient to review plan of care. Name/ confirmed. I explained her case was reviewed with OB chief Dr. Chun and it is recommended she proceed to OB ED for further evaluation. She verbalizes understanding and is amendable to plan. She is aware of location of [facility] OB ED. Etta Ugalde APRN.CNP * Telephone Encounter - Etta Ugalde APRN.CNP - 05/27/2023 3:38 PM EDT Called patient to review MyChart message: I have been taking the max amount of medicine at night to help with the itching of my hands and feet, however it has not been working. No matter how much medicine or the time frame in between each dosage it is not easing the itching like it previously was. The past two nights, I have barely been able to sleep and the itching continues throughout the day and gets even worse at night. Do you recommend I do anything else? I also have been using Benadryl cream on hands and feet in hopes that it eases some. That also is not working either. I have found dairy products make it worse, so I have 100%limited dairy along with beef products Name/ confirmed. She reports now taking Atarax 20 mg every 6 hours without relief. Itching is now during the day and worsens throughout the night. Unable to sleep, no relief. Did not tolerate side effects of UDCA and it did not relieve the itching. Endorses active movement. Denies any other obstetric concerns. Pt reviewed bile acid results per her patient portal collected through previous OBGYN: Bile acids 05/14 12.7 --> 05/20 5.1 LFT's: AST 05/19 57 -->05/21 49 --> 05/23 68 ALT 05/19 105 --> 05/21 103 --> 8 131 8 BPP 05/[address] Chun. She will review with Dr. Perez and follow up with patient regarding plan of care. Etta Ugalde APRN.RAJWINDER documented in this encounterSouthview Medical Center08-07-2023 History of Present illness Narrative* Angelina Retana - 05/27/2023 12:19 PM EDT PT to receive PNP at next visit, watched video. See CHW's for pwk. documented in this encounterSouthview Medical Center08-03-2023 History of Present illness Narrative* Etta Ugalde APRN.CNP - 05/23/2023 2:53 PM EDT INITIAL OB ASSESSMENT OB Provider: Etta Ugalde APRN.CNP HPI: Petty Underwood is a 23 year old female here to establish Obstetrical Care. Patient's last menstrual period was 12/20/2021. from OB Dating Form. She is a transfer of care at 30w5d gestation from [facility], Dr. Luci Whitaker She was seen in the [facility] OB ED 05/19 for concerns of severe itching in the setting of suspected cholestasis of A RUQ ABD US done 05/19 was remarkable for cholelithiasis and gallbladder sludge. Her itching is well controlled with Atarax She had a follow up appt Sunday 05/20 with [facility], bile acids pending She signed release of records Saturday, however no records have been faxed yet to this office and are unavailable in Care Everywhere She returned to OB ED 05/21 for concern of decreased movement, testing normal, baby moving wellnow. Denies bleeding, lof, ctx. Anemia- taking PNV with iron, increasing dietary iron OB History T0 L0 SAB0 IAB0 Ectopic0 Multiple0 Live Births0 Prior : never History of delivery: No History of 4 th degree laceration: No Tobacco use: No Caffeine use: No Drug use: No Alcohol use: No Multivitamin with Folic acid: Yes Occupation: [employer] or heritage: No Would refuse blood transfusion if medically necessary: No Marital Status: Partner: Name: Porfirio PAST MEDICAL HISTORY Diagnosis Date 30 weeks gestation of 05/19/2023 Cyst of right ovary 08/07/2018 NEGATIVE MEDICAL HISTORY Palpitations PAST SURGICAL HISTORY Procedure Laterality Date TOOTH EXTRACTION wisdom teeth Current Outpatient Medications on File Prior to Visit Medication Sig PNV/iron/folic acid ( AWNVKDC-MWHZ-AL ORAL) Take 1 tablet by mouth once daily. hydrOXYzine HCl (ATARAX) 10 mg tablet Take 1 tablet by mouth four times daily as needed for itching/rash. ondansetron orally disintegrating (ZOFRAN ODT) 4 mg disintegrating tablet Take 1 tablet by mouth every 6 hours as needed for nausea/vomiting for up to 7 doses. buPROPion XL (WELLBUTRIN XL) 150 mg 24 hr tablet Take 1 tablet by mouth once daily. MULTIVITAMIN ORAL Take by mouth. (Patient not taking: Reported on 05/23/2023) ascorbic acid (VITAMIN C ORAL) Take by mouth. (Patient not taking: Reported on 05/23/2023) No current facility-administered medications on file prior to visit. Review of Systems: GENERAL: Negative for: Fever or Chills HEENT: Negative for: Headache, Impaired Vision, Ringing in Ears, Nosebleeds NECK: Negative for: Swelling, Pain, Stiffness RESPIRATORY: Negative for: Cough, Shortness of breath, Wheezing GASTROINTESTINAL: Negative for: Heartburn, Constipation, Diarrhea, Blood in stool, Vomiting MUSCULOSKELETAL: Negative for: Muscle or joint pain, stiffness, Joint swelling NEUROLOGIC/PSYCHIATRIC: Negative for: Weakness, Paralysis, Numbness, Tingling, Tremor, Anxiety, Depression, Memory loss SKIN: Negative for: Rash GENITOURINARY: Negative for: vaginal itching, vaginal discharge, hematuria or dysuria PHYSICAL EXAM: BP 113/78 Pulse 102 Wt 177 lb 9.6 oz (80.6kg) LMP 12/20/2021 GENERAL: pleasant female in no apparent distress DERMATOLOGY: Normal, without lesions, non-icteric, and non-hirsute CHEST: Normal inspiratory effort NEURO: alert and oriented x3 ASSESSMENT: 23 year old transfer of care at 30w5d gestation PLAN: 1) Supervision of high risk in third trimester -Krista to request records -Patient oriented to practice -Discussed nutrition, folic acid supplementation, dietary guidelines, exercise, smoking, alcohol, caffeine, and drug use. -Discussed gestational weight gain guidelines. -Discussed how to access Your guide to a health and the Human Resources Office Assistant. -Patient has penicillin allergy -OB precautions, FKC reviewed -Safe sleep: [facility] video watched today -Tdap given today -Anatomy/ BPP scheduled tomorrow -Maternal and Infant Nutrition Maternal nutrition: She has been eating healthy well balanced meals Discussed maternal nutrition, hydration, PNV, Dietary recommendations in setting of cholelithiasis Infant nutrition: benefits of BF, S2S, rooming in and feeding on cue exclusive BF, proper positioning, assessing a good latch, maintaining supply, signs your baby is getting enough milk concerns at home, support resources Has breast pump Provided handouts: Infant nutrition/ bonding summary ChooseMyPlate.gov maternal nutrition [employer] for the Best Feeding booklet [facility] Safe Sleep pamphlet and door worker Pruritus gravidarum, third trimester - AST/ALT 57/105 (05/19)--> 49/103 (05/21) - bilirubin 0.2 (05/21) - RUQ ultrasound 05/19 cholelithiasis, gallbladder sludge - Bile acids pending, records requested from prior office - CMP today - Itching controlled with Atarax - BPP/ Anatomy scheduled tomorrow - HR OB consult 05/29 - Precautions reviewed Cholelithiasis affecting in third trimester, antepartum - RUQ US 05/19 cholelithiasis and gallbladder sludge - AST/ALT 57/105 (05/19)--> 49/103 (05/21) - bilirubin 0.2 (05/21) - Bile acids pending, records requested from prior office - suspicion pt's elevated liver enzymes and potential elevated bile acids are due to this - CMP today - Reviewed dietary recommendations - Management per MFM recommendations, appt next week 05/29 Cholestasis of - Presented to [facility] OB ED 05/19 for concerns of severe itching, suspected cholestasis of - See problem list above: cholelithiasis, pruritis - Recommendations per MFM, HR OB appt 05/29 Anemia complicating , third trimester - CBC 05/21 9.9 - Iron studies, hgb electrophoresis today - Will likely need po iron Follow up tomorrow for testing and next week as scheduled for testing and HR OB Etta Ugalde APRN.COPY CUTTER [facility]* Meghann Monteiro LPN - 05/23/2023 2:44 PM EDT Movement? Active baby Vaginal Bleeding: NO Vaginal fluid leakage of fluid: NO Contractions: no contractions Edema: Trace Feet Pt has no questions or concerns at this time. Meghann Monteiro LPN May 23, 2023 2:44 PM documented [facility] this [facility] History of Past illness Narrative* Problem Noted Date Diagnosed Date Resolved Date Decreased movement 05/21/202306/2023 Overview: - Patient presents with decreased movement since this morning. This has resolved since presenting to the OB ED. Denies vaginal bleeding, loss of fluid. Right sided, crampy abdominal pain. - NST category 1, reactive - [place]: no contractions Pruritus gravidarum, third trimester 05/19/2023 05/29/2023 Last Assessment & Plan: - AST/ALT 57/105 (05/19)--> 49/103 (05/21) - bilirubin 0.2 (05/21) - RUQ ultrasound 05/19 cholelithiasis, gallbladder sludge - Bile acids pending, records requested from prior office - CMP today - Itching controlled with Atarax - BPP/ Anatomy scheduled tomorrow - HR OB consult 05/29 - Precautions reviewed 30 weeks gestation of 05/19/2023 05/23/2023 Cyst of right ovary 08/07/2018 05/23/20 23 documented as of this encounter (statuses as of 05/30/2023) [facility] of Past illness Narrative* Problem Noted Date Diagnosed Date Resolved Date Decreased movement 05/21/202306/2023 Overview: - Patient presents with decreased movement since this morning. This has resolved since presenting to the OB ED. Denies vaginal bleeding, loss of fluid. Right sided, crampy abdominal pain. - NST category 1, reactive - [place]: no contractions Pruritus gravidarum, third trimester 05/19/2023 05/29/2023 Last Assessment & Plan: - AST/ALT 57/105 (05/19)--> 49/103 (05/21) - bilirubin 0.2 (05/21) - RUQ ultrasound 05/19 cholelithiasis, gallbladder sludge - Bile acids pending, records requested from prior office - CMP today - Itching controlled with Atarax - BPP/ Anatomy scheduled tomorrow - HR OB consult 05/29 - Precautions reviewed 30 weeks gestation of 05/19/2023 05/23/2023 Cyst of right ovary 08/07/2018 05/23/20 23 documented as of this encounter (statuses as of 05/30/2023) [facility] of Past illness Narrative* Problem Noted Date Diagnosed Date Resolved Date Decreased movement 05/21/202306/2023 Overview: - Patient presents with decreased movement since this morning. This has resolved since presenting to the OB ED. Denies vaginal bleeding, loss of fluid. Right sided, crampy abdominal pain. - NST category 1, reactive - [place]: no contractions Pruritus gravidarum, third trimester 05/19/2023 05/29/2023 Last Assessment & Plan: - AST/ALT 57/105 (05/19)--> 49/103 (05/21) - bilirubin 0.2 (05/21) - RUQ ultrasound 05/19 cholelithiasis, gallbladder sludge - Bile acids pending, records requested from prior office - CMP today - Itching controlled with Atarax - BPP/ Anatomy scheduled tomorrow - HR OB consult 05/29 - Precautions reviewed 30 weeks gestation of 05/19/2023 05/23/2023 Cyst of right ovary 08/07/2018 05/23/20 23 documented as of this encounter (statuses as of 06/05/2023) [facility] of Past illness Narrative* Problem Noted Date Diagnosed Date Resolved Date Decreased movement 05/21/202306/2023 Overview: - Patient presents with decreased movement since this morning. This has resolved since presenting to the OB ED. Denies vaginal bleeding, loss of fluid. Right sided, crampy abdominal pain. - NST category 1, reactive - [place]: no contractions Pruritus gravidarum, third trimester 05/19/2023 05/29/2023 Last Assessment & Plan: - AST/ALT 57/105 (05/19)--> 49/103 (05/21) - bilirubin 0.2 (05/21) - RUQ ultrasound 05/19 cholelithiasis, gallbladder sludge - Bile acids pending, records requested from prior office - CMP today - Itching controlled with Atarax - BPP/ Anatomy scheduled tomorrow - HR OB consult 05/29 - Precautions reviewed 30 weeks gestation of 05/19/2023 05/23/2023 Cyst of right ovary 08/07/2018 05/23/20 23 documented as of this encounter (statuses as of 06/07/2023) [facility] of Past illness Narrative* Problem Noted Date Diagnosed Date Resolved Date Decreased movement 05/21/202306/2023 Overview: - Patient presents with decreased movement since this morning. This has resolved since presenting to the OB ED. Denies vaginal bleeding, loss of fluid. Right sided, crampy abdominal pain. - NST category 1, reactive - [place]: no contractions Pruritus gravidarum, third trimester 05/19/2023 05/29/2023 Last Assessment & Plan: - AST/ALT 57/105 (05/19)--> 49/103 (8) - bilirubin 0.2 (8/) - RUQ ultrasound 05/19 cholelithiasis, gallbladder sludge - Bile acids pending, records requested from prior office - CMP today - Itching controlled with Atarax - BPP/ Anatomy scheduled tomorrow - HR OB consult 05/29 - Precautions reviewed 30 weeks gestation of 05/19/2023 05/23/2023 Cyst of right ovary 08/07/2018 05/23/20 23 documented as of this encounter (statuses as of 06/12/2023) [facility] of Past illness Narrative* Problem Noted Date Diagnosed Date Resolved Date Decreased movement 05/21/202306/2023 Overview: - Patient presents with decreased movement since this morning. This has resolved since presenting to the OB ED. Denies vaginal bleeding, loss of fluid. Right sided, crampy abdominal pain. - NST category 1, reactive - [place]: no contractions Pruritus gravidarum, third trimester 05/19/2023 05/29/2023 Last Assessment & Plan: - AST/ALT 57/105 (05/19)--> 49/103 (8) - bilirubin 0.2 (8/) - RUQ ultrasound 05/19 cholelithiasis, gallbladder sludge - Bile acids pending, records requested from prior office - CMP today - Itching controlled with Atarax - BPP/ Anatomy scheduled tomorrow - HR OB consult 05/29 - Precautions reviewed 30 weeks gestation of 05/19/2023 05/23/2023 Cyst of right ovary 08/07/2018 05/23/20 23 documented as of this encounter (statuses as of 06/15/2023) [facility] of Past illness Narrative* Problem Noted Date Diagnosed Date Resolved Date Decreased movement 05/21/202306/2023 Overview: - Patient presents with decreased movement since this morning. This has resolved since presenting to the OB ED. Denies vaginal bleeding, loss of fluid. Right sided, crampy abdominal pain. - NST category 1, reactive - [place]: no contractions Pruritus gravidarum, third trimester 05/19/2023 05/29/2023 Last Assessment & Plan: - AST/ALT 57/105 (05/19)--> 49/103 (05/21) - bilirubin 0.2 (05/21) - RUQ ultrasound 05/19 cholelithiasis, gallbladder sludge - Bile acids pending, records requested from prior office - CMP today - Itching controlled with Atarax - BPP/ Anatomy scheduled tomorrow - HR OB consult 05/29 - Precautions reviewed 30 weeks gestation of 05/19/2023 05/23/2023 Cyst of right ovary 08/07/2018 05/23/20 23 documented as of this encounter (statuses as of 06/22/2023) [facility] of Past illness Narrative* Problem Noted Date Diagnosed Date Resolved Date Decreased movement 05/21/202306/2023 Overview: - Patient presents with decreased movement since this morning. This has resolved since presenting to the OB ED. Denies vaginal bleeding, loss of fluid. Right sided, crampy abdominal pain. - NST category 1, reactive - [place]: no contractions Pruritus gravidarum, third trimester 05/19/2023 05/29/2023 Last Assessment & Plan: - AST/ALT 57/105 (05/19)--> 49/103 (05/21) - bilirubin 0.2 (05/21) - RUQ ultrasound 05/19 cholelithiasis, gallbladder sludge - Bile acids pending, records requested from prior office - CMP today - Itching controlled with Atarax - BPP/ Anatomy scheduled tomorrow - HR OB consult 05/29 - Precautions reviewed 30 weeks gestation of 05/19/2023 05/23/2023 Cyst of right ovary 08/07/2018 05/23/20 23 documented as of this encounter (statuses as of 06/26/2023) [facility] of Past illness Narrative* Problem Noted Date Diagnosed Date Resolved Date Decreased movement 05/21/202306/2023 Overview: - Patient presents with decreased movement since this morning. This has resolved since presenting to the OB ED. Denies vaginal bleeding, loss of fluid. Right sided, crampy abdominal pain. - NST category 1, reactive - [place]: no contractions Pruritus gravidarum, third trimester 05/19/2023 05/29/2023 Last Assessment & Plan: - AST/ALT 57/105 (05/19)--> 49/103 (05/21) - bilirubin 0.2 (05/21) - RUQ ultrasound 05/19 cholelithiasis, gallbladder sludge - Bile acids pending, records requested from prior office - CMP today - Itching controlled with Atarax - BPP/ Anatomy scheduled tomorrow - HR OB consult 05/29 - Precautions reviewed 30 weeks gestation of 05/19/2023 05/23/2023 Cyst of right ovary 08/07/2018 05/23/20 23 documented as of this encounter (statuses as of 06/29/2023) [facility] Miscellaneous Notes* Telephone Encounter - Chante Carcamo DO - 05/19/2023 4:14 PM EDT Images from the original note were not included. Patient is a 23-year-old female G1 at 30w1d that presented to OB ED with concerns of severe itchingin the setting of suspected cholestasis of . She is currently receiving care from a primary OB in [place]; however, she would like to transfer care to [facility] as she is planning to deliver at [facility]. Can you please schedule her with high risk clinic this Saturday? Thanks, Chante Carcamo DO documented in this encounter[facility] History of Past illness Narrative* Problem Noted Date Diagnosed Date Resolved Date 30 weeks gestation of 05/19/2023 05/23/2023 Cyst of right ovary 08/07/2018 05/23/20 23 documented as of this encounter (statuses as of 05/24/2023) [facility] of Past illness Narrative* Problem Noted Date Diagnosed Date Resolved Date 30 weeks gestation of 05/19/2023 05/23/2023 Cyst of right ovary 08/07/2018 05/23/20 23 documented as of this encounter (statuses as of 05/25/2023) [facility] of Past illness Narrative* Problem Noted Date Diagnosed Date Resolved Date 30 weeks gestation of 05/19/2023 05/23/2023 Cyst of right ovary 08/07/2018 05/23/20 23 documented as of this encounter (statuses as of 05/27/2023) [facility] of Past illness Narrative* Problem Noted Date Diagnosed Date Resolved Date 30 weeks gestation of 05/19/2023 05/23/2023 Cyst of right ovary 08/07/2018 05/23/20 23 documented as of this encounter (statuses as of 05/28/2023) [facility] NotePap Smear Specimen AdequacyFebruary 2022 3:30pmComment.Satisfactory for evaluation. Endocervical and/or squamous metaplasticcells (endocervical component)are present.[facility] INTERFACED A#[id number] Memorial HospitalComment on above:Satisfactory for evaluation. Endocervical and/or squamous metaplasticcells (endocervical component)are present.05-24-2022 History of Present illness Narrative* Patient is here today for wound check. * Patient reports that she got punctured in her right web of hand on Satru afternoon. * She went to [facility] ED for eval. * It was cleaned out, did not need stitches, they left it open. * She was put on antibiotics [facility] Work Phone: [phone] 841-511808-03-2022 History of Present illness Narrative* Patient is here today for wound check. * Patient reports that she got punctured in her right web of hand on Satru afternoon. * She went to [facility] ED for eval. * It was cleaned out, did not need stiches, they left it open. * She was put on antibiotics [facility] Work Phone: [phone]) 902-643404-13-2022 NoteHNO ID: [id number] Author: Kia Otto MD Service: ? Author Type: Physician Type: Progress Notes Filed: 01/31/2022 2:33 PM Note Text: [facility] SURGERY NOTE REASON for TODAY'S VISIT: LEFT breast pain + lump HISTORY of PRESENT ILLNESS: Petty You is a 21 year old female who presents today with a new onset burning pain of her LEFT breast as well as a lump that she first noticed this morning. She states it feels slightly larger than pea-size to her. She has never had anything like this before. She does get breast pain during her menstrual cycle (currently she is about 9-10 days before her cycle starting). No history of breast cysts/procedures/biopsies. FH of breast cancer in maternal great-grandmother. BREAST PROCEDURE HISTORY: Breast Biopsies: No prior history. 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 FAMILY HISTORY: FAMILY HISTORY Problem Relation Age of Onset - Heart Father heart murmur, dx age 35 - Diabetes Maternal Grandmother great grandma - Hypertension Maternal Uncle - Hypertension Maternal Aunt - Cancer Other great grandpa - skin CA, a great uncle with melanoma The Patient is not of Ashkenazic Ancestry. 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 ondansetron orally disintegrating (ZOFRAN ODT) 4 mg disintegrating tablet Take 1 tablet by mouth every 6 hours as needed for nausea/vomiting for up to 7 doses. MULTIVITAMIN ORAL Take by mouth. ascorbic acid (VITAMIN C ORAL) Take by mouth. ALBUTEROL SULFATE HFA 90 MCG/ACTUATION AEROSOL INHALER 2 puffs every 4-6 hours as needed for cough and wheezing REVIEW OF SYSTEMS: GENERAL: No weight loss, malaise or fevers. 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 HEENT: Negative for significant headaches. No changes in hearing or vision. Denies frequent nose bleeds. RESP: Denies dyspnea, COPD, emphysema. CARD: Denies h/o DVT or PE. Patient denies any chest pain, arrhythmias, or valvular disease. GI: Patient denies any history of PUD, liver problems or ETOH abuse. Patient denies any history of IBD, rectal bleeding, diarrhea : No dysuria or incontinence RENAL: Denies history of renal insufficiency. ENDO: Denies history of Diabetes. Denies history of thyroid problems. Denies history of steroid use. HEME: Denies bleeding or bruising easily. No history of anemia. Denies known coagulopathy. 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 MUSCULOSKELETAL: Negative for bone pain, concerning joint pain/swelling, chronic back pain, or muscle weakness. SKIN: Denies h/o scleroderma or lupus. PSYCHIATRIC: Denies history of psychiatric illness. SURGICAL HISTORY: PAST SURGICAL HISTORY Procedure Laterality Date - TOOTH EXTRACTION wisdom teeth EXAMINATION: LMP 12/18/2020 Body mass index is 26.56 kg/m?. GENERAL: healthy, alert, no acute distress, cooperative, smiling SKIN: warm, dry, skin color, texture, turgor normal HEAD/EYES: normocephalic, atraumatic and anicteric NECK: Supple, ROM grossly WNL RESP: Normal respiratory effort HEART: Regular rate MUSCULOSKELETAL: No observed limitations in movement. Patient ambulates independently. Left Breast: symmetric, no dominant masses, dense breat tissue at 3:00 5cmfn and 6:00 4cmfn that is tender to palpation, nipple everted, no nipple discharge, no skin changes Left Axilla: no axillary lymphadenopathy Right Breast: symmetric, no dominant masses, dense breat tissue at 6:00 4cmfn, nipple everted, no nipple discharge, no skin changes Right Axilla: no axillary lymphadenopathy Assessment/Plan IMPRESSION: ? 21 year old female with LEFT breast pain + palpable abnormality which is most likely consistent with normal dense breast tissue. PLAN: -She has multiple areas of both breasts on exam with dense breast tissue/fibrocystic changes and it feels very symmetric to me -Possibly slightly more prominent tissue of LEFT breast at 3:00 position 5cmfn, which is what she felt this morning. An US of the LEFT breast was ordered -Will follow-up results of US and ca (more content not included)...[facility] [id number] History of Present illness Narrative* Kia Otto MD - 01/31/2022 2:30 PM EDT Images from the original note were not included. [facility] SURGERY NOTE REASON for TODAY'S VISIT: LEFT breast pain + lump HISTORY of PRESENT ILLNESS: Petty You is a 21 year old female who presents today with a new onset burning pain ofher LEFT breast as well as a lump that she first noticed this morning. She states it feels slightlylarger than pea-size to her. She has never had anything like this before. She does get breast pain during her menstrual cycle (currently she is about 9-10 days before her cycle starting). No history of breast cysts/procedures/biopsies. FH of breast cancer in maternal great-grandmother. BREAST PROCEDURE HISTORY: Breast Biopsies: No prior history. 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 FAMILY HISTORY: FAMILY HISTORY Problem Relation Age of Onset Heart Father heart murmur, dx age 35 Diabetes Maternal Grandmother great grandma Hypertension Maternal Uncle Hypertension Maternal Aunt Cancer Other great grandpa - skin CA, a great uncle with melanoma The Patient is not of Ashkenazic Ancestry. 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 ondansetron orally disintegrating (ZOFRAN ODT) 4 mg disintegrating tablet Take 1 tablet by mouth every 6 hours as needed for nausea/vomiting for up to 7 doses. MULTIVITAMIN ORAL Take by mouth. ascorbic acid (VITAMIN C ORAL) Take by mouth. ALBUTEROL SULFATE HFA 90 MCG/ACTUATION AEROSOL INHALER 2 puffs every 4-6 hours as needed for cough and wheezing REVIEW OF SYSTEMS: GENERAL: No weight loss, malaise or fevers. 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 HEENT: Negative for significant headaches. No changes in hearing or vision. Denies frequent nose bleeds. RESP: Denies dyspnea, COPD, emphysema. CARD: Denies h/o DVT or PE. Patient denies any chest pain, arrhythmias, or valvular disease. GI: Patient denies any history of PUD, liver problems or ETOH abuse. Patient denies any history of IBD, rectal bleeding, diarrhea : No dysuria or incontinence RENAL: Denies history of renal insufficiency. ENDO: Denies history of Diabetes. Denies history of thyroid problems. Denies history of steroid use. HEME: Denies bleeding or bruising easily. No history of anemia. Denies known coagulopathy. 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 MUSCULOSKELETAL: Negative for bone pain, concerning joint pain/swelling, chronic back pain, or muscle weakness. SKIN: Denies h/o scleroderma or lupus. PSYCHIATRIC: Denies history of psychiatric illness. SURGICAL HISTORY: PAST SURGICAL HISTORY Procedure Laterality Date TOOTH EXTRACTION wisdom teeth EXAMINATION: LMP 12/18/2020 Body mass index is 26.56 kg/m . GENERAL: healthy, alert, no acute distress, cooperative, smiling SKIN: warm, dry, skin color, texture, turgor normal HEAD/EYES: normocephalic, atraumatic and anicteric NECK: Supple, ROM grossly WNL RESP: Normal respiratory effort HEART: Regular rate MUSCULOSKELETAL: No observed limitations in movement. Patient ambulates independently. Left Breast: symmetric, no dominant masses, dense breat tissue at 3:00 5cmfn and 6:00 4cmfn that istender to palpation, nipple everted, no nipple discharge, no skin changes Left Axilla: no axillary lymphadenopathy Right Breast: symmetric, no dominant masses, dense breat tissue at 6:00 4cmfn, nipple everted, no nipple discharge, no skin changes Right Axilla: no axillary lymphadenopathy Assessment/Plan IMPRESSION: 21 year old female with LEFT breast pain + palpable abnormality which is most likely consistent with normal dense breast tissue. PLAN: -She has multiple areas of both breasts on exam with dense breast tissue/fibrocystic changes and itfeels very symmetric to me -Possibly slightly more prominent tissue of LEFT breast at 3:00 position 5cmfn, which is what she felt this morning. An US of the LEFT breast was ordered -Will follow-up results of US and call her [facility] and today's clinical exam were discussed with the Patient and significant other.All questions were answered and she had no further concerns. Ms. You will return on an as needed basis. She has our names and numbers to contact us if she hasany questions or concerns. I spent 30 minutes in the visit, with more than 50% of the total [id number] time of the visit in counseling / coordination of care. Kia Otto MD Breast Surgical Oncology Fellow [phone] [facility] History of Present illness Narrative* Patient presents to discuss Wellbutrin and depression. * Work-up with cardiology and Holter monitor was unremarkable. Patient reports persistent anxiety andthen chest pain related to work and stress. Patient states that Wellbutrin worked well initially, its effects have waned over the past 2 weeks. Patient denies suicidal ideation. Patient reports reduced motivation, social awkwardness, and general malaise that was similar prior to initiating Wellbutrin. Patient wishes to discuss either increase or change in medication regimen. [facility] Work Phone: [phone]) 787-644208-06-2021 History of Present illness Narrative* Patient is here today for 4-6 week follow up * She has been putting the drops in her ears for her cerumen impaction. * Patient reports that she feels her depression is significantly improved. She is doing well on the Wellbutrin. * She has lost two lbs. [facility] Work Phone: Evaluation note* Diagnosis Mass of lower outer quadrant of left breast- Primary Fibrocystic breast changes of both breasts [facility] assessment information availableW[facility] [place] Work Phone: Evaluation note* Diagnosis Supervision of high risk in third trimester- Primary Unspecified high-risk Anemia complicating , third trimester Cholestasis during in third trimester Pruritus gravidarum, third trimester Cholelithiasis affecting in third trimester, antepartum [facility] Diagnosis Cholestasis during in third trimester- Primary Supervision of high risk in third trimester Unspecified high-risk Abnormal umbilical cord Fetus or affected by other and unspecified conditions of umbilical cord 30 weeks gestation of state, incidental [facility] Diagnosis Supervision of high risk in third trimester- Primary Unspecified high-risk UTI (urinary tract infection) in , antepartum Infections of genitourinary tract antepartum Asymptomatic bacteriuria during Cholestasis during in third trimester Pruritus gravidarum, third trimester Abdominal pain affecting [facility] Diagnosis Cholestasis during in third trimester- Primary 31 weeks gestation of state, incidental [facility] Diagnosis Cholestasis during in third trimester- Primary [facility] Diagnosis Cholestasis during in third trimester- Primary 32 weeks gestation of state, incidental [facility] Diagnosis Supervision of high risk in third trimester- Primary Unspecified high-risk Cholestasis during in third trimester Asymptomatic bacteriuria during Cholelithiasis affecting in third trimester, antepartum [facility] Diagnosis Cholestasis during in third trimester- Primary 33 weeks gestation of state, incidental [facility] Diagnosis Cholelithiasis affecting in third trimester, antepartum- Primary Anemia complicating , third trimester [facility] Diagnosis Cholestasis during in third trimester- Primary Supervision of high risk in third trimester Unspecified high-risk [facility] Diagnosis Cholestasis during in third trimester [O26.613, K83.1]- Primary Supervision of high risk in third trimester [O09.93] Unspecified high-risk [facility]* Diagnosis related nausea, antepartum- Primary Mild hyperemesis gravidarum, antepartum [facility]* Diagnosis Encounter for care of lactating mother- Primary care and examination of lactating mother Severe pre-eclampsia, Severe pre-eclampsia, with delivery state Routine follow-up Calculus of gallbladder without cholecystitis without obstruction Calculus of gallbladder without mention of cholecystitis or obstruction [facility]* Diagnosis Calculus of gallbladder without cholecystitis without obstruction- Primary Calculus of gallbladder without mention of cholecystitis or obstruction Hemolysis, elevated liver enzymes, and low platelet (HELLP) syndrome during , antepartum Symptomatic cholelithiasis Calculus of gallbladder without mention of cholecystitis or obstruction documented [facility]* Diagnosis headache, - Primary Other specified complications, condition or complication problem Severe pre-eclampsia, Severe pre-eclampsia, with delivery Symptomatic cholelithiasis Calculus of gallbladder without mention of cholecystitis or obstruction documented [facility]* Diagnosis Primary hypertension- Primary Unspecified essential hypertension Symptomatic cholelithiasis Calculus of gallbladder without mention of cholecystitis or obstruction documented [facility]* Diagnosis care and examination- Primary Routine follow-up Preeclampsia in period headache, Other specified complications, condition or complication Acute midline low back pain without sciatica Symptomatic cholelithiasis Calculus of gallbladder without mention of cholecystitis or obstruction documented [facility]* Diagnosis Severe pre-eclampsia, - Primary Severe pre-eclampsia, with delivery [facility]* Diagnosis Routine general medical examination at a health care facility- Primary documented in this encounter [facility] Work Phone: Evaluation note* Diagnosis Upper abdominal pain- Primary documented in this encounter [facility] Work Phone: Evaluation note* Diagnosis Lower abdominal pain- Primary Abdominal pain, other specified site Incomplete emptying of bladder Incomplete bladder emptying documented in this encounter [facility] Work Phone: Evaluation note* Diagnosis Microscopic hematuria- Primary History of UTI Personal history of urinary (tract) infection [facility]* Diagnosis problem- Primary [facility]* Diagnosis Generalized abdominal pain- Primary Abdominal pain, generalized [facility]* Diagnosis Well adult exam- Primary Routine general medical examination at [facility] Chronic midline low back pain without sciatica Lactating mother care and examination of lactating mother Obesity, Class I, BMI 30-34.9 Obesity, unspecified documented in this encounter [facility] note* Diagnosis Pre-op evaluation- Primary Preoperative examination, unspecified Seizure due to eclampsia Primary hypertension Unspecified essential hypertension Lactating mother care and examination of lactating mother care and examination- Primary Routine follow-up Preeclampsia in period headache, Other specified complications, condition or complication Acute midline low back pain without sciatica Diarrhea, unspecified type- Primary Generalized abdominal pain Abdominal pain, generalized Gastroesophageal reflux disease, unspecified whether esophagitis present Generalized abdominal pain Abdominal pain, generalized Diarrhea, unspecified type documented [facility]* Diagnosis Pre-op evaluation- Primary Preoperative examination, unspecified Seizure due to eclampsia Primary hypertension Unspecified essential hypertension Lactating mother care and examination of lactating mother care and examination- Primary Routine follow-up Preeclampsia in period headache, Other specified complications, condition or complication Acute midline low back pain without sciatica Generalized abdominal pain Abdominal pain, generalized Diarrhea, unspecified type documented [facility]* Diagnosis Pre-op evaluation- Primary Preoperative examination, unspecified Seizure due to eclampsia Primary hypertension Unspecified essential hypertension Lactating mother care and examination of lactating mother care and examination- Primary Routine follow-up Preeclampsia in period headache, Other specified complications, condition or complication Acute midline low back pain without sciatica Positive autoantibody screening for celiac disease- Primary Other abnormal clinical finding Loose stools Abnormal feces Generalized abdominal pain Abdominal pain, generalized documented [facility]* Diagnosis Pre-op evaluation- Primary Preoperative examination, unspecified Seizure due to eclampsia Primary hypertension Unspecified essential hypertension Lactating mother care and examination of lactating mother care and examination- Primary Routine follow-up Preeclampsia in period headache, Other specified complications, condition or complication Acute midline low back pain without sciatica Positive autoantibody screening for celiac disease Other abnormal clinical finding Loose stools Abnormal feces Generalized abdominal pain Abdominal pain, generalized [facility] Diagnosis Pre-op evaluation- Primary Preoperative examination, unspecified Seizure due to eclampsia Primary hypertension Unspecified essential hypertension Lactating mother care and examination of lactating mother care and examination- Primary Routine follow-up Preeclampsia in period headache, Other specified complications, condition or complication Acute midline low back pain without sciatica Celiac disease- Primary documented [facility]* Diagnosis Pre-op evaluation- Primary Preoperative examination, unspecified Seizure due to eclampsia Primary hypertension Unspecified essential hypertension Lactating mother care and examination of lactating mother care and examination- Primary Routine follow-up Preeclampsia in period headache, Other specified complications, condition or complication Acute midline low back pain without sciatica Celiac disease- Primary Vitamin D deficiency Unspecified vitamin D deficiency documented [facility]* Diagnosis Pre-op evaluation- Primary Preoperative examination, unspecified Seizure due to eclampsia Primary hypertension Unspecified essential hypertension Lactating mother care and examination of lactating mother care and examination- Primary Routine follow-up Preeclampsia in period headache, Other specified complications, condition or complication Acute midline low back pain without sciatica Celiac disease documented [facility]* Diagnosis Pre-op evaluation- Primary Preoperative examination, unspecified Seizure due to eclampsia Primary hypertension Unspecified essential hypertension Lactating mother care and examination of lactating mother care and examination- Primary Routine follow-up Preeclampsia in period headache, Other specified complications, condition or complication Acute midline low back pain without sciatica Celiac disease- Primary Heartburn [facility]* Diagnosis Pre-op evaluation- Primary Preoperative examination, unspecified Seizure due to eclampsia Primary hypertension Unspecified essential hypertension Lactating mother care and examination of lactating mother care and examination- Primary Routine follow-up Preeclampsia in period headache, Other specified complications, condition or complication Acute midline low back pain without sciatica Celiac disease Vitamin D deficiency Unspecified vitamin D deficiency [facility] Diagnosis Acute swimmer's ear of right side- Primary Non-recurrent acute suppurative otitis media of right ear without spontaneous rupture of tympanic membrane Bilateral impacted cerumen Impacted cerumen documented in this encounter [facility] Work Phone: Evaluation note* Diagnosis Pre-op evaluation- Primary Preoperative examination, unspecified Seizure due to eclampsia Primary hypertension Unspecified essential hypertension Lactating mother care and examination of lactating mother care and examination- Primary Routine follow-up Preeclampsia in period headache, Other specified complications, condition or complication Acute midline low back pain without sciatica Celiac disease- Primary documented [facility]* Diagnosis Pre-conception counseling- Primary Other procreative management counseling and advice History of cholestasis during History of eclampsia Personal history of other genital system and obstetric disorders History of cholecystectomy Other acquired absence of organ Celiac disease Amenorrhea- Primary Absence of menstruation Special screening examination for human papillomavirus (HPV) Screening for diabetes mellitus (DM) Screening for diabetes mellitus Celiac disease History of eclampsia Personal history of other genital system and obstetric disorders Amenorrhea Absence of menstruation Special screening examination for human papillomavirus (HPV) [facility] Diagnosis Pre-conception counseling- Primary Other procreative management counseling and advice History of cholestasis during History of eclampsia Personal history of other genital system and obstetric disorders History of cholecystectomy Other acquired absence of organ Celiac disease Amenorrhea- Primary Absence of menstruation Special screening examination for human papillomavirus (HPV) Screening for diabetes mellitus (DM) Screening for diabetes mellitus Celiac disease History of eclampsia Personal history of other genital system and obstetric disorders Amenorrhea Absence of menstruation [facility]* Diagnosis Pre-op evaluation- Primary Preoperative examination, unspecified Seizure due to eclampsia (HCC) Primary hypertension Unspecified essential hypertension Lactating mother ([facility]) care and examination of lactating mother care and examination ([facility])- Primary Routine follow-up Preeclampsia in period (HCC) headache, (HCC) Other specified complications, condition or complication Acute midline low back pain without sciatica Celiac disease (HCC)- Primary Celiac disease Iron deficiency Iron deficiency anemia, unspecified Loose stools Abnormal feces [facility]* Diagnosis 9 weeks gestation of (HHS-HCC)- Primary Subchorionic hemorrhage of placenta in first trimester ([facility] Round ligament pain documented in this encounter [facility] Work Phone: Evaluation note* Diagnosis Pre-conception counseling- Primary Other procreative management counseling and advice History of cholestasis during History of eclampsia Personal history of other genital system and obstetric disorders History of cholecystectomy Other acquired absence of organ Celiac disease Amenorrhea- Primary Absence of menstruation Special screening examination for human papillomavirus (HPV) Screening for diabetes mellitus (DM) Screening for diabetes mellitus Celiac disease History of eclampsia Personal history of other genital system and obstetric disorders Subchorionic hemorrhage of placenta in first trimester [facility]* Diagnosis Pre-conception counseling- Primary Other procreative management counseling and advice History of cholestasis during History of eclampsia Personal history of other genital system and obstetric disorders History of cholecystectomy Other acquired absence of organ Celiac disease Amenorrhea- Primary Absence of menstruation Special screening examination for human papillomavirus (HPV) Screening for diabetes mellitus (DM) Screening for diabetes mellitus Celiac disease History of eclampsia Personal history of other genital system and obstetric disorders Dehydration during - Primary Supervision of high risk in first trimester Unspecified high-risk Hyperemesis affecting , antepartum Celiac disease History of eclampsia Personal history of other genital system and obstetric disorders Hyperemesis arising during - Primary Mild hyperemesis gravidarum, unspecified as to episode of care [facility] HealthHistory of Present illness Narrative* Patient is here today for ED follow up for chest pain. * Patient reports that she had been having 3 days of intermittent chest pain, that night at work it got worse a nd she felt like she had back pain also and had tingling in her right arm, felt palpitations and felt lightheaded, nausea. Patient reports that she had testing in the Ed but it did not seemto resolve due to anything in the Ed and she was not given medication. * Patient reports that she has a family history of heart issues. * Mom was just diagnosed with some kind of a rhythm problem, she is not sure * Grandfather has A fib * Maternal Great grandparents of MIs in the 50s * It is happens everyday. * She thought initially it was stress or anxiety related but it seemed to happen when she was just sitting doing nothing. * NO heartburn symptoms or bowel issues. * This has been happening at least once a day for 2 weeks or more. * This conglomeration of symptoms generally happens all together and it can last for 5 min or longer. [facility] Work Phone: History of Present illness Narrative* 21-year-old female with no significant past medical history here for evaluation of the following complaints: * Problem #1 constant left-sided chest pain * -Patient notes that the pain comes and goes in waves; and she does notice some numbness to her right arm. Pain is relieved with pressure. Patient denies any changes with exertion; denies any changes with position or respiration. * -He notes that with activities of daily living she has not really noticed any angina or shortness of breath. Denies any orthopnea/PND/lower extremity edema * Problem #2 palpitations * -Has been having palpitations concurrent with the chest discomfort. Turned in an event monitor today. * Notably was diagnosed with anxiety 2 years ago. Has a significant family history of coronary arterydisease. [address] Work Phone: History of Present illness Narrative* Patient is here today for ED follow up for chest pain. * Patient reports that she had been having 3 days of intermittent chest pain, that night at work it got worse a nd she felt like she had back pain also and had tingling in her right arm, felt palpitations and felt lightheaded, nausea. Patient reports that she had testing in the Ed but it did not seemto resolve due to anything in the Ed and she was not given medication. * Patient reports that she has a family history of heart issues. * Mom was just diagnosed with some kind of a rhythm problem, she is not sure * Grandfather has A fib * Maternal Great grandparents of MIs in the 50s * It is happens everyday. * She thought initially it was stress or anxiety related but it seemed to happen when she was just sitting doing nothing. * NO heartburn symptoms or bowel issues. * This has been happening at least once a day for 2 weeks or more. * This conglomeration of symptoms generally happens all together and it can last for 5 min or longer. [facility] Work Phone: History of Present illness Narrative* 21-year-old female with no significant past medical history here for evaluation of the following complaints: * Problem #1 constant left-sided chest pain * -Patient notes that the pain comes and goes in waves; and she does notice some numbness to her right arm. Pain is relieved with pressure. Patient denies any changes with exertion; denies any changes with position or respiration. * -He notes that with activities of daily living she has not really noticed any angina or shortness of breath. Denies any orthopnea/PND/lower extremity edema * Problem #2 palpitations * -Has been having palpitations concurrent with the chest discomfort. Turned in an event monitor today. * Notably was diagnosed with anxiety 2 years ago. Has a significant family history of coronary arterydisease. [facility] Work Phone: History of Present illness Narrative* 21-year-old female with no significant past medical history here for evaluation of the following complaints: * Problem #1 constant left-sided chest pain * -Patient notes that the pain comes and goes in waves; and she does notice some numbness to her right arm. Pain is relieved with pressure. Patient denies any changes with exertion; denies any changes with position or respiration. * -She notes that with activities of daily living she has not really noticed any angina or shortness of breath. Denies any orthopnea/PND/lower extremity edema * Problem #2 palpitations * -Has been having palpitations concurrent with the chest discomfort. * Notably was diagnosed with anxiety 2 years ago. Has a significant family history of coronary arterydisease. * Patient underwent an event monitor that showed no significant arrhythmias. Echocardiogram shows a structurally normal heart. Exercise stress test: Patient exercised for 12 minutes with normal hemodynamics and no electrocardiographic evidence of ischemia. [id number] Work Phone: Hospital Discharge instructions Additional Instructions Please follow-up with your WANT AD SUPERVISOR for repeat evaluation and return to the ER should you have any further concerns or worsening of symptomsWSelect Medical Special[facility] [place] Work Phone: Hospital Discharge instructions* Attachments The following attachments cannot be sent through Care Everywhere. * symptoms (Portuguese) * Subchorionic Bleeding (Portuguese) * Round Ligament Pain (Portuguese) [facility]* Attachments The following attachments cannot be sent through Care Everywhere. * : Hyperemesis Gravidarum (Portuguese) [facility] Hospital* Name Dates Details Instructions not documented [facility]: Reason for referral (narrative)* Diagnostic Procedure Only (Routine) - Authorized Specialty Diagnoses / Procedures Referred By Rupali head Referred To Contact BR IMAGING Diagnoses Mass of lower outer quadrant of left breast Procedures US BREAST LTD LT US BREAST UNI REAL TIME WITH IMAGE LIMITED Kia Otto MD [address] [place] [address] [facility] Imaging [address] [place] [id number] Referral ID Status Reason Start Date Expiration Date Visits Requested Visits Authorized [id number] Authorized Auto-Generat ed Referral 01/31/2022 03/02/2023 1 1 [facility] for referral (narrative)* Diagnostic Procedure Only (Routine) - Pending Review Specialty Diagnoses / Procedures Referred By Rupali t Referred To Contact [facility] Diagnoses Supervision of high risk in third trimester Cholestasis during in third trimester Procedures BIOPHYSICAL PROFILE US WHI BIOPHYSICAL PROFILE NON-STRESS TESTING Etta Ugalde APRN.CNP [address] [address] Referral ID Status Reason Start Date Expiration Date Visits Requested Visits Authorized [id number] Pending Review Auto-Generat ed Referral 05/23/2023 05/22/2024 10 1 * Outpatient Procedure (Routine) - Pending Review Specialty Diagnoses / Procedures Referred By Rupali t Referred To Contact Diagnoses Supervision of high risk in third trimester Cholestasis during in third trimester Procedures NON-STRESS TEST NON-STRESS TEST Etta Ugalde APRN.CNP [address] [facility] [address] [place] [address] Referral ID Status Reason Start Date Expiration Date Visits Requested Visits Authorized [id number] Pending Review Auto-Generat ed Referral 05/23/2023 05/23/2024 10 1 * Diagnostic Procedure Only (Routine) - Authorized Specialty Diagnoses / Procedures Referred By Contac t Referred To Contact [facility] Diagnoses Supervision of high risk in third trimester Procedures OBSTETRIC ULTRASOUND WHI US PREG UTERUS AFTER 1ST TRIMEST GESTATION Etta Ugalde APRN.COPY CUTTER [address] [facility] [address] [place] [address] [facility] [address] [place] [address] Referral ID Status Reason Start Date Expiration Date Visits Requested Visits Authorized [id number] Authorized Auto-Generat ed Referral 05/23/2023 05/22/2024 1 1 [facility] for referral (narrative)* Consultation (Routine) - Authorized Specialty Diagnoses / Procedures Referred By Contac t Referred To Contact Primary Care Procedures Follow Up In Primary Care - Established Ken Rachel MD [facility] [place] [address] Referral ID Status Reason Start Date Expiration Date V isits Requested Visits Authorized [id number] Authorized 12/17/2023 12/16/2024 1 1 [facility] Work Phone: Reason for referral (narrative)* Diagnostic Procedure Only (Routine) - Closed Specialty Diagnoses / Procedures Referred By Contac t Referred To Contact XR IMAGING Diagnoses Generalized abdominal pain Diarrhea, unspecified type Procedures XR ABDOMEN 2V ROUTINE SUPINE W UPRIGHT/DECUB/CTL RADIOLOGIC EXAM ABDOMEN 2 VIEWS Kingston Davenport APRN.COPY CUTTER [address] [place] [address] [place] [address] Referral ID Status Reason Start Date Expiration Date V isits Requested Visits Authorized [id number] Closed Auto-Generate d Referral 07/22/2024 08/21/2025 1 1 [facility] for referral (narrative)* Diagnostic Procedure Only (Routine) - Closed Specialty Diagnoses / Procedures Referred By Contac t Referred To Contact XR IMAGING Diagnoses Generalized abdominal pain Diarrhea, unspecified type Procedures XR ABDOMEN 2V ROUTINE SUPINE W UPRIGHT/DECUB/CTL RADIOLOGIC EXAM ABDOMEN 2 VIEWS Kingston Davenport APRN.COPY CUTTER [address] [place] [address] [place] [id number] Referral ID Status Reason Start Date Expiration Date V isits Requested Visits Authorized [id number] Closed Auto-Generate d Referral 07/22/2024 08/21/2025 1 1 [facility] for referral (narrative)* Outpatient Procedure (Routine) - New Request Specialty Diagnoses / Procedures Referred By Contac t Referred To Contact [facility] Diagnoses Positive autoantibody screening for celiac disease Loose stools Generalized abdominal pain Procedures EGD DIAGNOSTIC ESOPHAGOGASTRODUODENOSCO PY TRANSORAL DIAGNOSTIC Kingston Davenport APRN.COPY CUTTER [address] [place] [address] [facility] [address] [place] [id number] Referral ID Status Reason Start Date Expiration Date Visits Requested Visits Authorized [id number] New Request Auto-Generat ed Referral 07/24/2024 07/24/2025 1 1 [facility] for referral (narrative)* Outpatient Procedure (Routine) - Closed Specialty Diagnoses / Procedures Referred By Contac t Referred To Contact [facility] Diagnoses Positive autoantibody screening for celiac disease Loose stools Generalized abdominal pain Procedures EGD DIAGNOSTIC ESOPHAGOGASTRODUODENOSCO PY TRANSORAL DIAGNOSTIC Kingston Davenport APRN.COPY CUTTER [address] [place] [address] [facility] [address] [place] [address] Referral ID Status Reason Start Date Expiration Date V isits Requested Visits Authorized [id number] Closed Auto-Generate d Referral 07/24/2024 07/24/2025 1 1 [facility] for visit Narrative* Outpatient Procedure (Routine) - Closed Specialty Diagnoses / Procedures Referred By Rupali t Referred To Contact [facility] Diagnoses Positive autoantibody screening for celiac disease Loose stools Generalized abdominal pain Procedures EGD DIAGNOSTIC ESOPHAGOGASTRODUODENOSCO PY TRANSORAL DIAGNOSTIC Kingston Davenport APRN.CNP [address] [place] [address] [facility] [address] [place] [id number] Referral ID Status Reason Start Date Expiration Date V isits Requested Visits Authorized [id number] Closed Auto-Generate d Referral 07/24/2024 07/24/2025 1 1 [facility] for visit Narrative* Imaging (Routine) - Not Required - RTA Specialty Diagnoses / Procedures Referred By Contac t Referred To Contact Radiology Diagnoses Amenorrhea Procedures US OB TRANSVAGINAL Kontarovich, Riddhi, DO [address] [place] [address] Phone: tel: fax: Referral ID Status Reason Start Date Expiration Date V isits Requested Visits Authorized [id number] Not Required - RTA 02/04/2025 02/04/2026 1 1 [facility] for visit Narrative* Imaging (Routine) - Not Required - RTA Specialty Diagnoses / Procedures Referred By Contac t Referred To Contact Radiology Diagnoses Subchorionic hemorrhage of placenta in first trimester Procedures US OB TRANSVAGINAL Kontarovich, Riddhi, DO [address] [place] [address] Phone: tel: fax: Referral ID Status Reason Start Date Expiration Date V isits Requested Visits Authorized [id number] Not Required - RTA 02/27/2025 02/27/2026 1 1 [facility] Family History Grandmother Name Dates Details Family history of migraine h eadaches(V17.2, Z82.0) Status:Active Mother Name Dates Details Family history of atrial fib rillation(V17.49, Z82.49) Status:Active Unknown Family Member Name Dates Details Family history of atrial fib rillation: Mother(V17.49, Z82.49) Status:Active Family history of migraine h eadaches: Maternal Grandmother(V17.2, Z82.0) Status:Active Unknown Family Member Name Dates Details Family history of atrial fib rillation: Mother(V17.49, Z82.49) Status:Active Family history of migraine h eadaches: Maternal Grandmother(V17.2, Z82.0) Status:Active Unknown Family Member Name Dates Details Family history of atrial fib rillation: Mother(V17.49, Z82.49) Status:Active Family history of migraine h eadaches: Maternal Grandmother(V17.2, Z82.0) Status:Active Unknown Family Member Name Dates Details Family history of atrial fib rillation: Mother(V17.49, Z82.49) Status:Active Family history of migraine h eadaches: Maternal Grandmother(V17.2, Z82.0) Status:Active Unknown Family Member Name Dates Details Family history of atrial fib rillation: Mother(V17.49, Z82.49) Status:Active Family history of migraine h eadaches: Maternal Grandmother(V17.2, Z82.0) Status:Active Unknown Family Member Name Dates Details Family history of atrial fib rillation: Mother(V17.49, Z82.49) Status:Active Family history of migraine h eadaches: Maternal Grandmother(V17.2, Z82.0) Status:Active Unknown Family Member Name Dates Details Family history of atrial fib rillation: Mother(V17.49, Z82.49) Status:Active Family history of migraine h eadaches: Maternal Grandmother(V17.2, Z82.0) Status:Active Unknown Family Member Name Dates Details Family history of atrial fib rillation: Mother(V17.49, Z82.49) Status:Active Family history of migraine h eadaches: Maternal Grandmother(V17.2, Z82.0) Status:Active Unknown Family Member Name Dates Details Family history of atrial fib rillation: Mother(V17.49, Z82.49) Status:Active Family history of migraine h eadaches: Maternal Grandmother(V17.2, Z82.0) Status:Active Unknown Family Member Name Dates Details Family history of atrial fib rillation: Mother(V17.49, Z82.49) Status:Active Family history of migraine h eadaches: Maternal Grandmother(V17.2, Z82.0) Status:Active Unknown Family Member Name Dates Details Family history of atrial fib rillation: Mother(V17.49, Z82.49) Status:Active Family history of migraine h eadaches: Maternal Grandmother(V17.2, Z82.0) Status:Active Unknown Family Member Name Dates Details Family history of atrial fib rillation: Mother(V17.49, Z82.49) Status:Active Family history of migraine h eadaches: Maternal Grandmother(V17.2, Z82.0) Status:Active Unknown Family Member Name Dates Details Family history of atrial fib rillation: Mother(V17.49, Z82.49) Status:Active Family history of migraine h eadaches: Maternal Grandmother(V17.2, Z82.0) Status:Active Unknown Family Member Name Dates Details Family history of atrial fib rillation: Mother(V17.49, Z82.49) Status:Active Family history of migraine h eadaches: Maternal Grandmother(V17.2, Z82.0) Status:Active Unknown Family Member Name Dates Details Family history of atrial fib rillation: Mother(V17.49, Z82.49) Status:Active Family history of migraine h eadaches: Maternal Grandmother(V17.2, Z82.0) Status:Active Unknown Family Member Name Dates Details Family history of atrial fib rillation: Mother(V17.49, Z82.49) Status:Active Family history of migraine h eadaches: Maternal Grandmother(V17.2, Z82.0) Status:Active Unknown Family Member Name Dates Details Family history of atrial fib rillation: Mother(V17.49, Z82.49) Status:Active Family history of migraine h eadaches: Maternal Grandmother(V17.2, Z82.0) Status:Active Chief Complaint * 21 y/o female presents for 4 week f/u * Pt states she feels a lot better * States she did have a rough start with swallowing her medication * Pt states she has been using drops in her ears to help loosen wax up for to look intoher ears * Pt states she has been having issues with loosing weight * She knows the Wellbutrin has weight loss capabilities but she feels its not helping after a month * 21 y/o female presents for ER f/u * Pt was in the ER on 06/23 for chest pain * Pt states before she went she was having chest pain, back pain, and a tingling in her RT arm to hershoulder and her HR was racing * Pt states it seems to be happening at least once a day now * Pts mother asked the doctor if it could be anxiety related * Pt does report that she has a strong family history of heart problems, especially her Mother * Pt does report bother grandparents had heart attacks Palpitations* 21 y/o female presents for ER f/u * Pt was in the ER on 06/23 for chest pain * Pt states before she went she was having chest pain, back pain, and a tingling in her RT arm to hershoulder and her HR was racing * Pt states it seems to be happening at least once a day now * Pts mother asked the doctor if it could be anxiety related * Pt does report that she has a strong family history of heart problems, especially her Mother * Pt does report bother grandparents had heart attacks PalpitationsPalpitations* Patient here today for a follow up appointment. * Patient had heart monitoring done in June and would like to discuss the results. Patient continues with the heart racing sensation and feels it is due to stress. Patient states she knows that she stresses over the little things. * Patient would also like to discuss increasing the dose of Bupropion or trying a different medication. * Patient states when starting the Bupropion she had less down days and now is having an increase in her down days. * 22 y/o female presents for a puncture wound * Located to her RT hand * She states she had a goat take its horn to her hand * She was told by the ED that it looks like it got the tendon * They would not stitch it due to having dirt inside of it * She also is having a reaction to something that was used on her hand * 22 y/o female presents for a puncture wound * Located to her RT hand * She states she had a goat take its horn to her hand * She was told by the ED that it looks like it got the tendon * They would not stitch it due to having dirt inside of it * She also is having a reaction to something that was used on her hand Advance Directives Documents on File Type Date Recorded Patient Lead Advisor Expl anation Advance Directive(s) 08/24/2021 12:38 PM Advance Directive(s) 11/27/2020 1:08 PM Advance Directive(s) 01/02/2020 7:38 PM Advance Directive Response Recorded Date/ Time Advance Directives No November 04, 2017 5:13pm Living Will No December 02, 023 2:55pm Power of Patient Registrar No December 02, 2022 2:55pm Advance Directive Response Recorded Date/ Time Advance Directives No November 04, 2017 6:13pm Living Will No February 19, 2023 4: 37am Power of Patient Registrar No February 19, 2023 4:37am Summary Purpose Chief Complaint and Reason for Visit Chief Complaint CRAMPING WITH PREGNA NCY Chief Complaint CRAMPING WITH PREGNA NCY ABD PAIN Chief Complaint ABD PAIN Health Concerns Problem Noted Date Diagnosed Date [facility] - [facility] 05/29/2023 Education - [place] 05/29/2023 Problem Noted Date Diagnosed Date [facility] - [facility] 05/29/2023 Education - [place] 05/29/2023 Problem Noted Date Diagnosed Date [facility] - [facility] 05/29/2023 Education - [place] 05/29/2023 Problem Noted Date Diagnosed Date [facility] - [facility] 05/29/2023 Education - [place] 05/29/2023 Problem Noted Date Diagnosed Date [facility] - [facility] 05/29/2023 Education - [place] 05/29/2023 Problem Noted Date Diagnosed Date [facility] - [facility] 05/29/2023 Education - [place] 05/29/2023 Problem Noted Date Diagnosed Date [facility] - [facility] 05/29/2023 Education - [place] 05/29/2023 Problem Noted Date Diagnosed Date [facility] - [place] 05/29/2023 Education - [place] 05/29/2023 Problem Noted Date Diagnosed Date [place] Human Resources Office Assistant 07/09/2023 Problem Noted Date Diagnosed Date [place] Human Resources Office Assistant 07/09/2023 Problem Noted Date Diagnosed Date [place] Human Resources Office Assistant 07/09/2023 Infection Onset Date Last Indicated Resolved Time COVID-19 Rule-Out 07/16/2023 07/16/2023 07/16/2023 6:08 AM EDT Problem Noted Date Diagnosed Date [place] Human Resources Office Assistant 07/09/2023 Problem Noted Date Diagnosed Date [place] Human Resources Office Assistant 07/09/2023 Problem Noted Date Diagnosed Date [place] Human Resources Office Assistant 07/09/2023 Problem Noted Date Diagnosed Date [place] Human Resources Office Assistant 07/09/2023 Problem Noted Date Diagnosed Date [place] Human Resources Office Assistant 07/09/2023 Problem Noted Date Diagnosed Date [place] Human Resources Office Assistant 07/09/2023 Problem Noted Date Diagnosed Date [place] Human Resources Office Assistant 07/09/2023 Problem Noted Date Diagnosed Date [place] Human Resources Office Assistant 07/09/2023 Reason for Referral Specialty Diagnoses / Procedures Referred By Contac t Referred To Contact General Surgery Diagnoses Calculus of gallbladder without cholecystitis without obstruction Procedures CONSULT TO GENERAL SURGERY OFFICE/OUTPATIENT [facility] 60-74 MINUTES Etta Ugalde APRN.[facility] [address] [facility] [address] [place] [address] Referral ID Status Reason Start Date Expiration Date Visits Requested Visits Authorized [id number] Authorized PCP Requested Referral 07/19/2023 07/18/2024 1 1 Specialty Diagnoses / Procedures Referred By Contac t Referred To Contact Gastroenterology Diagnoses Generalized abdominal pain Procedures CONSULT TO GASTROENTEROLOGY OFFICE/OUTPATIENT [facility] 60 MINUTES Sandor Trent MD [address] [address] Referral ID Status Reason Start Date Expiration Date Visits Requested Visits Authorized [id number] Authorized PCP Requested Referral 02/27/2024 02/26/2025 1 1 Specialty Diagnoses / Procedures Referred By Contac t Referred To Contact Nutrition Diagnoses Obesity, Class I, BMI 30-34.9 Procedures CONSULT TO NUTRITION THERAPY MEDICAL NUTRITION ASSMT&IVNTJ INDIV EACH [address] Sabra Quinteros DO [address] [place] [address] [address] Referral ID Status Reason Start Date Expiration Date Visits Requested Visits Authorized [id number] Authorized PCP Requested Referral 03/23/2024 03/23/2025 1 4 Specialty Diagnoses / Procedures Referred By Contac t Referred To Contact Nutrition Diagnoses Celiac disease Procedures CONSULT TO NUTRITION THERAPY MEDICAL NUTRITION ASSMT&IVNTJ INDIV EACH [address] Kingston Davenport APRN.COPY CUTTER [address] [place] [address] Referral ID Status Reason Start Date Expiration Date Visits Requested Visits Authorized [id number] Authorized PCP Requested Referral 08/13/2025 1 4 Additional Source Comments <item><item><item> Privacy Markings (unrecogniz ed section and content) Section Author: Amanda Gonzalez PROHIBITION ON REDISCLOSURE OF CONFIDENTIAL INFORMATION This notice accompanies a disclosure of information concerning a client made to you with the consent of such client. Section Author: Amanda Gonzalez PROHIBITION ON REDISCLOSURE OF CONFIDENTIAL INFORMATION This notice accompanies a disclosure of information concerning a client made to you with the consent of such client. Section Author: Amanda Gonzalez PROHIBITION ON REDISCLOSURE OF CONFIDENTIAL INFORMATION This notice accompanies a disclosure of information concerning a client made to you with the consent of such client. Source Comments (unrecognize d section and content) In the event this informatio n is protected by the Federal Confidentiality of Alcohol and Drug Abuse Patient Records regulations: The Federal rules restrict any use of the information to criminally investigate or prosecute any alcohol or drug abuse patient.[facility] the event this information is protected by the Federal Confidentiality of Alcohol and Drug Abuse Patient Records regulations: The Federal rules restrict any use of the information to criminally investigate or prosecute any alcohol or drug abuse patient.[facility] Center[facility] the event this information is protected by the Federal Confidentiality of Alcohol and Drug Abuse Patient Records regulations: The Federal rules restrict any use of the information to criminally investigate or prosecute any alcohol or drug abuse patient.[facility] the event this information is protected by the Federal Confidentiality of Alcohol and Drug Abuse Patient Records regulations: The Federal rules restrict any use of the information to criminally investigate or prosecute any alcohol or drug abuse patient.[facility] the event this information is protected by the Federal Confidentiality of Alcohol and Drug Abuse Patient Records regulations: The Federal rules restrict any use of the information to criminally investigate or prosecute any alcohol or drug abuse patient.[facility] the event this information is protected by the Federal Confidentiality of Alcohol and Drug Abuse Patient Records regulations: The Federal rules restrict any use of the information to criminally investigate or prosecute any alcohol or drug abuse patient.[facility] Center[facility] the event this information is protected by the Federal Confidentiality of Alcohol and Drug Abuse Patient Records regulations: The Federal rules restrict any use of the information to criminally investigate or prosecute any alcohol or drug abuse patient.[facility] Center[facility] the event this information is protected by the Federal Confidentiality of Alcohol and Drug Abuse Patient Records regulations: The Federal rules restrict any use of the information to criminally investigate or prosecute any alcohol or drug abuse patient.[facility] Center[facility] the event this information is protected by the Federal Confidentiality of Alcohol and Drug Abuse Patient Records regulations: The Federal rules restrict any use of the information to criminally investigate or prosecute any alcohol or drug abuse patient.[facility] Center[facility] the event this information is protected by the Federal Confidentiality of Alcohol and Drug Abuse Patient Records regulations: The Federal rules restrict any use of the information to criminally investigate or prosecute any alcohol or drug abuse patient.[facility] CenterIn the event this information is protected by the Federal Confidentiality of Alcohol and Drug Abuse Patient Records regulations: The Federal rules restrict any use of the information to criminally investigate or prosecute any alcohol or drug abuse patient.[facility] CenterIn the event this information is protected by the Federal Confidentiality of Alcohol and Drug Abuse Patient Records regulations: The Federal rules restrict any use of the information to criminally investigate or prosecute any alcohol or drug abuse patient.[facility] CenterIn the event this information is protected by the Federal Confidentiality of Alcohol and Drug Abuse Patient Records regulations: The Federal rules restrict any use of the information to criminally investigate or prosecute any alcohol or drug abuse patient.[facility] CenterIn the event this information is protected by the Federal Confidentiality of Alcohol and Drug Abuse Patient Records regulations: The Federal rules restrict any use of the information to criminally investigate or prosecute any alcohol or drug abuse patient.[facility] CenterIn the event this information is protected by the Federal Confidentiality of Alcohol and Drug Abuse Patient Records regulations: The Federal rules restrict any use of the information to criminally investigate or prosecute any alcohol or drug abuse patient.[facility] CenterIn the event this information is protected by the Federal Confidentiality of Alcohol and Drug Abuse Patient Records regulations: The Federal rules restrict any use of the information to criminally investigate or prosecute any alcohol or drug abuse patient.[facility] CenterIn the event this information is protected by the Federal Confidentiality of Alcohol and Drug Abuse Patient Records regulations: The Federal rules restrict any use of the information to criminally investigate or prosecute any alcohol or drug abuse patient.[facility] CenterIn the event this information is protected by the Federal Confidentiality of Alcohol and Drug Abuse Patient Records regulations: The Federal rules restrict any use of the information to criminally investigate or prosecute any alcohol or drug abuse patient.[facility] CenterIn the event this information is protected by the Federal Confidentiality of Alcohol and Drug Abuse Patient Records regulations: The Federal rules restrict any use of the information to criminally investigate or prosecute any alcohol or drug abuse patient.[facility] CenterIn the event this information is protected by the Federal Confidentiality of Alcohol and Drug Abuse Patient Records regulations: The Federal rules restrict any use of the information to criminally investigate or prosecute any alcohol or drug abuse patient.[facility] CenterIn the event this information is protected by the Federal Confidentiality of Alcohol and Drug Abuse Patient Records regulations: The Federal rules restrict any use of the information to criminally investigate or prosecute any alcohol or drug abuse patient.[facility] CenterIn the event this information is protected by the Federal Confidentiality of Alcohol and Drug Abuse Patient Records regulations: The Federal rules restrict any use of the information to criminally investigate or prosecute any alcohol or drug abuse patient.[facility] CenterIn the event this information is protected by the Federal Confidentiality of Alcohol and Drug Abuse Patient Records regulations: The Federal rules restrict any use of the information to criminally investigate or prosecute any alcohol or drug abuse patient.[facility] CenterIn the event this information is protected by the Federal Confidentiality of Alcohol and Drug Abuse Patient Records regulations: The Federal rules restrict any use of the information to criminally investigate or prosecute any alcohol or drug abuse patient.[facility] CenterIn the event this information is protected by the Federal Confidentiality of Alcohol and Drug Abuse Patient Records regulations: The Federal rules restrict any use of the information to criminally investigate or prosecute any alcohol or drug abuse patient.[facility] CenterIn the event this information is protected by the Federal Confidentiality of Alcohol and Drug Abuse Patient Records regulations: The Federal rules restrict any use of the information to criminally investigate or prosecute any alcohol or drug abuse patient.[facility] CenterIn the event this information is protected by the Federal Confidentiality of Alcohol and Drug Abuse Patient Records regulations: The Federal rules restrict any use of the information to criminally investigate or prosecute any alcohol or drug abuse patient.[facility] CenterIn the event this information is protected by the Federal Confidentiality of Alcohol and Drug Abuse Patient Records regulations: The Federal rules restrict any use of the information to criminally investigate or prosecute any alcohol or drug abuse patient.[facility] CenterIn the event this information is protected by the Federal Confidentiality of Alcohol and Drug Abuse Patient Records regulations: The Federal rules restrict any use of the information to criminally investigate or prosecute any alcohol or drug abuse patient.[facility] CenterIn the event this information is protected by the Federal Confidentiality of Alcohol and Drug Abuse Patient Records regulations: The Federal rules restrict any use of the information to criminally investigate or prosecute any alcohol or drug abuse patient.[facility] CenterIn the event this information is protected by the Federal Confidentiality of Alcohol and Drug Abuse Patient Records regulations: The Federal rules restrict any use of the information to criminally investigate or prosecute any alcohol or drug abuse patient.[facility] CenterIn the event this information is protected by the Federal Confidentiality of Alcohol and Drug Abuse Patient Records regulations: The Federal rules restrict any use of the information to criminally investigate or prosecute any alcohol or drug abuse patient.[facility] CenterIn the event this information is protected by the Federal Confidentiality of Alcohol and Drug Abuse Patient Records regulations: The Federal rules restrict any use of the information to criminally investigate or prosecute any alcohol or drug abuse patient.[facility] CenterIn the event this information is protected by the Federal Confidentiality of Alcohol and Drug Abuse Patient Records regulations: The Federal rules restrict any use of the information to criminally investigate or prosecute any alcohol or drug abuse patient.[facility] CenterIn the event this information is protected by the Federal Confidentiality of Alcohol and Drug Abuse Patient Records regulations: The Federal rules restrict any use of the information to criminally investigate or prosecute any alcohol or drug abuse patient.[facility] CenterIn the event this information is protected by the Federal Confidentiality of Alcohol and Drug Abuse Patient Records regulations: The Federal rules restrict any use of the information to criminally investigate or prosecute any alcohol or drug abuse patient.[facility] CenterIn the event this information is protected by the Federal Confidentiality of Alcohol and Drug Abuse Patient Records regulations: The Federal rules restrict any use of the information to criminally investigate or prosecute any alcohol or drug abuse patient.[facility] CenterIn the event this information is protected by the Federal Confidentiality of Alcohol and Drug Abuse Patient Records regulations: The Federal rules restrict any use of the information to criminally investigate or prosecute any alcohol or drug abuse patient.[facility] CenterIn the event this information is protected by the Federal Confidentiality of Alcohol and Drug Abuse Patient Records regulations: The Federal rules restrict any use of the information to criminally investigate or prosecute any alcohol or drug abuse patient.[facility] CenterIn the event this information is protected by the Federal Confidentiality of Alcohol and Drug Abuse Patient Records regulations: The Federal rules restrict any use of the information to criminally investigate or prosecute any alcohol or drug abuse patient.[facility] CenterIn the event this information is protected by the Federal Confidentiality of Alcohol and Drug Abuse Patient Records regulations: The Federal rules restrict any use of the information to criminally investigate or prosecute any alcohol or drug abuse patient.[facility] CenterIn the event this information is protected by the Federal Confidentiality of Alcohol and Drug Abuse Patient Records regulations: The Federal rules restrict any use of the information to criminally investigate or prosecute any alcohol or drug abuse patient.[facility] the event this information is protected by the Federal Confidentiality of Alcohol and Drug Abuse Patient Records regulations: The Federal rules restrict any use of the information to criminally investigate or prosecute any alcohol or drug abuse patient.[facility] CenterIn the event this information is protected by the Federal Confidentiality of Alcohol and Drug Abuse Patient Records regulations: The Federal rules restrict any use of the information to criminally investigate or prosecute any alcohol or drug abuse patient.[facility] CenterIn the event this information is protected by the Federal Confidentiality of Alcohol and Drug Abuse Patient Records regulations: The Federal rules restrict any use of the information to criminally investigate or prosecute any alcohol or drug abuse patient.[facility]In the event this information is protected by the Federal Confidentiality of Alcohol and Drug Abuse Patient Records regulations: The Federal rules restrict any use of the information to criminally investigate or prosecute any alcohol or drug abuse patient.[facility] CenterIn the event this information is protected by the Federal Confidentiality of Alcohol and Drug Abuse Patient Records regulations: The Federal rules restrict any use of the information to criminally investigate or prosecute any alcohol or drug abuse patient.[facility] CenterIn the event this information is protected by the Federal Confidentiality of Alcohol and Drug Abuse Patient Records regulations: The Federal rules restrict any use of the information to criminally investigate or prosecute any alcohol or drug abuse patient.[facility] CenterIn the event this information is protected by the Federal Confidentiality of Alcohol and Drug Abuse Patient Records regulations: The Federal rules restrict any use of the information to criminally investigate or prosecute any alcohol or drug abuse patient.[facility] CenterIn the event this information is protected by the Federal Confidentiality of Alcohol and Drug Abuse Patient Records regulations: The Federal rules restrict any use of the information to criminally investigate or prosecute any alcohol or drug abuse patient.[facility] CenterIn the event this information is protected by the Federal Confidentiality of Alcohol and Drug Abuse Patient Records regulations: The Federal rules restrict any use of the information to criminally investigate or prosecute any alcohol or drug abuse patient.[facility] CenterIn the event this information is protected by the Federal Confidentiality of Alcohol and Drug Abuse Patient Records regulations: The Federal rules restrict any use of the information to criminally investigate or prosecute any alcohol or drug abuse patient.[facility] CenterIn the event this information is protected by the Federal Confidentiality of Alcohol and Drug Abuse Patient Records regulations: The Federal rules restrict any use of the information to criminally investigate or prosecute any alcohol or drug abuse patient.[facility] Reason for Visit (unrecogniz ed section and content) Reason Comments Consult Reason Onset Date Comments Appointment 05/19/2023 Reason Comments Care Reason Comments US Specialty Diagnoses / Procedures Referred By Contac t Referred To Contact [facility] Diagnoses Supervision of high risk in third trimester Procedures OBSTETRIC ULTRASOUND WHI US PREG UTERUS AFTER 1ST TRIMEST GESTATION Etta Ugalde, REFRACTORY TILE HELPER.[facility] [address] [address] [id number] [place] [address] Referral ID Status Reason Start Date Expiration Date V isits Requested Visits Authorized [id number] Closed Auto-Generate d Referral 05/23/2023 05/22/2024 1 1 Reason Comments Education Of Patient/family PT to luis m gleason PNP at next visit, watched video. See CHW's for pwk. Reason Comments Patient Update Reason Comments Care Specialty Diagnoses / Procedures Referred By Contac t Referred To Contact [facility] Diagnoses Supervision of high risk in third trimester Cholestasis during in third trimester Procedures BIOPHYSICAL PROFILE US WHI BIOPHYSICAL PROFILE NON-STRESS TESTING Etta Ugalde, CLINT.[facility] [address] [address] [facility] [address] [place] [address] Referral ID Status Reason Start Date Expiration Date V isits Requested Visits Authorized [id number] Closed Auto-Generate d Referral 05/23/2023 05/22/2024 10 1 Reason Comments Nst (Non Stress Test) Reason Comments Care Nst (Non Stress Test) Reason Comments Internal Referrals/resources Reason Onset Date Comments Returning Patient's Call 07/12/2023 Reason Onset Date Comments Blood Pressure 07/14/2023 Reason Onset Date Comments Appointment 07/13/2023 Reason Onset Date Comments Blood Pressure 07/16/2023 Reason Comments Early Reason Comments Abdominal Pain Gallbladder Specialty Diagnoses / Procedures Referred By Contac t Referred To Contact General Surgery Diagnoses Calculus of gallbladder without cholecystitis without obstruction Procedures CONSULT TO GENERAL SURGERY OFFICE/OUTPATIENT [facility] 60-74 MINUTES Etta Ugalde, REFRACTORY TILE HELPER.COPY CUTTER [address] [facility] [address] [place] [address] Referral ID Status Reason Start Date Expiration Date V isits Requested Visits Authorized [id number] Closed PCP Requested Referral 07/19/2023 07/18/2024 1 1 Reason Comments Follow Up BP Reason Comments Establish Care Reason Comments Routine Reason Comments Follow Up Reason Comments Abdominal Pain Pain around navel, r adiating around abd x 2 weeks, seen in ER on Saturday Reason Comments Abdominal Pain X2wks, difficulty ur inating and elbert colored urination Reason Comments Preparations For Surgery Pre-op Instruct ions Reason Comments Blood In Urine Microscopic hematuri a Specialty Diagnoses / Procedures Referred By Contac t Referred To Contact Urology Diagnoses Microscopic hematuria Procedures CONSULT TO UROLOGY OFFICE/OUTPATIENT [facility] 60 MINUTES Sandor Trent MD [address] [address] Referral ID Status Reason Start Date Expiration Date V isits Requested Visits Authorized [id number] Closed PCP Requested Referral 01/15/2024 01/14/2025 1 1 Reason Comments Breast Problem Not lactating right breast Reason Comments Post-Op Visit 02/06 umbilical herni a repair Reason Comments New Patient Establish care previ ous pcp was Dr. Torres in [place]. Well Adult Reason Comments Abdominal Pain Reason Comments Consult Pain Specialty Diagnoses / Procedures Referred By Contac t Referred To Contact Gastroenterology Diagnoses Generalized abdominal pain Procedures CONSULT TO GASTROENTEROLOGY OFFICE/OUTPATIENT [facility] 60 MINUTES Sandor Trent MD [address] [address] Referral ID Status Reason Start Date Expiration Date V isits Requested Visits Authorized [id number] Closed PCP Requested Referral 02/27/2024 02/26/2025 1 1 Reason Comments Radio Gen RMP Specialty Diagnoses / Procedures Referred By Contac t Referred To Contact XR IMAGING Diagnoses Generalized abdominal pain Diarrhea, unspecified type Procedures XR ABDOMEN 2V ROUTINE SUPINE W UPRIGHT/DECUB/CTL RADIOLOGIC EXAM ABDOMEN 2 VIEWS Kingston Davenport, REFRACTORY TILE HELPER.COPY CUTTER [address] [place] [address] [place] [address] Referral ID Status Reason Start Date Expiration Date V isits Requested Visits Authorized [id number] Closed Auto-Generate d Referral 07/22/2024 08/21/2025 1 1 Reason Comments Education Of Patient/family Appointment Reason Comments Follow Up Tests Results Celiac Disease Reason Comments Nutrition Assessment Specialty Diagnoses / Procedures Referred By Contac t Referred To Contact Nutrition Diagnoses Celiac disease Procedures CONSULT TO NUTRITION THERAPY MEDICAL NUTRITION ASSMT&IVNTJ INDIV EACH 15 [address] Kingston Davenport, REFRACTORY TILE HELPER.COPY CUTTER [address] [place] [address] Referral ID Status Reason Start Date Expiration Date Visits Requested Visits Authorized [id number] Authorized PCP Requested Referral 08/13/2025 1 4 Reason Comments Celiac Disease Specialty Diagnoses / Procedures Referred By Contac t Referred To Contact Radiology / RADIO [facility] Diagnoses Unspecified abdominal pain R10.9 Abdominal pain, unspecified abdominal location Procedures CT ABD & PELVIS W/CONTRAST CT WWO ABD1 [address] [facility], DO [address] [facility] [address] [place] [address] [facility] [address] [place] [address] Referral ID Status Reason Start Date Expiration Date Visits Requested Visits Authorized [id number] Authorized Patient Cleared - Admin/Chairm an/Director advise to proceed or did not respond 11/04/2024 10/20/2025 2 2 Reason Comments Earache Right ear discomfort X 2 days Reason Comments Abdominal Pain Patient reports RLQ pain that started today, patient reports being 9 weeks . Patient also c/o dysuria, denies fever. Reason Onset Date Comments ED Follow-up 03/08/2025 03/02/25 Reason Comments Emesis During States unable to keep anything down even with zofran Reason Onset Date Comments ED Follow-up 04/22/2025 [facility] Care Teams (unrecognized sec tion and content) Creative Services Intern Relationship Specialty Start Date End Date Oberhauser, Bertha L [address] [place] [address] PCP - General Internal Medicine 08/24/21 Team Status: Active Member Role Status Dates TEA LARIOS Family Provider Active Dr. Bertha Enriquez , DO Primary Care Provider Active Team Status: Inactive Member Role Status Dates Dr. Bertha Enriquez , DO Primary Care Provider Active Dr. Fili Stratton , DO Attending Provider, Emergency Provide r Active Team Status: Inactive Member Role Status Dates Dr. Bertha Enriquez , DO Primary Care Provider Active Dr. Luci Whitaker , DO Attending Provider Active Team Status: Inactive Member Role Status Dates Dr. Bertha Enriquez , DO Primary Care Provider Active BREANNE WALL Attending Provider Active Team Status: Inactive Member Role Status Dates Dr. Bertha Enriquez , DO Primary Care Provider Active Dr. Alex Hong , DO Emergency Provider Active Team Status: Inactive Member Role Status Dates Dr. Bertha Enriquez , DO Primary Care Provider Active Dr. Alex Hong , DO Attending Provider, Emergency Pr ovider Active Creative Services Intern Relationship Specialty Start Date End Date Bertha Enriquez DO [id number] PCP - General Internal Medicine 08/24/21 Creative Services Intern Relationship Specialty Start Date End Date Bertha Enriquez DO [id number] PCP - General Internal Medicine 08/24/21 Creative Services Intern Relationship Specialty Start Date End Date Bertha Enriquez DO [address] [place] [address] PCP - General Internal Medicine 08/24/21 Creative Services Intern Relationship Specialty Start Date End Date Bretha Enriquez DO [address] [place] [address] PCP - General Internal Medicine 08/24/21 Creative Services Intern Relationship Specialty Start Date End Date Bertha Enriquez DO [address] [place] [address] PCP - General Internal Medicine 08/24/21 Creative Services Intern Relationship Specialty Start Date End Date Bertha Enriquez DO [address] [place] [address] PCP - General Internal Medicine 08/24/21 Creative Services Intern Relationship Specialty Start Date End Date Bertha Enriquez DO [address] [place] [address] PCP - General Internal Medicine 08/24/21 Creative Services Intern Relationship Specialty Start Date End Date Bertha Enriquez DO [address] [place] [address] PCP - General Internal Medicine 08/24/21 Creative Services Intern Relationship Specialty Start Date End Date Bertha Enriquez DO [address] [place] [address] PCP - General Internal Medicine 08/24/21 Creative Services Intern Relationship Specialty Start Date End Date Bertha Enriquez DO [address] [place] [address] PCP - General Internal Medicine 08/24/21 Creative Services Intern Relationship Specialty Start Date End Date Bertha Enriquez DO [address] [place] [address] PCP - General Internal Medicine 08/24/21 Creative Services Intern Relationship Specialty Start Date End Date Bertha Enriquez DO [address] [place] [address] PCP - General Internal Medicine 08/24/21 Creative Services Intern Relationship Specialty Start Date End Date Bertha Enriquez DO [address] [place] [address] PCP - General Internal Medicine 08/24/21 Creative Services Intern Relationship Specialty Start Date End Date Bertha Enriquez DO [address] [place] [address] PCP - General Internal Medicine 08/24/21 Creative Services Intern Relationship Specialty Start Date End Date Bertha Enriquez DO [address] [place] [address] PCP - General Internal Medicine 08/24/21 Creative Services Intern Relationship Specialty Start Date End Date Bertha Enriquez DO [address] [place] [address] PCP - General Internal Medicine 08/24/21 Creative Services Intern Relationship Specialty Start Date End Date Bertha Enriquez DO [address] [facility] [place] [address] PCP - General Internal Medicine 08/24/21 Creative Services Intern Relationship Specialty Start Date End Date Bertha Enriquez DO [address] [facility] [place] [address] PCP - General Internal Medicine 08/24/21 Creative Services Intern Relationship Specialty Start Date End Date Bertha Enriquez DO [address] [facility] [place] [address] PCP - General Internal Medicine 08/24/21 Creative Services Intern Relationship Specialty Start Date End Date Bertha Enriquez DO [address] [facility] [place] [address] PCP - General Internal Medicine 08/24/21 Etta Ugalde APRN.COPY CUTTER [address] [place] [address] Referring WANT AD SUPERVISOR 07/29/23 Creative Services Intern Relationship Specialty Start Date End Date Bertha Enriquez DO [address] [facility] [place] [address] PCP - General Internal Medicine 08/24/21 Etta Ugalde APRN.COPY CUTTER [address] [place] [address] Referring WANT AD SUPERVISOR 07/29/23 Creative Services Intern Relationship Specialty Start Date End Date Bertha Enriquez DO [address] [facility] [place] [address] PCP - General Internal Medicine 08/24/21 Etta Ugalde APRN.COPY CUTTER [address] [place] [address] Referring WANT AD SUPERVISOR 07/29/23 Creative Services Intern Relationship Specialty Start Date End Date Bertha Enriquez DO [address] [facility] [place] [address] PCP - General Internal Medicine 08/24/21 Etta Ugalde APRN.COPY CUTTER [address] [place] [address] Referring WANT AD SUPERVISOR 07/29/23 Creative Services Intern Relationship Specialty Start Date End Date Bertha Enriquez DO [address] [facility] [place] [address] PCP - General Internal Medicine 08/24/21 Etta Ugalde APRN.COPY CUTTER [address] [place] [address] Referring WANT AD SUPERVISOR 07/29/23 Creative Services Intern Relationship Specialty Start Date End Date Bertha Enriquez DO [address] [place] [address] PCP - [employer] PCP 07/21/22 Ken Rachel MD [address] [place] [address] PCP - General Family Medicine 12/12/23 Creative Services Intern Relationship Specialty Start Date End Date Bertha Enriquez DO [address] [facility] [place] [address] PCP - [employer] PCP 07/21/22 Ken Rachel MD [address] [place] [address] PCP - General Family Medicine 12/12/23 Creative Services Intern Relationship Specialty Start Date End Date Bertha Enriquez DO [address] [place] [address] PCP - [employer] PCP 07/21/22 Ken Rachel MD [address] [place] [address] PCP - General Family Medicine 12/12/23 Creative Services Intern Relationship Specialty Start Date End Date Ken Rachel MD [address] [place] [address] PCP - General Family Medicine 01/06/24 Etta Ugalde, CLINT.COPY CUTTER [address] [place] [address] [id number] Referring Concrete Mixer Truck Driver 07/29/23 Creative Services Intern Relationship Specialty Start Date End Date Sabra Quinteros DO [address] [place] [address] PCP - General Family Medicine 01/22/24 Etta Ugalde, CLINT.COPY CUTTER [address] [place] [address] [phone] Referring Concrete Mixer Truck Driver 07/29/23 Creative Services Intern Relationship Specialty Start Date End Date Sabra Quinteros DO [address] [place] [address] PCP - General Family Medicine 01/22/24 Etta Ugalde, CLINT.COPY CUTTER [address] [place] [address] [phone] Referring Concrete Mixer Truck Driver 07/29/23 Creative Services Intern Relationship Specialty Start Date End Date Sabra Quinteros DO [address] [place] [address] PCP - General Family Medicine 01/22/24 Etta Ugalde, REFRACTORY TILE HELPER.COPY CUTTER [address] [place] [address] [id number] Referring Concrete Mixer Truck Driver 07/29/23 Creative Services Intern Relationship Specialty Start Date End Date Sabra Quinteros DO [address] [place] [address] PCP - General Family Medicine 01/22/24 Etta Ugalde, REFRACTORY TILE HELPER.COPY CUTTER [address] [place] [address] [phone] Referring Concrete Mixer Truck Driver 07/29/23 Creative Services Intern Relationship Specialty Start Date End Date Sabra Quinteros DO [address] [place] [address] PCP - General Family Medicine 01/22/24 Etta Ugalde, REFRACTORY TILE HELPER.COPY CUTTER [address] [place] [address] [phone] Referring Concrete Mixer Truck Driver 07/29/23 Creative Services Intern Relationship Specialty Start Date End Date Sabra Quinteros DO [address] [place] [address] PCP - General Family Medicine 01/22/24 Etta Ugalde, REFRACTORY TILE HELPER.COPY CUTTER [address] [place] [address] [id number] Referring Concrete Mixer Truck Driver 07/29/23 Creative Services Intern Relationship Specialty Start Date End Date Sabra Quinteros DO [address] [place] [address] [id number] PCP - General Family Medicine 01/22/24 Etta Ugalde, REFRACTORY TILE HELPER.COPY CUTTER [address] [place] [address] [phone] Referring Concrete Mixer Truck Driver 07/29/23 Creative Services Intern Relationship Specialty Start Date End Date Sabra Quinteros DO [address] [place] [address] [id number] PCP - General Family Medicine 01/22/24 Etta Ugalde, REFRACTORY TILE HELPER.COPY CUTTER [address] [place] [address] [phone] Referring Concrete Mixer Truck Driver 07/29/23 Creative Services Intern Relationship Specialty Start Date End Date Sabra Quinteros DO [address] [place] [address] [id number] PCP - General Family Medicine 01/22/24 Etta Ugalde, REFRACTORY TILE HELPER.COPY CUTTER [address] [place] [address] [phone] Referring Concrete Mixer Truck Driver 07/29/23 Creative Services Intern Relationship Specialty Start Date End Date Sabra Quinteros DO [address] [place] [address] [phone] PCP - General Family Medicine 01/22/24 Etta Ugalde, REFRACTORY TILE HELPER.COPY CUTTER [address] [place] [address] [phone] Referring Concrete Mixer Truck Driver 07/29/23 Creative Services Intern Relationship Specialty Start Date End Date Sabra Quinteros DO [address] [place] [address] [id number] PCP - General Family Medicine 01/22/24 Etta Ugalde APRN.COPY CUTTER [facility] [address] [phone] Referring Concrete Mixer Truck Driver 07/29/23 Creative Services Intern Relationship Specialty Start Date End Date Sabra Quinteros DO [address] [place], [place] [phone] PCP - General Family Medicine 01/22/24 Etta Ugalde APRN.COPY CUTTER [facility] [address] [phone] Referring Concrete Mixer Truck Driver 07/29/[address] [place] [address] [phone] Registered Dietitian Nutrition 08/19/24 Creative Services Intern Relationship Specialty Start Date End Date Sabra Quinteros DO [address] [facility], [place] [phone] PCP - General Family Medicine 01/22/24 Etta Ugalde APRN.COPY CUTTER [address] [place] [address] [phone] Referring Concrete Mixer Truck Driver 07/29/[address], [place] [address] Registered Dietitian Nutrition 08/19/24 Creative Services Intern Relationship Specialty Start Date End Date Sabra Quinteros DO [address] [facility] [place] [phone] PCP - General Family Medicine 01/22/24 Etta Ugalde APRN.COPY CUTTER [address] [place] [address] [phone] Referring Concrete Mixer Truck Driver 07/29/[address] [place] [address] [phone] Registered Dietitian Nutrition 08/19/24 Creative Services Intern Relationship Specialty Start Date End Date Neli, Sabra Killian DO [address] [place] [address] [phone] PCP - General Family Medicine 01/22/24 Etta Ugalde APRN.COPY CUTTER [address] [place] [address] [phone] Referring Concrete Mixer Truck Driver 07/29/[address] [place] [address] [phone] Registered Dietitian Nutrition 08/19/24 Creative Services Intern Relationship Specialty Start Date End Date Ken Rachel MD PCP - General Family Medicine 12/12/23 Ken Rachel MD [address] [phone] PCP - O ACO PCP 01/20/24 Ken Rachel MD [address] [address] PCP - [place] [facility] PCP 01/20/24 Creative Services Intern Relationship Specialty Start Date End Date Neli, Sabra Killian DO [address] [place] [address] [phone] PCP - General Family Medicine 01/22/24 Etta Ugalde APRN.COPY CUTTER [address] [place] [address] [phone] Referring Concrete Mixer Truck Driver 07/29/[address] [place] [address] [phone] Registered Dietitian Nutrition 08/19/24 Creative Services Intern Relationship Specialty Start Date End Date Sabar Quinteros DO [address] [place] [address] [id number] PCP - General Family Medicine 01/22/24 Etta Ugalde, CLINT.COPY CUTTER [address] [place] [address] [phone] Referring Concrete Mixer Truck Driver 07/29/[address] [place] [address] 49704 Registered Dietitian Nutrition 08/19/24 Creative Services Intern Relationship Specialty Start Date End Date Sabra Quinteros DO [address] [place] [address] [phone] PCP - General Family Medicine 01/22/24 Etta Ugalde, REFRACTORY TILE HELPER.COPY CUTTER [address] [place] [address] 35346 Referring Concrete Mixer Truck Driver 07/29/[address] [place] [address] [phone] Registered Dietitian Nutrition 08/19/24 Creative Services Intern Relationship Specialty Start Date End Date Ken Rachel MD [address] [phone] PCP - [facility] PCP 01/20/24 Generic Provider, No Assigned Pcp, [place] [address] PCP - General Supervisor Endless Track Vehicle 03/02/25 Creative Services Intern Relationship Specialty Start Date End Date NeliSabraDO [address] [place] [address] PCP - General Family Medicine 01/22/24 Etta Ugalde APRN.COPY CUTTER [address] [facility] [address] [place] [address] Referring Concrete Mixer Truck Driver 07/29/[address] [place] [address] Registered Dietitian Nutrition 08/19/24 INFORMATION SOURCE (unrecogn ized section and content) DATE CREATED AUTHOR 02/01/2022 [facility] DATE CREATED AUTHOR AUTHOR'S ORGANIZ ATION 03/09/2022 [facility] DATE CREATED AUTHOR AUTHOR'S ORGANIZ ATION 05/25/2022 [employer] DATE CREATED AUTHOR AUTHOR'S ORGANIZ ATION 05/25/2023 [facility] DATE CREATED AUTHOR AUTHOR'S ORGANIZ ATION 01/14/2024 [facility] DATE CREATED AUTHOR AUTHOR'S ORGANIZ ATION 02/08/2024 [facility] DATE CREATED AUTHOR AUTHOR'S ORGANIZ ATION 06/29/2024 [facility] DATE CREATED AUTHOR AUTHOR'S ORGANIZ ATION 10/30/2024 [facility] DATE CREATED AUTHOR AUTHOR'S ORGANIZ ATION 11/09/2024 [facility] DATE CREATED AUTHOR AUTHOR'S ORGANIZ ATION 02/26/2025 [facility] DATE CREATED AUTHOR AUTHOR'S ORGANIZ ATION 03/16/2025 [facility] DATE CREATED AUTHOR AUTHOR'S ORGANIZ ATION 03/17/2025 [facility] DATE CREATED AUTHOR AUTHOR'S ORGANIZ ATION 03/18/2025 [facility] DATE CREATED AUTHOR AUTHOR'S ORGANIZ ATION 03/29/2025 [facility] DATE CREATED AUTHOR AUTHOR'S ORGANIZ ATION 04/25/2025 [facility] al Goals (unrecognized section and content) Goals may be documented in a n alternate sectionGoals may be documented in an alternate sectionGoals may be documented in an alternate sectionGoals may be documented in an alternate section Scheduled Active and Recently Administ ered Medications (unrecognized section and content) Medication Order 02/28/2025 03/01/2025 03/02/2025 potassium chloride (Klor-Con) packet 40 mEq (COMPLETED) 40 mEq, oral, Once, On Sat03/02/25 at 1920, For 1 dose, Dissolve each packet in 4 ounces of water = 5 mEq per 1 oz fluid. 1927 (Given - Provid er: Abby Caballero RN) potassium chloride CR (Klor-Con M20) ER tablet 40 mEq 40 mEq, oral, Once, On Sat03/02/25 at 1910, For 1 dose, Best given with food and plenty of water to minimize gastric irritation. Do not crush or chew. 1918 (Not Given - Pr ovider: Abby Caballero RN - Reason: Other - Comment: Order changed) sodium chloride 0.9 % bolus 1,000 mL (COMPLETED) 1,000 mL, intravenous, at 999 mL/hr, Administer over 1 Hours, Once, On Sat03/02/25 at 1750, For 1 dose 182 (New Bag - Prov ider: Angella Pompa RN)1928 (Stopped - Provider: Abby Caballero RN) Scheduled Medication Order 03/08/2025 03/09/2025 03/10/2025 promethazine (PHENERGAN) 25 mg in sodium chloride 0.9 % 50 mL IVPB (COMPLETED) 25 mg, IntraVENous, at 200 mL/hr, Administer over 15 Minutes, ONCE, On Sat03/10/25 at 1025, For 1 dose, Administer via antecubital vein or higher. 1104 (New Bag - Prov ider: Zhanna Sanchez, SAMARA)1120 (Stopped - Provider: Zhanna Sanchez RN) sodium chloride 0.9 % bolus 1,000 mL (COMPLETED) 1,000 mL (13 mL/kg), IntraVENous, at 1,935.5 mL/hr, Administer over 31 Minutes, ONCE, On Sat03/10/25 at 1025, For 1 dose 1033 (New Bag - Prov ider: Tierra Mack RN)1159 (Stopped - Provider: Zhanna Sanchez RN) Ordered Prescriptions (unrec ognized section and content) Prescription Sig Dispense Quantity Refills Last Filled Start Date End Date promethazine (PROMETHEGAN) [address] 1 suppository rectally every 6 hours as needed for Nausea (or vomiting) 7 suppository 1 03/17/20 FOR RECORDS PERTAINING TO PATIENTS WHO ARE OR HAVE BEEN ENROLLED IN A CHEMICAL DEPENDENCY/SUBSTANCEABUSE PROGRAM, SOME INFORMATION MAY BE OMITTED. This clinical summary was aggregated from multiple sources. Caution should be exercised in using it in the provision of clinical care. This summary normalizes information from multiple sources, and as a consequence, information in this document may materially change the coding, format and clinical context of patient data. In addition, data may be omitted in some cases. CLINICAL DECISIONS SHOULD BE BASED ON THE PRIMARY CLINICAL RECORDS. [employer] provides no warranty or guarantee of the accuracy or completeness of information in this document.
[2025-05-03 01:40] VITALS: BP 103/60; PULSE 89; RESP 18; O2SAT 100
--- NOTE | 2025-05-03 02:46 | EDS_ITS ---
HPI History of Present Illness Chief Complaint: Flank Pain Informant: patient and spouse/S.O. Narrative Narrative: Patient is a 25-year-old female who is approximately 18 weeks . She states that she awoke from sleep with abdominal pain located mainly on the right side with bouts of nausea and vomiting. She states there is been no dysuria or vaginal bleeding or discharge. However the pain was not resolving with time or [id number] Tylenol and secondary to that she presents for evaluation [facility] Medical History (Updated 05/05/25 @ 22:[address] Alex Hong, DO) GERD (gastroesophageal reflux disease) Migraine Medical History no medical history Home Medications ?Medication ?Instructions ?Recorded ?Last Taken ?Type NK 02/19/23 Unknown History nitrofurantoin 100 mg PO BID 7 days #14 cap s 05/03/25 Unknown Rx monohydrate/macrocrystals 100 mg capsule (Macrobid) Allergy/AdvReac Type Severity Reaction Status Date / Time gluten Allergy Intermediate Abd Verified 05/02/25 23:41 cramps/diarrhea amoxicillin AdvReac PT UNSURE Verified 05/02/25 23:41 OF REACTION Social History Smoking Status: Never smoker ROS ROS ED Constitutional Constitutional ED: Denies chills or fever(s) Eyes Eyes: Denies change in vision ENT ENT ED: Denies sore throat Cardiovascular Cardiovascular: Denies chest pain Respiratory/Chest Respiratory/Chest: Denies cough or dyspnea Gastrointestinal Gastrointestinal: Reports abdominal pain, nausea and vomiting; Denies constipation or diarrhea Genitourinary Genitourinary ED: Denies dysuria or hematuria Musculoskeletal Musculoskeletal: Denies back pain Integumentary Denies rash Neurologic Neurologic: Denies headache(s) Hematologic/Lymphatic Hematologic/Lymphatic: Denies easy bleeding or easy bruising EXAM Physical Exam Const Vital Signs: 05/02/25 23:40 05/03/25 01:40 Temperature 97.9 F Temperature Source Oral Pulse Rate 91 89 Respiratory Rate 16 18 Blood Pressure 117/75 103/60 Blood Pressure Mean 89 74 Pulse Ox 98 100 Oxygen Delivery Method Room Air Room Air Positive well nourished and well developed General Appearance ED: well developed; Negative for pallor HEENT Reports moist mucous membranes HEENT Narrative: No tongue or lip swelling no oral lesions no airway edema or compromise No secondary findings in the posterior pharynx to suggest infection Eyes PERRL and EOMs intact bilaterally General Eye ED: Negative for scleral icterus Neck supple Resp normal respiratory effort and clear to auscultation bilaterally Cardio regular rate and regular rhythm GI non-distended GI Narrative: Abdomen is gravid with fundus consistent with reported gestational age Patient has pain with palpation in the right lower quadrant over McBurney's point with voluntary guarding. Heel strike is positive as well. Negative psoas and obturator signs. Auscultation: normoactive bowel sounds Palpation: soft Back/Spine no CVA tenderness Extremity normal to inspection Neuro oriented x3, CN's II-XII intact bilaterally and no sensory deficits noted Sensorium / Orientation: alert Motor Exam: strength 5/5 throughout Psych mental status grossly normal Skin no rashes or lesions noted and no wounds General Skin Exam: Negative for jaundice or pallor MDM MDM MDM Narrative Medical decision making narrative: Patient arrived to the ER with stable vitals. She is in her second trimester and denies vaginal bleeding or discharge to have low concern for potential miscarriage. With pain with palpation in the right lower quadrant over McBurney's point however in her second trimester there is high likelihood that this could be acute appendicitis in . Therefore I do feel the patient will require a CT scan to rule this out. Her white count is elevated but patient reports this has been elevated in the past and is most likely associated with her status. The urine sample does show changes consistent with potential infection versus contamination but the patient denies any dysuria. The CT scan evaluated appendix and there is no signs of acute appendicitis. She does not have signs of preeclampsia or urosepsis or acute kidney injury. There was no kidney stone noted on the CT scan either. Therefore at this time as patient has stable vitals and overall negative workup and there does not appear to be any type of potential complications such as miscarriage I do not feel there is need for further evaluation and she is otherwise safe for discharge with outpatient follow-up. History & Record Review Discussion w/independent historian: Patient and Significant other Lab Data Attestation: I reviewed the patient's lab results. Labs: Laboratory Results - last 24 hr 05/03/25 00:06 WBC 15.4 H RBC 3.69 L Hgb 11.3 L Hct 32.2 L MCV 87.3 MCH 30.6 MCHC 35.1 RDW Std Deviation 43.4 RDW Coeff of Samira 13.9 Plt Count 287 MPV 9.8 Immature Gran % (Auto) 0.600 Neut % (Auto) 74.0 H Lymph % (Auto) 20.0 Hyde % (Auto) 4.4 Eos % (Auto) 0.8 Baso % (Auto) 0.2 Absolute Neuts (auto) 11.4 H Absolute Lymphs (auto) 3.08 Nucleated RBC % 0 Sodium 135 Potassium 3.5 Chloride 101 Carbon Dioxide 22.7 Anion Gap 11 BUN 7 Creatinine 0.55 L Estim Creat Clear Calc 150.10 Est GFR (MDRD) Non-Af 130 BUN/Creatinine Ratio 12.6 Glucose 94 Calcium 9.0 Total Bilirubin 0.19 AST 17 ALT 11 Alkaline Phosphatase 98 Total Protein 7.0 Albumin 4.0 Globulin 3.0 Albumin/Globulin Ratio 1.3 Serum , Qual POSITIVE Urine Color Yellow Urine Clarity Sl. Cloudy Urine pH 5.0 Ur Specific Wendell 1.025 Urine Protein 30 H Urine Glucose (UA) Normal Urine Ketones 5 H Urine Occult Blood Negative Urine Nitrite Negative Urine Bilirubin Negative Urine Urobilinogen Normal Ur Leukocyte Esterase 25 H Urine RBC 0 SEEN Urine WBC 25-50 SEEN Ur Squamous Epith Cells > 100 SEEN Ur Transition Epith Cell 0-5 SEEN Urine Bacteria 3+ Urine Mucus 1+ Radiography Diagnostic Testing: Clinical Impression(s) from Imaging Studies Abdomen/Pelvis CT 05/03/25 01:18 IMPRESSION: Normal appendix. No acute findings. Reading Location: [place] [address] Discharge Plan Triage Chief Complaint: Flank Pain ED Provider: Alex Hong Dx/Rx/DC Orders Clinical Impression: Abdominal pain affecting , GERD (gastroesophageal reflux disease), History of migraine headaches Instructions: Abdominal Pain Prescriptions: New nitrofurantoin monohyd/m-cryst [Macrobid] 100 mg capsule 100 mg PO BID 7 Days Qty: 14 0RF Rx Instructions: must administer with a meal/food No Action NK Stand Alone Forms: ED Work / School Excuse Primary Care Provider: RIDDHI SIDDIQUI Referrals: RIDDHI SIDDIQUI [Other] Activity Restrictions/Additional Instructions: Your CT scan did not show findings of kidney stone or appendicitis. Your urine has a questionable UTI. Secondary to your status please take the antibiotic as directed to prevent any potential worsening of the infection. Follow-up with your POACHER WRINGER OPERATOR for repeat evaluation and return to the ER should you have any further concerns Print Language: Luxembourgish Disposition Disposition: Home, Self Care Discharge Date/Time: 05/03/25 02:56
[2025-05-03 02:50] VITALS: BP 100/64; PULSE 90; RESP 16; TEMP 36.7; O2SAT 99
== END 2025-05-03 02:56 | disposition home or self-care (01) ==
PROVIDERS: Emergency Provider Emergency Medicine; Visit Provider Emergency Medicine
DX: O26.892 Other specified pregnancy related conditions, second trimester (principal); Z3A.18 18 weeks gestation of pregnancy; K21.9 Gastro-esophageal reflux disease without esophagitis; R10.9 Unspecified abdominal pain; O99.612 Diseases of the digestive system complicating pregnancy, second trimester; Z86.69 Personal history of other diseases of the nervous system and sense organs
CPT/HCPCS: 74177; 80053; 81001; 84703; 85025; 87086; 87088; 87186; 96360; 99284; Q9967; A4216